=== PATIENT | female | born 1950 | race Caucasian/White ===

== ENCOUNTER 2016-11-11 12:27 | Emergency (ER) | payer MEDICARE ==
[~2016-11-11] VITALS: Ht 162.6 cm; Wt 98.0 kg
[~2016-11-11 12:27] MED LIST: ATOR40TA49 PO; CIPR500T2 PO; CYMB60CA PO; ECOT81TA2 PO; GABA100C4 PO; LISI-360 PO; METF500 PO; NIFE1TAB86 PO
[2016-11-11 12:35] VITALS: BP 168/92; PULSE 83; RESP 16; TEMP 99.4; O2SAT 98
[2016-11-11] MEDS ORDERED: ACETAMINOPHEN/HYDROcodone 325 MG/7.5 MG TAB PO ONE (13:15)
--- NOTE | 2016-11-11 13:15 | PD ---
HPI Chief Complaint: Pain: Acute or Chronic Time Seen by Provider: 13:11 Travel History International Travel<30 days: No Contact w/Intl Traveler<30days: No Traveled to known affect area: No History of Present Illness HPI Patient is a 66-year-old female presenting with right lower extremity pain and rash. She states the pain is present for 3 days. It is severe and the only characteristic is sharp. It does not radiate. It is in the thigh and knee. This morning she developed a rash in the area. She agrees that it doesn't burn. She denies any new weakness or paresthesias in the extremity but states she has some chronic right lower extremity weakness secondary to CVA. She denies fever, chills, nausea and vomiting. She states that she has not felt well since yesterday but denies any specific complaint. She denies abdominal pain, lymphadenopathy, headache, neck stiffness and ENT/URI symptoms. She denies any trauma or injury. She is on metformin for diabetes which is well controlled. Denies any immunocompromised states. PFSH Past Medical History Arthritis: Yes Asthma: No Autoimmune Disease: No Blood Disorders: No Anxiety: Yes Depression: Yes Heart Rhythm Problems: Yes Cancer: Yes (LEFT BREAST) Cardiovascular Problems: Yes High Cholesterol: Yes Chemotherapy: Yes Chest Pain: No Congestive Heart Failure: No COPD: No Cerebrovascular Accident: Yes Diabetes: Yes Diminished Hearing: No Endocrine: Yes Gastrointestinal Disorders: Yes (METFORMIN INDUCED DIARRHEA) GERD: No Glaucoma: No Genitourinary: No Headaches: Yes Hepatitis: No Hiatal Hernia: No Herniated Disk: Yes Hypertension: Yes Immune Disorder: No Kidney Stones: No Musculoskeletal: Yes (SPINAL STENOSIS) Neurologic: Yes Psychiatric: Yes Reproductive: No Respiratory: No Migraines: Yes (years ago) Myocardial Infarction: No Radiation Therapy: Yes Seizures: No Sleep Apnea: No 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) Ulcer: No PNEUMOCCOCAL Vaccine (Year): 1 Menopausal: Yes Past Surgical History Abdominal Surgery: Yes (CHOLECYSTECTOMY) Section: Yes Cholecystectomy: Yes Ear Surgery: No Eye Surgery: No Gynecologic Surgery: Yes (C SECTION) Insulin Pump: No Joint Replacement: Yes (LT KNEE 11/2004) Oral Surgery: No Pacemaker: No Thoracic Surgery: Yes (LEFT BREAST BX/LUMPECTOMY) Other Surgery: Yes (LUMBAR SPINAL FUSION BACK) Social History Alcohol Use: No Tobacco Use: No Substance Use: No Allergies-Medications (Allergen,Severity, Reaction): Coded Allergies: Allopurinol (Verified Allergy, Severe, Hives, 11/11/16) Clonidine (Verified Allergy, Severe, LETHARGY,SHAKING, 11/11/16) Fiorinal (Verified Allergy, Severe, Hallucinations, 11/11/16) Sulfa (Verified Allergy, Severe, HIVES, 11/11/16) Morphine (Verified Adverse Reaction, Severe, SHAKING, HEADACHE, 11/11/16) *MDRO Multi-Drug Resistant Organism (Verified Adverse Reaction, Unknown, ) ESBL+E.Coli (urine-06/13/16) Reported Meds & Prescriptions Reported Meds & Active Scripts Active Lortab (Hydrocodone-Acetaminophen) 7.5-325 Mg Tab 1 Tab PO Q6H PRN Valacyclovir (Valacyclovir HCl) 1 Gm Tab 1,000 Mg PO TID Reported Nifedipine ER 24 HR (Nifedipine) 60 Mg Tab 60 Mg PO DAILY Metformin (Metformin HCl) 1,000 Mg Tab 1,000 Mg PO BIDPC With meals Lisinopril 10 Mg Tab 10 Mg PO DAILY Gabapentin 100 Mg Cap 100 Mg PO TID Lipitor (Atorvastatin Calcium) 40 Mg Tab 40 Mg PO HS Aspirin 81 Mg Chew 81 Mg CHEW DAILY Review of Systems Except as stated in HPI: all other systems reviewed are Neg Physical Exam Narrative GENERAL: Well-developed and well-nourished adult female in no acute distress. SKIN: 3 areas of grouped vesicles on the anterior right lower extremity in the mid thigh, the knee and calf approximately in the L2-L3 distribution. No lesions posteriorly or on the left lower extremity. Warm and dry. Good turgor without tenting. HEAD: Normocephalic and atraumatic. EYES: PERRL bilaterally, 5mm. EOMI bilaterally. No injection or icterus present. No proptosis. Lids without edema or erythema. ENT: Buccal mucosa pink and moist. Oropharynx free of erythema, tonsillar hypertrophy, masses, swelling, asymmetry and exudates. Uvula midline and airway patent. NECK: Supple, no meningeal signs. Trachea midline, no JVD. No cervical or facial lymphadenopathy. CARDIOVASCULAR: Regular rate and rhythm without murmurs, rubs, clicks or gallops. Dorsalis pedis and posterior tibial pulses 2+ bilaterally. No pedal edema. RESPIRATORY: Clear to auscultation bilaterally with symmetrical rise and fall, no distress or use of accessory muscles. GASTROINTESTINAL: Non-tender, non-distended. Normal bowel sounds all 4 quadrants. No masses or organomegaly present. MUSCULOSKELETAL: Patient has tenderness around the vesicular lesions on the right lower extremity anteriorly without any edema, ecchymosis, crepitus or step -offs. Full range of motion of the right hip knee. Patient freely moving all four extremities spontaneously. Extremities without clubbing, cyanosis, or edema. No obvious deformities. NEUROLOGIC: CN II-XII grossly intact. Awake and alert. Motor grossly within normal limits. Normal speech. PSYCHIATRIC: Appropriate mood and affect; insight and judgment normal. Data Data Last Documented VS Vital Signs Date Time Temp Pulse Resp B/P Pulse Ox O2 Delivery O2 Flow Rate FiO2 11/11/16 12:35 99.4 83 16 168/92 98 Orders Acetamin-Hydrocod 325-7.5 Mg ([place] 7.5 (11/11/16 13:15) MDM Medical Decision Making Medical Screen Exam Complete: Yes Emergency Medical Condition: Yes Differential Diagnosis Shingles versus leg pain versus myalgia versus viral syndrome Narrative Course Patient is a 66-year-old female presenting with history and physical consistent with shingles to the right lower extremity. She is afebrile and nontoxic appearing. She reports feeling somewhat fatigued over the last day likely secondary to viral syndrome. She has well controlled diabetes and is not on any immunocompromising states. I discussed with Dr. Gan who agrees no additional workup is indicated at this time. Patient is feeling much better after Lortab given. She is given a prescription for Lortab and valacyclovir and recommend follow-up with her PCP Dr. Betts tomorrow or Friday.See discharge paperwork for further instructions. The plan was discussed with the patient who acknowledged their understanding and agreement. Reinforced the follow-up with primary care is critically important. Patient instructed on emergent conditions that should prompt return to ED. Diagnosis Primary Impression: Shingles Qualified Code: B02.9 - Herpes zoster without complication Patient Instructions: General Instructions, Shingles (ED) Additional Instructions: Take medications as prescribed Your medications may cause drowsiness. Do not take with alcohol or sedatives. Do not operate a motor vehicle or heavy machinery while on medication. Do not pick at or scratch the rash/lesions on your skin Follow-up with your PCP in one to 2 days Return to the ED for any acute worsening of symptoms Med/Other Pt SpecificInfo: Prescription(s) given Scripts Hydrocodone-Acetaminophen (Lortab)7.5-325 Mg Tab1 Tab PO Q6H PRN (PAIN) #15 TAB Ref 0 Prov:Florence Gan MD 11/11/16 Valacyclovir 1 Gm Tab1,000 Mg PO TID #21 TAB Ref 0 Prov:Florence Gan MD 11/11/16 Disposition: 01 DISCHARGE HOME Condition: Stable Boris Amanda III Nov 11, 2016 13:15
[2016-11-11] MEDS ORDERED: HYDR-3534 PO (13:17)
[2016-11-11] MEDS ORDERED: VALA1TAB PO (13:17)
[2016-11-11] MEDS ORDERED: METF1000 PO (13:30)
[2016-11-11] MEDS ORDERED: LISI10TA3 PO (13:30)
[2016-11-11] MEDS ORDERED: GABA100C4 PO (13:30)
[2016-11-11] MEDS ORDERED: ASPI81CH PO (13:30)
[2016-11-11] MEDS ORDERED: NIFE60TA58 PO (13:30)
[2016-11-11] MEDS ORDERED: LIPI40TA PO (13:30)
== END 2016-11-11 14:25 | disposition home or self-care (01) ==
LOC: PHEFT 12:27
DX: B02.9 Zoster without complications (principal); E11.9 Type 2 diabetes mellitus without complications; I10 Essential (primary) hypertension; E78.00 Pure hypercholesterolemia, unspecified; E07.9 Disorder of thyroid, unspecified; I69.351 Hemiplegia and hemiparesis following cerebral infarction affecting right dominant side; Z79.84 Long term (current) use of oral hypoglycemic drugs; Z87.39 Personal history of other diseases of the musculoskeletal system and connective tissue; Z86.59 Personal history of other mental and behavioral disorders; Z86.79 Personal history of other diseases of the circulatory system; Z85.3 Personal history of malignant neoplasm of breast; Z87.19 Personal history of other diseases of the digestive system; Z86.69 Personal history of other diseases of the nervous system and sense organs
CPT/HCPCS: 99283

== ENCOUNTER 2016-12-14 15:25 | Emergency (ER) | payer MEDICARE ==
[~2016-12-14] VITALS: Ht 162.6 cm; Wt 81.8 kg
[2016-12-14 15:25] VITALS: BP_SYST 184; BP_SYST 198; BP_DIAS 77; BP_DIAS 79; PULSE 69; PULSE 73; RESP 18; TEMP 98.2; O2SAT 95
[~2016-12-14 15:25] MED LIST changes: +ASPI81CH PO; -ATOR40TA49 PO; -CIPR500T2 PO; -CYMB60CA PO; -ECOT81TA2 PO; +HYDR-3534 PO; +LIPI40TA PO; -LISI-360 PO; +LISI10TA3 PO; +METF1000 PO; -METF500 PO; -NIFE1TAB86 PO; +NIFE60TA58 PO; +VALA1TAB PO
[2016-12-14] MEDS ORDERED: TRAZ100T4 PO (15:53)
[2016-12-14] MEDS ORDERED: GABA600T PO (15:53)
[2016-12-14] MEDS ORDERED: METF500T PO (15:53)
[2016-12-14] MEDS ORDERED: IBUP200C PO (15:53)
[2016-12-14] MEDS ORDERED: LISI-515 PO (15:53)
[2016-12-14] MEDS ORDERED: FURO40TA PO (15:53)
[2016-12-14] MEDS ORDERED: CYMB60CA PO (15:53)
--- NOTE | 2016-12-14 15:58 | PD ---
HPI Chief Complaint: Pain: Acute or Chronic Time Seen by Provider: 15:54 Travel History International Travel<30 days: No Contact w/Intl Traveler<30days: No Traveled to known affect area: No History of Present Illness HPI 66-year-old female presents to the emergency department for evaluation of right leg pain as well as abdominal pain. Patient states she was diagnosed with shingles approximately 2 weeks ago. She ran out of her pain medication, [place], 2 days ago and has had increasing pain in her right leg. Patient states the pain is around her rash. The patient also reports lower abdominal pain with dysuria and foul-smelling urine. She denies any fevers. She denies any chest pain or shortness of breath. No nausea or vomiting. Patient has a history of hypertension, hyperlipidemia, diabetes, anxiety, depression chronic pain, history of breast cancer, CVA. She lives at home with her son. PFSH Past Medical History Arthritis: Yes Asthma: No Autoimmune Disease: No Blood Disorders: No Anxiety: Yes Depression: Yes Heart Rhythm Problems: Yes Cancer: Yes (LEFT BREAST) Cardiovascular Problems: Yes High Cholesterol: Yes Chemotherapy: Yes Chest Pain: No Congestive Heart Failure: No COPD: No Cerebrovascular Accident: Yes Diabetes: Yes Patient Takes Glucophage: Yes (12/13/16) Diminished Hearing: No Endocrine: Yes Gastrointestinal Disorders: Yes (METFORMIN-INDUCED DIARRHEA) GERD: No Glaucoma: No Genitourinary: No Headaches: Yes Hepatitis: No Hiatal Hernia: No Herniated Disk: Yes Hypertension: Yes Immune Disorder: No Kidney Stones: No Medical other: Yes (ARTHRITIS- HERNIATED DISC) Musculoskeletal: Yes (SPINAL STENOSIS) Neurologic: Yes Psychiatric: Yes Reproductive: No Respiratory: No Migraines: Yes (years ago) Myocardial Infarction: No Radiation Therapy: Yes Seizures: No Sleep Apnea: No 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) Ulcer: No Tetanus Vaccination: > 5 Years Influenza Vaccination: Yes PNEUMOCCOCAL Vaccine (Year): 1 ?: Not Menopausal: Yes Past Surgical History Abdominal Surgery: Yes (CHOLECYSTECTOMY) Section: Yes Cholecystectomy: Yes Ear Surgery: No Eye Surgery: No Gynecologic Surgery: Yes (C SECTION) Insulin Pump: No Joint Replacement: Yes (LT KNEE 11/2004) Oral Surgery: No Pacemaker: No Thoracic Surgery: Yes (LEFT BREAST BX/LUMPECTOMY) Other Surgery: Yes (LUMBAR SPINAL FUSION BACK) Social History Alcohol Use: No Tobacco Use: No Substance Use: No Allergies-Medications (Allergen,Severity, Reaction): Coded Allergies: Allopurinol (Verified Allergy, Severe, Hives, 12/14/16) Clonidine (Verified Allergy, Severe, LETHARGY,SHAKING, 12/14/16) Fiorinal (Verified Allergy, Severe, Hallucinations, 12/14/16) Sulfa (Verified Allergy, Severe, HIVES, 12/14/16) Morphine (Verified Adverse Reaction, Severe, SHAKING, HEADACHE, 12/14/16) *MDRO Multi-Drug Resistant Organism (Verified Adverse Reaction, Unknown, ) ESBL+E.Coli (urine-06/13/16) Reported Meds & Prescriptions Reported Meds & Active Scripts Active Keflex (Cephalexin) 500 Mg Cap 500 Mg PO Q8H 7 Days Lortab (Hydrocodone-Acetaminophen) 7.5-325 Mg Tab 1 Tab PO Q6H PRN Reported Trazodone (Trazodone HCl) 100 Mg Tab 200 Mg PO HS PRN Ibuprofen 200 Mg Cap 200 Mg PO Q6H PRN Furosemide 40 Mg Tab 40 Mg PO DAILY Cymbalta DR (Duloxetine HCl) 60 Mg Capdr 60 Mg PO DAILY Metformin (Metformin HCl) 500 Mg Tab 500 Mg PO BID With meals Lisinopril 20 Mg Tab 20 Mg PO DAILY Gabapentin 600 Mg Tab 600 Mg PO TID Nifedipine ER 24 HR (Nifedipine) 60 Mg Tab 60 Mg PO DAILY Lipitor (Atorvastatin Calcium) 40 Mg Tab 40 Mg PO HS Aspirin 81 Mg Chew 81 Mg PO DAILY Review of Systems Except as stated in HPI: all other systems reviewed are Neg Physical Exam Narrative GENERAL: Well-developed well-nourished elderly female patient, afebrile. SKIN: Warm and dry. There are vesicles noted just above and below the knee on the right leg consistent with L3 to L4 distribution. She has tenderness to palpation around this area, but no other tenderness. No calf tenderness to palpation. HEAD: Normocephalic. Atraumatic. EYES: No scleral icterus. No injection or drainage. NECK: Supple, trachea midline. No JVD or lymphadenopathy. CARDIOVASCULAR: Regular rate and rhythm without murmurs, gallops, or rubs. RESPIRATORY: Breath sounds equal bilaterally. No accessory muscle use. Sounds are clear to auscultation. GASTROINTESTINAL: Abdomen soft and nondistended. Patient has epigastric tenderness to palpation as well as lower abdominal pain to palpation. MUSCULOSKELETAL: No cyanosis, or edema. BACK: Nontender without obvious deformity. No CVA tenderness. Data Data Last Documented VS Vital Signs Date Time Temp Pulse Resp B/P Pulse Ox O2 Delivery O2 Flow Rate FiO2 12/14/16 15:25 98.2 73 18 184/77 95 12/14/16 15:25 Room Air Orders Complete Blood Count With Diff (12/14/16 15:47) Comprehensive Metabolic Panel (12/14/16 15:47) Lipase (12/14/16 15:47) Urinalysis - C+S If Indicated (12/14/16 15:47) Ct Abd/Pel W Iv Contrast(Rout) (12/14/16 15:47) Iv Access Insert/Monitor (12/14/16 15:47) Ecg Monitoring (12/14/16 15:47) Oximetry (12/14/16 15:47) Sodium Chloride 0.9% Flush (Ns Flush) (12/14/16 16:00) Electrocardiogram (12/14/16 15:47) Cath For Specimen (12/14/16 15:52) Urine Culture (12/14/16 15:55) Iohexol 350 Inj (Omnipaque 350 Inj) (12/14/16 17:43) Lisinopril (Prinivil) (12/14/16 18:15) Ceftriaxone Inj (Rocephin Inj) (12/14/16 18:15) Acetamin-Hydrocod 325-5 Mg ([place] 5-325 (12/14/16 18:15) Labs Laboratory Tests Test 12/14/16 15:55 White Blood Count 7.2 TH/MM3 Red Blood Count 3.85 MIL/MM3 Hemoglobin 10.6 GM/DL Hematocrit 31.9 % Mean Corpuscular Volume 82.7 FL Mean Corpuscular Hemoglobin 27.5 PG Mean Corpuscular Hemoglobin 33.3 % Concent Red Cell Distribution Width 15.8 % Platelet Count 254 TH/MM3 Mean Platelet Volume 8.9 FL Neutrophils (%) (Auto) 68.5 % Lymphocytes (%) (Auto) 20.4 % Monocytes (%) (Auto) 8.4 % Eosinophils (%) (Auto) 1.7 % Basophils (%) (Auto) 1.0 % Neutrophils # (Auto) 4.9 TH/MM3 Lymphocytes # (Auto) 1.5 TH/MM3 Monocytes # (Auto) 0.6 TH/MM3 Eosinophils # (Auto) 0.1 TH/MM3 Basophils # (Auto) 0.1 TH/MM3 CBC Comment DIFF FINAL Differential Comment Urine Color YELLOW Urine Turbidity CLOUDY Urine pH 6.0 Urine Specific [place] 1.025 Urine Protein 300 mg/dL Urine Glucose (UA) TRACE mg/dL Urine Ketones TRACE mg/dL Urine Occult Blood SMALL Urine Nitrite POS Urine Bilirubin NEG Urine Urobilinogen LESS THAN 2.0 MG/DL Urine Leukocyte Esterase LARGE Urine RBC 10 /hpf Urine WBC /hpf Urine WBC Clumps FEW Urine Squamous Epithelial 2 /hpf Cells Urine Bacteria MANY /hpf Urine Mucus MANY /lpf Microscopic Urinalysis Comment CULTURE INDICATED Sodium Level 144 MEQ/L Potassium Level 3.5 MEQ/L Chloride Level 107 MEQ/L Carbon Dioxide Level 30.2 MEQ/L Anion Gap 7 MEQ/L Blood Urea Nitrogen 9 MG/DL Creatinine 0.65 MG/DL Estimat Glomerular Filtration 92 ML/MIN Rate Random Glucose 150 MG/DL Calcium Level 8.8 MG/DL Total Bilirubin 0.3 MG/DL Aspartate Amino Transf 14 U/L (AST/SGOT) Alanine Aminotransferase 11 U/L (ALT/SGPT) Alkaline Phosphatase 63 U/L Total Protein 7.0 GM/DL Albumin 2.7 GM/DL Lipase 96 U/L [facility] Medical Decision Making Medical Screen Exam Complete: Yes Emergency Medical Condition: Yes Medical Record Reviewed: Yes Interpretation(s) Last Impressions Abdomen/Pelvis CT 12/14/16 1547 Signed Impressions: Service Date/Time: Wednesday, December 14, 2016 17:21 - CONCLUSION: No acute disease. Jamari Araujo MD Differential Diagnosis Chronic pain versus herpes zoster versus UTI versus pancreatitis versus cholecystitis Narrative Course 66-year-old female presents to the emergency department complaining of right leg pain and abdominal pain. Patient has history of shingles and is on Lortab for pain. She states her primary care physician would not give her another refill. EKG, CBC, CMP, lipase, UA, CT abdomen/pelvis are ordered and pending. EKG shows sinus rhythm, heart rate 61, no acute ST changes. CBC shows hemoglobin 10.6, hematocrit 31.9 which is stable for patient. CMP shows no acute abnormality. Lipase is 96. UA shows small occult blood, positive nitrate , large leukocyte esterase, innumerable WBC and few wbc clumps. CT abdomen/ pelvis shows no acute disease shows no acute disease. Patient is hypertensive in the emergency department, she states she did not take her blood pressure medications this morning. She denies any associated complaints. Patient is given Lortab 5/325 mg the emergency department. She is given her dose of lisinopril 20 mg by mouth. She is also given Rocephin 1 g IV for UTI. Patient was discharged prescription for Keflex for UTI. She is instructed to follow-up with her primary care physician for further pain medication. She is to return for any acute worsening of symptoms. Patient verbalizes agreement and understanding. The patient was discharged in stable condition with instructions, including return instructions and follow up instructions. Diagnosis Primary Impression: UTI (lower urinary tract infection) Additional Impressions: Shingles Qualified Code: B02.9 - Herpes zoster without complication Chronic pain Qualified Code: G89.29 - Other chronic pain Referrals: Primary Care Physician call for appointment Patient Instructions: General Instructions, Shingles (ED), Urinary Tract Infection in Women (ED) Additional Instructions: Take Keflex, antibiotic, as directed until gone. Take Lortab as instructed as needed for pain. Caution this can make you drowsy. Fall precautions. Follow-up with your primary care physician for further refills of pain medication. Return to the emergency department for any acute worsening of symptoms. Med/Other Pt SpecificInfo: Prescription(s) given Scripts Hydrocodone-Acetaminophen (Lortab)5-325 Mg Tab1 Tab PO Q6H PRN (PAIN) 16 Days Ref 0 Prov:Renee Duran MD 12/14/16 Cephalexin (Keflex)500 Mg Apa435 Mg PO Q8H 7 Days Ref 0 Prov:Genna Mendes 12/14/16 Disposition: 01 DISCHARGE HOME Condition: Stable Genna Mendes Dec 14, 2016 15:58
[2016-12-14] MEDS ORDERED: SODIUM CHLORIDE 0.9% FLUSH 5 ML FLUSH IVF PRN (16:00)
--- NOTE | 2016-12-14 16:28 | PD ---
Physical Exam Date Seen by Provider: Dec 14, 2016 Narrative Patient presents stating that she has urinary tract infection and that she still has pain due to shingles. Data Data Last Documented VS Vital Signs Date Time Temp Pulse Resp B/P Pulse Ox O2 Delivery O2 Flow Rate FiO2 12/14/16 15:25 98.2 73 18 184/77 95 12/14/16 15:25 Room Air Orders Complete Blood Count With Diff (12/14/16 15:47) Comprehensive Metabolic Panel (12/14/16 15:47) Lipase (12/14/16 15:47) Urinalysis - C+S If Indicated (12/14/16 15:47) Ct Abd/Pel W Iv Contrast(Rout) (12/14/16 15:47) Iv Access Insert/Monitor (12/14/16 15:47) Ecg Monitoring (12/14/16 15:47) Oximetry (12/14/16 15:47) Sodium Chloride 0.9% Flush (Ns Flush) (12/14/16 16:00) Electrocardiogram (12/14/16 15:47) Cath For Specimen (12/14/16 15:52) MDM Supervised Visit with PRISCILLA: Yes Narrative Course I, Dr. Duran, have reviewed the advance practice practitioner's documentation and am in agreement, met with the patient face to face, made the diagnosis, and the medical decision making was done by me. *My assessment and Findings: Patient appears a little bit dramatic. She has very subtle lesions on her right leg. They appear to be mostly healed. Renee Duran MD Dec 14, 2016 16:28
[2016-12-14 16:38] LABS: AUTOMATED NEUTROPHIL # 4.9 TH/MM3 (1.8-7.7); BASOPHIL # 0.1 TH/MM3 (0-0.2); EOSINOPHIL # 0.1 TH/MM3 (0-0.4); EOSINOPHIL % 1.7 % (0.0-4.0); HEMATOCRIT 31.9 % (35.0-46.0); HEMO FLAGS DIFF FINAL; LYMPH % 20.4 % (9.0-44.0); LYMPHOCYTE # 1.5 TH/MM3 (1.0-4.8); MEAN CELL VOLUME 82.7 FL (80.0-100.0); MEAN CORPUSCULAR HEMOGLOBIN 27.5 PG (27.0-34.0); MEAN CORPUSCULAR HGB CONC 33.3 % (32.0-36.0); MONO % 8.4 % (0.0-8.0); NEUT % 68.5 % (16.0-70.0); PLATELET COUNT 254 TH/MM3 (150-450); RED BLOOD COUNT 3.85 MIL/MM3 (4.00-5.30); RED CELL DISTRIBUTION WIDTH 15.8 % (11.6-17.2); WHITE BLOOD COUNT 7.2 TH/MM3 (4.0-11.0)
[2016-12-14 16:45] LABS: BACTERIA, URINE MANY /hpf; BLOOD, URINE SMALL (NEG); COMMENT (UR) CULTURE INDICATED; CULTURE IF INDICATED CULTURE INDICATED; GLUCOSE,URINE TRACE mg/dL (NEG); KETONE, URINE TRACE mg/dL (NEG); MUCUS URINE MANY /lpf (OCC); SQUAMOUS EPITHELIAL CELL URINE 2 /hpf (0-5); URINE COLOR YELLOW (YELLW/STRAW)
[2016-12-14 16:47] LABS: NITRITE,URINE POS (NEG)
[2016-12-14 16:53] LABS: ALT (GPT) 11 U/L (10-53); ANION GAP 7 MEQ/L (5-15); BICARBONATE 30.2 MEQ/L (21.0-32.0); BLOOD UREA NITROGEN 9 MG/DL (7-18); CHLORIDE 107 MEQ/L (98-107); GLOMERULAR FILTRATION RATE 92 ML/MIN (>89); POTASSIUM 3.5 MEQ/L (3.5-5.1); SODIUM (NA) 144 MEQ/L (136-145)
[2016-12-14 16:56] LABS: ALKALINE PHOSPHATASE 63 U/L (45-117); AST (GOT) 14 U/L (15-37); TOTAL BILIRUBIN ADULT 0.3 MG/DL (0.2-1.0)
[2016-12-14] MEDS ORDERED: IOHEXOL 350 MG/ML 10 ML VIAL (for RAD DIAG) IV ONE (17:43)
--- NOTE | 2016-12-14 17:56 | RADRPT ---
EXAM DATE/TIME: 12/14/2016 17:21 [facility] COMPARISON: CT ABDOMEN & PELVIS W CONTRAST, May 24, 2013, 22:44. INDICATIONS : Lower abdominal pain. IV CONTRAST: 97 cc Omnipaque 350 (iohexol) IV ORAL CONTRAST: No oral contrast ingested. RADIATION DOSE: 12.92 CTDIvol (mGy) MEDICAL HISTORY : Carcinoma, breast. Diabetes mellitus type 2. Hypertension.Stroke. SURGICAL HISTORY : Cholecystectomy. Fusion, lumbar. ENCOUNTER: Initial ACUITY: 2 days PAIN SCALE: 5/10 LOCATION: Bilateral lower quadrant TECHNIQUE: Volumetric scanning of the abdomen and pelvis was performed. Using automated exposure control and ad justment of the mA and/or kV according to patient size, radiation dose was kept as low as reasonably achievable to obtain optimal diagnostic quality images. FINDINGS: Patient is status post cholecystectomy. No pleural pericardial effusions are seen. There is slight pr ominence of the intrahepatic biliary tree, possibly related to a reservoir effect. Liver, spleen, jain creas, adrenal glands, bilateral kidneys are unremarkable. Stomach unremarkable. There is no evidence of bowel obstruction. There is a tiny fat containing umbilical hernia. Urinary bladder is not well d istended. Uterus and adnexal regions are unremarkable. There is diverticulosis of the sigmoid colon w ithout diverticulitis. No inflammatory changes are seen within the abdomen or pelvis. No aneurysm or adenopathy. Posterior aurea and transpedicular screw fixation and intervertebral fusion is noted at L3- 4. Lung bases are clear. There is diverticulosis without diverticulitis. CONCLUSION: No acute disease. Jamari Araujo MD on December 14, 2016 at 17:52 Board Certified Radiologist. This report was verified electronically.
[2016-12-14 18:00] VITALS: BP 215/86; PULSE 60; RESP 16; O2SAT 97
[2016-12-14] MEDS ORDERED: ACETAMINOPHEN/HYDROcodone 325 MG/5 MG TAB PO ONE (18:15)
[2016-12-14] MEDS ORDERED: cefTRIAXone INJ 1,000 MG in SODIUM CHLORIDE 0.9% INJ 100 ML IV ONE (18:15)
[2016-12-14] MEDS ORDERED: LISINOPRIL 20 MG TAB PO ONE (18:15)
[2016-12-14] MEDS ORDERED: CEPH-460 PO (18:21)
[2016-12-14] MEDS ORDERED: HYDR-3533 PO (18:23)
[2016-12-14 20:08] VITALS: BP 198/89
--- NOTE | 2016-12-15 14:21 | EKG ---
Date Performed: 12/14/2016 Time Performed: 16:25:29 PTAGE: 66 years EKG: Sinus rhythm MINIMAL ST DEPRESSION BORDERLINE ECG Compared to prior tracing no significant change NO PREVIOUS TRACING DOCTOR: Bunny Szymanski Interpretating Date/Time 12/15/2016 14:20:17
== END 2016-12-14 20:09 | disposition home or self-care (01) ==
LOC: NEPA 15:25
DX: N39.0 Urinary tract infection, site not specified (principal); B96.20 Unspecified Escherichia coli [E. coli] as the cause of diseases classified elsewhere; B02.9 Zoster without complications; G89.29 Other chronic pain; R10.30 Lower abdominal pain, unspecified; E11.9 Type 2 diabetes mellitus without complications; I10 Essential (primary) hypertension; E78.00 Pure hypercholesterolemia, unspecified; Z79.84 Long term (current) use of oral hypoglycemic drugs
CPT/HCPCS: 74177; 80053; 81001; 83690; 85025; 87077; 87086; 87186; 93005; 96374; 99284; J0696; P9612; Q9967

== ENCOUNTER 2016-12-30 19:40 | Inpatient (IN) | payer MEDICARE ==
[~2016-12-30 19:40] MED LIST changes: +CEPH-460 PO; +CYMB60CA PO; +FURO40TA PO; -GABA100C4 PO; +GABA600T PO; +HYDR-3533 PO; +IBUP200C PO; +LISI-515 PO; -LISI10TA3 PO; -METF1000 PO; +METF500T PO; +TRAZ100T4 PO; -VALA1TAB PO
[2016-12-30 19:47] VITALS: BP 180/91; PULSE 85; RESP 18; TEMP 98; O2SAT 97
[2016-12-30 19:59] VITALS: PULSE 88; RESP 18; O2SAT 98
[2016-12-30] MEDS ORDERED: ONDANSETRON HCL 4 MG/2 ML VIAL IV PUSH ONE (20:00)
[2016-12-30] MEDS ORDERED: SODIUM CHLOR 0.9% 1000 ML INJ 1,000 ML IV ONE ×2 (20:00→21:15)
--- NOTE | 2016-12-30 20:01 | PD ---
HPI Chief Complaint: Fall Time Seen by Provider: 19:54 Travel History International Travel<30 days: No Contact w/Intl Traveler<30days: No Traveled to known affect area: No History of Present Illness HPI The patient is a 66 year old female who presents to the [facility] emergency department with a history of generalized weakness and reported syncope prior to arrival in her bathroom. According to ambulance services the patient was being assisted to the bathroom by her son. He was able to ease her to the ground. She has been experiencing diarrhea according to them. The patient also has had nausea and vomiting. The patient's history otherwise is limited at this time is the patient will only answer by shaking her head yes and no. The patient reports that she is not able to speak related to generalized weakness. The patient's recent history is complicated by having urinary tract infection and being on antibiotic for this. Her prior to arrival was 114. The patient's son was available at the bedside more history, otherwise patient's history is obtained by reviewing the patient's electronic medical record. [facility] Past Medical History Narrative Medical The patient's past medical history is significant for chronic pain in her arms and legs, hypertension, hyperlipidemia, prior history of ischemic stroke, diabetes mellitus, anxiety and depression, history of chronic low back pain in spite of lumbar surgery, breast cancer left breast lumpectomy followed by chemotherapy and radiation., Prior history of stroke reportedly involving the left thalamic area, left cerebellar peduncle and other prior lacunar infarcts. The patient has a history of thyroid nodule, recent history of recurrent urinary tract infections and shingles. Arthritis: Yes Asthma: No Autoimmune Disease: No Blood Disorders: No Anxiety: Yes Depression: Yes Heart Rhythm Problems: Yes Cancer: Yes (LEFT BREAST) Cardiovascular Problems: Yes High Cholesterol: Yes Chemotherapy: Yes Chest Pain: No Congestive Heart Failure: No COPD: No Cerebrovascular Accident: Yes Diabetes: Yes Diminished Hearing: No Endocrine: Yes Gastrointestinal Disorders: Yes (METFORMIN-INDUCED DIARRHEA) GERD: No Glaucoma: No Genitourinary: No Headaches: Yes Hepatitis: No Hiatal Hernia: No Herniated Disk: Yes Hypertension: Yes Immune Disorder: No Kidney Stones: No Musculoskeletal: Yes (SPINAL STENOSIS) Neurologic: Yes Psychiatric: Yes Reproductive: No Respiratory: No Migraines: Yes (years ago) Myocardial Infarction: No Radiation Therapy: Yes Seizures: No Sleep Apnea: No 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) Ulcer: No PNEUMOCCOCAL Vaccine (Year): 1 Menopausal: Yes Past Surgical History Narrative Surgical The patient's past surgical history is significant for left breast lumpectomy, lumbar microdiscectomy, laminectomy, L3-L4 fusion, left knee replacement, cholecystectomy. Abdominal Surgery: Yes (CHOLECYSTECTOMY) Section: Yes Cholecystectomy: Yes Ear Surgery: No Eye Surgery: No Gynecologic Surgery: Yes (C SECTION) Insulin Pump: No Joint Replacement: Yes (LT KNEE 11/2004) Oral Surgery: No Pacemaker: No Thoracic Surgery: Yes (LEFT BREAST BX/LUMPECTOMY) Other Surgery: Yes (LUMBAR SPINAL FUSION BACK) Social History Alcohol Use: No Tobacco Use: No Substance Use: No Allergies-Medications (Allergen,Severity, Reaction): Coded Allergies: Allopurinol (Verified Allergy, Severe, Hives, 12/30/16) Clonidine (Verified Allergy, Severe, LETHARGY,SHAKING, 12/30/16) Fiorinal (Verified Allergy, Severe, Hallucinations, 12/30/16) Sulfa (Verified Allergy, Severe, HIVES, 12/30/16) Morphine (Verified Adverse Reaction, Severe, SHAKING, HEADACHE, 12/30/16) *MDRO Multi-Drug Resistant Organism (Verified Adverse Reaction, Unknown, ) ESBL+E.Coli (urine-06/13/16 & 12/14/16) Reported Meds & Prescriptions Reported Meds & Active Scripts Active Lortab (Hydrocodone-Acetaminophen) 5-325 Mg Tab 1 Tab PO Q6H PRN 16 Days Lortab (Hydrocodone-Acetaminophen) 7.5-325 Mg Tab 1 Tab PO Q6H PRN Reported Trazodone (Trazodone HCl) 100 Mg Tab 200 Mg PO HS PRN Ibuprofen 200 Mg Cap 200 Mg PO Q6H PRN Furosemide 40 Mg Tab 40 Mg PO DAILY Cymbalta DR (Duloxetine HCl) 60 Mg Capdr 60 Mg PO DAILY Metformin (Metformin HCl) 500 Mg Tab 500 Mg PO BID With meals Lisinopril 20 Mg Tab 20 Mg PO DAILY Gabapentin 600 Mg Tab 600 Mg PO TID Nifedipine ER 24 HR (Nifedipine) 60 Mg Tab 60 Mg PO DAILY Lipitor (Atorvastatin Calcium) 40 Mg Tab 40 Mg PO HS Aspirin 81 Mg Chew 81 Mg PO DAILY Review of Systems Except as stated in HPI: all other systems reviewed are Neg General / Constitutional: No: Fever Eyes: No: Visual changes HENT: No: Headaches Cardiovascular: No: Chest Pain or Discomfort Respiratory: No: Shortness of Breath Gastrointestinal: Positive: Nausea, Vomiting, Diarrhea, Changes in Bowel Habits , Loss of Appetite, No: Abdominal Pain, Hematemesis, Hematochezia, Constipation , Indigestion Genitourinary: No: Dysuria Musculoskeletal: Positive: Arthralgias, Pain Skin: No Rash Neurologic: Positive: Weakness (generalized weakness) Psychiatric: No: Depression Endocrine: No: Polydipsia Hematologic/Lymphatic: No: Easy Bruising Physical Exam Narrative General: The patient is a well-developed well-nourished female, with generalized weakness on arrival, the patient is making eye contact and gazing around the room, moving bilateral upper extremities equally, however when the patient is asked any questions she will now be answers, however no audible words are heard. The patient is disheveled appearing. The patient arrives without any clothes. The patient is covered and dry brown stool from her legs all the way up to her neck and the side of her face. Head and Neck exam: Head is normocephalic atraumatic. Eyes: EOMI, pupils are equal round and reactive to light. Nose: Midline septum with pink mucous membranes Mouth: Dentition unremarkable. Dry mucus membranes. Posterior oropharynx is not erythematous. No tonsillar hypertrophy. Uvula midline. Airway patent. Neck: No palpable lymphadenopathy. No nuchal rigidity. No thyromegaly. Cardiovascular: Regular rate and rhythm without murmurs, gallops, or rubs. Lungs: Clear to auscultation bilaterally. No wheezes, rhonchi, or rales. Abdomen: Soft, without tenderness to palpation in all 4 quadrants of the abdomen. No guarding, rebound, or rigidity. Normal bowel sounds are audible. No tenderness on palpation over McBurney's point. Extremities: No clubbing, cyanosis, or edema. 2+ pulses in all 4 extremities. The patient on examination is noted to have no pain on internal or external rotation of her right hip, no pain of the right knee or right ankle. The patient is noted to have old scar over the left knee consistent with her left knee replacement. The patient has left knee pain on palpation with decreased range of motion specifically with flexion beyond 30. The patient has no crepitus or step-off palpated. No erythema or ecchymosis. The patient also has pain with flexion of her left hip and internal and external rotation of her left hip. No left ankle pain or crepitus. Noted other deformity is noted. No shortening or rotation. Back: No spinous process tenderness to palpation. No costovertebral angle tenderness to palpation. Neurologic Exam: The patient is uncooperative with formal neurologic testing. The patient repeatedly waves her arms about when asked to answer questions and will mouth answers without any audible voice. The patient has generalized weakness of her lower extremities, 55 strength right and left upper extremity. Intact sensation over all dermatomes. No evidence of a facial asymmetry. The patient is uncooperative with formal extraocular motion testing, however she is looking around the room and appears to have no extraocular motion deficits. Skin Exam: No rash noted. Intact skin that is warm and dry. Data Data Last Documented VS Vital Signs Date Time Temp Pulse Resp B/P Pulse Ox O2 Delivery O2 Flow Rate FiO2 12/30/16 19:59 88 18 98 12/30/16 19:47 98.0 180/[address] Brain W/O Iv Contrast(Rout) (12/30/16 19:54) Ct Cerv Spine W/O Contrast (12/30/16 19:54) Hip, Uni(Ap&Lat) W Ap Pelvis (12/30/16 19:54) Knee, Complete (4vws) (12/30/16 19:54) Electrocardiogram (12/30/16 19:54) Complete Blood Count With Diff (12/30/16 19:54) Comprehensive Metabolic Panel (12/30/16 19:54) Creatine Kinase (Cpk) (12/30/16 19:54) Ckmb (Isoenzyme) Profile (12/30/16 19:54) Troponin I (12/30/16 19:54) B-Type Natriuretic Peptide (12/30/16 19:54) Prothrombin Time / Inr (Pt) (12/30/16 19:54) Act Partial Throm Time (Ptt) (12/30/16 19:54) Blood Culture (12/30/16 19:54) Lipase (12/30/16 19:54) Urinalysis - C+S If Indicated (12/30/16 19:54) Magnesium (Mg) (12/30/16 19:54) Thyroid Stimulating Hormone (12/30/16 19:54) Enteric Path (Stool) (12/30/16 19:54) C Diff Toxin Pcr (12/30/16 19:54) Chest, Single Ap (12/30/16 19:54) Iv Access Insert/Monitor (12/30/16 19:54) Ecg Monitoring (12/30/16 19:54) Oximetry (12/30/16 19:54) Urinary Catheter Insert/Apply (12/30/16 19:54) Stool Wbc (Leukocytes) (12/30/16 19:54) Lactic Acid Sepsis Protocol (12/30/16 19:54) Sodium Chlor 0.9% 1000 Ml Inj (Ns 1000 M (12/30/16 20:00) Ondansetron Inj (Zofran Inj) (12/30/16 20:00) Urine Culture (12/30/16 20:00) Magnesium Sulfate 1 Gm Premix (Magnesium (12/30/16 21:00) CKMB (12/30/16 20:00) CKMB% (12/30/16 20:00) Nitrofurantoin Monohyd Macrocr (Macrobid (12/30/16 21:15) Sodium Chlor 0.9% 1000 Ml Inj (Ns 1000 M (12/30/16 21:15) Comprehensive Metabolic Panel (12/31/16 06:00) Magnesium (Mg) (12/31/16 06:00) Lactic Acid (12/31/16 06:00) Admit To Inpatient (12/30/16 ) Inpatient Certification (12/30/16 ) Vital Signs (Adult) JENNI.Q4H (12/30/16 21:26) Diet 1800 Ada Cons Carb (12/31/16 Breakfast) Activity Oob With Assistance (12/30/16 21:26) ^ Fall Precautions (12/30/16 21:26) Vending Machine Host/Hostess / Telemetry JENNI.Q8H (12/30/16 21:26) Echo 2d Comp W/Dopp(Routine) (12/30/16 ) Nitrofurantoin Monohyd Macrocr (Macrobid (12/31/16 09:00) Ondansetron Inj (Zofran Inj) (12/30/16 21:30) Scd&Teds Bilateral/Knee High JENNI.QSHIFT (12/30/16 21:26) Tramadol (Ultram) (12/30/16 21:30) Ns + Kcl 20 Meq Inj (Ns + Kcl 20 Meq Inj (12/30/16 21:30) Admit Order (Ed Use Only) (12/30/16 21:34) Labs Laboratory Tests Test 12/30/16 20:00 White Blood Count 9.7 TH/MM3 Red Blood Count 4.40 MIL/MM3 Hemoglobin 11.9 GM/DL Hematocrit 36.1 % Mean Corpuscular Volume 82.2 FL Mean Corpuscular Hemoglobin 27.1 PG Mean Corpuscular Hemoglobin 33.0 % Concent Red Cell Distribution Width 15.2 % Platelet Count 326 TH/MM3 Mean Platelet Volume 8.7 FL Neutrophils (%) (Auto) 71.7 % Lymphocytes (%) (Auto) 17.0 % Monocytes (%) (Auto) 8.0 % Eosinophils (%) (Auto) 2.1 % Basophils (%) (Auto) 1.2 % Neutrophils # (Auto) 6.9 TH/MM3 Lymphocytes # (Auto) 1.6 TH/MM3 Monocytes # (Auto) 0.8 TH/MM3 Eosinophils # (Auto) 0.2 TH/MM3 Basophils # (Auto) 0.1 TH/MM3 CBC Comment DIFF FINAL Differential Comment Prothrombin Time 11.5 SEC Prothromb Time International 1.0 RATIO Ratio Activated Partial 22.3 SEC Thromboplast Time Urine Color YELLOW Urine Turbidity HAZY Urine pH 6.0 Urine Specific Potter 1.013 Urine Protein 100 mg/dL Urine Glucose (UA) NEG mg/dL Urine Ketones 10 mg/dL Urine Occult Blood TRACE Urine Nitrite NEG Urine Bilirubin NEG Urine Urobilinogen LESS THAN 2.0 MG/DL Urine Leukocyte Esterase LARGE Urine RBC 6 /hpf Urine WBC 113 /hpf Urine WBC Clumps FEW Urine Squamous Epithelial 1 /hpf Cells Urine Bacteria RARE /hpf Urine Hyaline Casts 4 /lpf Urine Mucus FEW /lpf Microscopic Urinalysis Comment CULTURE INDICATED Sodium Level 138 MEQ/L Potassium Level 3.8 MEQ/L Chloride Level 98 MEQ/L Carbon Dioxide Level 28.7 MEQ/L Anion Gap 11 MEQ/L Blood Urea Nitrogen 9 MG/DL Creatinine 0.83 MG/DL Estimat Glomerular Filtration 69 ML/MIN Rate Random Glucose 127 MG/DL Lactic Acid Level 2.2 mmol/L Calcium Level 8.9 MG/DL Magnesium Level 1.3 MG/DL Total Bilirubin 0.6 MG/DL Aspartate Amino Transf 28 U/L (AST/SGOT) Alanine Aminotransferase 12 U/L (ALT/SGPT) Alkaline Phosphatase 66 U/L Total Creatine Kinase 105 U/L Creatine Kinase MB 0.8 NG/ML Troponin I LESS THAN 0.02 NG/ML B-Type Natriuretic Peptide 39 PG/ML Total Protein 7.2 GM/DL Albumin 2.9 GM/DL Lipase 73 U/L Thyroid Stimulating Hormone 0.178 uIU/ML [address] [place] [address] Medical Decision Making Medical Screen Exam Complete: Yes Emergency Medical Condition: Yes Medical Record Reviewed: Yes Interpretation(s) Last Impressions Knee X-Ray 12/30/161953 Signed Impressions: Service Date/Time: Friday, December 30, 2016 20:29 - CONCLUSION: 1. No acute fracture or joint dislocation. 2. Good alignment of the knee prosthesis. Steffen Mtz MD Head CT 12/30/161953 Signed Impressions: Service Date/Time: Friday, December 30, 2016 20:31 - CONCLUSION: 1. Stable CT scan of the brain compared to the prior study. 2. 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 Steffen Mtz MD Chest X-Ray 12/30/161953 Signed Impressions: Service Date/Time: Friday, December 30, 2016 20:28 - CONCLUSION: No acute disease. No significant change has occurred. Steffen Mtz MD Differential Diagnosis Intracranial abnormality, versus cervical spine injury, versus left hip fracture , versus dislocation, versus left knee fracture, versus dislocation, versus altered mentation from electrolyte derangements, versus sepsis, versus infectious process such as urinary tract infection, versus C. difficile colitis Narrative Course During the course of the patients emergency department visit, the patients history, examination, and differential diagnosis were reviewed with the patient. The patient had IV access obtained and blood work sent for analysis. The patient was placed on a radiation monitor with oximetry and blood pressure monitoring. An EKG was ordered. Lactic acid was sent, blood cultures 2 were ordered. An x-ray of the pelvis, chest, left hip, left knee has been ordered. A CT scan of the head and neck has been ordered. The patient's EKG shows a sinus rhythm heart rate of 86, no acute ST segment elevation is noted. T waves are inverted in V1. The patient was provided normal saline 1 L IV fluid bolus was administered, Zofran 4 mg IV times one. The patients laboratory studies were reviewed and remarkable for a urinalysis that reveals continued urinary tract infection. A review of the electronic medical record reveals she was diagnosed with UTI on December 14. The culture was positive for a resistant form of Escherichia coli. The only medication that the patient's prior arterial urinary tract infection would be sensitive to is Macrobid. The patient unfortunately was given Rocephin and Keflex. This would explain the patient's continued UTI symptoms. The patient was given Macrobid 1 by mouth times one. The patient's white count is 9.7, hemoglobin 11.9, platelets 326 with 71.7 neutrophils, CMP is remarkable for a glucose of 127, magnesium 1.3 which was supplemented with 1 g IV over one hour, CPK 105, troponin I less than 0.02, albumin 2.9, TSH is 0.178 likely related to oversupplementation with her thyroid supplement. Lactic acid is 2.2- the patient was started on a second liter of normal saline IV fluids-I suspect that the elevated lactate is related to the patient's dehydration, PT 11.5, PTT 22.3, Radiology studies were reviewed and remarkable for CT scan of the brain that showed no acute intracranial abnormality, parotic gland swelling is noted that is slightly worse compared to previously. CT scan of the C-spine shows degenerative changes, no other acute abnormality. Left knee x-ray shows a prosthetic device, no other acute abnormality. Left hip x-ray shows no acute abnormality, pelvic x-ray shows no acute abnormality. Chest x-ray is unremarkable. The patients results were discussed with the patient, including the plan of care. I explained that further testing and/ or monitoring is indicated based on the patients history, examination, and/ or laboratory findings. Therefore, I recommended admission for additional evaluation. The patient expressed understanding and was agreeable with this plan. The patient was admitted to the hospital in stable condition and sent to a bed under the care of the [facility] hospitalist. Physician Communication Physician Communication The patient's case was discussed with Dr. Caba who did agree to admit the patient for further evaluation and treatment at this time. Diagnosis Primary Impression: Syncope and collapse Additional Impressions: Urinary tract infection Qualified Code: N39.0 - Urinary tract infection without hematuria, site unspecified Diarrhea Qualified Code: R19.7 - Diarrhea, unspecified type Hypomagnesemia Low TSH level Admitting Information Admitting Physician Requests: it Lynda Swain MD Dec 30, 2016 20:01
[2016-12-30 20:31] LABS: AUTOMATED NEUTROPHIL # 6.9 TH/MM3 (1.8-7.7); BASOPHIL # 0.1 TH/MM3 (0-0.2); BASOPHIL % 1.2 % (0.0-2.0); EOSINOPHIL # 0.2 TH/MM3 (0-0.4); EOSINOPHIL % 2.1 % (0.0-4.0); HEMATOCRIT 36.1 % (35.0-46.0); HEMO FLAGS DIFF FINAL; LYMPHOCYTE # 1.6 TH/MM3 (1.0-4.8); MEAN CELL VOLUME 82.2 FL (80.0-100.0); MEAN CORPUSCULAR HEMOGLOBIN 27.1 PG (27.0-34.0); NEUT % 71.7 % (16.0-70.0); PLATELET COUNT 326 TH/MM3 (150-450); RED CELL DISTRIBUTION WIDTH 15.2 % (11.6-17.2); WHITE BLOOD COUNT 9.7 TH/MM3 (4.0-11.0)
[2016-12-30 20:32] LABS: BACTERIA, URINE RARE /hpf; BLOOD, URINE TRACE (NEG); COMMENT (UR) CULTURE INDICATED; CULTURE IF INDICATED CULTURE INDICATED; GLUCOSE,URINE NEG (NEG); HYALINE CAST, URINE 4 /lpf (RARE); KETONE, URINE 10 mg/dL (NEG); MUCUS URINE FEW /lpf (OCC); NITRITE,URINE NEG (NEG); SQUAMOUS EPITHELIAL CELL URINE 1 /hpf (0-5); URINE COLOR YELLOW (YELLW/STRAW)
[2016-12-30 20:36] LABS: APTT (PATIENT) 22.3 SEC (24.3-30.1); PROTHROMBIN TIME - PATIENT 11.5 SEC (9.8-11.6)
--- NOTE | 2016-12-30 20:47 | RADRPT ---
EXAM DATE/TIME: 12/30/2016 20:28 [facility] COMPARISON: CHEST SINGLE AP, June 13, 2016, 14:28. INDICATIONS : Cough. MEDICAL HISTORY : None. SURGICAL HISTORY : None. ENCOUNTER: Initial ACUITY: 1 day PAIN SCORE: Non-responsive. LOCATION: Bilateral chest FINDINGS: A single view of the chest demonstrates the lungs to be symmetrically aerated without evidence of mas s, infiltrate or effusion. The cardiomediastinal contours are unremarkable. Osseous structures are intact. CONCLUSION: No acute disease. No significant change has occurred. Steffen Mtz MD on December 30, 2016 at 20:45 Board Certified Radiologist. This report was verified electronically.
--- NOTE | 2016-12-30 20:51 | RADRPT ---
EXAM DATE/TIME: 12/30/2016 20:29 [facility] COMPARISON: No previous studies available for comparison. INDICATIONS : Left knee pain after trauma. MEDICAL HISTORY : None. SURGICAL HISTORY : Total knee replacement. ENCOUNTER: Initial ACUITY: 1 day PAIN SCORE: Non-responsive. LOCATION: Left knee. FINDINGS: Four view examination of the left knee demonstrates no evidence of fracture or dislocation. The knee prosthesis appears to be in good position and alignment within the bony structures. Bony mineralizat ion is normal. The suprapatellar soft tissues have a normal configuration. CONCLUSION: 1. No acute fracture or joint dislocation. 2. Good alignment of the knee prosthesis. Steffen Mtz MD on December 30, 2016 at 20:48 Board Certified Radiologist. This report was verified electronically.
[2016-12-30 20:52] LABS: ALT (GPT) 12 U/L (10-53); ANION GAP 11 MEQ/L (5-15); AST (GOT) 28 U/L (15-37); BICARBONATE 28.7 MEQ/L (21.0-32.0); BLOOD UREA NITROGEN 9 MG/DL (7-18); CHLORIDE 98 MEQ/L (98-107); GLOMERULAR FILTRATION RATE 69 ML/MIN (>89); MAGNESIUM 1.3 MG/DL (1.5-2.5); POTASSIUM 3.8 MEQ/L (3.5-5.1); SODIUM (NA) 138 MEQ/L (136-145)
--- NOTE | 2016-12-30 20:56 | RADRPT ---
EXAM DATE/TIME: 12/30/2016 20:31 [facility] COMPARISON: CT SOFT TISSUE NECK W/O CONTRAST, June 13, 2016, 17:36. CT BRAIN W/O CONTRAST, June 13 16, 14:50. INDICATIONS : Trauma; syncopal episode. RADIATION DOSE: 56.35 CTDIvol (mGy) MEDICAL HISTORY : Hypertension. Carcinoma, breast. SURGICAL HISTORY : None. ENCOUNTER: Initial ACUITY: 1 day PAIN SCALE: 3/10 LOCATION: cranial TECHNIQUE: Multiple contiguous axial images were obtained of the head. Using automated exposure control and adj ustment of the mA and/or kV according to patient size, radiation dose was kept as low as reasonably a chievable to obtain optimal diagnostic quality images. FINDINGS: CEREBRUM: The ventricles are normal for age. Stable old left thalamic infarct. Stable bilateral chronic white m atter changes. No evidence of midline shift, mass lesion, hemorrhage or acute infarction. No extra-a xial fluid collections are seen. POSTERIOR FOSSA: The cerebellum and brainstem are intact. The 4th ventricle is midline. The cerebellopontine angle i s unremarkable. EXTRACRANIAL: The visualized portion of the orbits is intact. There is a left parotid mass measuring 3.3 cm. This m ass has already been previously evaluated with a CT soft tissue neck and described on the examination of 06/13/2016. The left parotid mass does appear to be increased in size compared to the prior study. There is chronic sinus disease in the left maxillary sinus. SKULL: The calvaria is intact. No evidence of skull fracture. CONCLUSION: 1. Stable CT scan of the brain compared to the prior study. 2. 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 Steffen Mtz MD on December 30, 2016 at 20:49 Board Certified Radiologist. This report was verified electronically.
--- NOTE | 2016-12-30 20:58 | RADRPT ---
EXAM DATE/TIME: 12/30/2016 20:31 [facility] COMPARISON: CT SOFT TISSUE NECK W/O CONTRAST, June 13, 2016, 17:36. INDICATIONS : Trauma; syncopal episode. RADIATION DOSE: 35.98 CTDIvol (mGy) MEDICAL HISTORY : Carcinoma, breast. SURGICAL HISTORY : None. ENCOUNTER: Initial ACUITY: 1 day PAIN SCALE: 3/10 LOCATION: Bilateral neck TECHNIQUE: Volumetric scanning of the cervical spine was performed. Multiplanar reconstructions in the sagittal, coronal and oblique axial planes were performed. Using automated exposure control and adjustment o f the mA and/or kV according to patient size, radiation dose was kept as low as reasonably achievable to obtain optimal diagnostic quality images. FINDINGS: VERTEBRAE: Normal vertebral body height. No acute bony fracture. Mild primary degenerative changes are present. ALIGNMENT: No evidence of subluxation. C2-C3: The bony spinal canal is normal in size. No evidence of disc bulge or herniation. The neural forami na are bilaterally patent. C3-C4: The bony spinal canal is normal in size. No evidence of disc bulge or herniation. The neural forami na are bilaterally patent. C4-C5: The bony spinal canal is normal in size. No evidence of disc bulge or herniation. The neural forami na are bilaterally patent. C5-C6: The bony spinal canal is normal in size. No evidence of disc bulge or herniation. The neural forami na are bilaterally patent. C6-C7: Mild broad-based bulging. The neural foramina are patent bilaterally. C7-T1: The bony spinal canal is normal in size. No evidence of disc bulge or herniation. The neural forami na are bilaterally patent. 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 CONCLUSION: 1. No acute bony fracture. 2. Mild primary bony degenerative changes. Steffen Mtz MD on December 30, 2016 at 20:54 Board Certified Radiologist. This report was verified electronically.
[2016-12-30] MEDS ORDERED: MAGNESIUM SULFATE 1 GM PREMIX 100 ML IV ONE (21:00)
[2016-12-30 21:01] LABS: ALKALINE PHOSPHATASE 66 U/L (45-117); CREATINE KINASE 105 U/L (26-192); TOTAL BILIRUBIN ADULT 0.6 MG/DL (0.2-1.0)
--- NOTE | 2016-12-30 21:02 | RADRPT ---
EXAM DATE/TIME: 12/30/2016 20:36 [facility] COMPARISON: No previous studies available for comparison. INDICATIONS : Left hip pain after trauma. MEDICAL HISTORY : None. SURGICAL HISTORY : None. ENCOUNTER: Initial ACUITY: 1 day PAIN SCORE: Non-responsive. LOCATION: Left hip. FINDINGS: Examination of the left hip was performed with AP Pelvis. The primary and secondary trabecular patte rn of the femoral neck is intact. The hip joint is of normal width without significant sclerosis or bony hypertrophy. The acetabulum is grossly intact. CONCLUSION: No acute fracture or joint dislocation. Steffen Mtz MD on December 30, 2016 at 21:00 Board Certified Radiologist. This report was verified electronically.
[2016-12-30 21:14] LABS: CKMB 0.8 NG/ML (0.5-3.6)
[2016-12-30] MEDS ORDERED: NITROFURANTOIN MONOHYD MACROCR 100 MG CAP PO ONE (21:15)
[2016-12-30] MEDS ORDERED: NS + KCL 20 MEQ INJ 1,000 ML IV SCH (21:30)
[2016-12-30] MEDS ORDERED: ONDANSETRON HCL 4 MG/2 ML VIAL IV PUSH PRN (21:30)
--- NOTE | 2016-12-30 22:01 | HHI.HP ---
HPI Service [facility] Hospitalists Primary Care Physician Eulalio Betts, DO Admission Diagnosis Syncope, UTI, generalized weakness Chief Complaint: Passed out, leg pain, general weakness Travel History International Travel<30 Days: No Contact w/Intl Traveler <30 Da: No Traveled to Known Affected Are: No History of Present Illness The patient is a 66 year old female with reported recurrent UTIs and hypertension who presents to the [facility] emergency department with a history of generalized weakness and reported syncope prior to arrival in her bathroom. Most of the history is obtained from ER physician, medical record review and patient's son Deni who is her caregiver. According to ambulance services the patient was being assisted to the bathroom by her son. He was able to ease her to the ground. She has been experiencing nausea, vomiting and diarrhea according to her son Deni who I was able to speak with this evening by phone. The nausea vomiting has been ongoing for approximately 2 days and the diarrhea started today. The patient's recent history is complicated by having urinary tract infection and being on an antibiotic for this. According to the ER physician, the patient was unable to speak much to her due to weakness. Patient is actually more conversant now since she has had IV fluids. Her initial evaluation in the ER is notable for confusion, findings of possible UTI and hypomagnesemia. Imaging is overall unremarkable. Review of Systems ROS Limitations: Clinical Condition, Altered Mental Status Constitutional: COMPLAINS OF: Fatigue, Dizziness Cardiovascular: COMPLAINS OF: Syncope Gastrointestinal: COMPLAINS OF: Diarrhea, Nausea, Vomiting Musculoskeletal: COMPLAINS OF: Joint pain, Back pain Psychiatric: COMPLAINS OF: Anxiety, Depression Past Family Social History Past Medical History Hypertension Recurrent UTI Depression Anxiety Postherpetic neuralgia Hyperlipidemia Breast cancer Degenerative disc disease lumbar spine Past Surgical History left breast lumpectomy, lumbar microdiscectomy, laminectomy, L3-L4 fusion, left knee replacement, cholecystectomy. Reported Medications Medications below are reported however patient's son notes that he is unsure how compliant she has been with these medications. Lortab (Hydrocodone-Acetaminophen) 7.5-325 Mg Tab 1 Tab PO Q6H PRN Trazodone (Trazodone HCl) 100 Mg Tab 200 Mg PO HS PRN Ibuprofen 200 Mg Cap 200 Mg PO Q6H PRN Furosemide 40 Mg Tab 40 Mg PO DAILY Cymbalta DR (Duloxetine HCl) 60 Mg Capdr 60 Mg PO DAILY Metformin (Metformin HCl) 500 Mg Tab 500 Mg PO BID With meals Lisinopril 20 Mg Tab 20 Mg PO DAILY Gabapentin 600 Mg Tab 600 Mg PO TID Nifedipine ER 24 HR (Nifedipine) 60 Mg Tab 60 Mg PO DAILY Lipitor (Atorvastatin Calcium) 40 Mg Tab 40 Mg PO HS Aspirin 81 Mg Chew 81 Mg PO DAILY Allergies: Coded Allergies: Allopurinol (Verified Allergy, Severe, Hives, 12/30/16) Clonidine (Verified Allergy, Severe, LETHARGY,SHAKING, 12/30/16) Fiorinal (Verified Allergy, Severe, Hallucinations, 12/30/16) Sulfa (Verified Allergy, Severe, HIVES, 12/30/16) Morphine (Verified Adverse Reaction, Severe, SHAKING, HEADACHE, 12/30/16) *MDRO Multi-Drug Resistant Organism (Verified Adverse Reaction, Unknown, ) ESBL+E.Coli (urine-06/13/16 & 12/14/16) Family History Noncontributory Social History Patient lives with her son and a roommate No tobacco or alcohol use Denies illicit drug use General he is incontinent of bowel and bladder at home. Has been in penitentiary previously. Physical Exam Vital Signs Vital Signs Date Time Temp Pulse Resp B/P Pulse Ox O2 Delivery O2 Flow Rate FiO2 12/30/16 19:59 88 18 98 12/30/16 19:51 89 18 98 12/30/16 19:47 98.0 85 18 180/91 97 Physical Exam GENERAL: This is a well-nourished, well-developed patient, in mild distress complaining of leg pain bilaterally (this is chronic per her son who says patient has complaint of leg pain since shingles diagnosis 1-1/2 months ago) SKIN: Postsurgical scars left knee. Cool and dry. HEAD: Atraumatic. Normocephalic. No temporal or scalp tenderness. EYES: Pupils equal round and reactive. Extraocular motions intact. No scleral icterus. No injection or drainage. ENT: Nose without bleeding, purulent drainage or septal hematoma. Airway patent. NECK: Trachea midline. No JVD or lymphadenopathy. Supple, nontender, no meningeal signs. CARDIOVASCULAR: Regular rate and rhythm without murmurs, gallops, or rubs. RESPIRATORY: Clear to auscultation. Breath sounds equal bilaterally. No wheezes , rales, or rhonchi. GASTROINTESTINAL: Abdomen soft, non-tender, nondistended. No hepato-splenomegaly , or palpable masses. No guarding. MUSCULOSKELETAL: Extremities without clubbing, cyanosis. Trace edema bilateral feet. No joint tenderness, effusion, or edema noted. No calf tenderness. Moves all extremities. NEUROLOGICAL: Awake and more alert than initially per ER doctor. Cranial nerves II through XII intact. Five out of 5 muscle strength in all muscle groups. Laboratory Laboratory Tests Test 12/30/16 20:00 White Blood Count 9.7 Red Blood Count 4.40 Hemoglobin 11.9 Hematocrit 36.1 Mean Corpuscular Volume 82.2 Mean Corpuscular Hemoglobin 27.1 Mean Corpuscular Hemoglobin 33.0 Concent Red Cell Distribution Width 15.2 Platelet Count 326 Mean Platelet Volume 8.7 Neutrophils (%) (Auto) 71.7 Lymphocytes (%) (Auto) 17.0 Monocytes (%) (Auto) 8.0 Eosinophils (%) (Auto) 2.1 Basophils (%) (Auto) 1.2 Neutrophils # (Auto) 6.9 Lymphocytes # (Auto) 1.6 Monocytes # (Auto) 0.8 Eosinophils # (Auto) 0.2 Basophils # (Auto) 0.1 CBC Comment DIFF FINAL Differential Comment Prothrombin Time 11.5 Prothromb Time International 1.0 Ratio Activated Partial 22.3 Thromboplast Time Urine Color YELLOW Urine Turbidity HAZY Urine pH 6.0 Urine Specific Hensley 1.013 Urine Protein 100 Urine Glucose (UA) NEG Urine Ketones 10 Urine Occult Blood TRACE Urine Nitrite NEG Urine Bilirubin NEG Urine Urobilinogen LESS THAN 2.0 Urine Leukocyte Esterase LARGE Urine RBC 6 Urine WBC 113 Urine WBC Clumps FEW Urine Squamous Epithelial 1 Cells Urine Bacteria RARE Urine Hyaline Casts 4 Urine Mucus FEW Microscopic Urinalysis Comment CULTURE INDICATED Sodium Level 138 Potassium Level 3.8 Chloride Level 98 Carbon Dioxide Level 28.7 Anion Gap 11 Blood Urea Nitrogen 9 Creatinine 0.83 Estimat Glomerular Filtration 69 Rate Random Glucose 127 Lactic Acid Level 2.2 Calcium Level 8.9 Magnesium Level 1.3 Total Bilirubin 0.6 Aspartate Amino Transf 28 (AST/SGOT) Alanine Aminotransferase 12 (ALT/SGPT) Alkaline Phosphatase 66 Total Creatine Kinase 105 Creatine Kinase MB 0.8 Troponin I LESS THAN 0.02 B-Type Natriuretic Peptide 39 Total Protein 7.2 Albumin 2.9 Lipase 73 Thyroid Stimulating Hormone 0.178 3rd Gen Date/Time Procedure Status Source Growth 12/30/16 20:00 Urine Culture Received Urine Clean Catch Pending 12/30/16 19:55 Aerobic Blood Culture Received Blood Peripheral Pending 12/30/16 19:55 Anaerobic Blood Culture Received Blood Peripheral Pending Result Diagram: 12/30/16199912/30/161999 Imaging Last 72 hours Impressions Knee X-Ray 12/30/161953 Signed Impressions: Service Date/Time: Friday, December 30, 2016 20:29 - CONCLUSION: 1. No acute fracture or joint dislocation. 2. Good alignment of the knee prosthesis. Steffen Mtz MD Hip and Pelvis X-Ray 12/30/161953 Signed Impressions: Service Date/Time: Friday, December 30, 2016 20:36 - CONCLUSION: No acute fracture or joint dislocation. Steffen Mtz MD Head CT 12/30/161953 Signed Impressions: Service Date/Time: Friday, December 30, 2016 20:31 - CONCLUSION: 1. Stable CT scan of the brain compared to the prior study. 2. 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 Steffen Mtz MD Chest X-Ray 12/30/161953 Signed Impressions: Service Date/Time: Friday, December 30, 2016 20:28 - CONCLUSION: No acute disease. No significant change has occurred. Steffen Mtz MD Cervical Spine CT 12/30/161953 Signed Impressions: Service Date/Time: Friday, December 30, 2016 20:31 - CONCLUSION: 1. No acute bony fracture. 2. Mild primary bony degenerative changes. Steffen Mtz MD Assessment and Plan Problem List: (1) Syncope and collapse Status: Acute Plan: Possibly associated with dehydration due to recent nausea vomiting and diarrhea. We'll follow clinically. IV fluids have helped her mentation. (2) Urinary tract infection Status: Acute Plan: Seems to be a recurrent issue. Provide Macrobid based on previous culture and sensitivities. (3) General weakness Status: Acute Plan: Seems to be improving with IV fluid. Continue to follow. No focal neurologic deficit. (4) Change in mental status Status: Acute Plan: Likely due to the dehydration as noted above. I am unsure of her clinical baseline. IV fluid has helped with her mentation. (5) Hypertension Status: Chronic Plan: Resume home medication. Unclear how compliant she has been at home with these medications. (6) Postherpetic neuralgia Status: Acute Plan: Will resume gabapentin as apparently she has not been taking at home. I have written tramadol for pain. I'll do an awful Lortab for now given her mental status issues earlier. Discussed Condition With Patient, her son Deni, ER physician Physician Certification 2 Midnight Certification Type: Admission for Inpatient Services Order for Inpatient Services The services are ordered in accordance with Medicare regulations or non- Medicare payer requirements, as applicable. In the case of services not specified as inpatient-only, they are appropriately provided as inpatient services in accordance with the 2-midnight benchmark. Estimated LOS (days): 2 days is the estimated time the patient will need to remain in the hospital, assuming treatment plan goals are met and no additional complications. Post-Hospital Plan: Not yet determined Problem Qualifiers (1) Urinary tract infection: Qualified Code: N39.0 - Urinary tract infection without hematuria, site unspecified (2) Hypertension: Qualified Code: I10 - Essential hypertension Kodi Caba MD PhD Dec 30, 2016 22:01
[2016-12-30 22:10] VITALS: BP 198/79; PULSE 93; RESP 18; O2SAT 99
[2016-12-30 22:20] LABS: LACTIC ACID GHOST NOT REPORTABLE
[2016-12-30 23:00] VITALS: BP 188/80; PULSE 93; RESP 18; O2SAT 98
[2016-12-30] MEDS: ENALAPRILAT 1.25 MG/ML VIAL IV PUSH PRN (23:55)
[2016-12-31] VITALS (8 sets, daily range): BP systolic 162–196; BP diastolic 69–89; PULSE 90–103; RESP 17–21; TEMP 96–99.1; O2SAT 93–96
[2016-12-31] MEDS: traMADol HCL 50 MG TAB PO PRN ×3 (02:18→21:05)
[2016-12-31] MEDS: ENALAPRILAT 1.25 MG/ML VIAL IV PUSH PRN ×2 (05:39→12:17)
[2016-12-31] MEDS: INSULIN ASPART SUPPLEMENTAL SCALE SQ SCH ×4 (05:39→21:00)
[2016-12-31 05:44] LABS: ALT (GPT) 10 U/L (10-53); ANION GAP 9 MEQ/L (5-15); AST (GOT) 12 U/L (15-37); BICARBONATE 27.8 MEQ/L (21.0-32.0); BLOOD UREA NITROGEN 10 MG/DL (7-18); CHLORIDE 104 MEQ/L (98-107); GLOMERULAR FILTRATION RATE 133 ML/MIN (>89); MAGNESIUM 1.5 MG/DL (1.5-2.5); SODIUM (NA) 141 MEQ/L (136-145)
[2016-12-31 05:46] LABS: ALKALINE PHOSPHATASE 56 U/L (45-117); TOTAL BILIRUBIN ADULT 0.4 MG/DL (0.2-1.0)
[2016-12-31] MEDS ORDERED: amLODIPine BESYLATE 5 MG TAB PO ONE (07:00)
[2016-12-31] MEDS: LISINOPRIL 20 MG TAB PO SCH (07:21)
[2016-12-31] MEDS: ASPIRIN 81 MG CHEW TAB PO SCH (07:41)
[2016-12-31] MEDS: NITROFURANTOIN MONOHYD MACROCR 100 MG CAP PO SCH ×2 (07:41→16:58)
[2016-12-31] MEDS: GABAPENTIN 300 MG CAP PO SCH ×2 (07:41→20:58)
[2016-12-31] MEDS ORDERED: NIFEdipine 60 MG SUSTAINED RELEASE TAB PO SCH (09:00)
[2016-12-31] MEDS: DULoxetine HCl DR 60 MG CAP PO SCH (09:00)
--- NOTE | 2016-12-31 10:07 | EKG ---
Date Performed: 12/30/2016 Time Performed: 20:12:27 PTAGE: 66 years EKG: Sinus rhythm MODERATE ST DEPRESSION ABNORMAL ECG PREVIOUS TRACING : 12/14/2016 16.25 DOCTOR: Eddie Finch Interpretating Date/Time 12/31/2016 10:05:09
[2016-12-31] MEDS ORDERED: NS + KCL 40 MEQ INJ 1,000 ML IV SCH (12:00)
--- NOTE | 2016-12-31 12:22 | HHI.PR ---
Subjective Remarks very weak. complains of dysuria had n/v/d prior to arrival. c/o left knee pain from fall last night. Objective Vitals oriented heart systolic murmer over rusb lung cta abd s/nt/nabs ext left knee tender to palpation but no significant effusion noted no open wound or ecchymosis villalobos..dark urine Vital Signs Date Time Temp Pulse Resp B/P Pulse Ox O2 Delivery O2 Flow Rate FiO2 12/31/16 12:00 98.8 98 18 184/79 94 12/31/16 08:00 98.3 91 17 186/79 95 12/31/16 05:00 96.0 90 20 96 12/31/16 02:36 96.8 103 20 180/89 96 12/31/16 00:41 90 18 167/79 12/30/16 23:00 93 18 188/80 98 12/30/16 22:10 93 18 198/79 99 12/30/16 19:59 88 18 98 12/30/16 19:51 89 18 98 12/30/16 19:47 98.0 85 18 180/91 97 12/30/16 12/30/16 12/31/16 14:59 22:59 06:59 Intake Total 623 ml Output Total 200 ml Balance 423 ml Intake Oral 120 ml IV Total 503 ml Output Urine Total 200 ml # Bowel Movements 0 Result Diagram: 12/30/16199912/31/16 0456 Imaging Last 72 hours Impressions Knee X-Ray 12/30/161953 Signed Impressions: Service Date/Time: Friday, December 30, 2016 20:29 - CONCLUSION: 1. No acute fracture or joint dislocation. 2. Good alignment of the knee prosthesis. Steffen Mtz MD Hip and Pelvis X-Ray 12/30/161953 Signed Impressions: Service Date/Time: Friday, December 30, 2016 20:36 - CONCLUSION: No acute fracture or joint dislocation. Steffen Mtz MD Head CT 12/30/161953 Signed Impressions: Service Date/Time: Friday, December 30, 2016 20:31 - CONCLUSION: 1. Stable CT scan of the brain compared to the prior study. 2. 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 Steffen Mtz MD Chest X-Ray 12/30/161953 Signed Impressions: Service Date/Time: Friday, December 30, 2016 20:28 - CONCLUSION: No acute disease. No significant change has occurred. Stfefen Mtz MD Cervical Spine CT 12/30/161953 Signed Impressions: Service Date/Time: Friday, December 30, 2016 20:31 - CONCLUSION: 1. No acute bony fracture. 2. Mild primary bony degenerative changes. Steffen Mtz MD A/P Problem List: (1) Syncope and collapse Status: Acute Plan: Pt has had recent uti sx's. seen in ED on 12/14 and found to have esbl uti ecoli.but given keflex sx's persisted and presented with n/v/d then syncope. dehydrated and hypokalemic. consult ID to eval for esbl uti and rx cont ivf and monitor urine output PT eval. will likely need snf dvt prophylaxis f/u pending cx's. home bp meds resumed. adjust as needed. (2) Urinary tract infection Status: Acute Plan: see above (3) General weakness Status: Acute Plan: above (4) Change in mental status Status: Acute Plan: above. (5) Hypertension Status: Chronic Plan: home meds (6) Postherpetic neuralgia Status: Acute Plan: gabapentin resumed Problem Qualifiers (1) Urinary tract infection: Qualified Code: N39.0 - Urinary tract infection without hematuria, site unspecified (2) Hypertension: Qualified Code: I10 - Essential hypertension Jackson Bravo MD Dec 31, 2016 12:22
[2016-12-31] MEDS: NS + KCL 40 MEQ INJ 1,000 ML IV SCH ×2 (12:36→21:06)
[2016-12-31 16:24] LABS: HEMOGLOBIN A1a 1.2 %; HEMOGLOBIN A1b 1.7 %; HEMOGLOBIN Ao 83.9 %; HEMOGLOBIN P3 4.2 %
--- NOTE | 2016-12-31 16:39 | EC ---
Study Study Date:12/31/2016 STUDY CONCLUSIONS SUMMARY - Procedure narrative: Transthoracic echocardiography. Image quality was poor. Scanning was performed from the parasternal, apical, and subcostal acoustic windows. - Left ventricle: The cavity size was normal. Wall thickness was normal. Systolic function was vigorous. The estimated ejection fraction was in the range of 65% to 70%. Although no diagnostic regional wall motion abnormality was identified, this possibility cannot be completely excluded on the basis of this study. - Aortic valve: Poorly visualized. Difficult to exclude bicuspid valve. Transvalvular velocity was within the normal range. There was no stenosis. - Tricuspid valve: Trace regurgitation. If LV function is below 40, please consider prescribing an ACEI or ARB or document rationale for non-use. PROCEDURE DATA STUDY STATUS: Elective. Procedure: Transthoracic echocardiography. Image quality was poor. Scanning was performed from the parasternal, apical, and subcostal acoustic windows. Study completion: The patient tolerated the procedure well. Transthoracic echocardiography. M-mode, complete 2D, complete spectral Doppler, and color Doppler. Patient status: Inpatient. CARDIAC ANATOMY LEFT VENTRICLE: The cavity size was normal. Wall thickness was normal. Systolic function was vigorous. The estimated ejection fraction was in the range of 65% to 70%. Although no diagnostic regional wall motion abnormality was identified, this possibility cannot be completely excluded on the basis of this study. AORTIC VALVE: Poorly visualized. Difficult to exclude bicuspid valve. Doppler: Transvalvular velocity was within the normal range. There was no stenosis. No regurgitation. Valve area: 1.47cm^2(VTI). Valve area: 1.39cm^2 (Vmax). Mean gradient: 8mm Hg (S). Peak gradient: 15mm Hg (S). AORTA: Aortic root: The aortic root was normal in size. MITRAL VALVE: Structurally normal valve. Doppler: Transvalvular velocity was within the normal range. There was no evidence for stenosis. No regurgitation. LEFT ATRIUM: The atrium was normal in size. RIGHT VENTRICLE: The cavity size was normal. Wall thickness was normal. PULMONIC VALVE: Doppler: Transvalvular velocity was within the normal range. There was no evidence for stenosis. No regurgitation. TRICUSPID VALVE: Structurally normal valve. Doppler: Transvalvular velocity was within the normal range. Trace regurgitation. PULMONARY ARTERY: The main pulmonary artery was normal-sized. Systolic pressure was within the normal range. RIGHT ATRIUM: The atrium was normal in size. PERICARDIUM: There was no pericardial effusion. SYSTEMIC VEINS: Inferior vena cava: The vessel was normal in size. BASIC MEASUREMENTS ADULT NORMAL Left ventricle LV internal dimension, ED, chordal level, *39.1 mm 43-52 PLAX LV internal dimension, ES, chordal level, 27.4 mm 23-38 PLAX Fractional shortening, chordal level, PLAX 30 % >29 LV posterior wall thickness, ED 14.3 mm IVS/LVPW ratio, ED 1.24 <1.3 Ventricular septum Septal thickness, ED 17.7 mm Aortic valve Leaflet separation 20 mm 15-26 Right ventricle RV internal dimension, ED, PLAX 29.3 mm 19-38 BASIC MEASUREMENTS ADULT NORMAL Aortic valve Leaflet separation 20 mm 15-26 Aorta Root diameter, ED 34 mm 20-37 Left atrium Anterior-posterior dimension, ES *50 mm 19-40 LA/aortic root ratio 1.47 DOPPLER MEASUREMENTS ADULT NORMAL Main pulmonary artery Pressure, S 27 mm Hg =30 Aortic valve Peak velocity, S 194 cm/s Mean velocity, S 129 cm/s VTI, S 32.1 cm Mean gradient, S 8 mm Hg Peak gradient, S 15 mm Hg Valve area, VTI 1.47 cm^2 Valve area, Vmax 1.39 cm^2 Mitral valve Peak E-wave velocity 55.8 cm/s Peak A-wave velocity 101 cm/s Deceleration time 183 ms 150-230 Peak E/A ratio 0.6 Tricuspid valve Regurgitant peak velocity 206 cm/s Peak RV-RA gradient, S 17 mm Hg Maximal regurgitant velocity 206 cm/s Systemic veins Estimated CVP 10 mm Hg Right ventricle RV pressure, S 27 mm Hg <30 LEGEND: Mean values are shown as u=mean value. Asterisk (*) diaz values outside specified normal range. Prepared and signed by Brigido Gonzales [id number]
[2016-12-31] MEDS ORDERED: ASP: Path resistant to other antimicrobials, culture proven XX PRN (17:00)
[2016-12-31] MEDS ORDERED: MISCELLANEOUS PHARMACY INFORMATION XX PRN ×2 (17:00)
[2016-12-31] MEDS: ERTAPENEM INJ 1,000 MG in SODIUM CHLORIDE 0.9% INJ 100 ML IV SCH (17:46)
--- NOTE | 2016-12-31 19:20 | MB ---
cc: BERNARDA LUNA MD DATE OF CONSULTATION: 12/31/2016 REASON FOR CONSULTATION: ESBL E. Coli UTI. REQUESTING PHYSICIAN: Dr. Bravo. HISTORY OF PRESENT ILLNESS This is a 66-year-old white female who was brought to the emergency department after she fell at home. The patient reportedly had a syncopal episode in her bathroom prior to being admitted to the hospital. A recent history reveals that she had a urinary tract infection and was being treated with antibiotics. Culture from the urine previously on 12/14/16 had ESBL E. Coli. The patient complains of pain at the groin and burning on urination. Urinalysis was performed yesterday and showed 113 white cells, and a urine culture was obtained. She is currently on nitrofurantoin. This consultation is requested for antibiotic treatment for UTI. The patient states to me that she gets nausea and has vomiting. She also notes burning on urination and she has pain in her left leg. She states that she fell onto her left leg. She denies chills. She is afebrile. PAST MEDICAL HISTORY, PAST SURGICAL HISTORY: Hypertension, anxiety, depression, hyperlipidemia, recurrent UTI, history of breast cancer, degenerative disk disease of the lumbar spine, history of laminectomy, history of left knee replacement, history of cholecystectomy, left breast lumpectomy. ALLERGIES MORPHINE, SULFA, FIORINAL, CLONIDINE, ALLOPURINOL. MEDICATIONS: 1. Lipitor. 2. Procardia XL 3. Potassium 4. Nitrofurantoin 5. Neurontin 6. Aspirin 7. Cymbalta 8. Prinivil 9. Sliding scale insulin. 10. Ultram. SOCIAL HISTORY: No tobacco, alcohol or illicit drugs. The patient lives with her son. FAMILY HISTORY Noncontributory. REVIEW OF SYSTEMS Pertinent as mentioned above in the history of present illness. PHYSICAL EXAMINATION This is a well-developed female who is in no acute distress. She is awake and alert and oriented. VITAL SIGNS: Includes temperature of 98.3, BP 162/69, respirations 18, heart rate 98. HEENT: Head is atraumatic. Extraocular movements grossly intact, pupils reactive to light. No icterus. No conjunctival erythema. Oropharynx: no visible lesions. Mucosa is moist. No thrush. Neck: Supple without adenopathy or swelling. Lungs: Clear breath sounds bilateral. Heart: Regular S1-S2 without audible murmurs, rubs or gallops. Abdomen: Bowel sounds present, soft, obese, nontender. Rectal: Not performed. Extremities: No clubbing or cyanosis or edema. The left knee has swelling but no erythema. Neuro: Nonfocal. Skin: No rash. Psych: The patient is calm and cooperative. LABORATORY DATA WBC 9.7, platelets 326, 71% neutrophils, hemoglobin 11.9, creatinine 0.47, BUN 10, sodium 141. Chest x-ray revealed no acute cardiopulmonary disease. IMPRESSION Symptomatic urinary tract infection due to ESBL E-coli RECOMMENDATIONS 1. Begin intravenous ertapenem 2. Monitor the new urine culture. 3. Adjustment of antibiotics pending on the culture results. Thank you this consultation. The patient's progress will be monitored and further recommendations will be given upon followup. Bernarda Luna MD FD/HILARY /4:56 PM /7:01 PM MTDD
[2016-12-31] MEDS: ATORVASTATIN 40 MG TAB PO SCH (20:58)
[2016-12-31] MEDS: NIFEdipine 60 MG SUSTAINED RELEASE TAB PO SCH (20:58)
[2017-01-01] VITALS (8 sets, daily range): BP systolic 149–186; BP diastolic 66–89; PULSE 83–95; RESP 16–20; TEMP 97–98.7; O2SAT 90–95
[2017-01-01] MEDS: ENALAPRILAT 1.25 MG/ML VIAL IV PUSH PRN (00:58)
[2017-01-01 05:22] LABS: BICARBONATE 29.5 MEQ/L (21.0-32.0); POTASSIUM 3.5 MEQ/L (3.5-5.1)
[2017-01-01] MEDS: INSULIN ASPART SUPPLEMENTAL SCALE SQ SCH ×4 (05:25→20:31)
[2017-01-01] MEDS: DULoxetine HCl DR 60 MG CAP PO SCH (08:49)
[2017-01-01] MEDS: NIFEdipine 60 MG SUSTAINED RELEASE TAB PO SCH ×2 (08:50→20:26)
[2017-01-01] MEDS: LISINOPRIL 20 MG TAB PO SCH (08:51)
[2017-01-01] MEDS: ASPIRIN 81 MG CHEW TAB PO SCH (08:51)
[2017-01-01] MEDS: GABAPENTIN 300 MG CAP PO SCH ×2 (08:51→20:26)
[2017-01-01] MEDS: NS + KCL 40 MEQ INJ 1,000 ML IV SCH (08:52)
--- NOTE | 2017-01-01 09:47 | HHI.PR ---
Subjective Remarks No specific complaints today She denies any abd pain, nausea/vomiting. Pt is tolerating her diet. Urine is cloudy but yellow today Afebrile Objective Vitals Vital Signs Date Time Temp Pulse Resp B/P Pulse Ox O2 Delivery O2 Flow Rate FiO2 01/01/17 07:40 98.7 90 20 154/67 95 01/01/17 04:00 98.0 83 20 153/68 93 01/01/17 00:00 97.0 85 19 186/89 95 12/31/16 20:29 98 12/31/16 20:00 99.1 97 21 196/86 93 12/31/16 16:00 98.3 98 18 162/69 95 12/31/16 12:00 98.8 98 18 184/79 94 12/31/16 12/31/16 01/01/17 15:00 23:00 07:00 Intake Total 1152 ml 240 ml 791 ml Output Total 320 ml 250 ml 650 ml Balance 832 ml -10 ml 141 ml Intake Oral 480 ml 240 ml 120 ml IV Total 672 ml 671 ml Output Urine Total 300 ml 250 ml 650 ml Emesis 20 ml # Voids 1 # Bowel Movements 0 0 0 Result Diagram: 12/30/16199901/01/17 0420 Other Results Laboratory Tests Test 12/30/16 12/30/16 12/31/16 01/01/17 20:00 22:50 04:56 04:20 White Blood Count 9.7 TH/MM3 Red Blood Count 4.40 MIL/MM3 Hemoglobin 11.9 GM/DL Hematocrit 36.1 % Mean Corpuscular Volume 82.2 FL Mean Corpuscular Hemoglobin 27.1 PG Mean Corpuscular Hemoglobin 33.0 % Concent Red Cell Distribution Width 15.2 % Platelet Count 326 TH/MM3 Mean Platelet Volume 8.7 FL Neutrophils (%) (Auto) 71.7 % Lymphocytes (%) (Auto) 17.0 % Monocytes (%) (Auto) 8.0 % Eosinophils (%) (Auto) 2.1 % Basophils (%) (Auto) 1.2 % Neutrophils # (Auto) 6.9 TH/MM3 Lymphocytes # (Auto) 1.6 TH/MM3 Monocytes # (Auto) 0.8 TH/MM3 Eosinophils # (Auto) 0.2 TH/MM3 Basophils # (Auto) 0.1 TH/MM3 CBC Comment DIFF FINAL Differential Comment Prothrombin Time 11.5 SEC Prothromb Time International 1.0 RATIO Ratio Activated Partial 22.3 SEC Thromboplast Time Urine Color YELLOW Urine Turbidity HAZY Urine pH 6.0 Urine Specific [place] 1.013 Urine Protein 100 mg/dL Urine Glucose (UA) NEG mg/dL Urine Ketones 10 mg/dL Urine Occult Blood TRACE Urine Nitrite NEG Urine Bilirubin NEG Urine Urobilinogen LESS THAN 2.0 MG/DL Urine Leukocyte Esterase LARGE Urine RBC 6 /hpf Urine WBC 113 /hpf Urine WBC Clumps FEW Urine Squamous Epithelial 1 /hpf Cells Urine Bacteria RARE /hpf Urine Hyaline Casts 4 /lpf Urine Mucus FEW /lpf Microscopic Urinalysis Comment CULTURE INDICATED Sodium Level 138 MEQ/L 141 MEQ/L 143 MEQ/L Potassium Level 3.8 MEQ/L 3.0 MEQ/L 3.5 MEQ/L Chloride Level 98 MEQ/L 104 MEQ/L 106 MEQ/L Carbon Dioxide Level 28.7 MEQ/L 27.8 MEQ/L 29.5 MEQ/L Anion Gap 11 MEQ/L 9 MEQ/L 8 MEQ/L Blood Urea Nitrogen 9 MG/DL 10 MG/DL 8 MG/DL Creatinine 0.83 MG/DL 0.47 MG/DL 0.53 MG/DL Estimat Glomerular Filtration 69 ML/MIN 133 ML/MIN 116 ML/MIN Rate Random Glucose 127 MG/DL 111 MG/DL 136 MG/DL Lactic Acid Level 2.2 mmol/L 1.3 mmol/L 0.8 mmol/L Calcium Level 8.9 MG/DL 8.4 MG/DL 8.2 MG/DL Magnesium Level 1.3 MG/DL 1.5 MG/DL Total Bilirubin 0.6 MG/DL 0.4 MG/DL Aspartate Amino Transf 28 U/L 12 U/L (AST/SGOT) Alanine Aminotransferase 12 U/L 10 U/L (ALT/SGPT) Alkaline Phosphatase 66 U/L 56 U/L Total Creatine Kinase 105 U/L Creatine Kinase MB 0.8 NG/ML Troponin I LESS THAN 0.02 NG/ML B-Type Natriuretic Peptide 39 PG/ML Total Protein 7.2 GM/DL 6.3 GM/DL Albumin 2.9 GM/DL 2.5 GM/DL Lipase 73 U/L Thyroid Stimulating Hormone 0.178 uIU/ML 3rd Gen Hemoglobin A1c 6.1 % Imaging Last 72 hours Impressions Knee X-Ray 12/30/161953 Signed Impressions: Service Date/Time: Friday, December 30, 2016 20:29 - CONCLUSION: 1. No acute fracture or joint dislocation. 2. Good alignment of the knee prosthesis. Steffen Mtz MD Hip and Pelvis X-Ray 12/30/161953 Signed Impressions: Service Date/Time: Friday, December 30, 2016 20:36 - CONCLUSION: No acute fracture or joint dislocation. Steffen Mtz MD Head CT 12/30/161953 Signed Impressions: Service Date/Time: Friday, December 30, 2016 20:31 - CONCLUSION: 1. Stable CT scan of the brain compared to the prior study. 2. 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 Steffen Mtz MD Chest X-Ray 12/30/161953 Signed Impressions: Service Date/Time: Friday, December 30, 2016 20:28 - CONCLUSION: No acute disease. No significant change has occurred. Steffen Mtz MD Cervical Spine CT 12/30/161953 Signed Impressions: Service Date/Time: Friday, December 30, 2016 20:31 - CONCLUSION: 1. No acute bony fracture. 2. Mild primary bony degenerative changes. Steffen Mtz MD Objective Remarks General: NAD, AAOx3 Chest: CTA bilaterally Cardiac: Regular Abd: +BS, soft ND/NT : Lopez cath in place, cloudy yellow urine noted Ext: No edema A/P Problem List: (1) Syncope and collapse Status: Acute Plan: - Pt has had recent UTI sx's and was seen in ED on 12/14 and found to have ESBL E. coli UTI, but was given Keflex - Sx's persisted and presented with N/V/D and syncope. - Pt was notably dehydrated and hypokalemic at admission. - ID consulted and pt started on Ertapenem on 12/31 - Cont IVF and monitor urine output - Pt symptomatically is improving. - PT eval is pending. - Pt will likely need SNF - 2D echo (12/31) --> Poor image quality, EF 65-70%, poorlu visualized aortic valve, difficult to exclude bicuspid valve, no stenosis and trace tricuspid regurgitation. - Pt is on Procardia 60mg BID, Lisinopril 20mg daily and Vasotec PRN - DVT prophylaxis (2) Urinary tract infection Status: Acute Plan: - See above (3) General weakness Status: Acute Plan: - See above (4) Change in mental status Status: Acute Plan: - See above. (5) Hypertension Status: Chronic Plan: - See above. - Cont. current meds (6) Postherpetic neuralgia Status: Acute Plan: - Gabapentin resumed Assessment and Plan Patient examined. Assessment and plan formulated with Sarai Boss PA-C. I agree with the above. syncope and dehydration from n/v/d.improving uti sx's with recent esbl ecoli and rx with keflex ua still abnormal with uti sx's...but cx now ngtd..on carbapenem for now with ID...will decide on abx course with ID and plan for snf.....d/c ivf. Problem Qualifiers (1) Urinary tract infection: Qualified Code: N39.0 - Urinary tract infection without hematuria, site unspecified (2) Hypertension: Qualified Code: I10 - Essential hypertension Sarai Boss Jan 01, 2017 09:47 Jackson Bravo MD Jan 01, 2017 13:07
--- NOTE | 2017-01-01 13:16 | MB ---
cc: ALBER TRAORE MD DATE OF CONSULTATION: 01/01/2017 REASON FOR CONSULTATION Recurrent urinary tract infections. HISTORY OF PRESENT ILLNESS The patient is a 66-year-old female with a history of recurrent urinary tract infections, who was brought to the emergency department after she fell at home. She apparently had a syncopal episodes in her bathroom prior to being admitted to the hospital. She has been dealing with recurrent urinary tract infections for the past two months and she has had 3-4 documented UTIs in a tow-month span including most recently ESBL positive E. Coli. She usually has dysuria and altered mental status with these infections. When she presented to the ER she was found to be on Macrobid 100 mg p.o. b.i.d. She also complains of urge incontinence requiring her to wear Depends daily. She denies hematuria, frequency, flank pain, nausea, vomiting, fevers or chills. She does feel like she empties her bladder well. She denies any history of kidney stones or any significant genitourinary family history. She currently feels better with the catheter in place. She denies history of constipation, inflammatory bowel disease as well as diverticulitis. PAST MEDICAL HISTORY 1. Hypertension. 2. Hyperlipidemia. 3. Recurrent UTIs. 4. Breast cancer. 5. Degenerative disc disease. PAST SURGICAL HISTORY 1. Breast lumpectomy. 2. History of left knee replacement. 3. Cholecystectomy. 4. History of laminectomy. ALLERGIES 1. MORPHINE. 2. SULFA. 3. ALLOPURINOL. MEDICATIONS 1. Lipitor. 2. Procardia. 3. Potassium. 4. Nitrofurantoin. 5. Neurontin. 6. Aspirin. 7. Cymbalta. 8. Prinivil. 9. Insulin. 10.Ultram. SOCIAL HISTORY No smoking, alcohol, or illicit drugs. The patient lives with her son. FAMILY HISTORY Denies urolithiasis or genitourinary malignancy. REVIEW OF SYSTEMS See HPI. A 12-point review of systems was performed and otherwise negative. PHYSICAL EXAMINATION VITAL SIGNS: Temperature 97.4, pulse 93, respiratory rate 20, blood pressure 149/68, satting 94% on room air. GENERAL: She is alert and oriented x3, in no apparent distress. Appears older than her stated age. Very pleasant and cooperative. HEAD: Normocephalic, atraumatic. NECK: Supple. Trachea is midline. LUNGS: Clear to auscultation bilaterally. No wheezes, rales or rhonchi heard. CARDIOVASCULAR: Regular rate rhythm. No murmurs, gallops or rubs. ABDOMEN: Soft, nontender, nondistended. Positive bowel sounds. GENITOURINARY: No CVA tenderness bilaterally. PELVIC: Not indicated at this time. EXTREMITIES: Nontender. No clubbing, cyanosis or edema. SKIN: No ulcers or rashes. PSYCHIATRIC: Normal affect. LABORATORY DATA White count 9.7, hemoglobin 11.9, hematocrit 36.1, platelet count 326. Sodium 143, potassium 3.5, chloride 106, bicarb 29.5, creatinine 0.53, BUN 8. Urine showed large leukocyte esterase and trace blood. Urine culture is currently negative at this time. IMAGING Noncontributory. ASSESSMENT The patient is a 66-year-old out female who presents to the ER after having fallen at home with recurrent urinary tract infections. PLAN 1. Will obtain a renal ultrasound to rule out any upper tract disease 2. Follow-up on repeat urine culture, antibiotics per Infectious Disease. 3. She will need to follow-up as an outpatient for flexible cystoscopy to rule out any bladder etiology for recurrent urinary tract infections. Thank you for this consult. Alber Traore MD EMF/BT /12:33 PM /12:43 PM
[2017-01-01] MEDS ORDERED: POTASSIUM CHLORIDE 20 MEQ CONTROLLED RELEASE TAB PO ONE (14:00)
--- NOTE | 2017-01-01 15:36 | HHI.IDPN ---
Note Infectious Disease Note Patient feels okay. No vomiting today. No chills. Afebrile. Says she still has pain and burning on urination. Urine culture has no growth. PAST MEDICAL HISTORY, PAST SURGICAL HISTORY: Hypertension, anxiety, depression, hyperlipidemia, recurrent UTI, history of breast cancer, degenerative disk disease of the lumbar spine, history of laminectomy, history of left knee replacement, history of cholecystectomy, left breast lumpectomy. ALLERGIES MORPHINE, SULFA, FIORINAL, CLONIDINE, ALLOPURINOL. MEDICATIONS: Current Medications Medications (Trade) Dose Ordered Sig/Lucretia Route PRN Reason Start Time Stop Time Status Last Admin Dose Admin Ondansetron HCl (Zofran Inj) 4 mg Q6HR PRN IV PUSH N,V 12/30/16 21:30 Tramadol HCl (Ultram) 50 mg Q8H PRN PO PAIN LEVEL 3-10 12/30/16 21:30 12/31/16 21:05 Gabapentin (Neurontin) 300 mg BID PO 12/31/16 09:00 01/01/17 08:51 Aspirin (Aspirin Chew) 81 mg DAILY PO 12/31/16 09:00 01/01/17 08:51 Atorvastatin Calcium (Lipitor) 40 mg HS PO 12/31/16 21:00 12/31/16 20:58 Duloxetine HCl (Cymbalta Dr) 60 mg DAILY PO 12/31/16 09:00 01/01/17 08:49 Lisinopril (Prinivil) 20 mg DAILY PO 12/31/16 09:00 01/01/17 08:51 Enalaprilat (Vasotec Inj) 1.25 mg Q4H PRN IV PUSH sbp >160 or dbp >95 12/31/16 14:45 01/01/17 00:58 Nifedipine 60 mg 60 mg BID PO 12/31/16 21:00 01/01/17 08:50 Ertapenem/Sodium Chloride (INVanz INJ/NS Inj) 100 ml @ 200 mls/hr Q24H IV 12/31/16 18:00 12/31/16 17:46 SOCIAL HISTORY: No tobacco, alcohol or illicit drugs. The patient lives with her son. OBJECTIVE: Vital Signs Date Time Temp Pulse Resp B/P Pulse Ox O2 Delivery O2 Flow Rate FiO2 01/01/17 12:04 97.4 93 20 149/68 94 01/01/17 07:40 98.7 90 20 154/67 95 01/01/17 04:00 98.0 83 20 153/68 93 01/01/17 00:00 97.0 85 19 186/89 95 12/31/16 20:29 98 12/31/16 20:00 99.1 97 21 196/86 93 12/31/16 16:00 98.3 98 18 162/69 95 Laboratory Tests Test 12/30/16 20:00 White Blood Count 9.7 TH/MM3 Red Blood Count 4.40 MIL/MM3 Hemoglobin 11.9 GM/DL Hematocrit 36.1 % Mean Corpuscular Volume 82.2 FL Mean Corpuscular Hemoglobin 27.1 PG Mean Corpuscular Hemoglobin 33.0 % Concent Red Cell Distribution Width 15.2 % Platelet Count 326 TH/MM3 Mean Platelet Volume 8.7 FL Neutrophils (%) (Auto) 71.7 % Lymphocytes (%) (Auto) 17.0 % Monocytes (%) (Auto) 8.0 % Eosinophils (%) (Auto) 2.1 % Basophils (%) (Auto) 1.2 % Neutrophils # (Auto) 6.9 TH/MM3 Lymphocytes # (Auto) 1.6 TH/MM3 Monocytes # (Auto) 0.8 TH/MM3 Eosinophils # (Auto) 0.2 TH/MM3 Basophils # (Auto) 0.1 TH/MM3 CBC Comment DIFF FINAL Differential Comment Laboratory Tests Test 12/30/16 12/30/16 12/31/16 01/01/17 20:00 22:50 04:56 04:20 Sodium Level 138 MEQ/L 141 MEQ/L 143 MEQ/L Potassium Level 3.8 MEQ/L 3.0 MEQ/L 3.5 MEQ/L Chloride Level 98 MEQ/L 104 MEQ/L 106 MEQ/L Carbon Dioxide Level 28.7 MEQ/L 27.8 MEQ/L 29.5 MEQ/L Anion Gap 11 MEQ/L 9 MEQ/L 8 MEQ/L Blood Urea Nitrogen 9 MG/DL 10 MG/DL 8 MG/DL Creatinine 0.83 MG/DL 0.47 MG/DL 0.53 MG/DL Estimat Glomerular Filtration 69 ML/MIN 133 ML/MIN 116 ML/MIN Rate Random Glucose 127 MG/DL 111 MG/DL 136 MG/DL Lactic Acid Level 2.2 mmol/L 1.3 mmol/L 0.8 mmol/L Calcium Level 8.9 MG/DL 8.4 MG/DL 8.2 MG/DL Magnesium Level 1.3 MG/DL 1.5 MG/DL Total Bilirubin 0.6 MG/DL 0.4 MG/DL Aspartate Amino Transf 28 U/L 12 U/L (AST/SGOT) Alanine Aminotransferase 12 U/L 10 U/L (ALT/SGPT) Alkaline Phosphatase 66 U/L 56 U/L Total Creatine Kinase 105 U/L Creatine Kinase MB 0.8 NG/ML Troponin I LESS THAN 0.02 NG/ML B-Type Natriuretic Peptide 39 PG/ML Total Protein 7.2 GM/DL 6.3 GM/DL Albumin 2.9 GM/DL 2.5 GM/DL Lipase 73 U/L Thyroid Stimulating Hormone 0.178 uIU/ML 3rd Gen Hemoglobin A1c 6.1 % Microbiology Date/Time Procedure Status Source Growth 12/30/16 19:50 Aerobic Blood Culture - Preliminary Resulted Blood Peripheral Staph Sp Coagulase Negative 12/30/16 19:50 Anaerobic Blood Culture - Preliminary Resulted Blood Peripheral NO GROWTH IN 2 DAYS 12/30/16 19:55 Aerobic Blood Culture - Preliminary Resulted Blood Peripheral NO GROWTH IN 2 DAYS 12/30/16 19:55 Anaerobic Blood Culture - Preliminary Resulted Blood Peripheral NO GROWTH IN 2 DAYS 12/30/16 20:00 Urine Culture - Final Complete Urine Clean Catch NO GROWTH IN 48 HOURS. PHYSICAL EXAMINATION GENERAL: No acute distress. Awake, alert and oriented. HEENT: No icterus. No conjunctival erythema. Oropharynx: no visible lesions. Mucosa is moist. No thrush. Neck: Supple without adenopathy or swelling. Lungs: Clear breath sounds. Heart: Regular S1-S2 without audible murmurs, rubs or gallops. Abdomen: Bowel sounds present, soft, obese, nontender. Extremities: No clubbing or cyanosis or edema. The left knee has swelling. Neuro: Nonfocal. Skin: No rash. Psych: The patient is calm and cooperative. IMPRESSION Symptomatic urinary tract infection due to ESBL E-coli. Urine culture negative on repeat testing. RECOMMENDATIONS 1. Stop ertapenem after today's dose. 2. PO Nitrofurantion x 3 days starting tomorrow. Tim Cuadra MD Jan 01, 2017 15:35
[2017-01-01] MEDS: ERTAPENEM INJ 1,000 MG in SODIUM CHLORIDE 0.9% INJ 100 ML IV SCH (19:27)
--- NOTE | 2017-01-01 20:22 | RADRPT ---
EXAM DATE/TIME: 01/01/2017 19:13 [facility] COMPARISON: No previous studies available for comparison. INDICATIONS : Hematuria. MEDICAL HISTORY : Hypercholesterolemia. Hypertension. Thyroid disease. Tumor thyroid. CVA. Migraines. Arthritis. UTI. Spinal stenosis. Herniated disk. Diabetes. PTSD. Left breast cancer. ESBL. E.Coli. SURGICAL HISTORY : Cholecystectomy. section. Left breast lumpectomy. Left total knee replacement. Lumbar spin al fusion. ENCOUNTER: Initial ACUITY: 1 day PAIN SCORE: 8/10 LOCATION: Bilateral flank MEASUREMENTS: RIGHT KIDNEY: 11.7 x 5.8 x 6.2 cm LEFT KIDNEY: 11.2 x 5.9 x 7.4 cm FINDINGS: There is no hydronephrosis. No definite solid mass is identified. No definite stone is identified f or technique. The bladder is grossly intact for technique and not being completely distended during t he exam. There is a trace of fluid in the perinephric space on the right side. CONCLUSION: Unremarkable renal ultrasound except for trace of fluid in the perinephric space on t he right. Elle Rucekr MD on January 01, 2017 at 20:20 Board Certified Radiologist. This report was verified electronically.
[2017-01-01] MEDS: ATORVASTATIN 40 MG TAB PO SCH (20:26)
[2017-01-01] MEDS: traMADol HCL 50 MG TAB PO PRN (20:31)
[2017-01-02] VITALS: BP 159/79; PULSE 89; RESP 20; TEMP 99.4; O2SAT 92
[2017-01-02 04:00] VITALS: BP 160/70; PULSE 85; RESP 18; TEMP 98.2; O2SAT 93
[2017-01-02] MEDS: ENALAPRILAT 1.25 MG/ML VIAL IV PUSH PRN (05:10)
[2017-01-02] MEDS: INSULIN ASPART SUPPLEMENTAL SCALE SQ SCH ×4 (05:14→21:00)
[2017-01-02 08:00] VITALS: BP 161/67; PULSE 86; RESP 18; TEMP 97.7; O2SAT 93
[2017-01-02] MEDS ORDERED: MAGNESIUM HYDROXIDE SUSP 30 ML CUP PO PRN (09:30)
--- NOTE | 2017-01-02 09:50 | HHI.PR ---
Subjective Remarks Pt reports that she feels like she needs to have a BM but may be constipated. She has not had a BM in 5 days per the pt. She is eating well +Flatus No nausea or vomiting. Objective Vitals Vital Signs Date Time Temp Pulse Resp B/P Pulse Ox O2 Delivery O2 Flow Rate FiO2 01/02/17 04:00 98.2 85 18 160/70 93 01/02/17 00:00 99.4 89 20 159/79 92 01/01/17 20:06 95 01/01/17 20:00 98.1 92 18 160/70 90 01/01/17 16:00 98.7 94 16 152/66 93 01/01/17 12:04 97.4 93 20 149/68 94 01/01/17 01/01/17 01/02/17 15:00 23:00 07:00 Intake Total 240 ml 468 ml 120 ml Output Total 200 ml 350 ml 400 ml Balance 40 ml 118 ml -280 ml Intake Oral 240 ml 360 ml 120 ml IV Total 108 ml Output Urine Total 200 ml 350 ml 400 ml # Bowel Movements 0 0 0 Result Diagram: 12/30/16199901/01/17 0420 Other Results Laboratory Tests Test 01/01/17 04:20 Sodium Level 143 MEQ/L Potassium Level 3.5 MEQ/L Chloride Level 106 MEQ/L Carbon Dioxide Level 29.5 MEQ/L Anion Gap 8 MEQ/L Blood Urea Nitrogen 8 MG/DL Creatinine 0.53 MG/DL Estimat Glomerular Filtration 116 ML/MIN Rate Random Glucose 136 MG/DL Calcium Level 8.2 MG/DL Imaging Last Impressions Renal Ultrasound 01/01/17 0000 Signed Impressions: Service Date/Time: Sunday, January 01, 2017 19:13 - CONCLUSION: Unremarkable renal ultrasound except for trace of fluid in the perinephric space on the right. Elle Rucker MD Knee X-Ray 12/30/161953 Signed Impressions: Service Date/Time: Friday, December 30, 2016 20:29 - CONCLUSION: 1. No acute fracture or joint dislocation. 2. Good alignment of the knee prosthesis. Steffen Mtz MD Hip and Pelvis X-Ray 12/30/161953 Signed Impressions: Service Date/Time: Friday, December 30, 2016 20:36 - CONCLUSION: No acute fracture or joint dislocation. Steffen Mtz MD Head CT 12/30/161953 Signed Impressions: Service Date/Time: Friday, December 30, 2016 20:31 - CONCLUSION: 1. Stable CT scan of the brain compared to the prior study. 2. 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 Steffen Mtz MD Chest X-Ray 12/30/161953 Signed Impressions: Service Date/Time: Friday, December 30, 2016 20:28 - CONCLUSION: No acute disease. No significant change has occurred. Steffen Mtz MD Cervical Spine CT 12/30/161953 Signed Impressions: Service Date/Time: Friday, December 30, 2016 20:31 - CONCLUSION: 1. No acute bony fracture. 2. Mild primary bony degenerative changes. Steffen Mtz MD Objective Remarks General: NAD, AAOx3 Chest: CTA bilaterally Cardiac: Regular Abd: +BS, soft ND/NT : Villalobos cath in place, yellow urine noted Ext: No edema, painful left knee A/P Problem List: (1) Syncope and collapse Status: Acute Plan: - Pt has had recent UTI sx's and was seen in ED on 12/14 and found to have ESBL E. coli UTI, but was given Keflex - Sx's persisted and presented with N/V/D and syncope. - Pt was notably dehydrated and hypokalemic at admission. - ID consulted and pt started on Ertapenem on 12/31 and completed this on 01/01. - ID recommended Nitrofurantoin 100mg BID x 3 days. - Pts Blood culture, drawn on 12/30, is now growing staph sp coagulase negative on 10/16 bottles. - Will discuss this with ID - Cont IVF and monitor urine output - Pt symptomatically is improving. - PT recommending PT at rehab. - Discussed with CM arranging for SNF placement - 2D echo (12/31) --> Poor image quality, EF 65-70%, poorlu visualized aortic valve, difficult to exclude bicuspid valve, no stenosis and trace tricuspid regurgitation. - Pt is on Procardia 60mg BID, Lisinopril 20mg daily and Vasotec PRN - BP has been elevated likely secondary to pain related to her left knee. - DVT prophylaxis (2) Urinary tract infection Status: Acute Plan: - See above (3) General weakness Status: Acute Plan: - See above (4) Change in mental status Status: Acute Plan: - See above. (5) Hypertension Status: Chronic Plan: - See above. - Cont. current meds (6) Postherpetic neuralgia Status: Acute Plan: - Gabapentin resumed Assessment and Plan Patient examined. Assessment and plan formulated with Sarai Boss PA-C. I agree with the above. uti, n/v/d resolved. syncope. given ivf. abx per ID. d/c villalobos and d/c to snf in AM Problem Qualifiers (1) Urinary tract infection: Qualified Code: N39.0 - Urinary tract infection without hematuria, site unspecified (2) Hypertension: Qualified Code: I10 - Essential hypertension Sarai Boss Jan 02, 2017 09:50 Jackson Bravo MD Jan 02, 2017 19:24
[2017-01-02] MEDS: DULoxetine HCl DR 60 MG CAP PO SCH (10:00)
[2017-01-02] MEDS: GABAPENTIN 300 MG CAP PO SCH ×2 (10:00→21:02)
[2017-01-02] MEDS: LISINOPRIL 20 MG TAB PO SCH (10:00)
[2017-01-02] MEDS: NIFEdipine 60 MG SUSTAINED RELEASE TAB PO SCH ×2 (10:00→21:02)
[2017-01-02] MEDS: ASPIRIN 81 MG CHEW TAB PO SCH (10:01)
[2017-01-02] MEDS: traMADol HCL 50 MG TAB PO PRN ×2 (10:02→21:03)
[2017-01-02] MEDS: DOCUSATE SODIUM 100 MG CAP PO SCH ×2 (10:04→21:02)
[2017-01-02] MEDS: NITROFURANTOIN MONOHYD MACROCR 100 MG CAP PO SCH ×2 (11:57→18:40)
[2017-01-02 12:00] VITALS: BP 158/79; PULSE 86; RESP 18; TEMP 97.3; O2SAT 96
[2017-01-02 16:00] VITALS: BP 158/69; PULSE 88; RESP 17; TEMP 98.5; O2SAT 94
[2017-01-02 20:00] VITALS: BP 177/75; PULSE 81; PULSE 92; RESP 18; TEMP 98.9; O2SAT 92
[2017-01-02] MEDS: ATORVASTATIN 40 MG TAB PO SCH (21:03)
[2017-01-03] VITALS: BP 163/73; PULSE 87; RESP 18; TEMP 98; O2SAT 93
[2017-01-03 04:00] VITALS: BP 152/3; PULSE 86; RESP 18; TEMP 98.6; O2SAT 92
[2017-01-03] MEDS: INSULIN ASPART SUPPLEMENTAL SCALE SQ SCH ×2 (05:24→11:30)
[2017-01-03 08:00] VITALS: BP 162/72; PULSE 88; RESP 18; TEMP 95.8; O2SAT 94
[2017-01-03] MEDS: LISINOPRIL 20 MG TAB PO SCH (09:13)
[2017-01-03] MEDS: NITROFURANTOIN MONOHYD MACROCR 100 MG CAP PO SCH (09:13)
[2017-01-03] MEDS: traMADol HCL 50 MG TAB PO PRN (09:13)
[2017-01-03] MEDS: ASPIRIN 81 MG CHEW TAB PO SCH (09:13)
[2017-01-03] MEDS: NIFEdipine 60 MG SUSTAINED RELEASE TAB PO SCH (09:13)
[2017-01-03] MEDS: DULoxetine HCl DR 60 MG CAP PO SCH (09:13)
[2017-01-03] MEDS: DOCUSATE SODIUM 100 MG CAP PO SCH (09:13)
[2017-01-03] MEDS: GABAPENTIN 300 MG CAP PO SCH (09:13)
[2017-01-03] MEDS ORDERED: NIFE60TA58 PO (09:18)
[2017-01-03] MEDS ORDERED: GABA600T PO (09:18)
[2017-01-03] MEDS ORDERED: MACR100C2 PO (09:18)
[2017-01-03] MEDS ORDERED: DOCU1CAP39 PO (09:18)
--- NOTE | 2017-01-03 09:31 | HHI.DCPOC ---
Discharge Care Plan Diagnosis: (1) UTI (lower urinary tract infection) (2) Syncope and collapse (3) Hypertension (4) Diabetes (5) General weakness (6) Chronic pain Goals to Promote Your Health * To prevent worsening of your condition and complications * To maintain your health at the optimal level Directions to Meet Your Goals Take your medications as prescribed Follow your dietary instruction Follow activity as directed Keep your appointments as scheduled Take your immunizations and boosters as scheduled If your symptoms worsen call your PCP, if no PCP go to Urgent Care Center or Emergency Room Smoking is Dangerous to Your Health. Avoid second hand smoke Call the 24-hour hour crisis hotline for domestic abuse at Sarai Boss Jan 03, 2017 09:31
--- NOTE | 2017-01-03 09:47 | HHI.DS ---
Discharge Summary Admission Date Dec 30, 2016 at 21:35 Discharge Date: Jan 03, 2017 Admitting Diagnosis Syncope, UTI, generalized weakness (1) Syncope and collapse Diagnosis: Principal (2) Urinary tract infection Diagnosis: Secondary (3) General weakness Diagnosis: Secondary (4) Change in mental status Diagnosis: Secondary (5) Hypertension Diagnosis: Secondary (6) Postherpetic neuralgia Diagnosis: Secondary Consultants Dr. Tim Omalley - ID Dr. Alber Greenwood - Urology Brief History The patient is a 66 year old female with reported recurrent UTIs and hypertension who presents to the [facility] emergency department with a history of generalized weakness and reported syncope prior to arrival in her bathroom. Most of the history is obtained from ER physician, medical record review and patient's son Deni who is her caregiver. According to ambulance services the patient was being assisted to the bathroom by her son. He was able to ease her to the ground. She has been experiencing nausea, vomiting and diarrhea according to her son Deni who I was able to speak with this evening by phone. The nausea vomiting has been ongoing for approximately 2 days and the diarrhea started today. The patient's recent history is complicated by having urinary tract infection and being on an antibiotic for this. According to the ER physician, the patient was unable to speak much to her due to weakness. Patient is actually more conversant now since she has had IV fluids. Her initial evaluation in the ER is notable for confusion, findings of possible UTI and hypomagnesemia. Imaging is overall unremarkable. CBC/BMP: 12/30/16 2000 01/01/17 0420 Significant Findings Laboratory Tests Test 01/01/17 04:20 Random Glucose 136 MG/DL (74-106) Calcium Level 8.2 MG/DL (8.5-10.1) Imaging Last Impressions Renal Ultrasound 01/01/17 0000 Signed Impressions: Service Date/Time: Sunday, January 01, 2017 19:13 - CONCLUSION: Unremarkable renal ultrasound except for trace of fluid in the perinephric space on the right. Elle Rucker MD Knee X-Ray 12/30/16 1954 Signed Impressions: Service Date/Time: Friday, December 30, 2016 20:29 - CONCLUSION: 1. No acute fracture or joint dislocation. 2. Good alignment of the knee prosthesis. Steffen Mtz MD Hip and Pelvis X-Ray 12/30/161953 Signed Impressions: Service Date/Time: Friday, December 30, 2016 20:36 - CONCLUSION: No acute fracture or joint dislocation. Steffen Mtz MD Head CT 12/30/161953 Signed Impressions: Service Date/Time: Friday, December 30, 2016 20:31 - CONCLUSION: 1. Stable CT scan of the brain compared to the prior study. 2. 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 Steffen Mtz MD Chest X-Ray 12/30/161953 Signed Impressions: Service Date/Time: Friday, December 30, 2016 20:28 - CONCLUSION: No acute disease. No significant change has occurred. Steffen Mtz MD Cervical Spine CT 12/30/161953 Signed Impressions: Service Date/Time: Friday, December 30, 2016 20:31 - CONCLUSION: 1. No acute bony fracture. 2. Mild primary bony degenerative changes. Steffen Mtz MD PE at Discharge General: NAD, AAOx3 Chest: CTA bilaterally Cardiac: Regular Abd: +BS, soft ND/NT : Lopez cath in place, yellow urine noted Ext: No edema, painful left knee Hospital Course Pt has had recent UTI sx's and was seen in ED on 12/14 and found to have ESBL E. coli UTI, but was given Keflex. Sx's persisted and she presented with N/V/D and syncope on 12/30/16. Pt was notably dehydrated and hypokalemic at admission. ID consulted and pt started on Ertapenem on 12/31 and completed this on 01/01. ID recommended Nitrofurantoin 100mg BID x 3 days (to be completed on 01/04). Pts Blood culture, drawn on 12/30, grew staph sp coagulase negative on 10/16 bottles, likely contaminant. She was seen by Dr. Greenwood and recommended to followup outpt for cystoscopy. Pt has had symptomatic improvement. Her Lopez cath was removed on 01/02 and pt has urinary incontinence, which is chronic. PT recommending PT at rehab. Pt has a noted systolic murmur on exam and 2D echo (12/31) noted poor image quality, EF 65-70%, poorly visualized aortic valve, difficult to exclude bicuspid valve, no stenosis and trace tricuspid regurgitation. Pt is on Procardia 60mg BID, Lisinopril 20mg daily and Vasotec PRN. BP has been elevated likely secondary to pain related to her left knee. Pt Condition on Discharge: Stable Discharge Disposition: Discharge to SNF Discharge Instructions DIET: Follow Instructions for: Diabetic Diet Activities you can perform: Regular-No Restrictions Follow up Referrals: PCP Follow-up - [address] [facility] - 2 Weeks with Alber Greenwood MD New Medications: Docusate Sodium (Dok) 100 Mg Cap 100 MG PO BID constipation #60 CAP Nitrofurantoin Monohydrate Macrocrystals (Macrobid) 100 Mg Cap 100 MG PO BIDPC uti #3 CAP Changed Medications: Gabapentin (Gabapentin) 600 Mg Tab 300 MG PO BID neuropathy #90 Ref 0 TAB (Changed from: 600 MG; TID) Nifedipine ER 24 HR (Nifedipine ER 24 HR) 60 Mg Tab 60 MG PO BID htn #30 Ref 0 TAB (Changed from: DAILY) Continued Medications: Aspirin (Aspirin) 81 Mg Chew 81 MG PO DAILY Ref 0 TAB Atorvastatin (Lipitor) 40 Mg Tab 40 MG PO HS Cholesterol Management #[address] (Cymbalta DR) 60 Mg Capdr 60 MG PO DAILY #30 Ref 0 CAP Ibuprofen (Ibuprofen) 200 Mg Cap 200 MG PO Q6H PRN MILD PAIN Ref 0 CAP Lisinopril (Lisinopril) 20 Mg Tab 20 MG PO DAILY #30 Ref 0 TAB Metformin (Metformin) 500 Mg Tab 500 MG PO BID With meals Blood Sugar Management #60 Ref 0 TAB Trazodone (Trazodone) 100 Mg Tab 200 MG PO HS PRN SLEEP #30 Ref 0 TAB Discontinued Medications: Furosemide (Furosemide) 40 Mg Tab 40 MG PO DAILY #30 Ref 0 TAB Hydrocodone-Acetaminophen (Lortab) 7.5-325 Mg Tab 1 TAB PO Q6H PRN PAIN #15 Ref 0 TAB Hydrocodone-Acetaminophen (Lortab) 5-325 Mg Tab 1 TAB PO Q6H PRN PAIN Days 16 Ref 0 TAB Sarai Boss Jan 03, 2017 09:47 Jackson Bravo MD Jan 03, 2017 13:07
[2017-01-03] MEDS ORDERED: ULTR50TA5 PO (12:03)
[2017-01-03] MEDS ORDERED: LISI-515 PO (12:04)
== END 2017-01-03 13:54 | DRG 690 ==
LOC: NEPC 19:40 → NEDA 21:35 → N07B 12-31 01:48
PROVIDERS: ADMIT Hospitalist; ATTEND Hospitalist
DX: N39.0 Urinary tract infection, site not specified (principal); B02.29 Other postherpetic nervous system involvement; E83.42 Hypomagnesemia; I10 Essential (primary) hypertension; E11.9 Type 2 diabetes mellitus without complications; B96.20 Unspecified Escherichia coli [E. coli] as the cause of diseases classified elsewhere; Z79.84 Long term (current) use of oral hypoglycemic drugs; Z16.12 Extended spectrum beta lactamase (ESBL) resistance; E86.0 Dehydration; E87.6 Hypokalemia; R55 Syncope and collapse; R41.82 Altered mental status, unspecified; Z87.440 Personal history of urinary (tract) infections; R32 Unspecified urinary incontinence; R19.7 Diarrhea, unspecified; R11.2 Nausea with vomiting, unspecified; R53.1 Weakness; F32.9 Major depressive disorder, single episode, unspecified; F41.9 Anxiety disorder, unspecified; E78.5 Hyperlipidemia, unspecified; M51.36 Other intervertebral disc degeneration, lumbar region; Z79.82 Long term (current) use of aspirin; Z86.73 Personal history of transient ischemic attack (TIA), and cerebral infarction without residual deficits; Z96.652 Presence of left artificial knee joint; Z85.3 Personal history of malignant neoplasm of breast; Z92.21 Personal history of antineoplastic chemotherapy; Z92.3 Personal history of irradiation; M25.562 Pain in left knee; Y92.009 Unspecified place in unspecified non-institutional (private) residence as the place of occurrence of the external cause; W19.XXXA Unspecified fall, initial encounter
CPT/HCPCS: 51702; 70450; 71010; 72125; 73502; 73564; 76775; 80048; 80053; 81001; 82550; 82552; 82948; 83036; 83605; 83690; 83735; 83880; 84443; 84484; 85025; 85610; 85730; 86403; 87040; 87077; 87086; 87186; 87205; 93005; 93306; 96374; 96375; J1335; J1815; J2405; J3475; J3480; J7030

== ENCOUNTER 2017-02-20 11:39 | Inpatient (IN) | payer MEDICARE ==
[~2017-02-20] VITALS: Ht 162.6 cm; Wt 81.2 kg
[~2017-02-20 11:39] MED LIST changes: -CEPH-460 PO; +DOCU1CAP39 PO; -FURO40TA PO; -HYDR-3533 PO; -HYDR-3534 PO; +MACR100C2 PO; +ULTR50TA5 PO
[2017-02-20 11:41] VITALS: BP 110/56; PULSE 106; RESP 28; TEMP 97.4; O2SAT 95
[2017-02-20 12:17] LABS: BASOPHIL # 0.1 TH/MM3 (0-0.2); BASOPHIL % 0.9 % (0.0-2.0); EOSINOPHIL # 0.1 TH/MM3 (0-0.4); EOSINOPHIL % 0.6 % (0.0-4.0); HEMATOCRIT 33.4 % (35.0-46.0); HEMO FLAGS DIFF FINAL; LYMPH % 11.9 % (9.0-44.0); LYMPHOCYTE # 1.2 TH/MM3 (1.0-4.8); MEAN CELL VOLUME 82.4 FL (80.0-100.0); MEAN CORPUSCULAR HEMOGLOBIN 28.2 PG (27.0-34.0); MEAN CORPUSCULAR HGB CONC 34.2 % (32.0-36.0); MONO % 6.5 % (0.0-8.0); NEUT % 80.1 % (16.0-70.0); PLATELET COUNT 348 TH/MM3 (150-450); RED BLOOD COUNT 4.05 MIL/MM3 (4.00-5.30); RED CELL DISTRIBUTION WIDTH 14.4 % (11.6-17.2)
[2017-02-20 12:25] LABS: APTT (PATIENT) 24.9 SEC (24.3-30.1); PROTHROMBIN TIME - PATIENT 11.2 SEC (9.8-11.6)
[2017-02-20 12:26] LABS: BACTERIA, URINE FEW /hpf; BLOOD, URINE MOD (NEG); COMMENT (UR) CULTURE INDICATED; CULTURE IF INDICATED CULTURE INDICATED; GLUCOSE,URINE NEG (NEG); HYALINE CAST, URINE 70 /lpf (RARE); KETONE, URINE NEG (NEG); MUCUS URINE MANY /lpf (OCC); NITRITE,URINE NEG (NEG); PH, URINE 5.5 (5.0-8.5); SQUAMOUS EPITHELIAL CELL URINE 40 /hpf (0-5); URINE COLOR YELLOW (YELLW/STRAW)
[2017-02-20 12:36] LABS: ALT (GPT) 13 U/L (10-53); ANION GAP 10 MEQ/L (5-15); AST (GOT) 16 U/L (15-37); BICARBONATE 26.7 MEQ/L (21.0-32.0); BLOOD UREA NITROGEN 24 MG/DL (7-18); CHLORIDE 103 MEQ/L (98-107); GLOMERULAR FILTRATION RATE 39 ML/MIN (>89); MAGNESIUM 1.5 MG/DL (1.5-2.5); POTASSIUM 3.4 MEQ/L (3.5-5.1); SODIUM (NA) 140 MEQ/L (136-145)
--- NOTE | 2017-02-20 12:45 | PD ---
HPI Chief Complaint: General Weakness Time Seen by Provider: 12:41 Travel History International Travel<30 days: No Contact w/Intl Traveler<30days: No Traveled to known affect area: No History of Present Illness HPI 66-year-old female that presents to the ED for evaluation of weakness. Per patient she's had this for the past 2 days. Patient comes here with son who for the most part just mailed information as patient is somewhat nonverbal. Per son patient has been fine for the past couple of days until the last 2 days. Yesterday she started complaining of some weakness and she wasn't her normal. Today she's been worse having more weakness. She denies any pain of any kind. She does have a history of UTIs in the past but per son she is not sure as she complained today that she cannot PCP. She has a history of UTIs in the past with similar symptoms. 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 Patient has not fallen. Patient does states feeling weak throughout. Allergies to multiple medications. History of MRSA. Patient was seen here about a month ago for similar. PFSH Past Medical History Arthritis: Yes Asthma: No Autoimmune Disease: No Blood Disorders: No Anxiety: Yes Depression: Yes Heart Rhythm Problems: Yes Cancer: Yes (LEFT BREAST) Cardiovascular Problems: Yes High Cholesterol: Yes Chemotherapy: Yes Chest Pain: No Congestive Heart Failure: No COPD: No Cerebrovascular Accident: Yes Diabetes: Yes Diminished Hearing: No Endocrine: Yes Gastrointestinal Disorders: Yes (METFORMIN-INDUCED DIARRHEA) GERD: No Glaucoma: No Genitourinary: No Headaches: Yes Hepatitis: No Hiatal Hernia: No Herniated Disk: Yes Hypertension: Yes Immune Disorder: No Kidney Stones: No Musculoskeletal: Yes (SPINAL STENOSIS) Neurologic: Yes Psychiatric: Yes Reproductive: No Respiratory: No Migraines: Yes (years ago) Myocardial Infarction: No Radiation Therapy: Yes Seizures: No Sleep Apnea: No 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) Ulcer: No PNEUMOCCOCAL Vaccine (Year): 1 Menopausal: Yes Past Surgical History Abdominal Surgery: Yes (CHOLECYSTECTOMY) Section: Yes Cholecystectomy: Yes Ear Surgery: No Eye Surgery: No Gynecologic Surgery: Yes (C SECTION) Insulin Pump: No Joint Replacement: Yes (LT KNEE 11/2004) Oral Surgery: No Pacemaker: No Thoracic Surgery: Yes (LEFT BREAST BX/LUMPECTOMY) Other Surgery: Yes (LUMBAR SPINAL FUSION BACK) Social History Alcohol Use: No Tobacco Use: No Substance Use: No Allergies-Medications (Allergen,Severity, Reaction): Coded Allergies: Allopurinol (Verified Allergy, Severe, Hives, 12/30/16) Clonidine (Verified Allergy, Severe, LETHARGY,SHAKING, 12/30/16) Fiorinal (Verified Allergy, Severe, Hallucinations, 12/30/16) Sulfa (Verified Allergy, Severe, HIVES, 12/30/16) Morphine (Verified Adverse Reaction, Severe, SHAKING, HEADACHE, 12/30/16) *MDRO Multi-Drug Resistant Organism (Verified Adverse Reaction, Unknown, ) ESBL+E.Coli (urine-06/13/16 & 12/14/16) Reported Meds & Prescriptions Reported Meds & Active Scripts Active Ultram (Tramadol HCl) 50 Mg Tab 50 Mg PO Q8H PRN Reported Acyclovir 400 Mg Tab 400 Mg PO TID Gabapentin 300 Mg Cap 300 Mg PO BID Lisinopril 20 Mg Tab 20 Mg PO DAILY Nifedipine ER 24 HR (Nifedipine) 60 Mg Tab 60 Mg PO DAILY Trazodone (Trazodone HCl) 100 Mg Tab 200 Mg PO HS PRN Cymbalta DR (Duloxetine HCl) 60 Mg Capdr 60 Mg PO DAILY Metformin (Metformin HCl) 500 Mg Tab 500 Mg PO BID With meals Lipitor (Atorvastatin Calcium) 40 Mg Tab 40 Mg PO HS Review of Systems Except as stated in HPI: all other systems reviewed are Neg Physical Exam Narrative GENERAL: SKIN: Warm and dry. HEAD: Atraumatic. Normocephalic. EYES: Pupils equal and round 4 mm reactive to light and accommodation. No scleral icterus. No injection or drainage. ENT: No nasal bleeding or discharge. Mucous membranes pink and moist. Tongue is midline. No blood deviation. Patient does have what appears to be a mass to the left area just below the ear. Nontender about 2 cm. This is chronic. NECK: Trachea midline. No JVD. CARDIOVASCULAR: Regular rate and rhythm. No murmurs, S3, S4. RESPIRATORY: No accessory muscle use. Clear to auscultation. Breath sounds equal bilaterally. GASTROINTESTINAL: Abdomen soft, non-tender, nondistended. Hepatic and splenic margins not palpable. MUSCULOSKELETAL: Extremities without clubbing, cyanosis, or edema. No obvious deformities. Full range of motion of the upper and lower extremities bilaterally. 2+ pulses bilaterally. NEUROLOGICAL: Awake and alert. No obvious cranial nerve deficits. Motor grossly within normal limits. Five out of 5 muscle strength in the arms and legs. Normal speech. PSYCHIATRIC: Appropriate mood and affect; insight and judgment normal. Data Data Last Documented VS Vital Signs Date Time Temp Pulse Resp B/P Pulse Ox O2 Delivery O2 Flow Rate FiO2 02/20/17 13:33 84 18 130/58 97 Room Air 02/20/17 11:41 97.4 Orders Electrocardiogram (02/20/17 11:47) Complete Blood Count With Diff (02/20/17 11:47) Comprehensive Metabolic Panel (02/20/17 11:47) Ckmb (Isoenzyme) Profile (02/20/17 11:47) Troponin I (02/20/17 11:47) Prothrombin Time / Inr (Pt) (02/20/17 11:47) Act Partial Throm Time (Ptt) (02/20/17 11:47) Blood Culture (02/20/17 11:47) Lipase (02/20/17 11:47) Urinalysis - C+S If Indicated (02/20/17 11:47) Cath For Specimen (02/20/17 11:47) Magnesium (Mg) (02/20/17 11:47) Thyroid Stimulating Hormone (02/20/17 11:47) Iv Access Insert/Monitor (02/20/17 11:47) Ecg Monitoring (02/20/17 11:47) Oximetry (02/20/17 11:47) Chest, Single Ap (02/20/17 ) Lactic Acid (02/20/17 11:47) Ct Brain W/O Iv Contrast(Rout) (02/20/17 11:54) Urine Culture (02/20/17 12:00) Piperacil-Tazo 3.375 Gm Premix (Zosyn 3. (02/20/17 13:00) Labs Laboratory Tests Test 02/20/17 02/20/17 11:55 12:00 White Blood Count 10.0 TH/MM3 Red Blood Count 4.05 MIL/MM3 Hemoglobin 11.4 GM/DL Hematocrit 33.4 % Mean Corpuscular Volume 82.4 FL Mean Corpuscular Hemoglobin 28.2 PG Mean Corpuscular Hemoglobin 34.2 % Concent Red Cell Distribution Width 14.4 % Platelet Count 348 TH/MM3 Mean Platelet Volume 8.2 FL Neutrophils (%) (Auto) 80.1 % Lymphocytes (%) (Auto) 11.9 % Monocytes (%) (Auto) 6.5 % Eosinophils (%) (Auto) 0.6 % Basophils (%) (Auto) 0.9 % Neutrophils # (Auto) 8.0 TH/MM3 Lymphocytes # (Auto) 1.2 TH/MM3 Monocytes # (Auto) 0.7 TH/MM3 Eosinophils # (Auto) 0.1 TH/MM3 Basophils # (Auto) 0.1 TH/MM3 CBC Comment DIFF FINAL Differential Comment Prothrombin Time 11.2 SEC Prothromb Time International 1.0 RATIO Ratio Activated Partial 24.9 SEC Thromboplast Time Sodium Level 140 MEQ/L Potassium Level 3.4 MEQ/L Chloride Level 103 MEQ/L Carbon Dioxide Level 26.7 MEQ/L Anion Gap 10 MEQ/L Blood Urea Nitrogen 24 MG/DL Creatinine 1.37 MG/DL Estimat Glomerular Filtration 39 ML/MIN Rate Random Glucose 141 MG/DL Lactic Acid Level 2.5 mmol/L Calcium Level 9.6 MG/DL Magnesium Level 1.5 MG/DL Total Bilirubin 0.3 MG/DL Aspartate Amino Transf 16 U/L (AST/SGOT) Alanine Aminotransferase 13 U/L (ALT/SGPT) Alkaline Phosphatase 79 U/L Total Creatine Kinase 31 U/L Troponin I LESS THAN 0.02 NG/ML Total Protein 7.3 GM/DL Albumin 3.2 GM/DL Lipase 77 U/L Thyroid Stimulating Hormone 0.116 uIU/ML 3rd Gen Urine Color YELLOW Urine Turbidity CLOUDY Urine pH 5.5 Urine Specific [place] 1.024 Urine Protein 100 mg/dL Urine Glucose (UA) NEG mg/dL Urine Ketones NEG mg/dL Urine Occult Blood MOD Urine Nitrite NEG Urine Bilirubin NEGATIVE Urine Urobilinogen 2.0 MG/DL Urine Leukocyte Esterase MOD Urine RBC 15 /hpf Urine WBC 62 /hpf Urine WBC Clumps MANY Urine Squamous Epithelial 40 /hpf Cells Urine Amorphous Sediment RARE Urine Bacteria FEW /hpf Urine Hyaline Casts 70 /lpf Urine Mucus MANY /lpf Microscopic Urinalysis Comment CULTURE INDICATED MDM Medical Decision Making Medical Screen Exam Complete: Yes Emergency Medical Condition: Yes Medical Record Reviewed: Yes Interpretation(s) CBC & BMP Diagram 02/20/17 11:55 LFTs WNL UA shows UTI lactic acid elevated Last Impressions Head CT 02/20/17 1154 Signed Impressions: Service Date/Time: , February 20, 2017 12:57 - CONCLUSION: Stable evaluation without evidence of acute infarct, hemorrhage, mass or edema. Stable Left periauricular mass Markus Moreno MD Chest X-Ray 02/20/17 0000 Signed Impressions: Service Date/Time: , February 20, 2017 13:00 - CONCLUSION: 1. 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 No active disease. Chris Quintana MD Differential Diagnosis Generalized weakness versus UTI versus cystitis versus altered mental status versus syncope Narrative Course 66-year-old female that presents to the ED for evaluation of generalized weakness and changes in mental status. Patient was properly examined and was found to have signs and symptoms which appear to be consistent with possible urosepsis. Patient has a history of this in the past. I do recommend labs and imaging to make sure there is nothing else acute. Patient and family agree with this. Patient was given IV fluids. Labs and imaging show what appears to be UTI with urosepsis. Patient is symptomatic and does have a lactic acidosis. Patient does not have a leukocytosis but she does have a left shift of the neuthrophils. Case was discussed in my attending Dr Berkowitz who evaluated the patient and recommends admission for urosepsis and altered mental status. This was discussed with family and patient were in agreement with plan. Patient was started on Zosyn after my attending recommended this. [facility] was contacted and Dr Santana agrees to admit. Sepsis Criteria SIRS Criteria (2 or more): Heart rate over 90 Diagnosis Primary Impression: Urinary tract infection Qualified Code: N30.00 - Acute cystitis without hematuria Additional Impression: General weakness Admitting Information Admitting Physician Requests: Rolly Munoz February 20, 2017 12:45
[2017-02-20 12:46] LABS: ALKALINE PHOSPHATASE 79 U/L (45-117); TOTAL BILIRUBIN ADULT 0.3 MG/DL (0.2-1.0)
[2017-02-20 12:52] LABS: CREATINE KINASE 31 U/L (26-192)
[2017-02-20] MEDS ORDERED: PIPERACIL-TAZO 3.375 GM PREMIX 50 ML IV ONE (13:00)
[2017-02-20 13:09] VITALS: O2SAT 96
--- NOTE | 2017-02-20 13:21 | RADRPT ---
EXAM DATE/TIME: 02/20/2017 12:57 [facility] COMPARISON: CT BRAIN W/O CONTRAST, December 30, 2016, 20:31. INDICATIONS : Altered mental status. RADIATION DOSE: 31.34 CTDIvol (mGy) MEDICAL HISTORY : Cardiovascular disease. Cerebrovascular disease. Hypertension.Da[place] SURGICAL HISTORY : Cholecystectomy. ENCOUNTER: Initial ACUITY: 1 day PAIN SCALE: 0/10 LOCATION: cranial TECHNIQUE: Multiple contiguous axial images were obtained of the head. Using automated exposure control and adjustment of the mA and/or kV according to patient size, radiation dose was kept as low as reasonably achievable to obtain optimal diagnostic quality images. FINDINGS: CEREBRUM: Stable compared to recent exam. Small old lacunar infarcts identified in the left thala mus. There is no evidence of acute infarct or hemorrhage. There is no mass effect or edema. POSTERIOR FOSSA: The cerebellum and brainstem are intact. The 4th ventricle is midline. The cer ebellopontine angle is unremarkable. EXTRACRANIAL: The visualized portion of the orbits is intact. Left periauricular mass is again no rigoberto SKULL: The calvaria is intact. No evidence of skull fracture. CONCLUSION: Stable evaluation without evidence of acute infarct, hemorrhage, mass or edema. Stable Left periauricular mass Markus Moreno MD on February 20, 2017 at 13:15 Board Certified Radiologist. This report was verified electronically.
[2017-02-20] MEDS ORDERED: NIFE60TA58 PO (13:32)
[2017-02-20] MEDS ORDERED: GABA300C5 PO (13:32)
[2017-02-20] MEDS ORDERED: LISI-515 PO (13:32)
[2017-02-20 13:33] VITALS: BP 130/58; PULSE 84; RESP 18; O2SAT 97
--- NOTE | 2017-02-20 13:34 | RADRPT ---
EXAM DATE/TIME: 02/20/2017 13:00 [facility] COMPARISON: CHEST SINGLE AP, December 31, 2014, 14:07. INDICATIONS : Syncope MEDICAL HISTORY : None. SURGICAL HISTORY : None. ENCOUNTER: Initial ACUITY: 1 day PAIN SCORE: 0/10 LOCATION: Bilateral chest FINDINGS: A single view of the chest demonstrates the lungs to be symmetrically aerated without evidence of mas s, infiltrate or effusion. The cardiomediastinal contours are enlarged superiorly secondary to a chr onic goiter. Osseous structures are intact. CONCLUSION: 1. 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 No active disease. Chris Quintana MD on February 20, 2017 at 13:29 Board Certified Radiologist. This report was verified electronically.
[2017-02-20] MEDS ORDERED: ACYC400T PO (13:38)
[2017-02-20] MEDS ORDERED: SODIUM CHLORIDE 0.9% FLUSH 10 ML FLUSH IV FLUSH PRN (14:00)
[2017-02-20] MEDS ORDERED: MAGNESIUM HYDROXIDE SUSP 30 ML CUP PO PRN (14:00)
[2017-02-20] MEDS ORDERED: ACETAMINOPHEN 325 MG TAB PO PRN (14:00)
[2017-02-20] MEDS ORDERED: TEMAZEPAM 15 MG CAP PO PRN (14:00)
[2017-02-20] MEDS ORDERED: NALOXONE HCL 0.4 MG/ML AMP IV PRN (14:00)
--- NOTE | 2017-02-20 14:33 | HHI.HP ---
HPI Service [facility] Hospitalists Primary Care Physician Eulalio Betts, DO Admission Diagnosis UTI, altered mental status Chief Complaint: Weakness, UTI Travel History International Travel<30 Days: No Contact w/Intl Traveler <30 Da: No Traveled to Known Affected Are: No History of Present Illness Ms. Wilson is a 66 y/o female with reported recurrent UTIs (most recently ESBL E. coli UTI), hypertension, diabetes mellitus, and hx of breast cancer who presents to the [facility] ED on 02/20/17 with reported generalized weakness and AMS. Most of the history is obtained from ED PA-C and the medical record review as family was unavailable to speak with. Per the ED records the pt's son reported that she has had increased weakness and AMS for the past 2 days. Today she's been worse having more weakness. She denies any pain of any kind. She does have a history of UTIs and was admitted in 12/2016 with similar symptoms and was found to have an ESBL E. coli UTI and was treated with Ertapenem and Nitrofurantoin per ID recommendations. Her labs at admission indicate an INOCENCIO with Cr 1.37, lactic acid elevated at 2.5 and UA is abnormal. Urine culture is pending. Pt was given Zosyn in the ED. Review of Systems ROS Limitations: Altered Mental Status, Poor Historian Other Generalized weakness Past Family Social History Past Medical History Hypertension Recurrent UTI Depression Anxiety Postherpetic neuralgia Hyperlipidemia Breast cancer Degenerative disc disease lumbar spine 2D echo (12/31/16) - Poor image quality - EF 65-70% - Poorly visualized aortic valve - Difficult to exclude bicuspid valve, no stenosis - Trace tricuspid regurgitation. Past Surgical History Left breast lumpectomy Lumbar microdiscectomy Laminectomy L3-L4 fusion Left knee replacement Cholecystectomy Reported Medications -Gabapentin 300 Mg PO BID -Lisinopril 20 Mg PO DAILY -Trazodone 200 Mg PO HS PRN -Cymbalta DR 60 Mg PO DAILY -Metformin 500 Mg PO BID -Lipitor 40 Mg PO HS --Nifedipine ER 24 60 Mg PO BID ?Ultram (Tramadol HCl) 50 Mg Tab 50 Mg PO Q8H PRN ?Acyclovir 400 Mg Tab 400 Mg PO TID Allergies: Coded Allergies: Allopurinol (Verified Allergy, Severe, Hives, 12/30/16) Clonidine (Verified Allergy, Severe, LETHARGY,SHAKING, 12/30/16) Fiorinal (Verified Allergy, Severe, Hallucinations, 12/30/16) Sulfa (Verified Allergy, Severe, HIVES, 12/30/16) Morphine (Verified Adverse Reaction, Severe, SHAKING, HEADACHE, 12/30/16) *MDRO Multi-Drug Resistant Organism (Verified Adverse Reaction, Unknown, ) ESBL+E.Coli (urine-06/13/16 & 12/14/16) Family History Noncontributory Social History Patient lives with her son and a roommate No tobacco or alcohol use Denies illicit drug use General she is incontinent of bowel and bladder at home. Has been in halfway previously. Physical Exam Vital Signs Vital Signs Date Time Temp Pulse Resp B/P Pulse Ox O2 Delivery O2 Flow Rate FiO2 02/20/17 13:33 84 18 130/58 97 Room Air 02/20/17 13:09 96 Room Air 02/20/17 11:41 97.4 106 28 110/56 95 Room Air Physical Exam GENERAL: This is a well-nourished, well-developed patient, in no apparent distress. HEENT: Atraumatic. Normocephalic. No temporal or scalp tenderness. No scleral icterus. Airway patent. NECK: Trachea midline, supple, nontender. CARDIO: Regular. RESP: CTA bilaterally. No wheezes, rales, or rhonchi. ABD: +BS, soft, non-tender, nondistended. EXT: Extremities without clubbing, cyanosis, or edema. NEURO: Awake. Pt won't speak or follow commands but will nod head yes or no to questioning. Laboratory Laboratory Tests Test 02/20/17 02/20/17 11:55 12:00 White Blood Count 10.0 Red Blood Count 4.05 Hemoglobin 11.4 Hematocrit 33.4 Mean Corpuscular Volume 82.4 Mean Corpuscular Hemoglobin 28.2 Mean Corpuscular Hemoglobin 34.2 Concent Red Cell Distribution Width 14.4 Platelet Count 348 Mean Platelet Volume 8.2 Neutrophils (%) (Auto) 80.1 Lymphocytes (%) (Auto) 11.9 Monocytes (%) (Auto) 6.5 Eosinophils (%) (Auto) 0.6 Basophils (%) (Auto) 0.9 Neutrophils # (Auto) 8.0 Lymphocytes # (Auto) 1.2 Monocytes # (Auto) 0.7 Eosinophils # (Auto) 0.1 Basophils # (Auto) 0.1 CBC Comment DIFF FINAL Differential Comment Prothrombin Time 11.2 Prothromb Time International 1.0 Ratio Activated Partial 24.9 Thromboplast Time Sodium Level 140 Potassium Level 3.4 Chloride Level 103 Carbon Dioxide Level 26.7 Anion Gap 10 Blood Urea Nitrogen 24 Creatinine 1.37 Estimat Glomerular Filtration 39 Rate Random Glucose 141 Lactic Acid Level 2.5 Calcium Level 9.6 Magnesium Level 1.5 Total Bilirubin 0.3 Aspartate Amino Transf 16 (AST/SGOT) Alanine Aminotransferase 13 (ALT/SGPT) Alkaline Phosphatase 79 Total Creatine Kinase 31 Troponin I LESS THAN 0.02 Total Protein 7.3 Albumin 3.2 Lipase 77 Thyroid Stimulating Hormone 0.116 3rd Gen Urine Color YELLOW Urine Turbidity CLOUDY Urine pH 5.5 Urine Specific [place] 1.024 Urine Protein 100 Urine Glucose (UA) NEG Urine Ketones NEG Urine Occult Blood MOD Urine Nitrite NEG Urine Bilirubin NEGATIVE Urine Urobilinogen 2.0 Urine Leukocyte Esterase MOD Urine RBC 15 Urine WBC 62 Urine WBC Clumps MANY Urine Squamous Epithelial 40 Cells Urine Amorphous Sediment RARE Urine Bacteria FEW Urine Hyaline Casts 70 Urine Mucus MANY Microscopic Urinalysis Comment CULTURE INDICATED Date/Time Procedure Status Source Growth 02/20/17 12:00 Urine Culture Received Urine Random Urine Pending 02/20/17 11:55 Aerobic Blood Culture Received Blood Peripheral Pending 02/20/17 11:55 Anaerobic Blood Culture Received Blood Peripheral Pending Result Diagram: 02/20/17 1155 02/20/17 1155 Imaging Last Impressions Head CT 02/20/17 1154 Signed Impressions: Service Date/Time: February 12:57 - CONCLUSION: Stable evaluation without evidence of acute infarct, hemorrhage, mass or edema. Stable Left periauricular mass Markus Moreno MD Chest X-Ray 02/20/17 0000 Signed Impressions: Service Date/Time: February 13:00 - CONCLUSION: 1. 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 No active disease. Chris Quintana MD Septic Shock Reassessment Heart: Regular rate and rhythm Lungs: Clear Skin: Warm Assessment and Plan Problem List: (1) General weakness Status: Acute Plan: - Pt admitted with 2 days of worsening weakness and AMS. - Pt unable to provide much history, she does not her head yes or no and denies any pain of any kind. - She does have a history of UTIs and was admitted in 12/2016 with similar symptoms and was found to have an ESBL E. coli UTI and was treated with Ertapenem and Nitrofurantoin per ID recommendations. - Her labs at admission indicate an INOCENCIO with Cr 1.37, lactic acid elevated at 2.5 and UA is abnormal. - Urine culture is pending. - Blood cultures drawn in ED - Pt was given Zosyn in the ED. This will be continued - IVF - Monitor labs and clinical status - Await Urine culture - Consider ID consultation - Supportive care - DVT prophylaxis (2) Change in mental status Status: Acute Plan: - See above. (3) Urinary tract infection Status: Acute Plan: - See above. (4) INOCENCIO (acute kidney injury) Status: Acute Plan: - See above. Assessment and Plan Patient examined. Assessment and plan formulated with Sarai Boss PA-C. I agree with the above. Problem Qualifiers (1) Urinary tract infection: Qualified Code: N30.00 - Acute cystitis without hematuria Sarai Boss February 20, 2017 14:32 Christopher Quevedo DO February 22, 2017 09:32
--- NOTE | 2017-02-20 15:02 | PD ---
Physical Exam Narrative GENERAL: Well-nourished, well-developed patient. SKIN: Warm and dry. HEAD: Normocephalic EYES: No injection or drainage. ENT: No nasal drainage noted. NECK: Supple, trachea midline. CARDIOVASCULAR: Regular rate and rhythm RESPIRATORY: no increased effort. No accessory muscle use. NEUROLOGICAL: Awake. Moves extremities Data Data Last Documented VS Vital Signs Date Time Temp Pulse Resp B/P Pulse Ox O2 Delivery O2 Flow Rate FiO2 02/20/17 13:33 84 18 130/58 97 Room Air 02/20/17 11:41 97.4 Orders Electrocardiogram (02/20/17 11:47) Complete Blood Count With Diff (02/20/17 11:47) Comprehensive Metabolic Panel (02/20/17 11:47) Ckmb (Isoenzyme) Profile (02/20/17 11:47) Troponin I (02/20/17 11:47) Prothrombin Time / Inr (Pt) (02/20/17 11:47) Act Partial Throm Time (Ptt) (02/20/17 11:47) Blood Culture (02/20/17 11:47) Lipase (02/20/17 11:47) Urinalysis - C+S If Indicated (02/20/17 11:47) Cath For Specimen (02/20/17 11:47) Magnesium (Mg) (02/20/17 11:47) Thyroid Stimulating Hormone (02/20/17 11:47) Iv Access Insert/Monitor (02/20/17 11:47) Ecg Monitoring (02/20/17 11:47) Oximetry (02/20/17 11:47) Chest, Single Ap (02/20/17 ) Lactic Acid (02/20/17 11:47) Ct Brain W/O Iv Contrast(Rout) (02/20/17 11:54) Urine Culture (02/20/17 12:00) Piperacil-Tazo 3.375 Gm Premix (Zosyn 3. (02/20/17 13:00) Admit Order (Ed Use Only) (02/20/17 13:59) Labs Laboratory Tests Test 02/20/17 02/20/17 11:55 12:00 White Blood Count 10.0 TH/MM3 Red Blood Count 4.05 MIL/MM3 Hemoglobin 11.4 GM/DL Hematocrit 33.4 % Mean Corpuscular Volume 82.4 FL Mean Corpuscular Hemoglobin 28.2 PG Mean Corpuscular Hemoglobin 34.2 % Concent Red Cell Distribution Width 14.4 % Platelet Count 348 TH/MM3 Mean Platelet Volume 8.2 FL Neutrophils (%) (Auto) 80.1 % Lymphocytes (%) (Auto) 11.9 % Monocytes (%) (Auto) 6.5 % Eosinophils (%) (Auto) 0.6 % Basophils (%) (Auto) 0.9 % Neutrophils # (Auto) 8.0 TH/MM3 Lymphocytes # (Auto) 1.2 TH/MM3 Monocytes # (Auto) 0.7 TH/MM3 Eosinophils # (Auto) 0.1 TH/MM3 Basophils # (Auto) 0.1 TH/MM3 CBC Comment DIFF FINAL Differential Comment Prothrombin Time 11.2 SEC Prothromb Time International 1.0 RATIO Ratio Activated Partial 24.9 SEC Thromboplast Time Sodium Level 140 MEQ/L Potassium Level 3.4 MEQ/L Chloride Level 103 MEQ/L Carbon Dioxide Level 26.7 MEQ/L Anion Gap 10 MEQ/L Blood Urea Nitrogen 24 MG/DL Creatinine 1.37 MG/DL Estimat Glomerular Filtration 39 ML/MIN Rate Random Glucose 141 MG/DL Lactic Acid Level 2.5 mmol/L Calcium Level 9.6 MG/DL Magnesium Level 1.5 MG/DL Total Bilirubin 0.3 MG/DL Aspartate Amino Transf 16 U/L (AST/SGOT) Alanine Aminotransferase 13 U/L (ALT/SGPT) Alkaline Phosphatase 79 U/L Total Creatine Kinase 31 U/L Troponin I LESS THAN 0.02 NG/ML Total Protein 7.3 GM/DL Albumin 3.2 GM/DL Lipase 77 U/L Thyroid Stimulating Hormone 0.116 uIU/ML 3rd Gen Urine Color YELLOW Urine Turbidity CLOUDY Urine pH 5.5 Urine Specific [place] 1.024 Urine Protein 100 mg/dL Urine Glucose (UA) NEG mg/dL Urine Ketones NEG mg/dL Urine Occult Blood MOD Urine Nitrite NEG Urine Bilirubin NEGATIVE Urine Urobilinogen 2.0 MG/DL Urine Leukocyte Esterase MOD Urine RBC 15 /hpf Urine WBC 62 /hpf Urine WBC Clumps MANY Urine Squamous Epithelial 40 /hpf Cells Urine Amorphous Sediment RARE Urine Bacteria FEW /hpf Urine Hyaline Casts 70 /lpf Urine Mucus MANY /lpf Microscopic Urinalysis Comment CULTURE INDICATED MDM Supervised Visit with PRISCILLA: Yes Interpretation(s) CBC & BMP Diagram 02/20/17 11:55 Last [address] 02/20/17 1154 Signed Impressions: Service Date/Time: February 12:57 - CONCLUSION: Stable evaluation without evidence of acute infarct, hemorrhage, mass or edema. Stable Left periauricular mass Markus Moreno MD Chest X-Ray 02/20/17 0000 Signed Impressions: Service Date/Time: February 13:00 - CONCLUSION: 1. 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 No active disease. Chris Quintana MD ua with uti Narrative Course I, Dr. resendiz, have reviewed the advance practice practitioner's documentation and am in agreement, met with the patient face to face, made the diagnosis, and the medical decision making was done by me. *My assessment and Findings: 66-year-old female who presents with weakness. Workup reveals UTI with elevated lactate and signs of severe sepsis. She has no signs of persistent hypotension. She was given IV fluids and Zosyn. She'll be admitted to the hospital for further care. Sepsis Criteria SIRS Criteria (2 or more): Heart rate over 90, RR > 20 or PaCO2 < 32 Sepsis Criteria (SIRS+source): Infect source susp/known Severe Sepsis (+one): Lactate >2 Criteria Outcome: Meets severe sepsis criteria Diagnosis Primary Impression: Sepsis Qualified Code: A41.9 - Sepsis, due to unspecified organism Additional Impression: UTI (lower urinary tract infection) Kylee Resendiz MD February 20, 2017 15:02
--- NOTE | 2017-02-20 15:15 | EKG ---
Date Performed: 02/20/2017 Time Performed: 13:35:26 PTAGE: 66 years EKG: Sinus rhythm NONSPECIFIC T-WAVE ABNORMALITY BORDERLINE ECG NO SIGNIFICANT CHANGE FROM PRIOR ELECTROCARDIOGRAM. PREVIOUS TRACING : 12/30/2016 20.12 DOCTOR: Jake Talavera Interpretating Date/Time 02/20/2017 15:14:20
[2017-02-20] MEDS: 1/2 NS + KCL 20 MEQ INJ 1,000 ML IV SCH ×3 (15:19→23:25)
[2017-02-20 15:21] VITALS: BP 119/58; PULSE 78; RESP 18; O2SAT 98
[2017-02-20 16:26] VITALS: BP 136/61; PULSE 83; RESP 16; TEMP 97.8; O2SAT 95
[2017-02-20 19:51] VITALS: BP 132/56; PULSE 83; RESP 20; TEMP 98; O2SAT 96
[2017-02-20] MEDS: SODIUM CHLORIDE 0.9% FLUSH 10 ML FLUSH IV FLUSH SCH (20:18)
[2017-02-20] MEDS: PIPERACIL-TAZO 3.375 GM PREMIX 50 ML IV SCH (20:18)
[2017-02-20] MEDS: GABAPENTIN 300 MG CAP PO SCH (20:19)
[2017-02-20] MEDS: ATORVASTATIN 40 MG TAB PO SCH (20:19)
[2017-02-20] MEDS: metFORMIN HCL 500 MG TAB PO SCH (20:19)
[2017-02-20] MEDS: traZODone HCL 100 MG TAB PO PRN (20:35)
[2017-02-20 23:30] LABS: C. DIFF EPI 027 PRESUMPTIVE NEGATIVE (NEGATIVE); C. DIFF TOXIN PCR NEGATIVE (NEGATIVE)
[2017-02-21] VITALS (8 sets, daily range): BP systolic 124–157; BP diastolic 62–78; PULSE 71–82; RESP 16–19; TEMP 96.9–98.7; O2SAT 94–97
[2017-02-21] MEDS: PIPERACIL-TAZO 3.375 GM PREMIX 50 ML IV SCH ×4 (02:24→20:53)
[2017-02-21 07:28] LABS: AUTOMATED NEUTROPHIL # 5.2 TH/MM3 (1.8-7.7); BASOPHIL # 0.1 TH/MM3 (0-0.2); BASOPHIL % 1.2 % (0.0-2.0); EOSINOPHIL # 0.3 TH/MM3 (0-0.4); EOSINOPHIL % 3.4 % (0.0-4.0); HEMO FLAGS DIFF FINAL; LYMPHOCYTE # 1.6 TH/MM3 (1.0-4.8); MEAN CELL VOLUME 82.6 FL (80.0-100.0); MEAN CORPUSCULAR HEMOGLOBIN 27.6 PG (27.0-34.0); MEAN CORPUSCULAR HGB CONC 33.4 % (32.0-36.0); MONO % 8.3 % (0.0-8.0); NEUT % 66.1 % (16.0-70.0); PLATELET COUNT 290 TH/MM3 (150-450); RED BLOOD COUNT 3.39 MIL/MM3 (4.00-5.30); RED CELL DISTRIBUTION WIDTH 14.3 % (11.6-17.2); WHITE BLOOD COUNT 7.8 TH/MM3 (4.0-11.0)
[2017-02-21 07:59] LABS: BICARBONATE 26.6 MEQ/L (21.0-32.0); MAGNESIUM 1.4 MG/DL (1.5-2.5); POTASSIUM 3.4 MEQ/L (3.5-5.1)
[2017-02-21] MEDS: SODIUM CHLORIDE 0.9% FLUSH 10 ML FLUSH IV FLUSH SCH ×2 (08:49→20:54)
[2017-02-21] MEDS: GABAPENTIN 300 MG CAP PO SCH ×2 (08:49→20:52)
[2017-02-21] MEDS: LISINOPRIL 20 MG TAB PO SCH (08:49)
[2017-02-21] MEDS: DULoxetine HCl DR 60 MG CAP PO SCH (08:50)
[2017-02-21] MEDS: metFORMIN HCL 500 MG TAB PO SCH ×2 (08:50→20:51)
[2017-02-21] MEDS: NIFEdipine 60 MG SUSTAINED RELEASE TAB PO SCH (08:50)
[2017-02-21] MEDS ORDERED: PNEUMOCOCCAL POLYVALENT INJ 25 MCG/0.5 ML SYR IM ONE (10:00)
--- NOTE | 2017-02-21 10:25 | HHI.PR ---
Subjective Remarks Pt more awake and is AAOx3 today and conversive She states that she has been having diarrhea for several days to where she can' t control it She does have issues with stool incontinence but this is reportedly much worse and having copious amounts of stool output. Pt had reported three BMs overnight and two so far this morning. No reported abdominal pain No melena or BRBPR Objective Vitals Vital Signs Date Time Temp Pulse Resp B/P Pulse Ox O2 Delivery O2 Flow Rate FiO2 02/21/17 08:38 97.9 75 18 157/67 97 02/21/17 08:00 78 02/21/17 04:07 98.4 77 16 124/68 94 02/21/17 03:49 71 02/21/17 00:27 98.7 77 16 131/78 95 02/20/17 19:51 98.0 83 20 132/56 96 02/20/17 16:26 97.8 83 16 136/61 95 02/20/17 15:21 78 18 119/58 98 Room Air 02/20/17 13:33 84 18 130/58 97 Room Air 02/20/17 13:09 96 Room Air 02/20/17 11:41 97.4 106 28 110/56 95 Room Air 02/20/17 02/20/17 02/21/17 15:00 23:00 07:00 Output Total 200 ml Balance -200 ml Output Urine Total 200 ml # Voids 2 Result Diagram: 02/21/17 0602/21/17604 Other Results Laboratory Tests Test 02/20/17 02/20/17 02/20/17 02/21/17 11:55 12:00 20:00 06:05 White Blood Count 10.0 TH/MM3 7.8 TH/MM3 Red Blood Count 4.05 MIL/MM3 3.39 MIL/MM3 Hemoglobin 11.4 GM/DL 9.4 GM/DL Hematocrit 33.4 % 28.0 % Mean Corpuscular Volume 82.4 FL 82.6 FL Mean Corpuscular Hemoglobin 28.2 PG 27.6 PG Mean Corpuscular Hemoglobin 34.2 % 33.4 % Concent Red Cell Distribution Width 14.4 % 14.3 % Platelet Count 348 TH/MM3 290 TH/MM3 Mean Platelet Volume 8.2 FL 8.5 FL Neutrophils (%) (Auto) 80.1 % 66.1 % Lymphocytes (%) (Auto) 11.9 % 21.0 % Monocytes (%) (Auto) 6.5 % 8.3 % Eosinophils (%) (Auto) 0.6 % 3.4 % Basophils (%) (Auto) 0.9 % 1.2 % Neutrophils # (Auto) 8.0 TH/MM3 5.2 TH/MM3 Lymphocytes # (Auto) 1.2 TH/MM3 1.6 TH/MM3 Monocytes # (Auto) 0.7 TH/MM3 0.6 TH/MM3 Eosinophils # (Auto) 0.1 TH/MM3 0.3 TH/MM3 Basophils # (Auto) 0.1 TH/MM3 0.1 TH/MM3 CBC Comment DIFF FINAL DIFF FINAL Differential Comment Prothrombin Time 11.2 SEC Prothromb Time International 1.0 RATIO Ratio Activated Partial 24.9 SEC Thromboplast Time Sodium Level 140 MEQ/L 142 MEQ/L Potassium Level 3.4 MEQ/L 3.4 MEQ/L Chloride Level 103 MEQ/L 106 MEQ/L Carbon Dioxide Level 26.7 MEQ/L 26.6 MEQ/L Anion Gap 10 MEQ/L 9 MEQ/L Blood Urea Nitrogen 24 MG/DL 24 MG/DL Creatinine 1.37 MG/DL 1.12 MG/DL Estimat Glomerular Filtration 39 ML/MIN 49 ML/MIN Rate Random Glucose 141 MG/DL 87 MG/DL Lactic Acid Level 2.5 mmol/L Calcium Level 9.6 MG/DL 8.4 MG/DL Magnesium Level 1.5 MG/DL 1.4 MG/DL Total Bilirubin 0.3 MG/DL Aspartate Amino Transf 16 U/L (AST/SGOT) Alanine Aminotransferase 13 U/L (ALT/SGPT) Alkaline Phosphatase 79 U/L Total Creatine Kinase 31 U/L Troponin I LESS THAN 0.02 NG/ML Total Protein 7.3 GM/DL Albumin 3.2 GM/DL Lipase 77 U/L Thyroid Stimulating Hormone 0.116 uIU/ML 3rd Gen Urine Color YELLOW Urine Turbidity CLOUDY Urine pH 5.5 Urine Specific [place] 1.024 Urine Protein 100 mg/dL Urine Glucose (UA) NEG mg/dL Urine Ketones NEG mg/dL Urine Occult Blood MOD Urine Nitrite NEG Urine Bilirubin NEGATIVE Urine Urobilinogen 2.0 MG/DL Urine Leukocyte Esterase MOD Urine RBC 15 /hpf Urine WBC 62 /hpf Urine WBC Clumps MANY Urine Squamous Epithelial 40 /hpf Cells Urine Amorphous Sediment RARE Urine Bacteria FEW /hpf Urine Hyaline Casts 70 /lpf Urine Mucus MANY /lpf Microscopic Urinalysis Comment CULTURE INDICATED Stool C. difficile Toxin (PCR) NEGATIVE Stl C. difficile Toxin PRESUMPTIVE Epiderm 027 NEGATIVE Imaging Last Impressions Head CT 02/20/17 1154 Signed Impressions: Service Date/Time: , February 20, 2017 12:57 - CONCLUSION: Stable evaluation without evidence of acute infarct, hemorrhage, mass or edema. Stable Left periauricular mass Markus Moreno MD Chest X-Ray 02/20/17 0000 Signed Impressions: Service Date/Time: , February 20, 2017 13:00 - CONCLUSION: 1. 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 No active disease. Chris Quintana MD Objective Remarks General: NAD, AAOx3 Chest: CTA Cardiac: Regular Abd: +BS, soft ND/NT Ext: NO edema A/P Problem List: (1) General weakness Status: Acute Plan: - Pt admitted with 2 days of worsening weakness and AMS. - She does have a history of UTIs and was admitted in 12/2016 with similar symptoms and was found to have an ESBL E. coli UTI and was treated with Ertapenem and Nitrofurantoin per ID recommendations. - Her labs at admission indicate an INOCENCIO with Cr 1.37, lactic acid elevated at 2.5 and UA is abnormal. - Urine culture is pending. - Blood cultures are pending. - Pt is on Zosyn - IVF - Repeat labs today with improved Cr of 1.12 - Pt today reports that she has had several days of copious diarrhea prior to admission. She does typically have stool and urine incontinence but this is much worse than normal. - Stool was negative for C. diff. Remaining stool studies are pending. - Pt denies any new medications - CT abd/pelvis - Consult GI - Replace electrolytes - Await Urine culture and stool studies. - Wound care consult for pressure ulcers on her coccyx and buttock - Supportive care - DVT prophylaxis (2) Change in mental status Status: Acute Plan: - See above. (3) Urinary tract infection Status: Acute Plan: - See above. (4) INOCENCIO (acute kidney injury) Status: Acute Plan: - See above. Assessment and Plan Patient examined. Assessment and plan formulated with Sarai Boss PA-C. I agree with the above. Problem Qualifiers (1) Urinary tract infection: Qualified Code: N30.00 - Acute cystitis without hematuria Sarai Boss February 21, 2017 10:25 Christopher Quevedo DO February 22, 2017 09:32
[2017-02-21] MEDS: MAGNESIUM SULFATE 1 GM PREMIX 100 ML IV SCH ×2 (11:05→12:00)
[2017-02-21] MEDS: 1/2 NS + KCL 20 MEQ INJ 1,000 ML IV SCH ×2 (11:05→15:37)
[2017-02-21] MEDS: metroNIDAZOLE 500 MG TAB PO SCH ×2 (12:30→18:08)
[2017-02-21] MEDS: POTASSIUM CHLORIDE 10 MEQ CONTROLLED RELEASE TAB PO SCH ×2 (12:30→15:36)
[2017-02-21] MEDS ORDERED: DIATRIZOATE MEGLUM/DIATRIZOATE SOD 9 ML CUP PO ONE (12:45)
--- NOTE | 2017-02-21 14:10 | PD.CONS ---
HPI History of Present Illness This is a 66 year old [lady] who came to the ER yesterday after she collapsed, she said her legs wouldn't work. She was found to have a UTI. She has been having diarrhea for the last week, 3 x day. The stool is sometimes water and sometimes soft. She is also having new onset fecal incontinence. She says she had some nauseas and vomited yesterday once and once the day before. no abdominal pain. No sick contacts. No recent travel or diet change or medication change. No nausea or vomiting currently. She feels like she has a fever. No blood in vomit or stool. she had colonoscopy 5 years ago and it was normal, had it done [place]. never had EGD. No GERD. (Carolina Dave) PFSH Past Medical History recurrent UTI hx br cancer left knee replacement CVA Past Surgical History lumpectomy (Carolina Dave) Coded Allergies: Allopurinol (Verified Allergy, Severe, Hives, 12/30/16) Clonidine (Verified Allergy, Severe, LETHARGY,SHAKING, 12/30/16) Fiorinal (Verified Allergy, Severe, Hallucinations, 12/30/16) Sulfa (Verified Allergy, Severe, HIVES, 12/30/16) Morphine (Verified Adverse Reaction, Severe, SHAKING, HEADACHE, 12/30/16) *MDRO Multi-Drug Resistant Organism (Verified Adverse Reaction, Unknown, ) ESBL+E.Coli (urine-06/13/16 & 12/14/16) Medications Current Medications Medications (Trade) Dose Ordered Sig/Lucretia Route PRN Reason Start Time Stop Time Status Last Admin Dose Admin Sodium Chloride (NS Flush) 2 ml UNSCH PRN IV FLUSH FLUSH AFTER USING IV ACCESS 02/20/17 14:00 Sodium Chloride (NS Flush) 2 ml BID IV FLUSH 02/20/17 21:00 Acetaminophen (Tylenol) 650 mg Q4H PRN PO TEMP > 100.4 02/20/17 14:00 Magnesium Hydroxide (Milk Of Magnesia Liq) 30 ml Q12H PRN PO CONSTIPATION 02/20/17 14:00 Temazepam (Restoril) 15 mg HS PRN PO INSOMNIA 02/20/17 14:00 Naloxone HCl 0.4 mg 0.4 mg UNSCH PRN IV SEE LABEL COMMENTS 02/20/17 14:00 Potassium Chloride/Sodium Chloride 1,000 ml @ 125 mls/hr Q8H IV 02/20/17 14:15 02/21/17 11:05 Piperacillin Sod/ Tazobactam Sod (Zosyn 3.375 Gm Premix) 50 ml @ 100 mls/hr Q6H IV 02/20/17 20:00 02/21/17 08:49 Atorvastatin Calcium (Lipitor) 40 mg HS PO 02/20/17 21:00 02/20/17 20:19 Duloxetine HCl (Cymbalta Dr) 60 mg DAILY PO 02/21/17 09:00 02/21/17 08:50 Gabapentin (Neurontin) 300 mg BID PO 02/20/17 21:00 02/21/17 08:49 Lisinopril (Prinivil) 20 mg DAILY PO 02/21/17 09:00 02/21/17 08:49 Metformin HCl (Glucophage) 500 mg BID PO 02/20/17 21:00 02/21/17 08:50 Nifedipine (Procardia Xl) 60 mg DAILY PO 02/21/17 09:00 02/21/17 08:50 Trazodone HCl (Desyrel) 200 mg HS PRN PO SLEEP 02/20/17 14:15 02/20/17 20:35 Potassium Chloride (KCl) 20 meq Q4HR PO 02/21/17 12:00 02/21/17 16:01 02/21/17 12:30 Metronidazole (Flagyl) 500 mg Q6HR PO 02/21/17 12:00 02/21/17 12:30 Family History unk Social History No ETOH no tobacco no illicit drugs (Carolina DaveP) Review of Systems Constitutional: COMPLAINS OF: Fatigue Eyes: DENIES: Blurred vision Ears, nose, mouth, throat: DENIES: Hearing loss Respiratory: DENIES: Cough Cardiovascular: DENIES: Chest pain Gastrointestinal: COMPLAINS OF: Diarrhea, DENIES: Abdominal pain, Black stools , Bloody stools, Constipation, Nausea, Vomiting, Difficulty Swallowing, Hematemesis Genitourinary: DENIES: Hematuria Musculoskeletal: DENIES: Muscle aches Integumentary: DENIES: Jaundice Hematologic/lymphatic: DENIES: Bruising Neurologic: COMPLAINS OF: Abnormal gait (leg weakness) Psychiatric: COMPLAINS OF: Confusion (Carolina Dave) GI Exam Vitals I&O Vital Signs Date Time Temp Pulse Resp B/P Pulse Ox O2 Delivery O2 Flow Rate FiO2 02/21/17 11:43 97.0 82 18 142/63 96 02/21/17 08:38 97.9 75 18 157/67 97 02/21/17 08:00 78 02/21/17 04:07 98.4 77 16 124/68 94 02/21/17 03:49 71 02/21/17 00:27 98.7 77 16 131/78 95 02/20/17 19:51 98.0 83 20 132/56 96 02/20/17 16:26 97.8 83 16 136/61 95 02/20/17 15:21 78 18 119/58 98 Room Air I/O 02/20/17 02/20/17 02/20/17 02/21/17 02/21/17 02/21/17 06:59 14:59 22:59 06:59 14:59 22:59 Output Total 200 ml Balance -200 ml Output Urine Total 200 ml # Voids 2 # Bowel Movements 2 Imaging Last Impressions Head CT 02/20/17 1154 Signed Impressions: Service Date/Time: February 12:57 - CONCLUSION: Stable evaluation without evidence of acute infarct, hemorrhage, mass or edema. Stable Left periauricular mass Markus Moreno MD Chest X-Ray 02/20/17 0000 Signed Impressions: Service Date/Time: February 13:00 - CONCLUSION: 1. 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 No active disease. Chris Quintana MD Laboratory Test 02/20/17 02/21/17 02/21/17 20:00 06:05 12:49 Stool C. difficile Toxin (PCR) NEGATIVE Stl C. difficile Toxin PRESUMPTIVE Epiderm 027 NEGATIVE White Blood Count 7.8 TH/MM3 Red Blood Count 3.39 MIL/MM3 Hemoglobin 9.4 GM/DL Hematocrit 28.0 % Mean Corpuscular Volume 82.6 FL Mean Corpuscular Hemoglobin 27.6 PG Mean Corpuscular Hemoglobin 33.4 % Concent Red Cell Distribution Width 14.3 % Platelet Count 290 TH/MM3 Mean Platelet Volume 8.5 FL Neutrophils (%) (Auto) 66.1 % Lymphocytes (%) (Auto) 21.0 % Monocytes (%) (Auto) 8.3 % Eosinophils (%) (Auto) 3.4 % Basophils (%) (Auto) 1.2 % Neutrophils # (Auto) 5.2 TH/MM3 Lymphocytes # (Auto) 1.6 TH/MM3 Monocytes # (Auto) 0.6 TH/MM3 Eosinophils # (Auto) 0.3 TH/MM3 Basophils # (Auto) 0.1 TH/MM3 CBC Comment DIFF FINAL Differential Comment Sodium Level 142 MEQ/L Potassium Level 3.4 MEQ/L Chloride Level 106 MEQ/L Carbon Dioxide Level 26.6 MEQ/L Anion Gap 9 MEQ/L Blood Urea Nitrogen 24 MG/DL Creatinine 1.12 MG/DL Estimat Glomerular Filtration 49 ML/MIN Rate Random Glucose 87 MG/DL Calcium Level 8.4 MG/DL Magnesium Level 1.4 MG/DL Lactic Acid Level 2.7 mmol/L Date/Time Procedure Status Source Growth 02/20/17 20:00 Cyclospora Exam Resulted Stool Stool Pending 02/20/17 20:00 Cryptosporidium Exam Resulted Stool Stool Pending 02/20/17 20:00 Stool Pus (MOHAMUD) - Final Resulted Stool Stool NO WBC'S SEEN 02/20/17 20:00 Giardia Antigen (MOHAMUD) Resulted Stool Stool Pending 02/20/17 20:00 Stool Occult Blood (MOHAMUD) - Final Resulted Stool Stool HEMOCCULT NEGATIVE 02/20/17 20:00 - Final Complete Stool Stool NO ENTERIC PATHOGENS DETECTED BY PCR... 02/20/17 12:00 Urine Culture - Preliminary Resulted Urine Random Urine Group D Enterococcus 02/20/17 11:55 Aerobic Blood Culture - Preliminary Resulted Blood Peripheral NO GROWTH IN 1 DAY 02/20/17 11:55 Anaerobic Blood Culture - Preliminary Resulted Blood Peripheral NO GROWTH IN 1 DAY Physical Examination HEENT: EOMI; normocephalic; atraumatic; no jaundice. CHEST: Chest is clear to auscultation and percussion. CARDIAC: Regular rate and rhythm with no murmur gallop or rubs. ABDOMEN: Soft, nondistended, nontender; no hepatosplenomegaly; bowel sounds are present in all four quadrants. EXTREMITIES: No clubbing, cyanosis, or edema. SKIN: Normal; no rash; no jaundice. STRAP STITCHER: Lethargic but oriented times three. (Carolina Dave) Assessment and Plan Plan ASSESSMENT - diarrhea, n/v -. n/v seems to have improved. Pt with onset diarrhea and fecal incontinence 1 week ago. No blood. Getting flagyl, CT and stool cx pending. neg for c diff will do colonoscopy friday. PLAN - colonoscopy friday - obtain consents - clears friday - npo after midnight fri - continue flagyl - await CT abd - await rest of stool studies - further recommendations based on results above This pt seen by myself and Dr Das and this note was written on her behalf ( Carolina Dave) Physician Comments seen, examined agree with above (Rowan Das MD) Carolina Dave February 21, 2017 14:10 Rowan Das MD February 21, 2017 17:16
[2017-02-21] MEDS ORDERED: MAGNESIUM SULFATE 1 GM PREMIX 100 ML IV SCH (15:45)
[2017-02-21] MEDS ORDERED: IOHEXOL 350 MG/ML 10 ML VIAL (for RAD DIAG) IV ONE (18:36)
--- NOTE | 2017-02-21 19:00 | RADRPT ---
EXAM DATE/TIME: 02/21/2017 18:32 [facility] COMPARISON: CT ABDOMEN & PELVIS W CONTRAST, December 14, 2016, 17:21. INDICATIONS : Abdomen pain with diarrhea. IV CONTRAST: 80 cc Omnipaque 350 (iohexol) IV ORAL CONTRAST: Prescribed oral contrast ingested. RADIATION DOSE: 10.03 CTDIvol (mGy) MEDICAL HISTORY : Cardiovascular disease. Hypertension. Carcinoma, breast. SURGICAL HISTORY : Cholecystectomy. section. ENCOUNTER: Initial ACUITY: 3 days PAIN SCALE: 6/10 LOCATION: Bilateral abdomen TECHNIQUE: Volumetric scanning of the abdomen and pelvis was performed. Using automated exposure control and ad justment of the mA and/or kV according to patient size, radiation dose was kept as low as reasonably achievable to obtain optimal diagnostic quality images. FINDINGS: LOWER LUNGS: The visualized lower lungs are clear. LIVER: Pneumobilia is present, likely related to previous sphincterotomy. Correlation recommended. The gallb ladder is surgically absent. There is no evidence of biliary ductal dilatation or liver mass. SPLEEN: Normal size without lesion. PANCREAS: Within normal limits. KIDNEYS: Normal in size and shape. There is no mass, stone or hydronephrosis. ADRENAL GLANDS: Within normal limits. VASCULAR: There is no aortic aneurysm. BOWEL/MESENTERY: The stomach, small bowel, and colon demonstrate no acute abnormality. There is no free intraperitone al air or fluid. ABDOMINAL WALL: Tiny fat containing umbilical hernia which is unchanged. RETROPERITONEUM: There is no lymphadenopathy. BLADDER: Small volume of nondependent air likely related to recent instrumentation. REPRODUCTIVE: Within normal limits. INGUINAL: There is no lymphadenopathy or hernia. MUSCULOSKELETAL: Previous lumbar hardware fusion. Prominent degenerative changes in the spine. CONCLUSION: Pneumobilia and air in the urinary bladder. No definite acute CT findings Boris Munoz MD on February 21, 2017 at 18:54 Board Certified Radiologist. This report was verified electronically.
[2017-02-21] MEDS: ATORVASTATIN 40 MG TAB PO SCH (20:52)
[2017-02-21] MEDS: traZODone HCL 100 MG TAB PO PRN (20:53)
[2017-02-22] VITALS (7 sets, daily range): BP systolic 141–194; BP diastolic 64–78; PULSE 68–87; RESP 16–21; TEMP 97–98.4; O2SAT 94–98
[2017-02-22] MEDS: metroNIDAZOLE 500 MG TAB PO SCH ×4 (00:50→18:00)
[2017-02-22] MEDS: 1/2 NS + KCL 20 MEQ INJ 1,000 ML IV SCH ×3 (00:51→12:59)
[2017-02-22] MEDS: PIPERACIL-TAZO 3.375 GM PREMIX 50 ML IV SCH ×2 (03:45→09:49)
[2017-02-22 09:20] LABS: AUTOMATED NEUTROPHIL # 5.9 TH/MM3 (1.8-7.7); BASOPHIL # 0.1 TH/MM3 (0-0.2); BASOPHIL % 1.1 % (0.0-2.0); EOSINOPHIL # 0.3 TH/MM3 (0-0.4); EOSINOPHIL % 3.7 % (0.0-4.0); HEMATOCRIT 29.2 % (35.0-46.0); HEMO FLAGS DIFF FINAL; LYMPH % 17.4 % (9.0-44.0); LYMPHOCYTE # 1.5 TH/MM3 (1.0-4.8); MEAN CELL VOLUME 82.7 FL (80.0-100.0); MEAN CORPUSCULAR HEMOGLOBIN 27.3 PG (27.0-34.0); MONO % 8.2 % (0.0-8.0); NEUT % 69.6 % (16.0-70.0); PLATELET COUNT 279 TH/MM3 (150-450); RED BLOOD COUNT 3.53 MIL/MM3 (4.00-5.30); RED CELL DISTRIBUTION WIDTH 14.4 % (11.6-17.2); WHITE BLOOD COUNT 8.5 TH/MM3 (4.0-11.0)
[2017-02-22] MEDS: SODIUM CHLORIDE 0.9% FLUSH 10 ML FLUSH IV FLUSH SCH ×2 (09:59→21:00)
[2017-02-22] MEDS: DULoxetine HCl DR 60 MG CAP PO SCH (10:00)
[2017-02-22] MEDS: NIFEdipine 60 MG SUSTAINED RELEASE TAB PO SCH (10:00)
[2017-02-22] MEDS: metFORMIN HCL 500 MG TAB PO SCH ×2 (10:00→21:07)
[2017-02-22] MEDS: GABAPENTIN 300 MG CAP PO SCH ×2 (10:00→21:07)
[2017-02-22 10:01] LABS: BICARBONATE 26.5 MEQ/L (21.0-32.0); MAGNESIUM 1.7 MG/DL (1.5-2.5); POTASSIUM 4.3 MEQ/L (3.5-5.1)
[2017-02-22] MEDS: LISINOPRIL 20 MG TAB PO SCH (10:01)
[2017-02-22] MEDS: traMADol HCL 50 MG TAB PO PRN (14:12)
--- NOTE | 2017-02-22 15:58 | HHI.PR ---
Subjective Remarks Pt c/o continued frequent diarrhea. Objective Vitals Vital Signs Date Time Temp Pulse Resp B/P Pulse Ox O2 Delivery O2 Flow Rate FiO2 02/22/17 15:12 16 02/22/17 14:05 98.4 78 21 141/78 98 02/22/17 08:33 97.9 68 16 180/75 94 02/22/17 04:00 97.0 77 19 147/64 97 02/22/17 02:47 73 02/21/17 20:10 96.9 82 18 145/62 95 02/21/17 16:20 97.4 82 19 148/67 94 02/21/17 02/21/17 02/22/17 15:00 23:00 07:00 Intake Total 1726 ml Balance 1726 ml Intake Oral 1426 ml IV Total 300 ml # Voids 6 # Bowel Movements 2 7 Result Diagram: 02/22/17 0833 02/22/17 0833 Imaging Last Impressions Abdomen/Pelvis CT 02/21/17 0000 Signed Impressions: Service Date/Time: Tuesday, February 21, 2017 18:32 - CONCLUSION: Pneumobilia and air in the urinary bladder. No definite acute CT findings Boris Munoz MD Head CT 02/20/17 1154 Signed Impressions: Service Date/Time: February 12:57 - CONCLUSION: Stable evaluation without evidence of acute infarct, hemorrhage, mass or edema. Stable Left periauricular mass Markus Moreno MD Chest X-Ray 02/20/17 0000 Signed Impressions: Service Date/Time: February 13:00 - CONCLUSION: 1. 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 No active disease. Chris Quintana MD Objective Remarks General: NAD, AAOx3 Chest: CTA Cardiac: Regular Abd: +BS, soft ND/NT Ext: NO edema A/P Problem List: (1) General weakness Status: Acute Plan: - Pt admitted with 2 days of worsening weakness and AMS. - She does have a history of UTIs and was admitted in 12/2016 with similar symptoms and was found to have an ESBL E. coli UTI and was treated with Ertapenem and Nitrofurantoin per ID recommendations. - Her labs at admission indicate an INOCENCIO with Cr 1.37, lactic acid elevated at 2.5 and UA is abnormal. - Urine culture --> enterococcus faecalis - received zosyn x 2d - no fever, no leukocytosis, no c/o dysuria. Will NOT further treat at this time. Observe - Blood cultures --> NO growth at 2 days - IVF - Repeat labs today with improved Cr of 1.12, 0.82 (02/22/17) - Pt today reports that she has had several days of copious diarrhea prior to admission. She does typically have stool and urine incontinence but this is much worse than normal. - Stool was negative for C. diff. Remaining stool studies are pending. - Pt denies any new medications - CT abd/pelvis --> NO acute findings - appreciate input from GI - pt to have colonoscopy Friday, 02/23 - stool studies --> negative to date - DVT prophylaxis (2) Change in mental status Status: Acute Plan: - improved (3) Urinary tract infection Status: Acute Plan: - See above. (4) INOCENCIO (acute kidney injury) Status: Resolved Plan: - See above. (5) Wound of left side of back Status: Acute Plan: - appreciate input from Wound Care - wounds - left lower back, unstageable, will apply Santyl daily - left buttock deep tissue wound, leave open to air Problem Qualifiers (1) Urinary tract infection: Qualified Code: N30.00 - Acute cystitis without hematuria Christopher Quevedo DO February 22, 2017 15:58
[2017-02-22] MEDS: ATORVASTATIN 40 MG TAB PO SCH (21:07)
[2017-02-22] MEDS: traZODone HCL 100 MG TAB PO PRN (21:14)
[2017-02-23] VITALS (7 sets, daily range): BP systolic 134–170; BP diastolic 63–79; PULSE 76–94; RESP 16–18; TEMP 97.5–97.9; O2SAT 95–98
[2017-02-23] MEDS: metroNIDAZOLE 500 MG TAB PO SCH ×4 (02:15→17:37)
[2017-02-23] MEDS: NIFEdipine 60 MG SUSTAINED RELEASE TAB PO SCH (09:21)
[2017-02-23] MEDS: metFORMIN HCL 500 MG TAB PO SCH ×2 (09:22→21:38)
[2017-02-23] MEDS: SODIUM CHLORIDE 0.9% FLUSH 10 ML FLUSH IV FLUSH SCH ×2 (09:22→21:00)
[2017-02-23] MEDS: LISINOPRIL 20 MG TAB PO SCH (09:22)
[2017-02-23] MEDS: COLLAGENASE OINT 30 GM TUBE TOPICAL SCH (09:22)
[2017-02-23] MEDS: GABAPENTIN 300 MG CAP PO SCH ×2 (09:22→21:39)
[2017-02-23] MEDS: DULoxetine HCl DR 60 MG CAP PO SCH (09:22)
[2017-02-23] MEDS: traMADol HCL 50 MG TAB PO PRN ×2 (09:26→22:01)
--- NOTE | 2017-02-23 11:17 | HHI.GIFU ---
Subjective Remarks Resting in bed. No apparent distress. Continues to have diarrhea, has had 3 loose stool so far today. Continues to have nausea (Cha Mosquera) Objective Vitals I&O Vital Signs Date Time Temp Pulse Resp B/P Pulse Ox O2 Delivery O2 Flow Rate FiO2 02/23/17 09:32 97.5 86 18 157/72 97 02/23/17 04:00 97.9 76 16 134/63 96 02/23/17 00:00 97.9 82 18 169/79 97 02/22/17 20:00 81 02/22/17 20:00 98.1 82 18 163/71 95 02/22/17 18:02 87 16 167/72 02/22/17 16:34 98.4 81 18 194/74 95 02/22/17 15:12 16 02/22/17 14:05 98.4 78 21 141/78 98 I/O 02/22/17 02/22/17 02/22/17 02/23/17 02/23/17 02/23/17 07:00 15:00 23:00 07:00 15:00 23:00 Intake Total 180 ml 180 ml Output Total 3 ml Balance 180 ml 177 ml Intake Oral 180 ml 180 ml Output Urine Total 3 ml # Voids 1 # Bowel Movements 1 2 Laboratory Date/Time Procedure Status Source Growth 02/20/17 20:00 Cyclospora Exam - Final Resulted Stool Stool NO CYCLOSPORA SEEN 02/20/17 20:00 Cryptosporidium Exam Resulted Stool Stool Pending 02/20/17 20:00 Stool Pus (MOHAMUD) - Final Resulted Stool Stool NO WBC'S SEEN 02/20/17 20:00 Giardia Antigen (MOHAMUD) Resulted Stool Stool Pending 02/20/17 20:00 Stool Occult Blood (MOHAMUD) - Final Resulted Stool Stool HEMOCCULT NEGATIVE 02/20/17 20:00 - Final Complete Stool Stool NO ENTERIC PATHOGENS DETECTED BY PCR... 02/20/17 12:00 Urine Culture - Final Complete Urine Random Urine Enterococcus Faecalis 02/20/17 11:55 Aerobic Blood Culture - Preliminary Resulted Blood Peripheral NO GROWTH IN 3 DAYS 02/20/17 11:55 Anaerobic Blood Culture - Preliminary Resulted Blood Peripheral NO GROWTH IN 3 DAYS Imaging Last Impressions Abdomen/Pelvis CT 02/21/17 0000 Signed Impressions: Service Date/Time: Tuesday, February 21, 2017 18:32 - CONCLUSION: Pneumobilia and air in the urinary bladder. No definite acute CT findings Boris Munoz MD Head CT 02/20/17 1154 Signed Impressions: Service Date/Time: February 12:57 - CONCLUSION: Stable evaluation without evidence of acute infarct, hemorrhage, mass or edema. Stable Left periauricular mass Markus Moreno MD Chest X-Ray 02/20/17 0000 Signed Impressions: Service Date/Time: February 13:00 - CONCLUSION: 1. 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 No active disease. Chris Quintana MD Physical Exam HEENT: PERRLA; normocephalic; atraumatic; no jaundice. NECK: Neck is supple, no JVD, no lymphadenopathy. CHEST: CTA CARDIAC: RRR ABDOMEN: Soft, nondistended, nontender; no hepatosplenomegaly; bowel sounds x 4 quadrants EXTREMITIES: No clubbing, cyanosis, or edema. SKIN: Normal; no rash; no jaundice. 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 Continues to have diarrhea, multiple loose stools per day. No blood noted in stool. Abdomen/Pelvis CT --Pneumobilia and air in the urinary bladder. No definite acute CT findings. On Flagyl. C diff negative. Hemoccult negative. Cyclospora negative. Stool WBC negative. No enteric pathogens detected in stool. Cryptosporidium and Giardia pending. PLAN - Colonoscopy Friday - Clear liquids today - NPO after MN tonight - Continue Flagyl - Cryptosporidium and Giardia pending - Further recommendations to followe based on the results above Patient seen and examined by myself and Dr Das and this note is written on her behalf (Cha Mosquera) Physician Comments seen, examined agree with above we will do egd too, as she is having nausea (Rowan Das MD) Cha Mosquera February 23, 2017 11:17 Rowan Das MD February 23, 2017 16:37
--- NOTE | 2017-02-23 14:14 | HHI.PR ---
Subjective Remarks Case d/w pt and pt's nurse. Pt remains incontinent of both urine and stool. But, no diarrhea - only loose stool. Pt lives at home with her son. Pt reports that normally she is up to a chair at home. Pt feels too weak to sit up in a chair today. Objective Vitals Vital Signs Date Time Temp Pulse Resp B/P Pulse Ox O2 Delivery O2 Flow Rate FiO2 02/23/17 10:30 18 02/23/17 09:32 97.5 86 18 157/72 97 02/23/17 04:00 97.9 76 16 134/63 96 02/23/17 00:00 97.9 82 18 169/79 97 02/22/17 20:00 81 02/22/17 20:00 98.1 82 18 163/71 95 02/22/17 18:02 87 16 167/72 02/22/17 16:34 98.4 81 18 194/74 95 02/22/17 02/22/17 02/23/17 15:00 23:00 07:00 Intake Total 180 ml 180 ml Output Total 3 ml Balance 180 ml 177 ml Intake Oral 180 ml 180 ml Output Urine Total 3 ml # Voids 1 # Bowel Movements 1 2 Result Diagram: 02/22/17 0833 02/22/17 0833 Imaging Last Impressions Abdomen/Pelvis CT 02/21/17 0000 Signed Impressions: Service Date/Time: Tuesday, February 21, 2017 18:32 - CONCLUSION: Pneumobilia and air in the urinary bladder. No definite acute CT findings Boris Munoz MD Head CT 02/20/17 1154 Signed Impressions: Service Date/Time: February 12:57 - CONCLUSION: Stable evaluation without evidence of acute infarct, hemorrhage, mass or edema. Stable Left periauricular mass Markus Moreno MD Chest X-Ray 02/20/17 0000 Signed Impressions: Service Date/Time: February 13:00 - CONCLUSION: 1. 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 No active disease. Chris Quintana MD Objective Remarks General: NAD, AAOx3 Chest: CTA Cardiac: Regular Abd: +BS, soft ND/NT Ext: NO edema A/P Problem List: (1) General weakness Status: Acute Plan: - Pt admitted with 2 days of worsening weakness and AMS. - She does have a history of UTIs and was admitted in 12/2016 with similar symptoms and was found to have an ESBL E. coli UTI and was treated with Ertapenem and Nitrofurantoin per ID recommendations. - Her labs at admission indicate an INOCENCIO with Cr 1.37, lactic acid elevated at 2.5 and UA is abnormal. - Urine culture --> enterococcus faecalis - received zosyn x 2d - no fever, no leukocytosis, no c/o dysuria. Will NOT further treat at this time. Observe - Blood cultures --> NO growth at 2 days - IVF - Repeat labs today with improved Cr of 1.12, 0.82 (02/22/17) - Pt today reports that she has had several days of copious diarrhea prior to admission. She does typically have stool and urine incontinence but this is much worse than normal. - Stool was negative for C. diff. Remaining stool studies are pending. - Pt denies any new medications - CT abd/pelvis --> NO acute findings - appreciate input from GI - pt to have colonoscopy Friday, 02/23 - stool studies --> negative to date - DVT prophylaxis 02/23/17 - Pt interviewed and examined - No new findings - Colonoscopy 02/24 - generalized weakness - consider d/c to SNF (2) Change in mental status Status: Acute Plan: - improved (3) Urinary tract infection Status: Acute Plan: - See above. (4) INOCENCIO (acute kidney injury) Status: Resolved Plan: - See above. (5) Wound of left side of back Status: Acute Plan: - appreciate input from Wound Care - wounds - left lower back, unstageable, will apply Santyl daily - left buttock deep tissue wound, leave open to air Problem Qualifiers (1) Urinary tract infection: Qualified Code: N30.00 - Acute cystitis without hematuria Christopher Quevedo DO February 23, 2017 14:14
[2017-02-23] MEDS ORDERED: PEG (High)/E-LYTE SOLN 4000 ML BTL PO ONE (16:00)
[2017-02-23] MEDS: ATORVASTATIN 40 MG TAB PO SCH (21:38)
[2017-02-23] MEDS: traZODone HCL 100 MG TAB PO PRN (22:01)
[2017-02-24] VITALS (7 sets, daily range): BP systolic 153–170; BP diastolic 68–76; PULSE 80–89; RESP 16–20; TEMP 97.8–98.5; O2SAT 94–95
[2017-02-24] MEDS: metroNIDAZOLE 500 MG TAB PO SCH ×5 (01:16→23:31)
[2017-02-24 07:09] LABS: AUTOMATED NEUTROPHIL # 4.5 TH/MM3 (1.8-7.7); BASOPHIL # 0.1 TH/MM3 (0-0.2); BASOPHIL % 1.3 % (0.0-2.0); EOSINOPHIL # 0.3 TH/MM3 (0-0.4); EOSINOPHIL % 3.6 % (0.0-4.0); HEMATOCRIT 30.2 % (35.0-46.0); HEMO FLAGS DIFF FINAL; LYMPHOCYTE # 1.8 TH/MM3 (1.0-4.8); MEAN CELL VOLUME 82.9 FL (80.0-100.0); MEAN CORPUSCULAR HEMOGLOBIN 26.6 PG (27.0-34.0); MONO % 9.1 % (0.0-8.0); PLATELET COUNT 279 TH/MM3 (150-450); RED BLOOD COUNT 3.65 MIL/MM3 (4.00-5.30); RED CELL DISTRIBUTION WIDTH 13.9 % (11.6-17.2); WHITE BLOOD COUNT 7.4 TH/MM3 (4.0-11.0)
[2017-02-24 07:26] LABS: MAGNESIUM 1.4 MG/DL (1.5-2.5); POTASSIUM 3.9 MEQ/L (3.5-5.1)
[2017-02-24] MEDS: NIFEdipine 60 MG SUSTAINED RELEASE TAB PO SCH (08:40)
[2017-02-24] MEDS: DULoxetine HCl DR 60 MG CAP PO SCH (08:41)
[2017-02-24] MEDS: LISINOPRIL 20 MG TAB PO SCH (08:41)
[2017-02-24] MEDS: GABAPENTIN 300 MG CAP PO SCH ×2 (08:41→21:05)
[2017-02-24] MEDS: SODIUM CHLORIDE 0.9% FLUSH 10 ML FLUSH IV FLUSH SCH ×2 (08:42→21:06)
[2017-02-24] MEDS: COLLAGENASE OINT 30 GM TUBE TOPICAL SCH (08:42)
[2017-02-24] MEDS ORDERED: PROPOFOL 200 MG/20 ML AMP IV ONE (11:43)
--- NOTE | 2017-02-24 11:52 | HHI.GIFU ---
Subjective Remarks feels good, no new complains, tolerated prep, can not assess diarrhea since she got colonoscopy prep Objective Vitals I&O Vital Signs Date Time Temp Pulse Resp B/P Pulse Ox O2 Delivery O2 Flow Rate FiO2 02/24/17 08:00 98.5 87 20 170/72 95 02/24/17 05:13 86 02/24/17 04:00 98.5 81 18 156/76 95 02/24/17 00:00 97.8 85 18 153/70 95 02/23/17 20:00 97.8 94 18 163/76 95 02/23/17 18:42 79 02/23/17 16:00 97.8 76 18 170/72 98 02/23/17 12:00 97.7 78 18 160/75 96 I/O 02/23/17 02/23/17 02/23/17 02/24/17 02/24/17 02/24/17 07:00 15:00 23:00 07:00 15:00 23:00 Intake Total 180 ml 800 ml 0 ml Output Total 3 ml Balance 177 ml 800 ml 0 ml Intake Oral 180 ml 800 ml IV Total 0 ml Output Urine Total 3 ml # Voids 2 # Bowel Movements 2 2 Laboratory Laboratory Tests Test 02/24/17 05:19 White Blood Count 7.4 Red Blood Count 3.65 Hemoglobin 9.7 Hematocrit 30.2 Mean Corpuscular Volume 82.9 Mean Corpuscular Hemoglobin 26.6 Mean Corpuscular Hemoglobin 32.0 Concent Red Cell Distribution Width 13.9 Platelet Count 279 Mean Platelet Volume 8.1 Neutrophils (%) (Auto) 61.0 Lymphocytes (%) (Auto) 25.0 Monocytes (%) (Auto) 9.1 Eosinophils (%) (Auto) 3.6 Basophils (%) (Auto) 1.3 Neutrophils # (Auto) 4.5 Lymphocytes # (Auto) 1.8 Monocytes # (Auto) 0.7 Eosinophils # (Auto) 0.3 Basophils # (Auto) 0.1 CBC Comment DIFF FINAL Differential Comment Sodium Level 143 Potassium Level 3.9 Chloride Level 107 Carbon Dioxide Level 28.0 Anion Gap 8 Blood Urea Nitrogen 8 Creatinine 0.54 Estimat Glomerular Filtration 114 Rate Random Glucose 100 Calcium Level 8.9 Magnesium Level 1.4 Date/Time Procedure Status Source Growth 02/20/17 20:00 Cyclospora Exam - Final Resulted Stool Stool NO CYCLOSPORA SEEN 02/20/17 20:00 Cryptosporidium Exam Resulted Stool Stool Pending 02/20/17 20:00 Stool Pus (MOHAMUD) - Final Resulted Stool Stool NO WBC'S SEEN 02/20/17 20:00 Giardia Antigen (MOHAMUD) Resulted Stool Stool Pending 02/20/17 20:00 Stool Occult Blood (MOHAMUD) - Final Resulted Stool Stool HEMOCCULT NEGATIVE 02/20/17 20:00 - Final Complete Stool Stool NO ENTERIC PATHOGENS DETECTED BY PCR... 02/20/17 12:00 Urine Culture - Final Complete Urine Random Urine Enterococcus Faecalis 02/20/17 11:55 Aerobic Blood Culture - Preliminary Resulted Blood Peripheral NO GROWTH IN 4 DAYS 02/20/17 11:55 Anaerobic Blood Culture - Preliminary Resulted Blood Peripheral NO GROWTH IN 4 DAYS Physical Exam HEENT: PERRLA; normocephalic; atraumatic; no jaundice. NECK: Neck is supple, no JVD, no lymphadenopathy. CHEST: CTA CARDIAC: RRR ABDOMEN: Soft, nondistended, nontender; no hepatosplenomegaly; bowel sounds x 4 quadrants EXTREMITIES: No clubbing, cyanosis, or edema. SKIN: Normal; no rash; no jaundice. 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 Continues to have diarrhea, multiple loose stools per day. No blood noted in stool. Abdomen/Pelvis CT --Pneumobilia and air in the urinary bladder. No definite acute CT findings. On Flagyl. C diff negative. Hemoccult negative. Cyclospora negative. Stool WBC negative. No enteric pathogens detected in stool. Cryptosporidium and Giardia pending. 02-25-17 doing ok, no sign of GI bleed, EGD showed minimal gastritis Bx from antrum, colonoscopy was normal Bx was done for diarrhea in the ascending and sigmoid colon PLAN - diet as tolerated - Continue Flagyl - Cryptosporidium and Giardia pending - Further recommendations to followe based on the results above - FU Bx Js Velasquez MD February 24, 2017 11:52
--- NOTE | 2017-02-24 11:59 | GIPROC ---
[facility] [address] [facility]. [facility] [place], [address] EGD PROCEDURE REPORT EXAM DATE: 02/24/2017 PATIENT NAME: Inga Wilson MR #: [id number] BIRTHDATE: 1950 ATTENDING: Js Velasquez MD ORDER #: [id number] VISUAL ARTS TEACHER: Jayesh Bess and Desiree Herman STATUS: inpatient INDICATIONS: The patient is a 66 yr old female here for an EGD due to anemia and vomiting PROCEDURE PERFORMED: EGD w/ biopsy MEDICATIONS: None and Per Anesthesia. TOPICAL ANESTHETIC: none CONSENT: The patient understands the risks and benefits of the procedure and understands that these risks include, but are not limited to: sedation, allergic reaction, infection, perforation and/or bleeding. Alternative means of evaluation and treatment include, among others: physical exam, x-rays, and/or surgical intervention. The patient elects to proceed with this endoscopic procedure. medical equipment was checked for proper function. Hand hygiene and appropriate measures for infection prevention was taken. After the risks, benefits and alternatives of the procedure were thoroughly explained, Informed consent was verified, confirmed and timeout was successfully executed by the treatment team. The patient was anesthetized with topical anesthesia and the EC-3490Li (Pedi C) endoscope was introduced through the mouth and advanced to the second portion of the duodenum. Retroflexed views revealed no abnormalities The gastroscope was then slowly withdrawn and removed. Minimal irritation of the stomach possible gastritis. The endoscopy was otherwise normal. ADVERSE EVENTS: There were no complications. IMPRESSIONS: 1. Minimal irritation of the stomach possible gastritis 2. Normal endoscopy otherwise 3. Retroflexed views revealed no abnormalities RECOMMENDATIONS: 1. Await biopsy results. Biopsy results will not be ready for 7-10 days. If you don't hear from us in two weeks, call our office for biopsy results. 2. Anti-reflux regimen 3. Avoid NSAIDS PATIENT CONDITION: stable DISPOSITION: Inpatient REPEAT EXAM: Return as needed for EGD Js Velasquez MD eSigned: Js Velasquez MD 02/24/2017 11:58 AM cc: PATIENT NAME: Inga Wilson MR#: [id number]
--- NOTE | 2017-02-24 12:03 | GIPROC ---
[facility] [address] [facility]. [facility], [address] COLONOSCOPY PROCEDURE REPORT EXAM DATE: 02/24/2017 PATIENT NAME: Inga Wilson MR #: [id number] BIRTHDATE: 1950 ENDOSCOPIST: Js Velasquez MD ORDER #: [id number] FOREST FIREFIGHTER: Jayesh Bess and Desiree Herman STATUS: inpatient INDICATIONS: The patient is a 66 yr old female here for a colonoscopy due to anemia, non-specific and chronic diarrhea PROCEDURE PERFORMED: Colonoscopy with biopsy MEDICATIONS: None and Per Anesthesia. PREP QUALITY: fair ESTIMATED BLOOD LOSS: None CONSENT: The patient understands the risks and benefits of the procedure and understands that these risks include, but are not limited to: sedation, allergic reaction, infection, perforation and/or bleeding. Alternative means of evaluation and treatment include, among others: physical exam, x-rays, and/or surgical intervention. The patient elects to proceed with this endoscopic procedure. medical equipment was checked for proper function. Hand hygiene and appropriate measures for infection prevention was taken. After the risks, benefits and alternatives of the procedure were thoroughly explained, Informed consent was verified, confirmed and timeout was successfully executed by the treatment team. A digital exam was performed and revealed no abnormalities of the rectum The Pentax EC-3490Li endoscope was introduced through the anus and advanced to the cecum, which was identified by both the appendix and ileocecal valve. The instrument was then slowly withdrawn as the colon was fully examined. COLON FINDINGS: Moderate diverticulosis was noted throughout the entire examined colon. Normal exam, random Bx from ascending colon and sigmoid. Retroflexed views revealed no abnormalities The scope was then completely withdrawn from the patient and the procedure terminated. ADVERSE EVENTS: There were no complications. IMPRESSIONS: 1. Moderate diverticulosis was noted throughout the entire examined colon 2. Normal exam, random Bx from ascending colon and sigmoid 3. Retroflexed views revealed no abnormalities 4. Was performed 5. Revealed no abnormalities of the rectum RECOMMENDATIONS: 1. Await biopsy results. Biopsy results will not be ready for 7-10 days. If you don't hear from us in two weeks, call our office for results. 2. Yearly hemoccult 3. High fiber diet RECALL: Colonoscopy Js Velasquez MD eSigned: Js Velasquez MD 02/24/2017 12:02 PM cc:
[2017-02-24] MEDS: metFORMIN HCL 500 MG TAB PO SCH ×2 (12:30→21:05)
--- NOTE | 2017-02-24 14:44 | EKG ---
Date Performed: 02/23/2017 Time Performed: 17:45:14 PTAGE: 66 years EKG: Sinus rhythm . Poor R wave progression - probable normal variant Anterior T wave changes are nonspecific Low QRS v oltages in precordial leads Compared to prior tracing no significant change Borderline ECG PREVIOUS TRACING : 02/20/2017 13.35 DOCTOR: Kin Herbert Interpretating Date/Time 02/24/2017 14:40:43
--- NOTE | 2017-02-24 19:32 | HHI.PR ---
Subjective Remarks says n/v/d better son present. asking to get the u/s guided bx of left ear/neck Objective Vitals heart reg lung cta abd s/nt ext no edema heent. mass left face/neck near the left ear Vital Signs Date Time Temp Pulse Resp B/P Pulse Ox O2 Delivery O2 Flow Rate FiO2 02/24/17 16:00 98.4 85 16 153/68 94 02/24/17 11:59 93 18 149/72 99 02/24/17 11:52 105 18 130/75 97 02/24/17 11:46 98.4 97 18 142/78 93 02/24/17 08:05 80 02/24/17 08:00 98.5 87 20 170/72 95 02/24/17 05:13 86 02/24/17 04:00 98.5 81 18 156/76 95 02/24/17 00:00 97.8 85 18 153/70 95 02/23/17 20:00 97.8 94 18 163/76 95 02/23/17 02/23/17 02/24/17 15:00 23:00 07:00 Intake Total 800 ml 0 ml Balance 800 ml 0 ml Intake Oral 800 ml IV Total 0 ml # Voids 2 # Bowel Movements 2 Result Diagram: 02/24/17 0519 02/24/17 0519 Imaging Last Impressions Abdomen/Pelvis CT 02/21/17 0000 Signed Impressions: Service Date/Time: Tuesday, February 21, 2017 18:32 - CONCLUSION: Pneumobilia and air in the urinary bladder. No definite acute CT findings Borsi Munoz MD Head CT 02/20/17 1154 Signed Impressions: Service Date/Time: February 12:57 - CONCLUSION: Stable evaluation without evidence of acute infarct, hemorrhage, mass or edema. Stable Left periauricular mass Markus Moreno MD Chest X-Ray 02/20/17 0000 Signed Impressions: Service Date/Time: February 13:00 - CONCLUSION: 1. 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 No active disease. Chris Quintana MD A/P Problem List: (1) General weakness Status: Acute Plan: - Pt admitted with 2 days of worsening weakness and AMS. - She does have a history of UTIs and was admitted in 12/2016 with similar symptoms and was found to have an ESBL E. coli UTI and was treated with Ertapenem and Nitrofurantoin per ID recommendations. - Her labs at admission indicate an INOCENCIO with Cr 1.37, lactic acid elevated at 2.5 and UA is abnormal. - Urine culture --> enterococcus faecalis - received zosyn x 2d - no fever, no leukocytosis, no c/o dysuria. - Blood cultures --> NO growth at 2 days - Pt today reports that she has had several days of copious diarrhea prior to admission. She does typically have stool and urine incontinence but this is much worse than normal. - Stool was negative for C. diff. Remaining stool studies negative - Pt denies any new medications - CT abd/pelvis --> NO acute findings - egd/colon 02/24. diverticulosis and mild gastritis - advance diet pt has left face mass and seen by ent dr Zapata per pt/son. They were trying to get bx of the mass and apparently ent sent orders over to u/s...will call u/s in AM to coordinate son asking about possible MS given pt sister had it. will need snf. (2) Change in mental status Status: Acute Plan: - improved (3) Urinary tract infection Status: Acute Plan: - See above. (4) INOCENCIO (acute kidney injury) Status: Resolved Plan: - See above. (5) Wound of left side of back Status: Acute Plan: - appreciate input from Wound Care - wounds - left lower back, unstageable, will apply Santyl daily - left buttock deep tissue wound, leave open to air Problem Qualifiers (1) Urinary tract infection: Qualified Code: N30.00 - Acute cystitis without hematuria Jackson Bravo MD February 24, 2017 19:31
[2017-02-24] MEDS: ATORVASTATIN 40 MG TAB PO SCH (21:06)
[2017-02-24] MEDS: MAGNESIUM SULFATE 1 GM PREMIX 100 ML IV SCH ×2 (21:06→21:15)
[2017-02-24] MEDS: traMADol HCL 50 MG TAB PO PRN (21:06)
[2017-02-24] MEDS: traZODone HCL 100 MG TAB PO PRN (21:49)
[2017-02-25] VITALS (12 sets, daily range): BP systolic 14–168; BP diastolic 66–77; PULSE 72–88; RESP 16–18; TEMP 97–98; O2SAT 94–98
[2017-02-25] MEDS: metroNIDAZOLE 500 MG TAB PO SCH ×3 (05:36→18:14)
[2017-02-25] MEDS: DULoxetine HCl DR 60 MG CAP PO SCH (10:25)
[2017-02-25] MEDS: NIFEdipine 60 MG SUSTAINED RELEASE TAB PO SCH (10:25)
[2017-02-25] MEDS: SODIUM CHLORIDE 0.9% FLUSH 10 ML FLUSH IV FLUSH SCH ×2 (10:25→21:27)
[2017-02-25] MEDS: LISINOPRIL 20 MG TAB PO SCH (10:25)
[2017-02-25] MEDS: GABAPENTIN 300 MG CAP PO SCH ×2 (10:25→21:27)
[2017-02-25] MEDS: metFORMIN HCL 500 MG TAB PO SCH ×2 (10:26→21:27)
[2017-02-25] MEDS: COLLAGENASE OINT 30 GM TUBE TOPICAL SCH (10:26)
[2017-02-25] MEDS: traMADol HCL 50 MG TAB PO PRN (10:30)
--- NOTE | 2017-02-25 11:38 | HHI.PR ---
Subjective Remarks pt family is convinced she has MS pt says gloria food. no n/v/d now. ambulated to door with PT assist Objective Vitals on edge bed heart reg lung cta abd s/nt ext no edema heent . large periauricular mass left. Vital Signs Date Time Temp Pulse Resp B/P Pulse Ox O2 Delivery O2 Flow Rate FiO2 02/25/17 04:33 85 02/25/17 04:00 97.5 72 18 140/67 97 02/25/17 00:00 98.0 77 16 159/75 95 02/24/17 22:17 18 02/24/17 20:00 98.4 89 16 156/74 95 02/24/17 16:00 98.4 85 16 153/68 94 02/24/17 11:59 93 18 149/72 99 02/24/17 11:52 105 18 130/75 97 02/24/17 11:46 98.4 97 18 142/78 93 02/24/17 02/24/17 02/25/17 15:00 23:00 07:00 Intake Total 200 ml 240 ml 120 ml Balance 200 ml 240 ml 120 ml Intake Oral 240 ml 120 ml IV Total 200 ml # Voids 4 2 # Bowel Movements 0 0 Result Diagram: 02/24/17 0519 02/24/17 0519 Imaging Last Impressions Abdomen/Pelvis CT 02/21/17 0000 Signed Impressions: Service Date/Time: Tuesday, February 21, 2017 18:32 - CONCLUSION: Pneumobilia and air in the urinary bladder. No definite acute CT findings Boris Munoz MD Head CT 02/20/17 1154 Signed Impressions: Service Date/Time: February 12:57 - CONCLUSION: Stable evaluation without evidence of acute infarct, hemorrhage, mass or edema. Stable Left periauricular mass Markus Moreno MD Chest X-Ray 02/20/17 0000 Signed Impressions: Service Date/Time: February 13:00 - CONCLUSION: 1. 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 No active disease. Chris Quintana MD A/P Problem List: (1) General weakness Status: Acute Plan: - Pt admitted with 2 days of worsening weakness and AMS. - She does have a history of UTIs and was admitted in 12/2016 with similar symptoms and was found to have an ESBL E. coli UTI and was treated with Ertapenem and Nitrofurantoin per ID recommendations. - Her labs at admission indicate an INOCENCIO with Cr 1.37, lactic acid elevated at 2.5 and UA is abnormal. - Urine culture --> enterococcus faecalis - received zosyn x 2d - no fever, no leukocytosis, no c/o dysuria. - Blood cultures --> NO growth at 2 days - Pt today reports that she has had several days of copious diarrhea prior to admission. She does typically have stool and urine incontinence but this is much worse than normal. - Stool was negative for C. diff. Remaining stool studies negative - Pt denies any new medications - CT abd/pelvis --> NO acute findings - egd/colon 02/24. diverticulosis and mild gastritis - Pt has large left periauricular mass and seen by ENT prior to admit who wants bx as it appears malignant - Family now concerned about 'MS' cont diet bx left periauricular mass today and can f/u ENT for result cont PT plan for snf tomorrow. (2) Change in mental status Status: Acute Plan: - improved (3) Urinary tract infection Status: Acute Plan: - See above. (4) INOCENCIO (acute kidney injury) Status: Resolved Plan: - See above. (5) Wound of left side of back Status: Acute Plan: - appreciate input from Wound Care - wounds - left lower back, unstageable, will apply Santyl daily - left buttock deep tissue wound, leave open to air Problem Qualifiers (1) Urinary tract infection: Qualified Code: N30.00 - Acute cystitis without hematuria Jackson Bravo MD February 25, 2017 11:38
[2017-02-25] MEDS ORDERED: LIDOCAINE HCL 1% PF 30 ML VIAL ONE (13:47)
[2017-02-25] MEDS ORDERED: GADODIAMIDE PF 287 MG/ML 5 ML VIAL (for RAD MRI) IV ONE (14:39)
--- NOTE | 2017-02-25 15:25 | RADRPT ---
EXAM DATE/TIME: 02/25/2017 09:53 [facility] COMPARISON: No previous studies available for comparison. INDICATIONS : Left periauricular neck mass. MEDICAL HISTORY : Hypercholesterolemia. Hypertension. Thyroid disease. CVA. Left breast cancer. Left neck cancer. Spin al stensosis. Arthritis. Herniated disk. Diabetes. MDRO. SURGICAL HISTORY : Cholecystectomy section. Left breast BX. Left breast lumpectomy. Left total knee replacemen t. ENCOUNTER: Initial ACUITY: 4 - 6 months PAIN SCORE: 0/10 LOCATION: Left ORGAN: Left subauricular mass. SPECIMENS: Three core specimen(s) submitted for pathologic evaluation. DEVICE: 16 gauge needle Post procedure scanning reveals no hematoma or other complication. The possibility does exist that the tissue obtained will be non-diagnostic. If the sample is non-colby gnostic a repeat biopsy or surgical biopsy may need to be performed. TECHNIQUE: 1. Ultrasound guidance for needle biopsy. 2. Needle biopsy. The risks, benefits, and alternatives to ultrasound guided needle biopsy were explained to the patien t in detail including the risk of bleeding and infection. Written and verbal informed consent was ob tained. With the patient on the ultrasound table, images were obtained. Overlying skin was prepped and drape d in the usual sterile fashion and Lidocaine was utilized as a local anesthetic. A needle was advanced into the identified target and the number of specimens as above obtained and starks bmitted for pathologic evaluation. The patient tolerated the procedure well and left the ultrasound suite in stable condition. CONCLUSION: Uncomplicated ultrasound guided needle biopsy. Chivo Jaime MD on February 25, 2017 at 15:22 Board Certified Radiologist. This report was verified electronically.
--- NOTE | 2017-02-25 15:31 | RADRPT ---
EXAM DATE/TIME: 02/25/2017 13:54 [facility] COMPARISON: No previous studies available for comparison. INDICATIONS : Altered mental status. Hx of breast ca. CONTRAST: 15 cc Omniscan (gadodiamide) IV MEDICAL HISTORY : Carcinoma, breast. Hypertension. Diabetes mellitus type 2. SURGICAL HISTORY : Fusion, lumbar. Cholecystectomy. ENCOUNTER: Initial ACUITY: 2 day PAIN SCORE: 0/10 LOCATION: head TECHNIQUE: Multiplanar, multisequence MRI of the brain was performed both prior to and following the administrat ion of paramagnetic contrast. FINDINGS: MRI of the brain is performed in sagittal, axial and coronal planes. The craniocervical junction and midline structures are unremarkable. Diffusion weighted images demonstrate no abnormality. There is n o evidence of acute cortical infarction, acute hemorrhage, mass effect or midline shift is seen. Ther e is periventricular hyperintensity on the T2 weighted images consistent with small vessel vascular d isease significantly more than expected in a patient of this age. Following the administration of con trast no abnormal enhancement is identified. Posterior fossa structures are unremarkable with the ex ception of chronic ischemic changes within the brainstem. There is benign-appearing mucosal disease i n the left maxillary sinus. CONCLUSION: 1. No evidence of acute intracranial pathology. Chronic ischemic changes as above. No evidence of me tastatic disease. Vadim Santos MD on February 25, 2017 at 15:26 Board Certified Radiologist. This report was verified electronically.
--- NOTE | 2017-02-25 16:30 | HHI.GIFU ---
Subjective Remarks Resting in bed. No n/v. No abdominal pain. Objective Vitals I&O Vital Signs Date Time Temp Pulse Resp B/P Pulse Ox O2 Delivery O2 Flow Rate FiO2 02/25/17 13:15 79 16 168/76 98 02/25/17 13:00 82 16 166/77 98 02/25/17 12:45 97.8 82 16 165/75 98 02/25/17 12:00 97.7 80 18 167/77 96 02/25/17 11:59 97.0 88 16 14/66 95 02/25/17 08:00 97.9 75 16 165/77 94 02/25/17 04:33 85 02/25/17 04:00 97.5 72 18 140/67 97 02/25/17 00:00 98.0 77 16 159/75 95 02/24/17 22:17 18 02/24/17 20:00 98.4 89 16 156/74 95 I/O 02/24/17 02/24/17 02/24/17 02/25/17 02/25/17 02/25/17 07:00 15:00 23:00 07:00 15:00 23:00 Intake Total 200 ml 240 ml 120 ml Balance 200 ml 240 ml 120 ml Intake Oral 240 ml 120 ml IV Total 200 ml # Voids 4 2 # Bowel Movements 0 0 Laboratory Date/Time Procedure Status Source Growth 02/20/17 20:00 Cyclospora Exam - Final Complete Stool Stool NO CYCLOSPORA SEEN 02/20/17 20:00 Cryptosporidium Exam - Final Complete Stool Stool NEGATIVE - NO CRYPTOSPORIDIUM ANTIGEN... 02/20/17 20:00 Stool Pus ([facility]UD) - Final Complete Stool Stool NO WBC'S SEEN 02/20/17 20:00 Giardia Antigen ([facility]UD) - Final Complete Stool Stool NEGATIVE - NO GIARDIA ANTIGEN DETECTE... 02/20/17 20:00 Stool Occult Blood ([facility]HAMUD) - Final Complete Stool Stool HEMOCCULT NEGATIVE 02/20/17 20:00 - Final Complete Stool Stool NO ENTERIC PATHOGENS DETECTED BY PCR... Imaging Last Impressions Salivary Gland Biopsy Ultrasound 02/25/17 0000 Signed Impressions: Service Date/Time: Saturday, February 25, 2017 09:53 - CONCLUSION: Uncomplicated ultrasound guided needle biopsy. Chivo Jaime MD Brain MRI 02/25/17 0000 Signed Impressions: Service Date/Time: Saturday, February 25, 2017 13:54 - CONCLUSION: 1. No evidence of acute intracranial pathology. Chronic ischemic changes as above. No evidence of metastatic disease. Vadim Santos MD Abdomen/Pelvis CT 02/21/17 0000 Signed Impressions: Service Date/Time: Tuesday, February 21, 2017 18:32 - CONCLUSION: Pneumobilia and air in the urinary bladder. No definite acute CT findings Boris Munoz MD Head CT 02/20/17 1154 Signed Impressions: Service Date/Time: February 12:57 - CONCLUSION: Stable evaluation without evidence of acute infarct, hemorrhage, mass or edema. Stable Left periauricular mass Markus Moerno MD Chest X-Ray 02/20/17 0000 Signed Impressions: Service Date/Time: February 13:00 - CONCLUSION: 1. 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 No active disease. Chris Quintana MD Physical Exam HEENT: Normocephalic; atraumatic CHEST: CTA CARDIAC: RRR ABDOMEN: Soft, nondistended, nontender; no hepatosplenomegaly; bowel sounds x 4 quadrants EXTREMITIES: No clubbing, cyanosis, or edema. SKIN: Normal; no rash; no jaundice. 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 Abdomen/Pelvis CT 02/21/17-- Pneumobilia and air in the urinary bladder. No definite acute CT findings. On Flagyl. C diff negative. Hemoccult negative. Cyclospora negative. Stool WBC negative. No enteric pathogens detected in stool. Cryptosporidium negative and Giardia negative. EGD/Colonoscopy (02/25/17)--- > 1. Minimal irritation of the stomach possible gastritis 2. Normal endoscopy otherwise 3. Retroflexed views revealed no abnormalities 1. Moderate diverticulosis was noted throughout the entire examined colon 2. Normal exam, random Bx from ascending colon and sigmoid 3. Retroflexed views revealed no abnormalities 4. Was performed 5. Revealed no abnormalities of the rectum. Pathology pending. No n/v today. No diarrhea. PLAN - AARON - Await biopsy - Add lactinex - Monitor labs - Monitor stool output - Pt seen and examined by Dr. Molina and myself and this note is written on his behalf Vesna Chavez February 25, 2017 16:29
[2017-02-25] MEDS: ATORVASTATIN 40 MG TAB PO SCH (21:27)
[2017-02-25] MEDS: LACTOBACILLUS ACIDOPHILUS TAB PO SCH (21:27)
[2017-02-25] MEDS: traZODone HCL 100 MG TAB PO PRN (21:30)
[2017-02-26] VITALS: BP 132/63; PULSE 68; RESP 18; TEMP 98; O2SAT 97
[2017-02-26 04:24] VITALS: BP 122/58; PULSE 66; RESP 18; TEMP 97.6; O2SAT 98
[2017-02-26] MEDS: metroNIDAZOLE 500 MG TAB PO SCH ×3 (07:29→13:16)
[2017-02-26 08:00] VITALS: BP 157/69; PULSE 74; PULSE 82; RESP 16; TEMP 98.1; O2SAT 95
[2017-02-26] MEDS: SODIUM CHLORIDE 0.9% FLUSH 10 ML FLUSH IV FLUSH SCH (09:00)
[2017-02-26] MEDS: metFORMIN HCL 500 MG TAB PO SCH (09:54)
[2017-02-26] MEDS: GABAPENTIN 300 MG CAP PO SCH (09:54)
[2017-02-26] MEDS: LACTOBACILLUS ACIDOPHILUS TAB PO SCH (09:54)
[2017-02-26] MEDS: NIFEdipine 60 MG SUSTAINED RELEASE TAB PO SCH (09:55)
[2017-02-26] MEDS: DULoxetine HCl DR 60 MG CAP PO SCH (09:56)
[2017-02-26] MEDS: LISINOPRIL 20 MG TAB PO SCH (09:56)
[2017-02-26] MEDS: COLLAGENASE OINT 30 GM TUBE TOPICAL SCH (09:57)
--- NOTE | 2017-02-26 10:30 | HHI.PR ---
Subjective Remarks doing ok. tolerating diet ambulated to door with PT yesterday. Objective Vitals left parotid mass heart reg lung cta abd s/nt ext no edema Vital Signs Date Time Temp Pulse Resp B/P Pulse Ox O2 Delivery O2 Flow Rate FiO2 02/26/17 04:24 97.6 66 18 122/58 98 02/26/17 00:00 98.0 68 18 132/63 97 02/25/17 21:39 Room Air 02/25/17 20:25 97.6 78 18 159/72 95 02/25/17 20:21 79 02/25/17 16:00 98.0 78 18 164/70 95 02/25/17 13:15 79 16 168/76 98 02/25/17 13:00 82 16 166/77 98 02/25/17 12:45 97.8 82 16 165/75 98 02/25/17 12:00 97.7 80 18 167/77 96 02/25/17 11:59 97.0 88 16 14/66 95 02/25/17 02/25/17 02/26/17 15:00 23:00 07:00 Intake Total 480 ml 550 ml 360 ml Balance 480 ml 550 ml 360 ml Intake Oral 480 ml 550 ml 360 ml # Voids 2 2 3 # Bowel Movements 0 0 0 Result Diagram: 02/24/17 0519 02/24/17 0519 Imaging Last Impressions Abdomen/Pelvis CT 02/21/17 0000 Signed Impressions: Service Date/Time: Tuesday, February 21, 2017 18:32 - CONCLUSION: Pneumobilia and air in the urinary bladder. No definite acute CT findings Boris Munoz MD Head CT 02/20/17 1154 Signed Impressions: Service Date/Time: February 12:57 - CONCLUSION: Stable evaluation without evidence of acute infarct, hemorrhage, mass or edema. Stable Left periauricular mass Markus Moreno MD Chest X-Ray 02/20/17 0000 Signed Impressions: Service Date/Time: February 13:00 - CONCLUSION: 1. 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 No active disease. Chris Quintana MD A/P Problem List: (1) General weakness Status: Acute Plan: - Pt admitted with 2 days of worsening weakness and AMS. - She does have a history of UTIs and was admitted in 12/2016 with similar symptoms and was found to have an ESBL E. coli UTI and was treated with Ertapenem and Nitrofurantoin per ID recommendations. - Her labs at admission indicate an INOCENCIO with Cr 1.37, lactic acid elevated at 2.5 and UA is abnormal. - Urine culture --> enterococcus faecalis - received zosyn x 2d - no fever, no leukocytosis, no c/o dysuria. - Blood cultures --> NO growth at 2 days - Pt today reports that she has had several days of copious diarrhea prior to admission. She does typically have stool and urine incontinence but this is much worse than normal. - Stool was negative for C. diff. Remaining stool studies negative - Pt denies any new medications - CT abd/pelvis --> NO acute findings - egd/colon 02/24. 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 no ms lesion on mri brain f/u ent for bx result f/u gi d/c to snf for PT (2) Change in mental status Status: Acute Plan: - improved (3) Urinary tract infection Status: Acute Plan: - See above. (4) INOCENCIO (acute kidney injury) Status: Resolved Plan: - See above. (5) Wound of left side of back Status: Acute Plan: - appreciate input from Wound Care - wounds - left lower back, unstageable, will apply Santyl daily - left buttock deep tissue wound, leave open to air Problem Qualifiers (1) Urinary tract infection: Qualified Code: N30.00 - Acute cystitis without hematuria Jackson Bravo MD February 26, 2017 10:29
[2017-02-26] MEDS ORDERED: LACT PO (10:33)
[2017-02-26] MEDS ORDERED: ULTR50TA5 PO (10:33)
[2017-02-26] MEDS ORDERED: COLL30T TOPICAL (10:33)
--- NOTE | 2017-02-26 10:34 | HHI.DCPOC ---
Discharge Care Plan Diagnosis: (1) Diarrhea (2) General weakness (3) INOCENCIO (acute kidney injury) (4) Wound of left side of back (5) Parotid mass (6) Hypertension (7) Diabetes Goals to Promote Your Health * To prevent worsening of your condition and complications * To maintain your health at the optimal level Directions to Meet Your Goals Take your medications as prescribed Follow your dietary instruction Follow activity as directed Keep your appointments as scheduled Take your immunizations and boosters as scheduled If your symptoms worsen call your PCP, if no PCP go to Urgent Care Center or Emergency Room Smoking is Dangerous to Your Health. Avoid second hand smoke Call the 24-hour hour crisis hotline for domestic abuse at Jackson Bravo MD February 26, 2017 10:34
[2017-02-26 12:00] VITALS: BP 164/74; PULSE 87; RESP 16; TEMP 97.4; O2SAT 96
--- NOTE | 2017-03-05 10:39 | PQ ---
Physician Query Response Document PATIENT: BAM PARKS : 1950 ADMIT DATE: 02/20/2017 2:01 PM DISCH DATE: 02/26/2017 4:25 PM RESPONDING PROVIDER #: Eschwart QUERY TEXT: Sepsis Query Based on your medical judgement, can you further clarify the folowiin. Sepsis (SIRS due to an infection) 2. Sepsis with Organ Dysfunction 3. A localized Infection only 4. Another condition - please specify 5. Unable to determine - please explain. Depending on your selection above, please indicate one of the below if applicable: - Sepsis was present on Admission - Sepsis developed after admission The patient's Clinical Indicators include: HR 106 RR 28 LACTIC ACID 2.5 AND 2.7 increased weakness and AMS for the past 2 days INOCENCIO (acute kidney injury) UTI Query created by: Nusrat Burns on 02/24/2017 9:40 AM RESPONSE TEXT: I have reviewed the chart and the pt's pertinent admission. I do NOT feel that pt's presentation woul d support my diagnosing her with sepsis. Electronically signed by: Christopher Quevedo DO 03/05/2017 10:34 AM
--- NOTE | 2017-03-14 15:47 | HHI.DS ---
Discharge Summary Admission Date February 20, 2017 at 14:01 Discharge Date: February 26, 2017 Admitting Diagnosis UTI, altered mental status (1) General weakness Diagnosis: Principal (2) Change in mental status Diagnosis: Principal (3) Urinary tract infection Diagnosis: Principal (4) INOCENCIO (acute kidney injury) (5) Wound of left side of back Brief History Ms. Wilson is a 66 y/o female with reported recurrent UTIs (most recently ESBL E. coli UTI), hypertension, diabetes mellitus, and hx of breast cancer who presents to the [facility] ED on 02/20/17 with reported generalized weakness and AMS. Most of the history is obtained from ED PA-C and the medical record review as family was unavailable to speak with. Per the ED records the pt's son reported that she has had increased weakness and AMS for the past 2 days. Today she's been worse having more weakness. She denies any pain of any kind. She does have a history of UTIs and was admitted in 12/2016 with similar symptoms and was found to have an ESBL E. coli UTI and was treated with Ertapenem and Nitrofurantoin per ID recommendations. Her labs at admission indicate an INOCENCIO with Cr 1.37, lactic acid elevated at 2.5 and UA is abnormal. Urine culture is pending. Pt was given Zosyn in the ED. Hospital Course - Pt admitted with 2 days of worsening weakness and AMS. - She does have a history of UTIs and was admitted in 12/2016 with similar symptoms and was found to have an ESBL E. coli UTI and was treated with Ertapenem and Nitrofurantoin per ID recommendations. - Her labs at admission indicate an INOCENCIO with Cr 1.37, lactic acid elevated at 2.5 and UA is abnormal. - Urine culture --> enterococcus faecalis - received zosyn x 2d - no fever, no leukocytosis, no c/o dysuria. - Blood cultures --> NO growth at 2 days - Pt today reports that she has had several days of copious diarrhea prior to admission. She does typically have stool and urine incontinence but this is much worse than normal. - Stool was negative for C. diff. Remaining stool studies negative - Pt denies any new medications - CT abd/pelvis --> NO acute findings - egd/colon 02/24. 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 no ms lesion on mri brain -f/u ent for bx result -f/u gi -d/c to snf for PT Pt Condition on Discharge: Stable Discharge Disposition: Discharge to SNF Discharge Instructions DIET: Follow Instructions for: Diabetic Diet Activities you can perform: Regular-No Restrictions Follow up Referrals: Ear Nose Throat - [address] Zapata [facility] - 2 Weeks with Js Velasquez MD PCP Follow-up - [address] Mayers New Medications: Collagenase (Santyl) 250 Unit/Gm Oin 1 APPLIC TOPICAL DAILY left lower back daily wound Days 14 TUBE Continued Medications: Atorvastatin (Lipitor) 40 Mg Tab 40 MG PO HS Cholesterol Management #[address] Ref [address] (Cymbalta DR) 60 Mg Capdr 60 MG PO DAILY #30 Ref 0 CAP Gabapentin (Gabapentin) 300 Mg Cap 300 MG PO BID #60 Ref 0 CAP Metformin (Metformin) 500 Mg Tab 500 MG PO BID With meals Blood Sugar Management #60 Ref 0 TAB Nifedipine ER 24 HR (Nifedipine ER 24 HR) 60 Mg Tab 60 MG PO DAILY #30 Ref 0 TAB Trazodone (Trazodone) 100 Mg Tab 200 MG PO HS PRN SLEEP #30 Ref 0 TAB Discontinued Medications: Acyclovir (Acyclovir) 400 Mg Tab 400 MG PO TID SHINGLES Ref 0 TAB Jackson Bravo MD Mar 14, 2017 15:47
== END 2017-02-26 16:25 | DRG 683 ==
LOC: NEPE 11:39 → NEDA 14:01 → OBSVTOIN 14:01 → NEPFCDU 16:03 → N04B 02-22 18:41
PROVIDERS: ADMIT Hospitalist; ATTEND Hospitalist
PROC: 0DB68ZX Excision of Stomach, Via Natural or Artificial Opening Endoscopic, Diagnostic (ICD-10-PCS; 2017-02-24)
PROC: 0DBK8ZX Excision of Ascending Colon, Via Natural or Artificial Opening Endoscopic, Diagnostic (ICD-10-PCS; principal; 2017-02-24 11:15)
PROC: 0DBN8ZX Excision of Sigmoid Colon, Via Natural or Artificial Opening Endoscopic, Diagnostic (ICD-10-PCS; 2017-02-24 11:15)
PROC: 0CBJ3ZX Excision of Minor Salivary Gland, Percutaneous Approach, Diagnostic (ICD-10-PCS; 2017-02-25)
DX: N17.9 Acute kidney failure, unspecified (principal); N30.00 Acute cystitis without hematuria; L89.159 Pressure ulcer of sacral region, unspecified stage; E87.2 Acidosis; L89.309 Pressure ulcer of unspecified buttock, unspecified stage; B02.29 Other postherpetic nervous system involvement; I10 Essential (primary) hypertension; R22.1 Localized swelling, mass and lump, neck; F32.9 Major depressive disorder, single episode, unspecified; D49.89 Neoplasm of unspecified behavior of other specified sites; Z85.118 Personal history of other malignant neoplasm of bronchus and lung; Z86.73 Personal history of transient ischemic attack (TIA), and cerebral infarction without residual deficits; Z87.440 Personal history of urinary (tract) infections; Z86.14 Personal history of Methicillin resistant Staphylococcus aureus infection; M19.90 Unspecified osteoarthritis, unspecified site; F41.9 Anxiety disorder, unspecified; E78.00 Pure hypercholesterolemia, unspecified; E11.9 Type 2 diabetes mellitus without complications; Z96.652 Presence of left artificial knee joint; Z88.5 Allergy status to narcotic agent; Z88.2 Allergy status to sulfonamides; Z88.8 Allergy status to other drugs, medicaments and biological substances; E78.5 Hyperlipidemia, unspecified; Z85.3 Personal history of malignant neoplasm of breast; M51.36 Other intervertebral disc degeneration, lumbar region; R32 Unspecified urinary incontinence; R15.9 Full incontinence of feces; K57.90 Diverticulosis of intestine, part unspecified, without perforation or abscess without bleeding; K29.70 Gastritis, unspecified, without bleeding; Z23 Encounter for immunization
CPT/HCPCS: 20206; 70450; 70553; 71010; 74177; 76937; 76942; 80048; 80053; 81001; 82272; 82550; 82948; 83605; 83690; 83735; 84443; 84484; 85025; 85610; 85730; 87040; 87077; 87086; 87186; 87205; 87207; 87328; 87329; 87493; 87506; 88305; 88312; 88341; 88342; 90732; 93005; 96374; A9579; G8987-GP; G8988-GP; J2543; J3475; P9612; Q9963; Q9967

== ENCOUNTER 2017-03-03 16:54 | Inpatient (IN) | payer MEDICARE ==
[~2017-03-03] VITALS: Ht 162.6 cm; Wt 91.5 kg
[~2017-03-03 16:54] MED LIST changes: -ASPI81CH PO; +COLL30T TOPICAL; -DOCU1CAP39 PO; +GABA300C5 PO; -GABA600T PO; -IBUP200C PO; +LACT PO; +LACTATED RINGER'S 1000 ML INJ 1,000 ML IV ONE; -MACR100C2 PO; +ONDANSETRON HCL 4 MG/2 ML VIAL IV PUSH ONE; +PROPOFOL 200 MG/20 ML AMP IV ONE; +SODIUM CHLORID 0.9% 500 ML INJ 500 ML IV ONE; +SUGAMMADEX SODIUM 200 MG/2 ML VIAL IV PUSH ONE
[2017-03-03 17:02] VITALS: BP 180/84; PULSE 99; RESP 18; TEMP 97.9; O2SAT 98
[2017-03-03] MEDS ORDERED: SODIUM CHLOR 0.9% 1000 ML INJ 1,000 ML IV ONE ×2 (17:06)
[2017-03-03] MEDS ORDERED: SODIUM CHLOR 0.9% 1000 ML INJ 400 ML IV ONE (17:06)
[2017-03-03] MEDS ORDERED: SODIUM CHLORIDE 0.9% FLUSH 10 ML FLUSH IV FLUSH PRN ×2 (17:15→19:45)
[2017-03-03] MEDS ORDERED: MIDAZOLAM HCL 2 MG/2 ML VIAL IV PUSH ONE (17:15)
[2017-03-03] MEDS ORDERED: ONDANSETRON HCL 4 MG/2 ML VIAL IVP ONE (17:15)
--- NOTE | 2017-03-03 17:18 | PD ---
HPI Chief Complaint: GI Complaint Time Seen by Provider: 17:15 Travel History International Travel<30 days: No Contact w/Intl Traveler<30days: No Traveled to known affect area: No History of Present Illness HPI 66-year-old female presents to the emergency department sent from [facility] by med 1 for evaluation of small bowel obstruction. The patient reports abdominal pain and vomiting that started last night. Patient states she's had continuous vomiting. She denies any diarrhea. She states her vomiting is brown in color. Patient had a KUB done today which showed a small bowel obstruction. She denies any fevers. No chest pain or shortness of breath. She states she has a knot in her stomach which is painful. She reports a history of cholecystectomy, but no other abdominal surgeries. Patient has a past medical history of recurrent UTIs (most recently ESBL E. coli UTI), hypertension, diabetes mellitus, and hx of breast cancer. PFSH Past Medical History Arthritis: Yes Asthma: No Autoimmune Disease: No Blood Disorders: No Anxiety: Yes Depression: Yes Heart Rhythm Problems: No Cancer: Yes (LEFT BREAST and left neck) Cardiovascular Problems: Yes High Cholesterol: Yes Chemotherapy: Yes Chest Pain: No Congestive Heart Failure: No COPD: No Cerebrovascular Accident: Yes (right side 2013) Diabetes: Yes Patient Takes Glucophage: Yes Diminished Hearing: No Endocrine: Yes GERD: No Glaucoma: No Genitourinary: Yes (FREQUENT UTI's) Headaches: Yes Hepatitis: No Hiatal Hernia: No Herniated Disk: Yes Hypertension: Yes Immune Disorder: No Kidney Stones: No Medical other: Yes (ARTHRITIS- HERNIATED DISC) Musculoskeletal: Yes (SPINAL STENOSIS) Neurologic: Yes Psychiatric: No Reproductive: No Respiratory: No Migraines: Yes (years ago) Myocardial Infarction: No Radiation Therapy: Yes Renal Failure: No Seizures: No Sleep Apnea: No Thyroid Disease: Yes Ulcer: No Tetanus Vaccination: > 5 Years Influenza Vaccination: Yes PNEUMOCCOCAL Vaccine (Year): 1 Menopausal: Yes Past Surgical History Abdominal Surgery: Yes (CHOLECYSTECTOMY) Arteriovenous Shunt: No Section: Yes Cholecystectomy: Yes Ear Surgery: No Eye Surgery: No Gynecologic Surgery: Yes (C SECTION) Insulin Pump: No Joint Replacement: Yes (LT KNEE 11/2004) Oral Surgery: No Pacemaker: No Thoracic Surgery: Yes (LEFT BREAST BX/LUMPECTOMY) Other Surgery: Yes (LEFT KNEE REPLACEMENT, CHOLECYSTECTOMY, LUMPECTOMY) Social History Alcohol Use: No Tobacco Use: No Substance Use: No Allergies-Medications (Allergen,Severity, Reaction): Coded Allergies: Allopurinol (Verified Allergy, Severe, Hives, 03/03/17) Clonidine (Verified Allergy, Severe, LETHARGY,SHAKING, 03/03/17) Fiorinal (Verified Allergy, Severe, Hallucinations, 03/03/17) Sulfa (Verified Allergy, Severe, HIVES, 03/03/17) Morphine (Verified Adverse Reaction, Severe, SHAKING, HEADACHE, 03/03/17) *MDRO Multi-Drug Resistant Organism (Verified Adverse Reaction, Unknown, ) ESBL+E.Coli (urine-06/13/16 & 12/14/16) Reported Meds & Prescriptions Reported Meds & Active Scripts Active Santyl (Collagenase) 250 Unit/Gm Oin 1 Applic TOPICAL DAILY 14 Days left lower back daily Acidophilus/l-Sporogenes (Lactobacillus Acidophilus) 1 Tab Tab 1 Tab PO Q12HR 30 Days Ultram (Tramadol HCl) 50 Mg Tab 50 Mg PO Q8H PRN Reported Gabapentin 300 Mg Cap 300 Mg PO BID Lisinopril 20 Mg Tab 20 Mg PO DAILY Nifedipine ER 24 HR (Nifedipine) 60 Mg Tab 60 Mg PO DAILY Trazodone (Trazodone HCl) 100 Mg Tab 200 Mg PO HS PRN Cymbalta DR (Duloxetine HCl) 60 Mg Capdr 60 Mg PO DAILY Metformin (Metformin HCl) 500 Mg Tab 500 Mg PO BID With meals Lipitor (Atorvastatin Calcium) 40 Mg Tab 40 Mg PO HS Review of Systems Except as stated in HPI: all other systems reviewed are Neg Physical Exam Narrative GENERAL: Well-nourished, well-developed female patient ambulatory. Afebrile., SKIN: Focused skin assessment warm/dry. HEAD: Normocephalic. Atraumatic. EYES: No scleral icterus. No injection or drainage. NECK: Supple, trachea midline. No JVD or lymphadenopathy. CARDIOVASCULAR: Regular rate and rhythm without murmurs, gallops, or rubs. RESPIRATORY: Breath sounds equal bilaterally. No accessory muscle use. Lungs sounds are clear to auscultation. GASTROINTESTINAL: Abdomen soft and nondistended. Patient has hernia just above the umbilicus that is hard and tender to palpation. MUSCULOSKELETAL: No cyanosis, or edema. BACK: Nontender without obvious deformity. No CVA tenderness. Data Data Last Documented VS Vital Signs Date Time Temp Pulse Resp B/P Pulse Ox O2 Delivery O2 Flow Rate FiO2 03/03/17 17:02 97.9 99 18 180/84 98 Orders Midazolam Inj (Versed Inj) (03/03/17 17:15) Complete Blood Count With Diff (03/03/17 17:06) Comprehensive Metabolic Panel (03/03/17 17:06) Lipase (03/03/17 17:06) Prothrombin Time / Inr (Pt) (03/03/17 17:06) Act Partial Throm Time (Ptt) (03/03/17 17:06) Urinalysis - C+S If Indicated (03/03/17 17:06) Iv Access Insert/Monitor (03/03/17 17:06) Ecg Monitoring (03/03/17 17:06) Oximetry (03/03/17 17:06) Ondansetron Inj (Zofran Inj) (03/03/17 17:15) Sodium Chloride 0.9% Flush (Ns Flush) (03/03/17 17:15) Blood Culture (03/03/17 17:06) Lactic Acid Sepsis Protocol (03/03/17 17:06) Sodium Chlor 0.9% 1000 Ml Inj (Ns 1000 M (03/03/17 17:06) Sodium Chlor 0.9% 1000 Ml Inj (Ns 1000 M (03/03/17 17:06) Sodium Chlor 0.9% 1000 Ml Inj (Ns 1000 M (03/03/17 17:06) Vancomycin Inj (Vancomycin Inj) (03/03/17 17:30) Piperacil-Tazo 4.5 Gm Premix (Zosyn 4.5 (03/03/17 17:30) Vascular Access Team Consult/P PRN (03/03/17 17:26) Place Ng Tube To Low Intermit (03/03/17 17:48) Insert Ng Tube (03/03/17 17:48) Consult General Surgery (03/03/17 ) Chest, Single Ap (03/03/17 ) Electrocardiogram (03/03/17 ) (Hub Use Only)Inp Phy Cons/Ref (03/03/17 ) Labs Laboratory Tests Test 03/03/17 03/03/17 17:20 17:25 White Blood Count 11.0 TH/MM3 Red Blood Count 4.47 MIL/MM3 Hemoglobin 12.1 GM/DL Hematocrit 37.4 % Mean Corpuscular Volume 83.8 FL Mean Corpuscular Hemoglobin 27.1 PG Mean Corpuscular Hemoglobin 32.3 % Concent Red Cell Distribution Width 14.9 % Platelet Count 358 TH/MM3 Mean Platelet Volume 8.5 FL Neutrophils (%) (Auto) 72.3 % Lymphocytes (%) (Auto) 17.0 % Monocytes (%) (Auto) 7.7 % Eosinophils (%) (Auto) 2.1 % Basophils (%) (Auto) 0.9 % Neutrophils # (Auto) 8.0 TH/MM3 Lymphocytes # (Auto) 1.9 TH/MM3 Monocytes # (Auto) 0.8 TH/MM3 Eosinophils # (Auto) 0.2 TH/MM3 Basophils # (Auto) 0.1 TH/MM3 CBC Comment DIFF FINAL Differential Comment Prothrombin Time 10.2 SEC Prothromb Time International 0.9 RATIO Ratio Activated Partial 21.2 SEC Thromboplast Time Sodium Level 140 MEQ/L Potassium Level 4.5 MEQ/L Chloride Level 102 MEQ/L Carbon Dioxide Level 28.3 MEQ/L Anion Gap 10 MEQ/L Blood Urea Nitrogen 18 MG/DL Creatinine 0.81 MG/DL Estimat Glomerular Filtration 71 ML/MIN Rate Random Glucose 119 MG/DL Calcium Level 9.7 MG/DL Total Bilirubin 0.4 MG/DL Aspartate Amino Transf 20 U/L (AST/SGOT) Alanine Aminotransferase 15 U/L (ALT/SGPT) Alkaline Phosphatase 70 U/L Total Protein 7.4 GM/DL Albumin 2.9 GM/DL Lipase 207 U/L Lactic Acid Level 0.9 mmol/L [facility] Medical Decision Making Medical Screen Exam Complete: Yes Emergency Medical Condition: Yes Medical Record Reviewed: Yes Differential Diagnosis Incarcerated hernia versus small bowel obstruction versus sepsis Narrative Course 66-year-old female presents to the emergency department sent from [facility] for small bowel resection. On exam, she has hernia that is tender and hard to palpation. My attending physician, Dr. Chiu, examined patient with me and states this is a incarcerated hernia. She would like sepsis protocol started. CBC, CMP, lipase, PTT, PTT/INR, UA, blood cultures 2, lactic acid are ordered and pending. Patient is given normal saline 30 mL/kg IV. Patient will be started on vancomycin and Zosyn. Patient will be given Versed 2 mg IV to have hernia reduced. My attending physician, Dr. Chiu, attempted to reduce the hernia after Versed, but hernia was unable to be reduced. I contacted the general surgeon loss control technician, Dr. Fernandez, who will evaluate the patient. He would like the patient to be admitted to medicine and him consulted. NG tube is placed. CBC shows no acute abnormality. CMP shows no acute abnormality. Lipase is 207. Lactic acid is 0.9. Coags show no acute abnormality. EKG and chest x- ray are ordered and pending. EKG shows sinus rhythm, heart rate 90, no acute ST changes. Dr. Fernandez examined patient in the emergency department and will take her to the OR. [facility] is paged for admission. Dr. Brown accepted admission. Diagnosis Primary Impression: Incarcerated hernia Additional Impression: Small bowel obstruction Admitting Information Admitting Physician Requests: Admit Genna Mendes March 03, 2017 17:18
[2017-03-03] MEDS ORDERED: VANCOMYCIN INJ 1,000 MG in SODIUM CHLOR 0.9% 250 ML INJ 250 ML IV ONE (17:30)
[2017-03-03] MEDS ORDERED: PIPERACIL-TAZO 4.5 GM PREMIX 100 ML IV ONE (17:30)
[2017-03-03 17:52] LABS: BASOPHIL # 0.1 TH/MM3 (0-0.2); BASOPHIL % 0.9 % (0.0-2.0); EOSINOPHIL # 0.2 TH/MM3 (0-0.4); EOSINOPHIL % 2.1 % (0.0-4.0); HEMATOCRIT 37.4 % (35.0-46.0); HEMO FLAGS DIFF FINAL; LYMPHOCYTE # 1.9 TH/MM3 (1.0-4.8); MEAN CELL VOLUME 83.8 FL (80.0-100.0); MEAN CORPUSCULAR HEMOGLOBIN 27.1 PG (27.0-34.0); MEAN CORPUSCULAR HGB CONC 32.3 % (32.0-36.0); MONO % 7.7 % (0.0-8.0); NEUT % 72.3 % (16.0-70.0); PLATELET COUNT 358 TH/MM3 (150-450); RED BLOOD COUNT 4.47 MIL/MM3 (4.00-5.30); RED CELL DISTRIBUTION WIDTH 14.9 % (11.6-17.2)
--- NOTE | 2017-03-03 17:54 | PD ---
Physical Exam Date Seen by Provider: March 03, 2017 Time Seen by Provider: 17:50 Narrative 66-year-old female came to the emergency room with history of intractable vomiting since last night. This morning she noticed a painful knot above her umbilicus. Currently she says her vomitus is dark brown in color. She appears to be in distress. She was sent by med [facility] the [facility]. Patient is seen by the nurse practitioner and I'm supervising her. I examined the patient and she appeared to be dehydrated. She had a 3 x 3 cm tender ventral hernia. Patient is getting blood test and fluid resuscitation. She will be covered with antibiotic. I tried to reduce the hernia under sedation but was unsuccessful. The nurse practitioner is speaking with the surgeon at this point. Patient is also getting a nasogastric tube in. Patient has been made aware of all these things. The nurse was unable to put a peripheral line. I have inserted an EJ line. Please refer to my procedure note. Data Data Last Documented VS Vital Signs Date Time Temp Pulse Resp B/P Pulse Ox O2 Delivery O2 Flow Rate FiO2 03/03/17 18:30 94 16 208/90 97 Nasal Cannula 2 03/03/17 17:02 97.9 Orders Midazolam Inj (Versed Inj) (03/03/17 17:15) Complete Blood Count With Diff (03/03/17 17:06) Comprehensive Metabolic Panel (03/03/17 17:06) Lipase (03/03/17 17:06) Prothrombin Time / Inr (Pt) (03/03/17 17:06) Act Partial Throm Time (Ptt) (03/03/17 17:06) Urinalysis - C+S If Indicated (03/03/17 17:06) Iv Access Insert/Monitor (03/03/17 17:06) Ecg Monitoring (03/03/17 17:06) Oximetry (03/03/17 17:06) Ondansetron Inj (Zofran Inj) (03/03/17 17:15) Sodium Chloride 0.9% Flush (Ns Flush) (03/03/17 17:15) Blood Culture (03/03/17 17:06) Lactic Acid Sepsis Protocol (03/03/17 17:06) Sodium Chlor 0.9% 1000 Ml Inj (Ns 1000 M (03/03/17 17:06) Sodium Chlor 0.9% 1000 Ml Inj (Ns 1000 M (03/03/17 17:06) Sodium Chlor 0.9% 1000 Ml Inj (Ns 1000 M (03/03/17 17:06) Vancomycin Inj (Vancomycin Inj) (03/03/17 17:30) Piperacil-Tazo 4.5 Gm Premix (Zosyn 4.5 (03/03/17 17:30) Vascular Access Team Consult/P PRN (03/03/17 17:26) Place Ng Tube To Low Intermit (03/03/17 17:48) Insert Ng Tube (03/03/17 17:48) Consult General Surgery (03/03/17 ) Chest, Single Ap (03/03/17 ) Electrocardiogram (03/03/17 ) (Hub Use Only)Inp Phy Cons/Ref (03/03/17 ) Admit Order (Ed Use Only) (03/03/17 18:39) Labs Laboratory Tests Test 03/03/17 03/03/17 17:20 17:25 White Blood Count 11.0 TH/MM3 Red Blood Count 4.47 MIL/MM3 Hemoglobin 12.1 GM/DL Hematocrit 37.4 % Mean Corpuscular Volume 83.8 FL Mean Corpuscular Hemoglobin 27.1 PG Mean Corpuscular Hemoglobin 32.3 % Concent Red Cell Distribution Width 14.9 % Platelet Count 358 TH/MM3 Mean Platelet Volume 8.5 FL Neutrophils (%) (Auto) 72.3 % Lymphocytes (%) (Auto) 17.0 % Monocytes (%) (Auto) 7.7 % Eosinophils (%) (Auto) 2.1 % Basophils (%) (Auto) 0.9 % Neutrophils # (Auto) 8.0 TH/MM3 Lymphocytes # (Auto) 1.9 TH/MM3 Monocytes # (Auto) 0.8 TH/MM3 Eosinophils # (Auto) 0.2 TH/MM3 Basophils # (Auto) 0.1 TH/MM3 CBC Comment DIFF FINAL Differential Comment Prothrombin Time 10.2 SEC Prothromb Time International 0.9 RATIO Ratio Activated Partial 21.2 SEC Thromboplast Time Sodium Level 140 MEQ/L Potassium Level 4.5 MEQ/L Chloride Level 102 MEQ/L Carbon Dioxide Level 28.3 MEQ/L Anion Gap 10 MEQ/L Blood Urea Nitrogen 18 MG/DL Creatinine 0.81 MG/DL Estimat Glomerular Filtration 71 ML/MIN Rate Random Glucose 119 MG/DL Calcium Level 9.7 MG/DL Total Bilirubin 0.4 MG/DL Aspartate Amino Transf 20 U/L (AST/SGOT) Alanine Aminotransferase 15 U/L (ALT/SGPT) Alkaline Phosphatase 70 U/L Total Protein 7.4 GM/DL Albumin 2.9 GM/DL Lipase 207 U/L Lactic Acid Level 0.9 mmol/L MDM Supervised Visit with PRISCILLA: Yes Critical Care Narrative Aggregate critical care time was 30 minutes. Time to perform other separately billable procedures was not included in the critical care time. My time did not include minutes spent treating any other patients simultaneously or on activities that did not directly contribute to the patient's treatment. The services I provided to this patient were to treat and/or prevent clinically significant deterioration that could result in: Incarcerated hernia, fluid resuscitation, small bowel obstruction I provided critical care services requiring my management, as noted below: Chart data review, documentation time, medication orders and management, vital sign assessments/reviewing monitor data, ordering and reviewing lab tests, ordering and interpreting/reviewing x-rays and diagnostic studies, care of the patient and discussion of the patient with the admitting physicians. Procedures Procedure Narrative EJ line: Patient was laid supine and the bed tilted a Trendelenburg position. The left EJ site was prepped with ChlorPrep times one. Patient was asked to do a Valsalva maneuver to fill the vein out and make a prominent. A 20-gauge and angiocatheter was inserted. Patient tolerated the procedure well. Karen Chiu MD March 03, 2017 17:54
[2017-03-03 18:03] LABS: APTT (PATIENT) 21.2 SEC (24.3-30.1); INTERNATIONAL NORMALIZED RATIO 0.9 RATIO; PROTHROMBIN TIME - PATIENT 10.2 SEC (9.8-11.6)
[2017-03-03 18:18] LABS: ALKALINE PHOSPHATASE 70 U/L (45-117); ALT (GPT) 15 U/L (10-53); ANION GAP 10 MEQ/L (5-15); AST (GOT) 20 U/L (15-37); BICARBONATE 28.3 MEQ/L (21.0-32.0); BLOOD UREA NITROGEN 18 MG/DL (7-18); CHLORIDE 102 MEQ/L (98-107); GLOMERULAR FILTRATION RATE 71 ML/MIN (>89); SODIUM (NA) 140 MEQ/L (136-145); TOTAL BILIRUBIN ADULT 0.4 MG/DL (0.2-1.0)
[2017-03-03 18:19] LABS: POTASSIUM 4.5 MEQ/L (3.5-5.1)
[2017-03-03 18:30] VITALS: BP 208/90; PULSE 94; RESP 16; O2SAT 97
[2017-03-03] MEDS ORDERED: hydrALAZINE HCL 20 MG/ML VIAL IV PUSH ONE (19:00)
--- NOTE | 2017-03-03 19:25 | RADRPT ---
EXAM DATE/TIME: 03/03/2017 18:10 [facility] COMPARISON: CHEST SINGLE AP, February 20, 2017, 13:00. INDICATIONS : Pre op for abdominal surgery and ng tube as well. MEDICAL HISTORY : Diabetes mellitus type II. Hypertension Carcinoma, breast. SURGICAL HISTORY : Fusion, lumbar. Cholecystectomy. ENCOUNTER: Initial ACUITY: 1 day PAIN SCORE: 9/10 LOCATION: Bilateral abdomen FINDINGS: A single view of the chest demonstrates the lungs to be symmetrically aerated without evidence of mas s, infiltrate or effusion. Nasogastric tube is seen entering stomach. The cardiomediastinal contours are unremarkable. Osseous structures are intact. CONCLUSION: 1. Nasogastric tube enters stomach. Minimal basilar atelectasis. Chris Quintana MD on March 03, 2017 at 19:22 Board Certified Radiologist. This report was verified electronically.
[2017-03-03 19:30] VITALS: BP 182/77; PULSE 90; RESP 16; O2SAT 97
--- NOTE | 2017-03-03 19:41 | HHI.HP ---
HPI Service [facility] Hospitalists Primary Care Physician Eulalio Betts, DO Admission Diagnosis SBO, incarcerated hernia Chief Complaint: 1 day abdominal pain with nausea and vomit Travel History International Travel<30 Days: No Contact w/Intl Traveler <30 Da: No Traveled to Known Affected Are: No History of Present Illness 66-year-old female presents to the emergency department sent from [facility] by med 1 for evaluation of abdominal pain with nausea and vomit . The patient reports abdominal pain and vomiting that started last night. Patient states she 's had continuous vomiting. She denies any diarrhea. She states her vomiting is brown in color. Patient had a KUB done today which showed a small bowel obstruction. She denies any fevers. No chest pain or shortness of breath. She states she has a knot in her stomach which is painful. She reports a history of cholecystectomy, but no other abdominal surgeries. Patient has a past medical history of recurrent UTIs (most recently ESBL E. coli UTI), hypertension, diabetes mellitus, and hx of breast cancer. Patient has palpable hernia which was unable to be reduced and will require surgery. Review of Systems Gastrointestinal: COMPLAINS OF: Abdominal pain, Nausea, Vomiting Past Family Social History Past Medical History djd spinal stenosis,left breast cancer,parotid tumor,hyperlipidemia,cva,dm, recurrent uti Past Surgical History gallbladder,left breast lumpectomy left knee Reported Medications [id number] bid,,nifedipine 60,[id number],cymbalta 60,metformin 500 bid,[id number] Allergies: Coded Allergies: Allopurinol (Verified Allergy, Severe, Hives, 03/03/17) Clonidine (Verified Allergy, Severe, LETHARGY,SHAKING, 03/03/17) Fiorinal (Verified Allergy, Severe, Hallucinations, 03/03/17) Sulfa (Verified Allergy, Severe, HIVES, 03/03/17) Morphine (Verified Adverse Reaction, Severe, SHAKING, HEADACHE, 03/03/17) *MDRO Multi-Drug Resistant Organism (Verified Adverse Reaction, Unknown, ) ESBL+E.Coli (urine-06/13/16 & 12/14/16) Social History NS,ND Physical Exam Vital Signs Vital Signs Date Time Temp Pulse Resp B/P Pulse Ox O2 Delivery O2 Flow Rate FiO2 03/03/17 17:02 97.9 99 18 180/84 98 Physical Exam GENERAL: This is a well-nourished, well-developed patient, in no apparent distress. SKIN: No rashes, ecchymoses or lesions. Cool and dry. HEAD: Atraumatic. Normocephalic. No temporal or scalp tenderness. EYES: Pupils equal round and reactive. Extraocular motions intact. No scleral icterus. No injection or drainage. ENT: Nose without bleeding, purulent drainage or septal hematoma. Throat without erythema, tonsillar hypertrophy or exudate. Uvula midline. Airway patent. NECK: Trachea midline. No JVD or lymphadenopathy. Supple, nontender, no meningeal signs. CARDIOVASCULAR: Regular rate and rhythm without murmurs, gallops, or rubs. RESPIRATORY: Clear to auscultation. Breath sounds equal bilaterally. No wheezes , rales, or rhonchi. GASTROINTESTINAL: Abdomen soft, -tender, nondistended. No hepato-splenomegaly, Patient has hernia just above the umbilicus that is hard and tender to palpation. MUSCULOSKELETAL: Extremities without clubbing, cyanosis, or edema. No joint tenderness, effusion, or edema noted. No calf tenderness. Negative Homans sign bilaterally. NEUROLOGICAL: Awake and alert. Cranial nerves II through XII intact. Motor and sensory grossly within normal limits. Five out of 5 muscle strength in all muscle groups. Normal speech. Laboratory Laboratory Tests Test 03/03/17 03/03/17 17:20 17:25 White Blood Count 11.0 Red Blood Count 4.47 Hemoglobin 12.1 Hematocrit 37.4 Mean Corpuscular Volume 83.8 Mean Corpuscular Hemoglobin 27.1 Mean Corpuscular Hemoglobin 32.3 Concent Red Cell Distribution Width 14.9 Platelet Count 358 Mean Platelet Volume 8.5 Neutrophils (%) (Auto) 72.3 Lymphocytes (%) (Auto) 17.0 Monocytes (%) (Auto) 7.7 Eosinophils (%) (Auto) 2.1 Basophils (%) (Auto) 0.9 Neutrophils # (Auto) 8.0 Lymphocytes # (Auto) 1.9 Monocytes # (Auto) 0.8 Eosinophils # (Auto) 0.2 Basophils # (Auto) 0.1 CBC Comment DIFF FINAL Differential Comment Prothrombin Time 10.2 Prothromb Time International 0.9 Ratio Activated Partial 21.2 Thromboplast Time Sodium Level 140 Potassium Level 4.5 Chloride Level 102 Carbon Dioxide Level 28.3 Anion Gap 10 Blood Urea Nitrogen 18 Creatinine 0.81 Estimat Glomerular Filtration 71 Rate Random Glucose 119 Calcium Level 9.7 Total Bilirubin 0.4 Aspartate Amino Transf 20 (AST/SGOT) Alanine Aminotransferase 15 (ALT/SGPT) Alkaline Phosphatase 70 Total Protein 7.4 Albumin 2.9 Lipase 207 Lactic Acid Level 0.9 Date/Time Procedure Status Source Growth 03/03/17 17:25 Aerobic Blood Culture Received Blood Peripheral Pending 03/03/17 17:25 Anaerobic Blood Culture Received Blood Peripheral Pending Result Diagram: 03/03/17 1720 03/03/17 1720 Course in er will get villalobos pain meds iv fluids start antibiotics vancomycin and zoysn Assessment and Plan Problem List: (1) Small bowel obstruction Status: Acute Plan: plan as per surgery continue antibiotics has NG tube IV fluid pain med (2) Incarcerated hernia Status: Acute Plan: plan as per general surgery (3) Hypertension Status: Chronic Plan: vasotec iv (4) Diabetes Status: Chronic Plan: as patient going to surgery use sliding scale Assessment and Plan further plan as case develops Code Status full Discussed Condition With patient Physician Certification 2 Midnight Certification Type: Admission for Inpatient Services Order for Inpatient Services The services are ordered in accordance with Medicare regulations or non- Medicare payer requirements, as applicable. In the case of services not specified as inpatient-only, they are appropriately provided as inpatient services in accordance with the 2-midnight benchmark. Estimated LOS (days): 3 3 days is the estimated time the patient will need to remain in the hospital, assuming treatment plan goals are met and no additional complications. Post-Hospital Plan: [facility] Torito Marc MD March 03, 2017 19:41
[2017-03-03] MEDS ORDERED: ONDANSETRON HCL 4 MG/2 ML VIAL IVP PRN (19:45)
[2017-03-03] MEDS ORDERED: Vancomycin Consult Pharmacy 1 EA OTHER SCH (19:45)
[2017-03-03] MEDS ORDERED: NALOXONE HCL 0.4 MG/ML AMP IV PRN (19:45)
--- NOTE | 2017-03-03 19:50 | PD.CONS ---
HPI Service General surgery Consult Requested By Dr. Chiu Reason for Consult Incarcerated umbilical hernia Primary Care Physician Eulalio Betts DO History of Present Illness The patient is a 66-year-old female who presents with abdominal pain and vomiting since last night. She has been at [facility] for about a week for rehabilitation secondary to lower extremity weakness. She is unable to tell me what is the cause of the weakness. Past surgical history includes colonoscopic cholecystectomy. She appears ill. She had a KUB performed earlier today showing small bowel obstruction. She was evaluated in the emergency department and noted to have an incarcerated umbilical hernia. Significant attempts were made to reduce the hernia including administration of Versed. However the hernia was not reducible. I have been called for evaluation and possible surgical management. Review of Systems Constitutional: DENIES: Fever, Chills Eyes: DENIES: Eye inflammation, Eye pain Respiratory: DENIES: Cough Cardiovascular: DENIES: Chest pain, Palpitations Gastrointestinal: COMPLAINS OF: Abdominal pain, Vomiting Integumentary: DENIES: Pruritus, Rash Neurologic: COMPLAINS OF: Localized weakness, Poor Balance Past Family Social History Past Medical History Breast cancer Spinal stenosis Frequent urinary tract infections Hypertension Diabetes mellitus Past Surgical History Lumbar surgery Left breast lumpectomy Laparoscopic cholecystectomy Left total knee Reported Medications Reported Meds & Active Scripts Active Santyl (Collagenase) 250 Unit/Gm Oin 1 Applic TOPICAL DAILY 14 Days left lower back daily Acidophilus/l-Sporogenes (Lactobacillus Acidophilus) 1 Tab Tab 1 Tab PO Q12HR 30 Days Ultram (Tramadol HCl) 50 Mg Tab 50 Mg PO Q8H PRN Reported Gabapentin 300 Mg Cap 300 Mg PO BID Lisinopril 20 Mg Tab 20 Mg PO DAILY Nifedipine ER 24 HR (Nifedipine) 60 Mg Tab 60 Mg PO DAILY Trazodone (Trazodone HCl) 100 Mg Tab 200 Mg PO HS PRN Cymbalta DR (Duloxetine HCl) 60 Mg Capdr 60 Mg PO DAILY Metformin (Metformin HCl) 500 Mg Tab 500 Mg PO BID With meals Lipitor (Atorvastatin Calcium) 40 Mg Tab 40 Mg PO HS Allergies: Coded Allergies: Allopurinol (Verified Allergy, Severe, Hives, 03/03/17) Clonidine (Verified Allergy, Severe, LETHARGY,SHAKING, 03/03/17) Fiorinal (Verified Allergy, Severe, Hallucinations, 03/03/17) Sulfa (Verified Allergy, Severe, HIVES, 03/03/17) Morphine (Verified Adverse Reaction, Severe, SHAKING, HEADACHE, 03/03/17) *MDRO Multi-Drug Resistant Organism (Verified Adverse Reaction, Unknown, ) ESBL+E.Coli (urine-06/13/16 & 12/14/16) Active Ordered Medications Current Medications Medications (Trade) Dose Ordered Sig/Lucretia Route Start Time Stop Time Status Last Admin (NS Flush) 2 ml UNSCH PRN IV FLUSH 03/03/17 17:15 (Cymbalta Dr) 60 mg DAILY PO 03/04/17 09:00 (Neurontin) 300 mg BID PO 03/03/17 21:00 (Lactinex) 1 tab Q12HR PO 03/03/17 21:00 (Procardia Xl) 60 mg DAILY PO 03/04/17 09:00 (Desyrel) 200 mg HS PRN PO 03/03/17 19:30 (Santyl Oint) 1 applic DAILY TOPICAL 03/04/17 09:00 Family History Noncontributory Social History No tobacco or a alcohol use Physical Exam Vital Signs Vital Signs Date Time Temp Pulse Resp B/P Pulse Ox O2 Delivery O2 Flow Rate FiO2 03/03/17 17:02 97.9 99 18 180/84 98 Physical Exam GENERAL: Obese. Appears ill, tired HEAD: Normocephalic. Atraumatic. EYES: Pupils equal round and reactive to light bilaterally. No scleral icterus. CHEST: Lungs clear to auscultation bilaterally with no wheezing or rhonchi. No respiratory distress. CARDIOVASCULAR: Regular rate and rhythm. ABDOMEN: Obese. Palpable hard bulge just above the umbilicus which is not reducible. No skin changes no erythema. Mild epigastric tenderness to palpation. EXTREMITIES: No cyanosis or edema. SKIN: Warm, dry, nonjaundiced. Laboratory Laboratory Tests Test 03/03/17 03/03/17 17:20 17:25 White Blood Count 11.0 Red Blood Count 4.47 Hemoglobin 12.1 Hematocrit 37.4 Mean Corpuscular Volume 83.8 Mean Corpuscular Hemoglobin 27.1 Mean Corpuscular Hemoglobin 32.3 Concent Red Cell Distribution Width 14.9 Platelet Count 358 Mean Platelet Volume 8.5 Neutrophils (%) (Auto) 72.3 Lymphocytes (%) (Auto) 17.0 Monocytes (%) (Auto) 7.7 Eosinophils (%) (Auto) 2.1 Basophils (%) (Auto) 0.9 Neutrophils # (Auto) 8.0 Lymphocytes # (Auto) 1.9 Monocytes # (Auto) 0.8 Eosinophils # (Auto) 0.2 Basophils # (Auto) 0.1 CBC Comment DIFF FINAL Differential Comment Prothrombin Time 10.2 Prothromb Time International 0.9 Ratio Activated Partial 21.2 Thromboplast Time Sodium Level 140 Potassium Level 4.5 Chloride Level 102 Carbon Dioxide Level 28.3 Anion Gap 10 Blood Urea Nitrogen 18 Creatinine 0.81 Estimat Glomerular Filtration 71 Rate Random Glucose 119 Calcium Level 9.7 Total Bilirubin 0.4 Aspartate Amino Transf 20 (AST/SGOT) Alanine Aminotransferase 15 (ALT/SGPT) Alkaline Phosphatase 70 Total Protein 7.4 Albumin 2.9 Lipase 207 Lactic Acid Level 0.9 Date/Time Procedure Status Source Growth 03/03/17 17:25 Aerobic Blood Culture Received Blood Peripheral Pending 03/03/17 17:25 Anaerobic Blood Culture Received Blood Peripheral Pending Result Diagram: 03/03/17 1720 03/03/17 1720 Assessment and Plan Assessment and Plan 66-year-old female with incarcerated umbilical hernia. Her labs appeared okay but she does appear quite ill. It sounds as if it been incarcerated for about 24 hours and I recommend to proceed to the operating room for repair. She may also require bowel resection. I discussed the surgery in detail with her and she desires to proceed. Jim,Efrain HARRIS March 03, 2017 19:49
[2017-03-03 19:55] VITALS: BP 175/63; PULSE 90; RESP 16; O2SAT 97
[2017-03-03] MEDS ORDERED: LIDOCAINE HCL 1% 50 ML VIAL ONE (20:18)
[2017-03-03] MEDS ORDERED: PHARMACY ORDERED LAB ONE (21:00)
[2017-03-03 21:12] LABS: BACTERIA, URINE RARE /hpf; BLOOD, URINE NEG (NEG); COMMENT (UR) CULT NOT INDICATED; CULTURE IF INDICATED CULT NOT INDICATED; GLUCOSE,URINE NEG (NEG); HYALINE CAST, URINE 5 /lpf (RARE); KETONE, URINE 10 mg/dL (NEG); MUCUS URINE FEW /lpf (OCC); NITRITE,URINE NEG (NEG); PH, URINE 5.5 (5.0-8.5); SQUAMOUS EPITHELIAL CELL URINE 4 /hpf (0-5); URINE COLOR YELLOW (YELLW/STRAW)
[2017-03-03] MEDS ORDERED: BUPIVACAINE/EPINEPHRINE 0.25% PF 30 ML VIAL ONE (21:34)
--- NOTE | 2017-03-03 22:43 | PD.OP ---
cc: Efrain Fernandez MD Operative Report Date of Surgery: March 03, 2017 Preoperative Diagnosis: (1) Incarcerated hernia (2) Small bowel obstruction Postoperative Diagnosis: (1) Incarcerated hernia (2) Small bowel obstruction Procedure: Exploratory laparotomy Reduction and repair of incarcerated ventral hernia Anesthesia: BABATUNDEA Surgeon: Efrain Fernandez [employer] Concierge(s): Cleo deluna CFA Operation and Findings: EBL: 30 cc Operative findings: Patient had an incarcerated knuckle of small bowel which appeared viable. Procedure in detail: The patient was taken to the operating room and placed in supine position. Gen. endotracheal anesthesia was induced. Central and arterial lines were placed by anesthesia. There was a firm bulge in the left and superior of the umbilicus. A small midline laparotomy over the affected area was created. Electrocautery carried out through subcutaneous tissues. Careful dissection around the bulge using hemostats and cautery. Hernia sac was encountered and opened and the bowel spontaneously reduced. The fascia was opened superiorly and inferiorly. The small bowel was brought up through the fascia and evaluated. There was obvious area on either side which had been compressed from incarceration. However, the small bowel appeared viable with no evidence at all of necrosis or gangrene. Therefore allowed to reenter the abdomen. A few omental adhesions to the anterior abdominal wall were taken down electrocautery. At this point, I closed the fascia using simple interrupted 0 Ethibond sutures. There was no tension. A running 3-0 Vicryl suture was placed in Darron's fascia. Skin was closed with interrupted wide skin stapler. Sterile dressing was applied. The patient was in fairly serious condition and was taken to the PACU. Efrain Fernandez MD March 03, 2017 22:43
[2017-03-03] MEDS ORDERED: LABETALOL HCL 100 MG/20 ML VIAL ONE (22:54)
[2017-03-03] MEDS: LACTATED RINGER'S 1000 ML INJ 1,000 ML IV SCH (23:00)
[2017-03-03] MEDS ORDERED: fentaNYL CITRATE 250 MCG/5 ML AMP ONE (23:05)
--- NOTE | 2017-03-03 23:16 | RADRPT ---
EXAM DATE/TIME: 03/03/2017 22:50 [place] COMPARISON: CHEST SINGLE AP, March 03, 2017, 18:10. INDICATIONS : Central line placement. MEDICAL HISTORY : Diabetes mellitus type II. Hypertension Carcinoma, breast. SURGICAL HISTORY : Fusion, lumbar. Cholecystectomy. ENCOUNTER: Subsequent ACUITY: 1 day PAIN SCORE: Non-responsive. LOCATION: Bilateral chest FINDINGS: Right IJ line is present with tip overlapping the expected region of the SVC. NG tube is present with tip in the stomach. No definite pneumothorax is seen for technique. Bilateral perihilar atelectasis and/or infiltrate is seen extending to the left lung base. CONCLUSION: Bilateral infiltrates and no pneumothorax. Elle Rucker MD on March 03, 2017 at 23:13 Board Certified Radiologist. This report was verified electronically.
[2017-03-03] MEDS: KETOROLAC TROMETHAMINE 30 MG/ML (IVP) VIAL IV PUSH SCH (23:30)
[2017-03-04] VITALS (15 sets, daily range): BP systolic 120–188; BP diastolic 47–66; PULSE 68–87; RESP 10–21; TEMP 97.7–98.6; O2SAT 94–99
[2017-03-04] MEDS: PIPERACIL-TAZO 3.375 GM PREMIX 50 ML IV SCH ×4 (00:49→17:42)
[2017-03-04] MEDS ORDERED: LACTATED RINGER'S 1000 ML INJ 1,000 ML IV ONE ×2 (01:30→04:59)
[2017-03-04 03:39] LABS: AUTOMATED NEUTROPHIL # 13.1 TH/MM3 (1.8-7.7); BASOPHIL % 0.2 % (0.0-2.0); EOSINOPHIL % 0.1 % (0.0-4.0); HEMATOCRIT 29.7 % (35.0-46.0); HEMO FLAGS DIFF FINAL; LYMPH % 4.4 % (9.0-44.0); LYMPHOCYTE # 0.6 TH/MM3 (1.0-4.8); MEAN CELL VOLUME 83.3 FL (80.0-100.0); MEAN CORPUSCULAR HEMOGLOBIN 26.9 PG (27.0-34.0); MEAN CORPUSCULAR HGB CONC 32.3 % (32.0-36.0); MONO % 5.4 % (0.0-8.0); NEUT % 89.9 % (16.0-70.0); PLATELET COUNT 302 TH/MM3 (150-450); RED BLOOD COUNT 3.56 MIL/MM3 (4.00-5.30); RED CELL DISTRIBUTION WIDTH 14.9 % (11.6-17.2); WHITE BLOOD COUNT 14.5 TH/MM3 (4.0-11.0)
[2017-03-04 03:47] LABS: ALKALINE PHOSPHATASE 54 U/L (45-117); ALT (GPT) 12 U/L (10-53); ANION GAP 7 MEQ/L (5-15); AST (GOT) 14 U/L (15-37); BICARBONATE 27.7 MEQ/L (21.0-32.0); BLOOD UREA NITROGEN 19 MG/DL (7-18); CHLORIDE 107 MEQ/L (98-107); GLOMERULAR FILTRATION RATE 82 ML/MIN (>89); SODIUM (NA) 142 MEQ/L (136-145); TOTAL BILIRUBIN ADULT 0.2 MG/DL (0.2-1.0)
[2017-03-04] MEDS: KETOROLAC TROMETHAMINE 30 MG/ML (IVP) VIAL IV PUSH SCH ×3 (05:31→17:42)
[2017-03-04] MEDS: LACTATED RINGER'S 1000 ML INJ 1,000 ML IV SCH ×3 (06:52→20:57)
[2017-03-04] MEDS ORDERED: SODIUM CHLOR 0.9% 1000 ML INJ 1,000 ML IV ONE ×2 (07:45)
[2017-03-04] MEDS: NIFEdipine 60 MG SUSTAINED RELEASE TAB PO SCH ×2 (08:38→14:25)
[2017-03-04] MEDS: DULoxetine HCl DR 60 MG CAP PO SCH (08:38)
[2017-03-04] MEDS: COLLAGENASE OINT 30 GM TUBE TOPICAL SCH (08:45)
[2017-03-04] MEDS ORDERED: VANCOMYCIN INJ 1,250 MG in SODIUM CHLOR 0.9% 250 ML INJ 250 ML IV SCH (10:00)
[2017-03-04 12:49] LABS: AUTOMATED NEUTROPHIL # 11.2 TH/MM3 (1.8-7.7); BASOPHIL % 0.2 % (0.0-2.0); EOSINOPHIL # 0.1 TH/MM3 (0-0.4); EOSINOPHIL % 0.6 % (0.0-4.0); HEMATOCRIT 27.2 % (35.0-46.0); HEMO FLAGS DIFF FINAL; LYMPHOCYTE # 1.2 TH/MM3 (1.0-4.8); MEAN CELL VOLUME 83.3 FL (80.0-100.0); MEAN CORPUSCULAR HEMOGLOBIN 27.4 PG (27.0-34.0); MEAN CORPUSCULAR HGB CONC 32.8 % (32.0-36.0); MONO % 8.9 % (0.0-8.0); NEUT % 81.3 % (16.0-70.0); PLATELET COUNT 307 TH/MM3 (150-450); RED BLOOD COUNT 3.26 MIL/MM3 (4.00-5.30); RED CELL DISTRIBUTION WIDTH 15.4 % (11.6-17.2); WHITE BLOOD COUNT 13.8 TH/MM3 (4.0-11.0)
[2017-03-04 13:11] LABS: BICARBONATE 26.8 MEQ/L (21.0-32.0); POTASSIUM 3.9 MEQ/L (3.5-5.1)
--- NOTE | 2017-03-04 14:14 | HHI.PR ---
Subjective Subjective Notes She is comfortable in bed and has no complaints. Denies flatus. UOP has been marginal but is about 30cc/h now. Objective Vitals/I&O Vital Signs Date Time Temp Pulse Resp B/P Pulse Ox O2 Delivery O2 Flow Rate FiO2 03/04/17 10:00 68 03/04/17 08:19 99 Nasal Cannula 3.00 03/04/17 08:00 97.9 11 135/64 160/64 03/04/17 07:00 32 Labs Laboratory Tests Test 03/03/17 03/03/17 03/03/17 03/04/17 17:20 17:25 20:10 00:12 White Blood Count 11.0 Red Blood Count 4.47 Hemoglobin 12.1 Hematocrit 37.4 Mean Corpuscular Volume 83.8 Mean Corpuscular Hemoglobin 27.1 Mean Corpuscular Hemoglobin 32.3 Concent Red Cell Distribution Width 14.9 Platelet Count 358 Mean Platelet Volume 8.5 Neutrophils (%) (Auto) 72.3 Lymphocytes (%) (Auto) 17.0 Monocytes (%) (Auto) 7.7 Eosinophils (%) (Auto) 2.1 Basophils (%) (Auto) 0.9 Neutrophils # (Auto) 8.0 Lymphocytes # (Auto) 1.9 Monocytes # (Auto) 0.8 Eosinophils # (Auto) 0.2 Basophils # (Auto) 0.1 CBC Comment DIFF FINAL Differential Comment Prothrombin Time 10.2 Prothromb Time International 0.9 Ratio Activated Partial 21.2 Thromboplast Time Sodium Level 140 Potassium Level 4.5 Chloride Level 102 Carbon Dioxide Level 28.3 Anion Gap 10 Blood Urea Nitrogen 18 Creatinine 0.81 Estimat Glomerular Filtration 71 Rate Random Glucose 119 Calcium Level 9.7 Total Bilirubin 0.4 Aspartate Amino Transf 20 (AST/SGOT) Alanine Aminotransferase 15 (ALT/SGPT) Alkaline Phosphatase 70 Total Protein 7.4 Albumin 2.9 Lipase 207 Lactic Acid Level 0.9 Urine Color YELLOW Urine Turbidity HAZY Urine pH 5.5 Urine Specific [place] 1.029 Urine Protein 100 Urine Glucose (UA) NEG Urine Ketones 10 Urine Occult Blood NEG Urine Nitrite NEG Urine Bilirubin NEG Urine Urobilinogen LESS THAN 2.0 Urine Leukocyte Esterase NEG Urine RBC 4 Urine WBC 7 Urine Squamous Epithelial 4 Cells Urine Bacteria RARE Urine Hyaline Casts 5 Urine Mucus FEW Microscopic Urinalysis Comment CULT NOT INDICATED Nasal Screen MRSA (PCR) MRSA DETECTED Test 03/04/17 03/04/17 03:15 12:25 White Blood Count 14.5 13.8 Red Blood Count 3.56 3.26 Hemoglobin 9.6 8.9 Hematocrit 29.7 27.2 Mean Corpuscular Volume 83.3 83.3 Mean Corpuscular Hemoglobin 26.9 27.4 Mean Corpuscular Hemoglobin 32.3 32.8 Concent Red Cell Distribution Width 14.9 15.4 Platelet Count 302 307 Mean Platelet Volume 8.6 8.1 Neutrophils (%) (Auto) 89.9 81.3 Lymphocytes (%) (Auto) 4.4 9.0 Monocytes (%) (Auto) 5.4 8.9 Eosinophils (%) (Auto) 0.1 0.6 Basophils (%) (Auto) 0.2 0.2 Neutrophils # (Auto) 13.1 11.2 Lymphocytes # (Auto) 0.6 1.2 Monocytes # (Auto) 0.8 1.2 Eosinophils # (Auto) 0.0 0.1 Basophils # (Auto) 0.0 0.0 CBC Comment DIFF FINAL DIFF FINAL Differential Comment Sodium Level 142 145 Potassium Level 4.0 3.9 Chloride Level 107 109 Carbon Dioxide Level 27.7 26.8 Anion Gap 7 9 Blood Urea Nitrogen 19 17 Creatinine 0.72 0.66 Estimat Glomerular Filtration 82 90 Rate Random Glucose 172 123 Calcium Level 8.4 8.1 Total Bilirubin 0.2 Aspartate Amino Transf 14 (AST/SGOT) Alanine Aminotransferase 12 (ALT/SGPT) Alkaline Phosphatase 54 Total Protein 5.7 Albumin 2.3 Date/Time Procedure Status Source Growth 03/03/17 17:25 Aerobic Blood Culture - Preliminary Resulted Blood Peripheral NO GROWTH IN 1 DAY 03/03/17 17:25 Anaerobic Blood Culture - Preliminary Resulted Blood Peripheral NO GROWTH IN 1 DAY Narrative Exam NAD, awake and alert, but tired RRR Lungs: clear anteriorly, nonlabored, on NC O2 Abd: soft, mild post op ttp, bandage and binder in place, ng dark green output 500cc overnight Lopez with yellow urine A/P Assessment and Plan 66 yo F POD 1 s/p ex lap reduction of incarcerated ventral hernia. UOP remains marginal. Continue to monitor. Cont NG to suction. Labs in am. DVT proph: SCDs. I'm gonna hold off on anticoagulation as her hgb has decreased , although that is likely dilutional. Jim,Efrain HARRIS March 04, 2017 14:13
[2017-03-04] MEDS: HYDROmorphone HCL PF 1 MG/ML VIAL IV PRN ×2 (14:25→20:58)
--- NOTE | 2017-03-04 15:17 | EKG ---
Date Performed: 03/03/2017 Time Performed: 18:24:57 PTAGE: 66 years EKG: Sinus rhythm POSSIBLE LEFT ATRIAL ENLARGEMENT BORDERLINE ECG Compared to prior tracing no significant change PREVIOUS TRACING : 02/23/2017 17.45 DOCTOR: Kimi Morales Interpretating Date/Time 03/04/2017 15:16:05
--- NOTE | 2017-03-04 17:33 | HHI.PR ---
Subjective Remarks No flatus. Objective Vitals Vital Signs Date Time Temp Pulse Resp B/P Pulse Ox O2 Delivery O2 Flow Rate FiO2 03/04/17 14:00 80 03/04/17 12:00 98.5 78 21 99 188/66 03/04/17 12:00 78 03/04/17 10:00 68 03/04/17 08:19 99 Nasal Cannula 3.00 03/04/17 08:00 72 03/04/17 08:00 97.9 72 11 135/64 99 160/64 03/04/17 07:00 99 Nasal Cannula 3.00 32 03/04/17 06:00 69 149/61 169/53 03/04/17 06:00 69 03/04/17 04:00 78 03/04/17 04:00 97.7 78 10 120/55 97 130/58 03/04/17 02:00 78 03/04/17 01:08 98 Nasal Cannula 3.00 03/04/17 00:00 76 03/04/17 00:00 97.7 76 19 139/64 96 158/58 03/04/17 00:00 96 Nasal Cannula 3.00 03/03/17 23:15 98.0 77 15 190/66 100 Nasal Cannula 3 03/03/17 23:00 76 16 167/71 100 Nasal Cannula 3 03/03/17 22:51 98.7 78 17 194/68 100 Nasal Cannula 3 03/03/17 19:55 90 16 175/63 97 Nasal Cannula 2 03/03/17 19:30 90 16 182/77 97 Nasal Cannula 2 03/03/17 18:30 94 16 208/90 97 Nasal Cannula 2 03/03/17 03/03/17 03/04/17 15:00 23:00 07:00 Intake Total 1800 ml 3016 ml Output Total 550 ml 428 ml Balance 1250 ml 2588 ml IV Total 3016 ml Other 1800 ml Output Urine Total 228 ml Gastric Drainage Total 300 ml 200 ml Estimated Blood Loss 50 ml Other 200 ml Result Diagram: 03/04/17 1225 03/04/17 1225 Imaging Last Impressions Chest X-Ray 03/03/17 0000 Signed Impressions: Service Date/Time: Friday, March 03, 2017 22:50 - CONCLUSION: Bilateral infiltrates and no pneumothorax. KYris Rucker MD A/P Problem List: (1) Small bowel obstruction Status: Acute Plan: - POD #1 - laparoscopic reduction of incarcerated ventral hernia - NPO - prn dilaudid - continue IVF d/t decreased UOP - supportive care (2) Incarcerated hernia Status: Acute Plan: - see above (3) Anemia Status: Acute Plan: - possibly dilutional - repeat CBC in AM (4) Hypertension Status: Chronic Plan: - procardia XL vasotec iv (5) Diabetes Status: Chronic Plan: - SSI (6) Wound of left side of back Status: Acute Plan: - Santyl Problem Qualifiers (1) Anemia: Qualified Code: D64.9 - Anemia, unspecified type (2) Hypertension: Qualified Code: I10 - Essential hypertension (3) Diabetes: Qualified Code: E11.8 - Type 2 diabetes mellitus with complication, without long-term current use of insulin (4) Wound of left side of back: Qualified Code: S21.202D - Wound of left side of back, subsequent encounter Christopher Quevedo DO March 04, 2017 17:33
[2017-03-04] MEDS: SODIUM CHLORIDE 0.9% FLUSH 10 ML FLUSH IV FLUSH SCH ×2 (20:57→22:26)
[2017-03-04] MEDS: LACTOBACILLUS ACIDOPHILUS TAB PO SCH ×2 (20:57→22:25)
[2017-03-04] MEDS: GABAPENTIN 300 MG CAP PO SCH ×2 (20:57→22:25)
[2017-03-04] MEDS: traZODone HCL 100 MG TAB PO PRN (20:58)
[2017-03-04] MEDS: VANCOMYCIN INJ 1,500 MG in SODIUM CHLORID 0.9% 500 ML INJ 500 ML IV SCH (20:58)
[2017-03-04] MEDS: INSULIN ASPART SUPPLEMENTAL SCALE SQ SCH (21:00)
[2017-03-05] VITALS (12 sets, daily range): BP systolic 124–185; BP diastolic 44–81; PULSE 58–92; RESP 10–23; TEMP 97.7–98.5; O2SAT 92–95
[2017-03-05] MEDS: PIPERACIL-TAZO 3.375 GM PREMIX 50 ML IV SCH ×5 (01:10→23:54)
[2017-03-05] MEDS: KETOROLAC TROMETHAMINE 30 MG/ML (IVP) VIAL IV PUSH SCH ×4 (01:10→18:33)
[2017-03-05] MEDS: LACTATED RINGER'S 1000 ML INJ 1,000 ML IV SCH ×3 (03:17→16:26)
[2017-03-05 03:39] LABS: AUTOMATED NEUTROPHIL # 5.7 TH/MM3 (1.8-7.7); BASOPHIL # 0.1 TH/MM3 (0-0.2); BASOPHIL % 0.7 % (0.0-2.0); EOSINOPHIL # 0.5 TH/MM3 (0-0.4); HEMATOCRIT 23.7 % (35.0-46.0); HEMO FLAGS DIFF FINAL; LYMPH % 16.5 % (9.0-44.0); LYMPHOCYTE # 1.4 TH/MM3 (1.0-4.8); MEAN CELL VOLUME 83.4 FL (80.0-100.0); MEAN CORPUSCULAR HEMOGLOBIN 28.2 PG (27.0-34.0); MEAN CORPUSCULAR HGB CONC 33.9 % (32.0-36.0); MONO % 9.7 % (0.0-8.0); NEUT % 67.1 % (16.0-70.0); PLATELET COUNT 241 TH/MM3 (150-450); RED BLOOD COUNT 2.84 MIL/MM3 (4.00-5.30); WHITE BLOOD COUNT 8.4 TH/MM3 (4.0-11.0)
[2017-03-05 04:10] LABS: BICARBONATE 29.1 MEQ/L (21.0-32.0); POTASSIUM 3.6 MEQ/L (3.5-5.1)
[2017-03-05] MEDS: ENALAPRILAT 1.25 MG/ML VIAL IV PRN ×4 (05:27→21:57)
[2017-03-05] MEDS: INSULIN ASPART SUPPLEMENTAL SCALE SQ SCH ×4 (06:47→20:37)
[2017-03-05] MEDS: NIFEdipine 60 MG SUSTAINED RELEASE TAB PO SCH (07:37)
[2017-03-05] MEDS: VANCOMYCIN INJ 1,500 MG in SODIUM CHLORID 0.9% 500 ML INJ 500 ML IV SCH ×2 (09:19→20:37)
[2017-03-05] MEDS: LACTOBACILLUS ACIDOPHILUS TAB PO SCH ×2 (09:19→20:30)
[2017-03-05] MEDS: DULoxetine HCl DR 60 MG CAP PO SCH (09:19)
[2017-03-05] MEDS: COLLAGENASE OINT 30 GM TUBE TOPICAL SCH (09:19)
[2017-03-05] MEDS: SODIUM CHLORIDE 0.9% FLUSH 10 ML FLUSH IV FLUSH SCH ×2 (09:20→20:31)
[2017-03-05] MEDS: GABAPENTIN 300 MG CAP PO SCH ×2 (09:20→20:30)
[2017-03-05] MEDS: HYDROmorphone HCL PF 1 MG/ML VIAL IV PRN ×2 (10:15→20:37)
--- NOTE | 2017-03-05 15:19 | HHI.PR ---
Subjective Subjective Notes Denies flatus. She is stable. Pain is controlled. Up in chair right now. Objective Vitals/I&O Vital Signs Date Time Temp Pulse Resp B/P Pulse Ox O2 Delivery O2 Flow Rate FiO2 03/05/17 12:00 88 03/05/17 12:00 98.0 15 159/70 92 03/05/17 07:57 3.00 03/05/17 07:00 Room Air 03/04/17 07:00 32 Labs Laboratory Tests Test 03/05/17 03:28 White Blood Count 8.4 Red Blood Count 2.84 Hemoglobin 8.0 Hematocrit 23.7 Mean Corpuscular Volume 83.4 Mean Corpuscular Hemoglobin 28.2 Mean Corpuscular Hemoglobin 33.9 Concent Red Cell Distribution Width 15.0 Platelet Count 241 Mean Platelet Volume 7.7 Neutrophils (%) (Auto) 67.1 Lymphocytes (%) (Auto) 16.5 Monocytes (%) (Auto) 9.7 Eosinophils (%) (Auto) 6.0 Basophils (%) (Auto) 0.7 Neutrophils # (Auto) 5.7 Lymphocytes # (Auto) 1.4 Monocytes # (Auto) 0.8 Eosinophils # (Auto) 0.5 Basophils # (Auto) 0.1 CBC Comment DIFF FINAL Differential Comment Sodium Level 145 Potassium Level 3.6 Chloride Level 109 Carbon Dioxide Level 29.1 Anion Gap 7 Blood Urea Nitrogen 13 Creatinine 0.54 Estimat Glomerular Filtration 114 Rate Random Glucose 94 Calcium Level 8.0 Date/Time Procedure Status Source Growth 03/03/17 17:25 Aerobic Blood Culture - Preliminary Resulted Blood Peripheral NO GROWTH IN 2 DAYS 03/03/17 17:25 Anaerobic Blood Culture - Preliminary Resulted Blood Peripheral NO GROWTH IN 2 DAYS Narrative Exam NAD, awake and alert, but tired RRR Lungs: clear anteriorly, nonlabored, on NC O2 Abd: soft, mild post op ttp, bandage and binder in place, ng dark green output 350cc this am A/P Assessment and Plan 66 yo F POD 2 s/p ex lap reduction of incarcerated ventral hernia. Cont NG to suction. Reglan. Labs in am. DVT proph: SCDs. Ok for transfer to floor. JimEfrain montgomery MD March 05, 2017 15:19
--- NOTE | 2017-03-05 15:32 | HHI.PR ---
Subjective Remarks pain is controlled. No flatus. Objective Vitals Vital Signs Date Time Temp Pulse Resp B/P Pulse Ox O2 Delivery O2 Flow Rate FiO2 03/05/17 12:00 88 03/05/17 12:00 98.0 90 15 159/70 92 03/05/17 10:45 16 03/05/17 10:00 92 03/05/17 08:00 97.9 90 15 124/59 92 138/44 03/05/17 08:00 90 03/05/17 07:57 93 3.00 03/05/17 07:00 92 Room Air 03/05/17 06:00 59 03/05/17 06:00 59 172/71 03/05/17 04:00 97.7 58 10 152/50 95 03/05/17 04:00 58 03/05/17 02:00 68 03/05/17 00:00 98.4 72 10 130/46 95 03/05/17 00:00 72 03/04/17 22:00 80 03/04/17 21:10 95 Nasal Cannula 3.00 03/04/17 20:00 98.5 78 17 178/54 94 178/54 03/04/17 20:00 78 03/04/17 19:00 Room Air 03/04/17 18:00 80 03/04/17 18:00 80 164/50 03/04/17 16:00 87 03/04/17 16:00 98.6 87 10 127/47 99 03/04/17 03/04/17 03/05/17 15:00 23:00 07:00 Intake Total 3280 ml 1746 ml 1131 ml Output Total 186 ml 1295 ml 275 ml Balance 3094 ml 451 ml 856 ml IV Total 3280 ml 1746 ml 1131 ml Output Urine Total 186 ml 645 ml 125 ml Gastric Drainage Total 650 ml 150 ml # Bowel Movements 0 0 Result Diagram: 03/05/17 0328 03/05/17 0328 Imaging Last Impressions Chest X-Ray 03/03/17 0000 Signed Impressions: Service Date/Time: Friday, March 03, 2017 22:50 - CONCLUSION: Bilateral infiltrates and no pneumothorax. Elle Rucker MD Objective Remarks GENERAL: This is a well-nourished, well-developed patient, in no apparent distress. CARDIOVASCULAR: Regular rate and rhythm without murmurs, gallops, or rubs. RESPIRATORY: Clear to auscultation. Breath sounds equal bilaterally. No wheezes , rales, or rhonchi. GASTROINTESTINAL: soft, no g/r/r, no bowel sounds MUSCULOSKELETAL: Extremities without clubbing, cyanosis, or edema. NEURO: Alert & Oriented x4 to person, place, time, situation. Moves all ext x4 A/P Problem List: (1) Small bowel obstruction Status: Acute Plan: - POD #2 - laparoscopic reduction of incarcerated ventral hernia - NPO - prn dilaudid - continue IVF - reglan started 03/05/17 - vancomycin/zosyn, consider stopping abx 03/06 - supportive care (2) Incarcerated hernia Status: Acute Plan: - see above (3) Anemia Status: Acute Plan: - possibly dilutional - repeat CBC in AM (4) Hypertension Status: Chronic Plan: - procardia XL vasotec iv (5) Diabetes Status: Chronic Plan: - SSI (6) Wound of left side of back Status: Acute Plan: - Santyl Problem Qualifiers (1) Anemia: Qualified Code: D64.9 - Anemia, unspecified type (2) Hypertension: Qualified Code: I10 - Essential hypertension (3) Diabetes: Qualified Code: E11.8 - Type 2 diabetes mellitus with complication, without long-term current use of insulin (4) Wound of left side of back: Qualified Code: S21.202D - Wound of left side of back, subsequent encounter Christopher Quevedo DO March 05, 2017 15:32
[2017-03-05] MEDS: METOCLOPRAMIDE HCL 10 MG/2 ML VIAL IV PUSH SCH ×2 (16:24→20:30)
[2017-03-05] MEDS: traZODone HCL 100 MG TAB PO PRN (20:31)
[2017-03-06] VITALS (7 sets, daily range): BP systolic 140–195; BP diastolic 62–81; PULSE 65–104; RESP 10–17; TEMP 97.6–99.4; O2SAT 93–99
[2017-03-06] MEDS: ENALAPRILAT 1.25 MG/ML VIAL IV PRN (02:41)
[2017-03-06] MEDS: HYDROmorphone HCL PF 1 MG/ML VIAL IV PRN ×3 (03:11→22:19)
[2017-03-06] MEDS: METOCLOPRAMIDE HCL 10 MG/2 ML VIAL IV PUSH SCH ×3 (04:59→22:17)
[2017-03-06] MEDS: PIPERACIL-TAZO 3.375 GM PREMIX 50 ML IV SCH ×2 (04:59→11:26)
[2017-03-06] MEDS: LACTATED RINGER'S 1000 ML INJ 1,000 ML IV SCH (05:00)
[2017-03-06 05:20] LABS: AUTOMATED NEUTROPHIL # 5.9 TH/MM3 (1.8-7.7); BASOPHIL # 0.1 TH/MM3 (0-0.2); BASOPHIL % 1.2 % (0.0-2.0); EOSINOPHIL # 0.8 TH/MM3 (0-0.4); EOSINOPHIL % 8.8 % (0.0-4.0); HEMATOCRIT 26.5 % (35.0-46.0); HEMO FLAGS DIFF FINAL; LYMPH % 14.3 % (9.0-44.0); LYMPHOCYTE # 1.3 TH/MM3 (1.0-4.8); MEAN CELL VOLUME 83.2 FL (80.0-100.0); MEAN CORPUSCULAR HEMOGLOBIN 27.4 PG (27.0-34.0); MEAN CORPUSCULAR HGB CONC 32.9 % (32.0-36.0); MONO % 8.9 % (0.0-8.0); NEUT % 66.8 % (16.0-70.0); PLATELET COUNT 282 TH/MM3 (150-450); RED BLOOD COUNT 3.19 MIL/MM3 (4.00-5.30); WHITE BLOOD COUNT 8.8 TH/MM3 (4.0-11.0)
[2017-03-06 05:36] LABS: BICARBONATE 32.8 MEQ/L (21.0-32.0); POTASSIUM 3.3 MEQ/L (3.5-5.1)
[2017-03-06] MEDS: INSULIN ASPART SUPPLEMENTAL SCALE SQ SCH ×4 (06:32→21:00)
[2017-03-06] MEDS: LACTOBACILLUS ACIDOPHILUS TAB PO SCH ×2 (08:17→22:16)
[2017-03-06] MEDS: COLLAGENASE OINT 30 GM TUBE TOPICAL SCH (08:17)
[2017-03-06] MEDS: DULoxetine HCl DR 60 MG CAP PO SCH (08:17)
[2017-03-06] MEDS: GABAPENTIN 300 MG CAP PO SCH ×2 (08:17→22:17)
[2017-03-06] MEDS: NIFEdipine 60 MG SUSTAINED RELEASE TAB PO SCH (08:17)
[2017-03-06] MEDS: SODIUM CHLORIDE 0.9% FLUSH 10 ML FLUSH IV FLUSH SCH ×2 (08:17→22:16)
[2017-03-06] MEDS ORDERED: PHARMACY ORDERED LAB ONE (08:45)
[2017-03-06] MEDS ORDERED: POTASSIUM CHLORIDE 25 MEQ EFFERVESCENT TAB NG ONE (11:00)
[2017-03-06] MEDS ORDERED: hydrALAZINE HCL 20 MG/ML VIAL IV PUSH PRN (11:00)
--- NOTE | 2017-03-06 11:52 | HHI.PR ---
Subjective Subjective Notes NG output decreased. Had a lot of UOP. Pain pretty well controlled. She feels hungry. + flatus. Objective Vitals/I&O Vital Signs Date Time Temp Pulse Resp B/P Pulse Ox O2 Delivery O2 Flow Rate FiO2 03/06/17 08:38 93 21 03/06/17 08:00 97.6 65 10 195/81 03/06/17 07:00 Room Air 03/05/17 07:57 3.00 Labs Laboratory Tests Test 03/06/17 03/06/17 05:00 08:45 White Blood Count 8.8 Red Blood Count 3.19 Hemoglobin 8.7 Hematocrit 26.5 Mean Corpuscular Volume 83.2 Mean Corpuscular Hemoglobin 27.4 Mean Corpuscular Hemoglobin 32.9 Concent Red Cell Distribution Width 15.0 Platelet Count 282 Mean Platelet Volume 7.9 Neutrophils (%) (Auto) 66.8 Lymphocytes (%) (Auto) 14.3 Monocytes (%) (Auto) 8.9 Eosinophils (%) (Auto) 8.8 Basophils (%) (Auto) 1.2 Neutrophils # (Auto) 5.9 Lymphocytes # (Auto) 1.3 Monocytes # (Auto) 0.8 Eosinophils # (Auto) 0.8 Basophils # (Auto) 0.1 CBC Comment DIFF FINAL Differential Comment Sodium Level 143 Potassium Level 3.3 Chloride Level 104 Carbon Dioxide Level 32.8 Anion Gap 6 Blood Urea Nitrogen 5 Creatinine 0.38 Estimat Glomerular Filtration 170 Rate Random Glucose 93 Calcium Level 8.2 Vancomycin Level Trough 24.7 Date/Time Procedure Status Source Growth 03/03/17 17:25 Aerobic Blood Culture - Preliminary Resulted Blood Peripheral NO GROWTH IN 3 DAYS 03/03/17 17:25 Anaerobic Blood Culture - Preliminary Resulted Blood Peripheral NO GROWTH IN 3 DAYS Narrative Exam NAD, awake and alert RRR Abd: soft, mild post op ttp, inc c/d/i, ng dark green output 50cc this am A/P Assessment and Plan 66 yo F POD 4 s/p ex lap reduction of incarcerated ventral hernia. D/c NGT. Clears. Start PO pain meds. D/c antibiotics. Replace K+. DVT proph: SCDs. Lovenox. JimEfrain MD March 06, 2017 11:52
[2017-03-06] MEDS ORDERED: ACETAMINOPHEN/HYDROcodone 325 MG/5 MG TAB PO PRN (12:00)
[2017-03-06] MEDS ORDERED: POTASSIUM CHLOR 40 MEQ PREMIX 100 ML IV ONE (12:00)
[2017-03-06] MEDS: ENOXAPARIN SODIUM 40 MG/0.4 ML SYRINGE SQ SCH (13:01)
[2017-03-06] MEDS ORDERED: VANCOMYCIN INJ 1,500 MG in SODIUM CHLORID 0.9% 500 ML INJ 500 ML IV SCH (15:00)
--- NOTE | 2017-03-06 16:03 | HHI.PR ---
Subjective Remarks + Flatus tolerating clear liquid diet. NO n/v Objective Vitals Vital Signs Date Time Temp Pulse Resp B/P Pulse Ox O2 Delivery O2 Flow Rate FiO2 03/06/17 14:00 97 03/06/17 12:00 104 03/06/17 12:00 97.8 104 11 140/64 99 03/06/17 08:38 93 21 03/06/17 08:00 97.6 65 10 195/81 95 03/06/17 07:00 Room Air 03/06/17 04:00 97.8 68 14 178/77 93 03/06/17 03:53 18 03/06/17 00:00 98.1 73 14 158/72 94 03/05/17 20:00 Room Air 03/05/17 20:00 98.5 89 22 185/81 94 Arterial Line 03/05/17 18:00 85 03/05/17 03/05/17 03/06/17 15:00 23:00 07:00 Intake Total 1154 ml 1325 ml Output Total 2900 ml 3000 ml Balance -1746 ml -1675 ml Intake Oral 50 ml IV Total 1104 ml 1325 ml Output Urine Total 2800 ml 2800 ml Gastric Drainage Total 100 ml 200 ml # Bowel Movements 0 0 Result Diagram: 03/06/17 0500 03/06/17 0500 Imaging Last Impressions Chest X-Ray 03/03/17 0000 Signed Impressions: Service Date/Time: Friday, March 03, 2017 22:50 - CONCLUSION: Bilateral infiltrates and no pneumothorax. Elle Rucker MD Objective Remarks GENERAL: This is a well-nourished, well-developed patient, in no apparent distress. CARDIOVASCULAR: Regular rate and rhythm without murmurs, gallops, or rubs. RESPIRATORY: Clear to auscultation. Breath sounds equal bilaterally. No wheezes , rales, or rhonchi. GASTROINTESTINAL: soft, no g/r/r, positive bowel sounds x4 MUSCULOSKELETAL: Extremities without clubbing, cyanosis, or edema. NEURO: Alert & Oriented x4 to person, place, time, situation. Moves all ext x4 A/P Problem List: (1) Small bowel obstruction Status: Acute Plan: - POD #3 - laparoscopic reduction of incarcerated ventral hernia - diet advanced to clears, pt tolerating - prn dilaudid - reglan started 03/05/17 - vancomycin/zosyn, stopped 03/06 - supportive care (2) Incarcerated hernia Status: Acute Plan: - see above (3) Anemia Status: Acute Plan: - possibly dilutional - repeat CBC in AM (4) Hypertension Status: Chronic Plan: - procardia XL vasotec iv (5) Diabetes Status: Chronic Plan: - SSI (6) Wound of left side of back Status: Acute Plan: - Santyl Problem Qualifiers (1) Anemia: Qualified Code: D64.9 - Anemia, unspecified type (2) Hypertension: Qualified Code: I10 - Essential hypertension (3) Diabetes: Qualified Code: E11.8 - Type 2 diabetes mellitus with complication, without long-term current use of insulin (4) Wound of left side of back: Qualified Code: S21.202D - Wound of left side of back, subsequent encounter Christopher Quevedo DO March 06, 2017 16:03
[2017-03-06] MEDS: ACETAMINOPHEN/HYDROcodone 325 MG/5 MG TAB PO PRN (16:53)
[2017-03-06] MEDS: traZODone HCL 100 MG TAB PO PRN (22:17)
[2017-03-07] VITALS (8 sets, daily range): BP systolic 123–190; BP diastolic 60–83; PULSE 80–113; RESP 12–21; TEMP 96.6–99.2; O2SAT 93–96
[2017-03-07] MEDS: METOCLOPRAMIDE HCL 10 MG/2 ML VIAL IV PUSH SCH (05:29)
[2017-03-07] MEDS: INSULIN ASPART SUPPLEMENTAL SCALE SQ SCH ×4 (05:36→21:00)
[2017-03-07 07:11] LABS: POTASSIUM 3.2 MEQ/L (3.5-5.1)
[2017-03-07] MEDS: DULoxetine HCl DR 60 MG CAP PO SCH (08:20)
[2017-03-07] MEDS: COLLAGENASE OINT 30 GM TUBE TOPICAL SCH (08:20)
[2017-03-07] MEDS: NIFEdipine 60 MG SUSTAINED RELEASE TAB PO SCH (08:20)
[2017-03-07] MEDS: LACTOBACILLUS ACIDOPHILUS TAB PO SCH ×2 (08:20→21:52)
[2017-03-07] MEDS: SODIUM CHLORIDE 0.9% FLUSH 10 ML FLUSH IV FLUSH SCH ×2 (08:20→21:52)
[2017-03-07] MEDS: GABAPENTIN 300 MG CAP PO SCH ×2 (08:20→21:52)
[2017-03-07] MEDS ORDERED: POTASSIUM CHLOR 40 MEQ PREMIX 100 ML IV SCH (11:30)
--- NOTE | 2017-03-07 11:47 | HHI.PR ---
Subjective Subjective Notes She has been sleeping all morning but she does arouse. No complaints. Tolerating liquids and no nausea. Had bm yesterday. Objective Vitals/I&O Vital Signs Date Time Temp Pulse Resp B/P Pulse Ox O2 Delivery O2 Flow Rate FiO2 03/07/17 08:00 99.2 80 12 178/65 93 03/07/17 02:14 Room Air 03/06/17 20:20 21 03/05/17 07:57 3.00 Labs Laboratory Tests Test 03/07/17 05:42 Sodium Level 144 Potassium Level 3.2 Chloride Level 104 Carbon Dioxide Level 32.0 Anion Gap 8 Blood Urea Nitrogen 6 Creatinine 0.52 Estimat Glomerular Filtration 119 Rate Random Glucose 83 Calcium Level 8.2 Date/Time Procedure Status Source Growth 03/03/17 17:25 Aerobic Blood Culture - Preliminary Resulted Blood Peripheral NO GROWTH IN 4 DAYS 03/03/17 17:25 Anaerobic Blood Culture - Preliminary Resulted Blood Peripheral NO GROWTH IN 4 DAYS Narrative Exam NAD, awake and alert RRR Abd: soft, mild post op ttp, inc small amt drainage. A/P Assessment and Plan 66 yo F POD 4 s/p ex lap reduction of incarcerated ventral hernia. Reg diet PO pain meds. Replace K+. DVT proph: SCDs. Lovenox. Jim,Efrain HARRIS March 07, 2017 11:47
[2017-03-07] MEDS: POTASSIUM CHLOR 40 MEQ PREMIX 100 ML IV SCH ×2 (13:17→16:00)
--- NOTE | 2017-03-07 13:33 | HHI.PR ---
Subjective Remarks Pt has been very sleepy today. She is tolerating the liquid diet and is being advanced to regular diet today Pt had a BM yesterday. Objective Vitals Vital Signs Date Time Temp Pulse Resp B/P Pulse Ox O2 Delivery O2 Flow Rate FiO2 03/07/17 08:00 99.2 80 12 178/65 93 03/07/17 04:00 98.2 81 17 139/65 95 03/07/17 02:14 Room Air 03/07/17 00:00 98.7 82 17 126/60 96 03/06/17 20:20 21 03/06/17 20:00 99.4 95 17 140/62 95 03/06/17 14:00 97 03/06/17 03/06/17 03/07/17 15:00 23:00 07:00 Intake Total 1622 ml 240 ml 240 ml Output Total 1800 ml 400 ml 200 ml Balance -178 ml -160 ml 40 ml Intake Oral 480 ml 240 ml 240 ml IV Total 1022 ml Tube Irrigant 120 ml Output Urine Total 1750 ml 400 ml 200 ml Gastric Drainage Total 50 ml # Bowel Movements 1 Result Diagram: 03/06/17 0500 03/07/17 0542 Other Results Laboratory Tests Test 03/06/17 03/06/17 03/07/17 05:00 08:45 05:42 White Blood Count 8.8 TH/MM3 Red Blood Count 3.19 MIL/MM3 Hemoglobin 8.7 GM/DL Hematocrit 26.5 % Mean Corpuscular Volume 83.2 FL Mean Corpuscular Hemoglobin 27.4 PG Mean Corpuscular Hemoglobin 32.9 % Concent Red Cell Distribution Width 15.0 % Platelet Count 282 TH/MM3 Mean Platelet Volume 7.9 FL Neutrophils (%) (Auto) 66.8 % Lymphocytes (%) (Auto) 14.3 % Monocytes (%) (Auto) 8.9 % Eosinophils (%) (Auto) 8.8 % Basophils (%) (Auto) 1.2 % Neutrophils # (Auto) 5.9 TH/MM3 Lymphocytes # (Auto) 1.3 TH/MM3 Monocytes # (Auto) 0.8 TH/MM3 Eosinophils # (Auto) 0.8 TH/MM3 Basophils # (Auto) 0.1 TH/MM3 CBC Comment DIFF FINAL Differential Comment Sodium Level 143 MEQ/L 144 MEQ/L Potassium Level 3.3 MEQ/L 3.2 MEQ/L Chloride Level 104 MEQ/L 104 MEQ/L Carbon Dioxide Level 32.8 MEQ/L 32.0 MEQ/L Anion Gap 6 MEQ/L 8 MEQ/L Blood Urea Nitrogen 5 MG/DL 6 MG/DL Creatinine 0.38 MG/DL 0.52 MG/DL Estimat Glomerular Filtration 170 ML/MIN 119 ML/MIN Rate Random Glucose 93 MG/DL 83 MG/DL Calcium Level 8.2 MG/DL 8.2 MG/DL Vancomycin Level Trough 24.7 MCG/ML Imaging Last Impressions Chest X-Ray 03/03/17 0000 Signed Impressions: Service Date/Time: Friday, March 03, 2017 22:50 - CONCLUSION: Bilateral infiltrates and no pneumothorax. Elle Rucker MD Objective Remarks General: NAD, AAOx3 Chest: CTA Cardiac: Regular Abd: +BS, soft, mild diffuse tenderness, no guarding or rebound. Incision is c/d /i Ext: No edema A/P Problem List: (1) Small bowel obstruction Status: Acute Plan: - Pt was sent over from [facility] for evaluation of abdominal pain with associated nausea/vomiting. - Patient had a KUB at the rehab which showed a small bowel obstruction. - Pt was found to have an incarcerated umbilical hernia which was unable to be reduced. - Pt underwent laparoscopic reduction of incarcerated ventral hernia on 03/03/[address] Fernandez. - Pt has been doing well post-operatively. - NGT removed on 03/06. - Pt tolerating liquid diet and plans for diet advancement today to regular consistency diet per Gen Surg. - Pt is moving her bowel, on 03/06 - Dilaudid PRN - Reglan started 03/05/17 - Vancomycin/Zosyn, stopped 03/06 - supportive care - Anticipate discharge in 1-2 days back to SNF. (2) Incarcerated hernia Status: Acute Plan: - see above (3) Anemia Status: Acute Plan: - possibly dilutional - repeat CBC in AM (4) Hypertension Status: Chronic Plan: - procardia XL vasotec iv (5) Diabetes Status: Chronic Plan: - SSI (6) Wound of left side of back Status: Acute Plan: - Santyl Assessment and Plan Patient examined. Assessment and plan formulated with Sarai Boss PA-C. I agree with the above. Problem Qualifiers (1) Anemia: Qualified Code: D64.9 - Anemia, unspecified type (2) Hypertension: Qualified Code: I10 - Essential hypertension (3) Diabetes: Qualified Code: E11.8 - Type 2 diabetes mellitus with complication, without long-term current use of insulin (4) Wound of left side of back: Qualified Code: S21.202D - Wound of left side of back, subsequent encounter Sarai Boss March 07, 2017 13:33 Christopher Quevedo DO March 08, 2017 11:21
[2017-03-07] MEDS: ENOXAPARIN SODIUM 40 MG/0.4 ML SYRINGE SQ SCH (15:26)
[2017-03-07] MEDS: ACETAMINOPHEN/HYDROcodone 325 MG/5 MG TAB PO PRN (21:52)
[2017-03-07] MEDS: traZODone HCL 100 MG TAB PO PRN (21:55)
[2017-03-08] VITALS: BP 138/64; PULSE 81; RESP 17; TEMP 97.2; O2SAT 95
[2017-03-08 04:35] LABS: AUTOMATED NEUTROPHIL # 3.8 TH/MM3 (1.8-7.7); BASOPHIL # 0.1 TH/MM3 (0-0.2); BASOPHIL % 1.4 % (0.0-2.0); EOSINOPHIL # 0.8 TH/MM3 (0-0.4); EOSINOPHIL % 11.2 % (0.0-4.0); HEMATOCRIT 26.1 % (35.0-46.0); HEMO FLAGS DIFF FINAL; LYMPH % 25.3 % (9.0-44.0); LYMPHOCYTE # 1.8 TH/MM3 (1.0-4.8); MEAN CELL VOLUME 83.5 FL (80.0-100.0); MEAN CORPUSCULAR HEMOGLOBIN 27.4 PG (27.0-34.0); MEAN CORPUSCULAR HGB CONC 32.9 % (32.0-36.0); MONO % 10.6 % (0.0-8.0); NEUT % 51.5 % (16.0-70.0); PLATELET COUNT 298 TH/MM3 (150-450); RED BLOOD COUNT 3.13 MIL/MM3 (4.00-5.30); WHITE BLOOD COUNT 7.3 TH/MM3 (4.0-11.0)
[2017-03-08 05:04] LABS: BICARBONATE 32.7 MEQ/L (21.0-32.0); POTASSIUM 3.9 MEQ/L (3.5-5.1)
[2017-03-08] MEDS: INSULIN ASPART SUPPLEMENTAL SCALE SQ SCH ×3 (05:33→16:00)
[2017-03-08 08:00] VITALS: BP 164/83; PULSE 96; RESP 21; TEMP 97.9; O2SAT 94
[2017-03-08] MEDS: SODIUM CHLORIDE 0.9% FLUSH 10 ML FLUSH IV FLUSH SCH (08:31)
[2017-03-08] MEDS: GABAPENTIN 300 MG CAP PO SCH (08:31)
[2017-03-08] MEDS: DULoxetine HCl DR 60 MG CAP PO SCH (08:31)
[2017-03-08] MEDS: LACTOBACILLUS ACIDOPHILUS TAB PO SCH (08:31)
[2017-03-08] MEDS: NIFEdipine 60 MG SUSTAINED RELEASE TAB PO SCH (08:31)
[2017-03-08] MEDS: COLLAGENASE OINT 30 GM TUBE TOPICAL SCH (09:00)
[2017-03-08] MEDS: ENOXAPARIN SODIUM 40 MG/0.4 ML SYRINGE SQ SCH (11:12)
[2017-03-08 12:00] VITALS: BP 142/65; PULSE 88; RESP 21; TEMP 99.5; O2SAT 95
[2017-03-08] MEDS ORDERED: LISI-515 PO (14:31)
[2017-03-08] MEDS ORDERED: HYDR-3516 PO (14:31)
--- NOTE | 2017-03-08 14:42 | HHI.DCPOC ---
Discharge Care Plan Diagnosis: (1) Small bowel obstruction (2) Wound of left side of back (3) Hypertension (4) Diabetes (5) Incarcerated hernia (6) Anemia (7) General weakness Goals to Promote Your Health * To prevent worsening of your condition and complications * To maintain your health at the optimal level Directions to Meet Your Goals Take your medications as prescribed Follow your dietary instruction Follow activity as directed Keep your appointments as scheduled Take your immunizations and boosters as scheduled If your symptoms worsen call your PCP, if no PCP go to Urgent Care Center or Emergency Room Smoking is Dangerous to Your Health. Avoid second hand smoke Call the 24-hour hour crisis hotline for domestic abuse at Christopher Quevedo DO March 08, 2017 14:42
--- NOTE | 2017-03-08 14:47 | HHI.DS ---
Discharge Summary Admission Date March 03, 2017 at 18:40 Discharge Date: March 08, 2017 Admitting Diagnosis SBO, incarcerated hernia (1) Small bowel obstruction Diagnosis: Principal (2) Incarcerated hernia Diagnosis: Principal (3) Anemia Diagnosis: Secondary (4) Hypertension Diagnosis: Secondary (5) Diabetes Diagnosis: Secondary (6) Wound of left side of back Diagnosis: Secondary Consultants Dr. Efrain Fernandez, General Surgery Brief History 66-year-old female presents to the emergency department sent from [facility] for evaluation of abdominal pain with nausea and vomit . The patient reports abdominal pain and vomiting that started last night. Patient states she 's had continuous vomiting. She denies any diarrhea. She states her vomiting is brown in color. Patient had a KUB done today which showed a small bowel obstruction. She denies any fevers. No chest pain or shortness of breath. She states she has a knot in her stomach which is painful. She reports a history of cholecystectomy, but no other abdominal surgeries. Patient has a past medical history of recurrent UTIs (most recently ESBL E. coli UTI), hypertension, diabetes mellitus, and hx of breast cancer. Patient has palpable hernia which was unable to be reduced and will require surgery. CBC/BMP: 03/08/17 0425 03/08/17 0425 Significant Findings Laboratory Tests Test 03/06/17 03/06/17 03/07/17 03/08/17 05:00 08:45 05:42 04:25 Red Blood Count 3.19 MIL/MM3 3.13 MIL/MM3 (4.00-5.30) (4.00-5.30) Hemoglobin 8.7 GM/DL 8.6 GM/DL (11.6-15.3) (11.6-15.3) Hematocrit 26.5 % 26.1 % (35.0-46.0) (35.0-46.0) Monocytes (%) (Auto) 8.9 % (0.0-8.0) 10.6 % (0.0-8.0) Eosinophils (%) (Auto) 8.8 % (0.0-4.0) 11.2 % (0.0-4.0) Eosinophils # (Auto) 0.8 TH/MM3 0.8 TH/MM3 (0-0.4) (0-0.4) Potassium Level 3.3 MEQ/L 3.2 MEQ/L (3.5-5.1) (3.5-5.1) Carbon Dioxide Level 32.8 MEQ/L 32.7 MEQ/L (21.0-32.0) (21.0-32.0) Blood Urea Nitrogen 5 MG/DL (7-18) 6 MG/DL (7-18) Creatinine 0.38 MG/DL (0.50-1.00) Calcium Level 8.2 MG/DL 8.2 MG/DL 8.3 MG/DL (8.5-10.1) (8.5-10.1) (8.5-10.1) Vancomycin Level Trough 24.7 MCG/ML (5.0-10.0) Sodium Level 146 MEQ/L (136-145) Chloride Level 108 MEQ/L (98-107) Random Glucose 107 MG/DL (74-106) Imaging Last Impressions Chest X-Ray 03/03/17 0000 Signed Impressions: Service Date/Time: Friday, March 03, 2017 22:50 - CONCLUSION: Bilateral infiltrates and no pneumothorax. Elle Rucker MD PE at Discharge General: NAD, AAOx3 Chest: CTA Cardiac: Regular Abd: +BS, soft, mild diffuse tenderness, no guarding or rebound. Incision is c/d /i Ext: No edema Hospital Course (1) Small bowel obstruction Status: Acute Plan: - Pt was sent over from [facility] for evaluation of abdominal pain with associated nausea/vomiting. - Patient had a KUB at the rehab which showed a small bowel obstruction. - Pt was found to have an incarcerated umbilical hernia which was unable to be reduced. - Pt underwent laparoscopic reduction of incarcerated ventral hernia on 03/03/[address] Fernandez. - Pt did well post-operatively. - NGT removed on 03/06. - Pt tolerating PO diet - Pt is moving her bowel, on 03/06 - Reglan started 03/05/17 - Vancomycin/Zosyn, stopped 03/06 - norco prn - Case d/w Dr. Fernandez (03/07/17). - discharge back to [facility] (2) Incarcerated hernia Status: Acute Plan: - see above (3) Anemia Status: Acute Plan: - stable (4) Hypertension Status: Chronic Plan: - procardia XL vasotec iv (5) Diabetes Status: Chronic Plan: - SSI (6) Wound of left side of back Status: Acute Plan: - Santyl Pt Condition on Discharge: Stable Discharge Disposition: Discharge to SNF Discharge Instructions DIET: Follow Instructions for: Heart Healthy Diet, Diabetic Diet Activities you can perform: Weight Bearing as Juan F Follow up Referrals: PCP Follow-up - [address] Eulalio Betts f/u with PCP, Dr. Eulalio Betts one week after discharge from SNF Surgical - 1 Week with Efrain Fernandez MD New Medications: Hydrocodone-Acetaminophen (Hydrocodone-Acetaminophen) 5-325 mg Tab 1 TAB PO Q4H PRN pain #60 Ref 0 TAB Changed Medications: Lisinopril (Lisinopril) 20 Mg Tab 20 MG PO DAILY hold for SBP below 120 #30 Ref 0 TAB (Medication details modified ) Continued Medications: Atorvastatin (Lipitor) 40 Mg Tab 40 MG PO HS Cholesterol Management #30 Ref 0 TAB Collagenase (Santyl) 250 Unit/Gm Oin 1 APPLIC TOPICAL DAILY left lower back daily wound Days [address] (Cymbalta DR) 60 Mg Capdr 60 MG PO DAILY #30 Ref 0 CAP Gabapentin (Gabapentin) 300 Mg Cap 300 MG PO BID #60 Ref 0 CAP Metformin (Metformin) 500 Mg Tab 500 MG PO BID With meals Blood Sugar Management #60 Ref 0 TAB Nifedipine ER 24 HR (Nifedipine ER 24 HR) 60 Mg Tab 60 MG PO DAILY #30 Ref 0 TAB Trazodone (Trazodone) 100 Mg Tab 200 MG PO HS PRN SLEEP #30 Ref 0 TAB Discontinued Medications: Lactobacillus Acidophilus (Acidophilus/l-Sporogenes) 1 Tab Tab 1 TAB PO Q12HR bowel health Days 30 TAB Tramadol (Ultram) 50 Mg Tab 50 MG PO Q8H PRN PAIN LEVEL 3-10 #30 TAB Christopher Quevedo DO March 08, 2017 14:47
[2017-03-08 16:00] VITALS: BP 151/72; PULSE 88; RESP 22; TEMP 96.5; O2SAT 95
[2017-03-08] MEDS: ACETAMINOPHEN/HYDROcodone 325 MG/5 MG TAB PO PRN (16:39)
[2017-03-08] MEDS ORDERED: PHARMACY ORDERED LAB ONE (20:45)
== END 2017-03-08 17:48 | DRG 355 ==
LOC: NEPC 16:54 → NEDA 18:40 → NEDH 18:40 → UNDOADMIN 18:40 → N03A 23:53 → N07B 03-06 15:40
PROVIDERS: ADMIT Hospitalist; ATTEND Hospitalist
PROC: 0WQF0ZZ Repair Abdominal Wall, Open Approach (ICD-10-PCS; principal; 2017-03-03 20:42)
DX: K42.0 Umbilical hernia with obstruction, without gangrene (principal); I10 Essential (primary) hypertension; E11.9 Type 2 diabetes mellitus without complications; F32.9 Major depressive disorder, single episode, unspecified; D64.9 Anemia, unspecified; F41.9 Anxiety disorder, unspecified; E86.0 Dehydration; Z79.84 Long term (current) use of oral hypoglycemic drugs
CPT/HCPCS: 71010; 80048; 80053; 80202; 81001; 82948; 83605; 83690; 85025; 85610; 85730; 87040; 87641; 93005; 94150; 96374; 96375; J0360; J1170; J1650; J1815; J1885; J2250; J2405; J2543; J2765; J3010; J3370; J3480; J7030; J7040; J7050; J7120

== ENCOUNTER 2017-06-10 13:08 | Inpatient (IN) | payer MEDICARE ==
[~2017-06-10] VITALS: Ht 162.6 cm; Wt 78.2 kg
[~2017-06-10 13:08] MED LIST changes: +HYDR-3516 PO; -LACT PO; -LACTATED RINGER'S 1000 ML INJ 1,000 ML IV ONE; -ONDANSETRON HCL 4 MG/2 ML VIAL IV PUSH ONE; -PROPOFOL 200 MG/20 ML AMP IV ONE; -SODIUM CHLORID 0.9% 500 ML INJ 500 ML IV ONE; -SUGAMMADEX SODIUM 200 MG/2 ML VIAL IV PUSH ONE; -ULTR50TA5 PO
[2017-06-10 13:21] VITALS: BP 145/61; PULSE 101; RESP 23; O2SAT 96
[2017-06-10 13:38] VITALS: O2SAT 96
--- NOTE | 2017-06-10 13:39 | PD ---
HPI Chief Complaint: General Weakness Time Seen by Provider: 13:20 Travel History International Travel<30 days: No Contact w/Intl Traveler<30days: No Traveled to known affect area: No History of Present Illness HPI 66-year-old female complains generalized malaise and weakness. Patient states that she was seen by personal physician a week ago and was diagnosed with UTI. Patient was given prescription for amoxicillin. Patient states that she has been taking amoxicillin as directed. Patient states that she has increasing generalized malaise and weakness today. Patient status post neck surgery for neck mass with resulting in weakness of the lower extremity that she became wheelchair dependent. Patient states that normally she can walk and get out of the wheelchair however not today. Patient denies any headache. Patient denies any visual change. Patient denies any chest pain or shortness of breath. Patient denies abdominal pain. Patient denies any back pain. Patient denies any fever chills. PFSH Past Medical History Arthritis: Yes Asthma: No Autoimmune Disease: No Blood Disorders: No Anxiety: Yes Depression: Yes Heart Rhythm Problems: No Cancer: Yes (LEFT BREAST and left neck) Cardiovascular Problems: Yes High Cholesterol: Yes Chemotherapy: Yes (2008) Chest Pain: No Congestive Heart Failure: No COPD: No Cerebrovascular Accident: Yes (2014) Diabetes: Yes Diminished Hearing: No Endocrine: Yes GERD: No Glaucoma: No Genitourinary: Yes (FREQUENT UTI's) Headaches: Yes Hepatitis: No Hiatal Hernia: No Herniated Disk: Yes Hypertension: Yes Immune Disorder: No Kidney Stones: No Musculoskeletal: Yes (SPINAL STENOSIS) Neurologic: Yes Psychiatric: No Reproductive: No Respiratory: No Migraines: Yes (years ago) Myocardial Infarction: No Radiation Therapy: Yes Renal Failure: No Seizures: No Sleep Apnea: No Thyroid Disease: Yes Ulcer: No PNEUMOCCOCAL Vaccine (Year): 1 Menopausal: Yes Past Surgical History Abdominal Surgery: Yes (CHOLECYSTECTOMY) Arteriovenous Shunt: No Section: Yes Cholecystectomy: Yes Ear Surgery: No Eye Surgery: No Gynecologic Surgery: Yes (C SECTION) Insulin Pump: No Joint Replacement: Yes (LT KNEE 11/2004) Oral Surgery: No Pacemaker: No Thoracic Surgery: Yes (LEFT BREAST BX/LUMPECTOMY) Other Surgery: Yes (LEFT KNEE REPLACEMENT, CHOLECYSTECTOMY, LUMPECTOMY) Social History Alcohol Use: No Tobacco Use: No Substance Use: No Allergies-Medications (Allergen,Severity, Reaction): Coded Allergies: Sulfa (Sulfonamide Antibiotics) (Unverified Allergy, Severe, HIVES, ) allopurinol (Unverified Allergy, Severe, Hives, 06/10/17) aspirin (Unverified Allergy, Severe, Hallucinations, 06/10/17) butalbital (Unverified Allergy, Severe, Hallucinations, 06/10/17) caffeine (Unverified Allergy, Severe, Hallucinations, 06/10/17) clonidine (Unverified Allergy, Severe, LETHARGY,SHAKING, 06/10/17) morphine (Unverified Adverse Reaction, Severe, SHAKING, HEADACHE, 06/10/17) *MDRO Multi-Drug Resistant Organism (Verified Adverse Reaction, Unknown, ) ESBL+E.Coli (urine-06/13/16, 12/14/16, 03/23/17) MRSA PCR screen POSITIVE-03/04/17 Reported Meds & Prescriptions Reported Meds & Active Scripts Active Hydrocodone-Acetaminophen 5-325 mg Tab 1 Tab PO Q4H PRN Lisinopril 20 Mg Tab 20 Mg PO DAILY hold for SBP below 120 Reported Trazodone (Trazodone HCl) 100 Mg Tablet 100 Mg PO HS PRN Gabapentin 600 Mg Tab 600 Mg PO TID Nifedipine ER 24 HR (Nifedipine) 60 Mg Tab 60 Mg PO DAILY Cymbalta DR (Duloxetine HCl) 60 Mg Capdr 60 Mg PO DAILY Metformin (Metformin HCl) 500 Mg Tab 500 Mg PO BID With meals Lipitor (Atorvastatin Calcium) 40 Mg Tab 40 Mg PO HS Review of Systems General / Constitutional: No: Fever Eyes: No: Visual changes HENT: No: Headaches Cardiovascular: No: Chest Pain or Discomfort Respiratory: No: Shortness of Breath Gastrointestinal: No: Abdominal Pain Genitourinary: No: Dysuria Musculoskeletal: No: Pain Skin: No Rash Neurologic: No: Weakness Psychiatric: No: Depression Endocrine: No: Polydipsia Hematologic/Lymphatic: No: Easy Bruising Physical Exam Narrative GENERAL: Well-nourished, well-developed patient. SKIN: Focused skin assessment warm/dry. HEAD: Normocephalic. EYES: No scleral icterus. No injection or drainage. NECK: Supple, trachea midline. No JVD or lymphadenopathy. CARDIOVASCULAR: Regular rate and rhythm without murmurs, gallops, or rubs. RESPIRATORY: Breath sounds equal bilaterally. No accessory muscle use. GASTROINTESTINAL: Abdomen soft, non-tender, nondistended. MUSCULOSKELETAL: No cyanosis, or edema. BACK: Nontender without obvious deformity. No CVA tenderness. Neurologic exam: Patient's awake and alert oriented 3. Patient has weakness of the lower extremity. Data Data Last Documented VS Vital Signs Date Time Temp Pulse Resp B/P (MAP) Pulse Ox O2 Delivery O2 Flow Rate FiO2 06/10/17 18:16 97.5 81 14 181/80 (113) 96 Room Air Orders Orders Electrocardiogram (06/10/17 13:27) Complete Blood Count With Diff (06/10/17 13:27) Comprehensive Metabolic Panel (06/10/17 13:27) Creatine Kinase (Cpk) (06/10/17 13:27) Troponin I (06/10/17 13:27) B-Type Natriuretic Peptide (06/10/17 13:27) Prothrombin Time / Inr (Pt) (06/10/17 13:27) Act Partial Throm Time (Ptt) (06/10/17 13:27) Blood Culture (06/10/17 13:27) Urinalysis - C+S If Indicated (06/10/17 13:27) Thyroid Stimulating Hormone (06/10/17 13:27) Chest, Single Ap (06/10/17 13:27) Iv Access Insert/Monitor (06/10/17 13:27) Ecg Monitoring (06/10/17 13:27) Oximetry (06/10/17 13:27) Lactic Acid (06/10/17 13:27) Sodium Chlor 0.9% 1000 Ml Inj (Ns 1000 M (06/10/17 13:30) Vascular Access Team Consult/P PRN (06/10/17 14:26) Vascular Poc Ultrasound (06/10/17 ) Vancomycin Inj (Vancomycin Inj) (06/10/17 16:30) Piperacil-Tazo 3.375 Gm Premix (Zosyn 3. (06/10/17 16:30) Urine Culture (06/10/17 14:15) Lactic Acid (06/10/17 18:55) Labs Laboratory Tests Test 06/10/17 13:40 06/10/17 14:15 06/10/17 17:40 White Blood Count 13.6 TH/MM3 Red Blood Count 3.60 MIL/MM3 Hemoglobin 10.2 GM/DL Hematocrit 31.7 % Mean Corpuscular Volume 88.1 FL Mean Corpuscular Hemoglobin 28.4 PG Mean Corpuscular Hemoglobin Concent 32.2 % Red Cell Distribution Width 16.1 % Platelet Count 247 TH/MM3 Mean Platelet Volume 9.7 FL Neutrophils (%) (Auto) 84.8 % Lymphocytes (%) (Auto) 8.3 % Monocytes (%) (Auto) 5.1 % Eosinophils (%) (Auto) 0.9 % Basophils (%) (Auto) 0.9 % Neutrophils # (Auto) 11.6 TH/MM3 Lymphocytes # (Auto) 1.1 TH/MM3 Monocytes # (Auto) 0.7 TH/MM3 Eosinophils # (Auto) 0.1 TH/MM3 Basophils # (Auto) 0.1 TH/MM3 CBC Comment DIFF FINAL Differential Comment Blood Urea Nitrogen 14 MG/DL Creatinine 0.79 MG/DL Random Glucose 114 MG/DL Total Protein 6.5 GM/DL Albumin 2.7 GM/DL Calcium Level 8.7 MG/DL Alkaline Phosphatase 72 U/L Aspartate Amino Transf (AST/SGOT) 18 U/L Alanine Aminotransferase (ALT/SGPT) 15 U/L Total Bilirubin 0.3 MG/DL Sodium Level 142 MEQ/L Potassium Level 3.7 MEQ/L Chloride Level 108 MEQ/L Carbon Dioxide Level 25.8 MEQ/L Anion Gap 8 MEQ/L Estimat Glomerular Filtration Rate 73 ML/MIN Lactic Acid Level 2.7 mmol/L Total Creatine Kinase 45 U/L Troponin I LESS THAN 0.02 NG/ML B-Type Natriuretic Peptide 25 PG/ML Thyroid Stimulating Hormone 3rd Gen 0.237 uIU/ML Urine Color YELLOW Urine Turbidity CLOUDY Urine pH 5.5 Urine Specific [place] 1.022 Urine Protein 100 mg/dL Urine Glucose (UA) NEG mg/dL Urine Ketones NEG mg/dL Urine Occult Blood SMALL Urine Nitrite NEG Urine Bilirubin NEG Urine Urobilinogen LESS THAN 2.0 MG/DL Urine Leukocyte Esterase LARGE Urine RBC 25 /hpf Urine WBC /hpf Urine Squamous Epithelial Cells 3 /hpf Urine Renal Epithelial Cells <1 /hpf Urine Bacteria FEW /hpf Urine Hyaline Casts 3 /lpf Urine Yeast (Budding) MANY Microscopic Urinalysis Comment CULTURE INDICATED MDM Medical Decision Making Medical Screen Exam Complete: Yes Emergency Medical Condition: Yes Interpretation(s) Last Impressions Chest X-Ray 06/10/17 1327 Signed Impressions: Service Date/Time: Saturday, June 10, 2017 14:19 - CONCLUSION: No acute disease. Cuco Palma Jr., MD 1619 p.m. Lactic acid 2.7. Chest x-ray shows no acute cardiopulmonary disease. 19 12 PM. CBC WBC 13.6. Hemoglobin 10.2 hematocrit 31.7. [address] acid 2.7. Cardiac enzymes are normal. TSH 0.237. BNP 25. UA positive WBC and bacteria. Differential Diagnosis Differential diagnosis including UTI, sepsis, electrolyte abnormality, dehydration, DE, TIA, CVA. Narrative Course 66-year-old female increasing weakness and lower extremity. History of UTI. Normal saline solution 1 25 cc an hour. Zosyn 3.375 g IV given. Vancomycin 1 g IV given. Diagnosis Primary Impression: Sepsis Qualified Codes: A41.9 - Sepsis, unspecified organism Additional Impression: UTI (lower urinary tract infection) Admitting Information Admitting Physician Requests: Admit Sonido Phillips MD Jun 10, 2017 13:39
[2017-06-10 13:41] VITALS: TEMP 98
--- NOTE | 2017-06-10 14:46 | RADRPT ---
EXAM DATE/TIME: 06/10/2017 14:19 [facility] COMPARISON: CHEST SINGLE AP, March 03, 2017, 22:50. INDICATIONS : Shortness of breath, weakness. MEDICAL HISTORY : Carcinoma, breast. Hypertension. Diabetes mellitus type 2. SURGICAL HISTORY : Cholecystectomy. Lumbar fusion. ENCOUNTER: Initial ACUITY: 1 day PAIN SCORE: 0/10 LOCATION: Bilateral chest FINDINGS: A single view of the chest demonstrates the lungs to be symmetrically aerated without evidence of mas s, infiltrate or effusion. The cardiomediastinal contours are unremarkable. Osseous structures are intact. CONCLUSION: No acute disease. Cuco Palma Jr., MD on June 10, 2017 at 14:44 Board Certified Radiologist. This report was verified electronically.
[2017-06-10] MEDS: SODIUM CHLOR 0.9% 1000 ML INJ 1,000 ML IV SCH ×2 (14:49→20:05)
[2017-06-10] MEDS ORDERED: VANCOMYCIN INJ 1,000 MG in SODIUM CHLOR 0.9% 250 ML INJ 250 ML IV ONE (16:30)
[2017-06-10] MEDS ORDERED: PIPERACIL-TAZO 3.375 GM PREMIX 50 ML IV ONE (16:30)
[2017-06-10] MEDS ORDERED: GABA600T PO (16:43)
[2017-06-10] MEDS ORDERED: TRAZ100T6 PO (16:43)
[2017-06-10 16:58] LABS: BACTERIA, URINE FEW /hpf; BLOOD, URINE SMALL (NEG); COMMENT (UR) CULTURE INDICATED; CULTURE IF INDICATED CULTURE INDICATED; GLUCOSE,URINE NEG (NEG); HYALINE CAST, URINE 3 /lpf (RARE); KETONE, URINE NEG (NEG); NITRITE,URINE NEG (NEG); PH, URINE 5.5 (5.0-8.5); RENAL EPITHELIAL CELLS <1 /hpf; SQUAMOUS EPITHELIAL CELL URINE 3 /hpf (0-5); URINE COLOR YELLOW (YELLW/STRAW)
[2017-06-10 17:02] LABS: AUTOMATED NEUTROPHIL # 11.6 TH/MM3 (1.8-7.7); BASOPHIL # 0.1 TH/MM3 (0-0.2); BASOPHIL % 0.9 % (0.0-2.0); EOSINOPHIL # 0.1 TH/MM3 (0-0.4); EOSINOPHIL % 0.9 % (0.0-4.0); HEMATOCRIT 31.7 % (35.0-46.0); HEMO FLAGS DIFF FINAL; LYMPH % 8.3 % (9.0-44.0); LYMPHOCYTE # 1.1 TH/MM3 (1.0-4.8); MEAN CELL VOLUME 88.1 FL (80.0-100.0); MEAN CORPUSCULAR HEMOGLOBIN 28.4 PG (27.0-34.0); MEAN CORPUSCULAR HGB CONC 32.2 % (32.0-36.0); MONO % 5.1 % (0.0-8.0); NEUT % 84.8 % (16.0-70.0); PLATELET COUNT 247 TH/MM3 (150-450); RED CELL DISTRIBUTION WIDTH 16.1 % (11.6-17.2); WHITE BLOOD COUNT 13.6 TH/MM3 (4.0-11.0)
[2017-06-10 17:15] LABS: ALT (GPT) 15 U/L (10-53); ANION GAP 8 MEQ/L (5-15); AST (GOT) 18 U/L (15-37); BICARBONATE 25.8 MEQ/L (21.0-32.0); BLOOD UREA NITROGEN 14 MG/DL (7-18); CHLORIDE 108 MEQ/L (98-107); GLOMERULAR FILTRATION RATE 73 ML/MIN (>89); POTASSIUM 3.7 MEQ/L (3.5-5.1); SODIUM (NA) 142 MEQ/L (136-145)
[2017-06-10 17:34] LABS: ALKALINE PHOSPHATASE 72 U/L (45-117); TOTAL BILIRUBIN ADULT 0.3 MG/DL (0.2-1.0)
[2017-06-10 17:36] LABS: CREATINE KINASE 45 U/L (26-192)
[2017-06-10 18:16] VITALS: BP 181/80; PULSE 81; RESP 14; TEMP 97.5; O2SAT 96
[2017-06-10 19:23] LABS: APTT (PATIENT) 25.4 SEC (24.3-30.1); PROTHROMBIN TIME - PATIENT 11.2 SEC (9.8-11.6)
[2017-06-10 19:24] VITALS: BP 169/70; PULSE 79; RESP 18; O2SAT 94
--- NOTE | 2017-06-10 20:27 | HHI.HP ---
HPI Service [facility] Hospitalists Primary Care Physician Eulalio Betts, DO Admission Diagnosis sepsis. UTI. Chief Complaint: weakness, diarrhea, UTI treated as outpt Travel History International Travel<30 Days: No Contact w/Intl Traveler <30 Da: No Traveled to Known Affected Are: No History of Present Illness 66-year-old female complains generalized malaise and weakness. Patient states that she was seen by personal physician a week ago and was diagnosed with UTI. Patient was given prescription for amoxicillin. Patient states that she has been taking amoxicillin as directed today was her last day of medication. Patient states that she has increasing generalized malaise and weakness today. Patient status post neck surgery for parotid mass with resulting in weakness of the lower extremity that she became wheelchair dependent. Patient states that normally she can walk with a walker and get out of the wheelchair however not today due to increased weakness. Patient denies any headache. Patient denies any visual change. Patient denies any chest pain or shortness of breath. Patient denies abdominal pain. Patient denies any back pain. Patient denies any fever, but has had chills. He has also had diarrhea for the last 3 days and has a history of C. difficile colitis. Review of Systems Constitutional: COMPLAINS OF: Chills, Dizziness Eyes: DENIES: Blurred vision, Diplopia, Eye inflammation, Eye pain, Vision loss , Photosensitivity, Double Vision Ears, nose, mouth, throat: DENIES: Tinnitus, Hearing loss, Vertigo, Nasal discharge, Oral lesions, Throat pain, Hoarseness, Ear Pain, Running Nose, Epistaxis, Sinus Pain, Toothache, Odynophagia Respiratory: DENIES: Apneas, Cough, Snoring, Wheezing, Hemoptysis, Sputum production, Shortness of breath Cardiovascular: DENIES: Chest pain, Palpitations, Syncope, Dyspnea on Exertion , PND, Lower Extremity Edema, Orthopnea, Claudication Gastrointestinal: COMPLAINS OF: Diarrhea, DENIES: Abdominal pain, Black stools , Bloody stools, BRB per rectum, Constipation, GERD, Nausea, Reflux, Vomiting, Difficulty Swallowing, Anorexia, See HPI Musculoskeletal: COMPLAINS OF: Joint pain Immunologic/allergic: DENIES: Eczema, Urticaria Neurologic: COMPLAINS OF: Abnormal gait, Poor Balance, DENIES: Headache, Localized weakness, Paresthesias, Seizures, Speech Problems, Tremor Psychiatric: COMPLAINS OF: Anxiety Past Family Social History Past Medical History Hypertension Recurrent UTI with history of urosepsis Depression Anxiety Postherpetic neuralgia Hyperlipidemia Breast cancer Degenerative disc disease lumbar spine 2D echo (12/31/16) - Poor image quality - EF 65-70% - Poorly visualized aortic valve - Difficult to exclude bicuspid valve, no stenosis - Trace tricuspid regurgitation. 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 Past Surgical History Left breast lumpectomy Lumbar microdiscectomy Laminectomy L3-L4 fusion Left knee replacement Cholecystectomy Exploratory laparotomy with repair of ventral hernia in February 2017 Left parotid tumor excision at [facility] March 2017 Reported Medications -Gabapentin 300 Mg PO TID -Lisinopril 20 Mg PO DAILY -Trazodone 200 Mg PO HS PRN -Cymbalta DR 60 Mg PO DAILY -Metformin 500 Mg PO BID -Lipitor 40 Mg PO HS --Nifedipine ER 24 60 Mg PO BID Tramadol 50 mg 3 times a day when necessary pain Aspirin 81 mg daily Amoxicillin 500 mg 3 times a day for the last 7 days Allergies: Coded Allergies: Sulfa (Sulfonamide Antibiotics) (Unverified Allergy, Severe, HIVES, ) allopurinol (Unverified Allergy, Severe, Hives, 06/10/17) aspirin (Unverified Allergy, Severe, Hallucinations, 06/10/17) butalbital (Unverified Allergy, Severe, Hallucinations, 06/10/17) caffeine (Unverified Allergy, Severe, Hallucinations, 06/10/17) clonidine (Unverified Allergy, Severe, LETHARGY,SHAKING, 06/10/17) morphine (Unverified Adverse Reaction, Severe, SHAKING, HEADACHE, 06/10/17) *MDRO Multi-Drug Resistant Organism (Verified Adverse Reaction, Unknown, ) ESBL+E.Coli (urine-06/13/16, 12/14/16, 03/23/17) MRSA PCR screen POSITIVE-03/04/17 Family History nc Social History Patient is retired and lives with her adult son No tobacco or alcohol use. 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 Originally from [place], she moved here approximately 30 years ago Patient has been using a wheelchair of late at home but typically can get around with a walker however she has been to weak up late Physical Exam Vital Signs Vital Signs Date Time Temp Pulse Resp B/P (MAP) Pulse Ox O2 Delivery O2 Flow Rate FiO2 06/10/17 19:25 Room Air 06/10/17 19:24 79 18 169/70 (103) 94 Room Air 06/10/17 18:16 97.5 81 14 181/80 (113) 96 Room Air 06/10/17 13:41 98.0 06/10/17 13:38 96 Room Air 06/10/17 13:21 101 23 145/61 (89) 96 Physical Exam GENERAL: This is a well-nourished, well-developed patient, in no apparent distress. Alert and oriented. SKIN: Left neck with postsurgical scarring, periumbilical area with postsurgical scarring, somewhat xerotic HEAD: Atraumatic. Normocephalic. No temporal or scalp tenderness. EYES: Pupils equal round and reactive. Extraocular motions intact. No scleral icterus. No injection or drainage. ENT: Nose without bleeding, purulent drainage or septal hematoma. Airway patent. NECK: Trachea midline. No JVD or lymphadenopathy. Supple, nontender, no meningeal signs. CARDIOVASCULAR: Regular rate and rhythm without murmurs, gallops, or rubs. RESPIRATORY: Clear to auscultation. Breath sounds equal bilaterally. No wheezes , rales, or rhonchi. GASTROINTESTINAL: Abdomen soft, non-tender, nondistended. Bowel sounds slightly hyperactive. No hepato-splenomegaly, or palpable masses. No guarding. MUSCULOSKELETAL: Extremities without clubbing, cyanosis. Trace edema about the ankles. No calf tenderness. Moves all extremities to command but has some overall global weakness particularly in the lower extremities. NEUROLOGICAL: Awake and alert. Cranial nerves II through XII intact. Motor and sensory grossly within normal limits. Lower extremity weakness with 4.5 out of 5 in lower extremity muscle groups. Normal speech. Laboratory Laboratory Tests Test 06/10/17 13:40 06/10/17 14:15 06/10/17 17:40 06/10/17 19:03 White Blood Count 13.6 Red Blood Count 3.60 Hemoglobin 10.2 Hematocrit 31.7 Mean Corpuscular Volume 88.1 Mean Corpuscular Hemoglobin 28.4 Mean Corpuscular Hemoglobin Concent 32.2 Red Cell Distribution Width 16.1 Platelet Count 247 Mean Platelet Volume 9.7 Neutrophils (%) (Auto) 84.8 Lymphocytes (%) (Auto) 8.3 Monocytes (%) (Auto) 5.1 Eosinophils (%) (Auto) 0.9 Basophils (%) (Auto) 0.9 Neutrophils # (Auto) 11.6 Lymphocytes # (Auto) 1.1 Monocytes # (Auto) 0.7 Eosinophils # (Auto) 0.1 Basophils # (Auto) 0.1 CBC Comment DIFF FINAL Differential Comment Blood Urea Nitrogen 14 Creatinine 0.79 Random Glucose 114 Total Protein 6.5 Albumin 2.7 Calcium Level 8.7 Alkaline Phosphatase 72 Aspartate Amino Transf (AST/SGOT) 18 Alanine Aminotransferase (ALT/SGPT) 15 Total Bilirubin 0.3 Sodium Level 142 Potassium Level 3.7 Chloride Level 108 Carbon Dioxide Level 25.8 Anion Gap 8 Estimat Glomerular Filtration Rate 73 Lactic Acid Level 2.7 1.2 Total Creatine Kinase 45 Troponin I LESS THAN 0.02 B-Type Natriuretic Peptide 25 Thyroid Stimulating Hormone 3rd Gen 0.237 Urine Color YELLOW Urine Turbidity CLOUDY Urine pH 5.5 Urine Specific [place] 1.022 Urine Protein 100 Urine Glucose (UA) NEG Urine Ketones NEG Urine Occult Blood SMALL Urine Nitrite NEG Urine Bilirubin NEG Urine Urobilinogen LESS THAN 2.0 Urine Leukocyte Esterase LARGE Urine RBC 25 Urine WBC Urine Squamous Epithelial Cells 3 Urine Renal Epithelial Cells <1 Urine Bacteria FEW Urine Hyaline Casts 3 Urine Yeast (Budding) MANY Microscopic Urinalysis Comment CULTURE INDICATED Prothrombin Time 11.2 Prothromb Time International Ratio 1.0 Activated Partial Thromboplast Time 25.4 Date/Time Source Procedure Growth Status 06/10/17 14:30 Blood Peripheral Aerobic Blood Culture Pending Received 06/10/17 14:30 Blood Peripheral Anaerobic Blood Culture Pending Received 06/10/17 14:15 Urine Clean Catch Urine Culture Pending Received Result Diagram: 06/10/17 1340 06/10/17 1340 Imaging Last 72 hours Impressions Chest X-Ray 06/10/17 1327 Signed Impressions: Service Date/Time: Saturday, June 10, 2017 14:19 - CONCLUSION: No acute disease. Cuco Palma Jr., MD Septic Shock Reassessment Heart: Regular rate and rhythm Lungs: Clear Skin: Warm Peripheral Pulses: Weak Right Dorsalis Pedis Weak Left Dorsalis Pedis Caprini VTE Risk Assessment Caprini VTE Risk Assessment: Mod/High Risk (score >= 2) Caprini Risk Assessment Model Point Value = 1 Point Value = 2 Point Value = 3 Point Value = 5 Age 41-60 Minor surgery BMI > 25 kg/m2 Swollen legs Varicose veins or History of unexplained or recurrent spontaneous Oral contraceptives or hormone replacement Sepsis (< 1 month) Serious lung disease, including pneumonia (< 1 month) Abnormal pulmonary function Acute myocardial infarction Congestive heart failure (< 1 month) History of inflammatory bowel disease Medical patient at bed rest Age 61-74 Arthroscopic surgery Major open surgery (> 45 min) Laparoscopic surgery (> 45 min) Malignancy Confined to bed (> 72 hours) Immobilizing plaster cast Central venous access Age >= 75 History of VTE Family history of VTE Factor V Leiden Prothrombin [id number] Lupus anticoagulant Anticardiolipin antibodies Elevated serum homocysteine Heparin-induced thrombocytopenia Other congenital or acquired thrombophilia Stroke (< 1 month) Elective arthroplasty Hip, pelvis, or leg fracture Acute spinal cord injury (< 1 month) Prophylaxis Regimen Total Risk Factor Score Risk Level Prophylaxis Regimen 0-1 Low Early ambulation 2 Moderate Order ONE of the following: *Sequential Compression Device (SCD) *Heparin 5000 units SQ BID 3-4 Higher Order ONE of the following medications: *Heparin 5000 units SQ TID *Enoxaparin/Lovenox 40 mg SQ daily (WT < 150 kg, CrCl > 30 mL/min) *Enoxaparin/Lovenox 30 mg SQ daily (WT < 150 kg, CrCl > 10-29 mL/min) *Enoxaparin/Lovenox 30 mg SQ BID (WT < 150 kg, CrCl > 30 mL/min) AND/OR *Sequential Compression Device (SCD) 5 or more Highest Order ONE of the following medications: *Heparin 5000 units SQ TID (Preferred with Epidurals) *Enoxaparin/Lovenox 40 mg SQ daily (WT < 150 kg, CrCl > 30 mL/min) *Enoxaparin/Lovenox 30 mg SQ daily (WT < 150 kg, CrCl > 10-29 mL/min) *Enoxaparin/Lovenox 30 mg SQ BID (WT < 150 kg, CrCl > 30 mL/min) AND *Sequential Compression Device (SCD) Assessment and Plan Problem List: (1) Sepsis ICD Codes: A41.9 - Sepsis, unspecified organism Status: Acute Plan: Continue IV fluids and IV antibiotics. Likely source is urinary infection however she may have underlying C. difficile colitis given her history and recent antibiotic exposure. (2) UTI (lower urinary tract infection) ICD Codes: N39.0 - Lower urinary tract infectious disease Status: Acute Plan: As noted above. Seems to be a recurring issue. May need urologic evaluation. (3) Diarrhea ICD Codes: R19.7 - Diarrhea, unspecified Status: Acute Plan: Questionable etiology. She does have slightly elevated white count and history of C. difficile colitis with recent antibiotic exposure. We'll add Flagyl at this point. (4) Hypertension ICD Codes: I10 - Hypertension Status: Chronic Plan: Continue medications. (5) Diabetes ICD Codes: E11.9 - Diabetes mellitus Status: Chronic Plan: Hold metformin due to diarrhea illness. Sliding scale insulin. (6) General weakness ICD Codes: R53.1 - Weakness Status: Acute Plan: Likely associated with current infection and recent comorbid illness. Provide IV fluids and have physical therapy see the patient. May need rehabilitation short-term after discharge. Code Status full Discussed Condition With Patient, her son and ER provider. Physician Certification 2 Midnight Certification Type: Admission for Inpatient Services Order for Inpatient Services The services are ordered in accordance with Medicare regulations or non- Medicare payer requirements, as applicable. In the case of services not specified as inpatient-only, they are appropriately provided as inpatient services in accordance with the 2-midnight benchmark. Estimated LOS (days): 3 days is the estimated time the patient will need to remain in the hospital, assuming treatment plan goals are met and no additional complications. Post-Hospital Plan: Not yet determined Problem Qualifiers (1) Sepsis: Qualified Codes: A41.9 - Sepsis, unspecified organism (2) Hypertension: Qualified Codes: I10 - Essential (primary) hypertension (3) Diabetes: Kodi Caba MD PhD Jun 10, 2017 20:27
[2017-06-10] MEDS ORDERED: ENALAPRILAT 1.25 MG/ML VIAL IV PUSH PRN (20:45)
[2017-06-10] MEDS: INSULIN ASPART SUPPLEMENTAL SCALE SQ SCH (21:00)
[2017-06-10] MEDS: ATORVASTATIN 40 MG TAB PO SCH (21:44)
[2017-06-10] MEDS: cefTRIAXone INJ 1,000 MG in SODIUM CHLORIDE 0.9% INJ 100 ML IV SCH (21:44)
[2017-06-10] MEDS: NS + KCL 20 MEQ INJ 1,000 ML IV SCH (21:44)
[2017-06-10] MEDS: metroNIDAZOLE 500 MG TAB PO SCH (21:44)
[2017-06-10] MEDS: traZODone HCL 100 MG TAB PO SCH (21:51)
[2017-06-10] MEDS: traMADol HCL 50 MG TAB PO PRN (23:15)
[2017-06-11] VITALS: BP 158/70; PULSE 80; RESP 18; TEMP 96; O2SAT 98
[2017-06-11 00:33] LABS: C. DIFF EPI 027 PRESUMPTIVE NEGATIVE (NEGATIVE)
[2017-06-11 04:00] VITALS: BP 145/69; PULSE 76; RESP 16; TEMP 96.7; O2SAT 100
[2017-06-11] MEDS: metroNIDAZOLE 500 MG TAB PO SCH ×3 (06:05→21:41)
[2017-06-11] MEDS: INSULIN ASPART SUPPLEMENTAL SCALE SQ SCH ×4 (06:06→21:00)
[2017-06-11 08:00] VITALS: BP 154/68; PULSE 84; RESP 16; TEMP 98.8; O2SAT 97
--- NOTE | 2017-06-11 09:27 | HHI.PR ---
Subjective Remarks Pt reports that overall she is still feeling generally weak Afebrile overnight Pt eating well Objective Vitals Vital Signs Date Time Temp Pulse Resp B/P (MAP) Pulse Ox O2 Delivery O2 Flow Rate FiO2 06/11/17 04:00 96.7 76 16 145/69 (94) 100 06/11/17 00:00 96.0 80 18 158/70 (99) 98 06/10/17 19:25 Room Air 06/10/17 19:24 79 18 169/70 (103) 94 Room Air 06/10/17 18:16 97.5 81 14 181/80 (113) 96 Room Air 06/10/17 13:41 98.0 06/10/17 13:38 96 Room Air 06/10/17 13:21 101 23 145/61 (89) 96 Result Diagram: 06/10/17 1340 06/10/17 1340 Other Results Laboratory Tests Test 06/10/17 13:40 06/10/17 14:15 06/10/17 17:40 06/10/17 19:03 White Blood Count 13.6 TH/MM3 Red Blood Count 3.60 MIL/MM3 Hemoglobin 10.2 GM/DL Hematocrit 31.7 % Mean Corpuscular Volume 88.1 FL Mean Corpuscular Hemoglobin 28.4 PG Mean Corpuscular Hemoglobin Concent 32.2 % Red Cell Distribution Width 16.1 % Platelet Count 247 TH/MM3 Mean Platelet Volume 9.7 FL Neutrophils (%) (Auto) 84.8 % Lymphocytes (%) (Auto) 8.3 % Monocytes (%) (Auto) 5.1 % Eosinophils (%) (Auto) 0.9 % Basophils (%) (Auto) 0.9 % Neutrophils # (Auto) 11.6 TH/MM3 Lymphocytes # (Auto) 1.1 TH/MM3 Monocytes # (Auto) 0.7 TH/MM3 Eosinophils # (Auto) 0.1 TH/MM3 Basophils # (Auto) 0.1 TH/MM3 CBC Comment DIFF FINAL Differential Comment Blood Urea Nitrogen 14 MG/DL Creatinine 0.79 MG/DL Random Glucose 114 MG/DL Total Protein 6.5 GM/DL Albumin 2.7 GM/DL Calcium Level 8.7 MG/DL Alkaline Phosphatase 72 U/L Aspartate Amino Transf (AST/SGOT) 18 U/L Alanine Aminotransferase (ALT/SGPT) 15 U/L Total Bilirubin 0.3 MG/DL Sodium Level 142 MEQ/L Potassium Level 3.7 MEQ/L Chloride Level 108 MEQ/L Carbon Dioxide Level 25.8 MEQ/L Anion Gap 8 MEQ/L Estimat Glomerular Filtration Rate 73 ML/MIN Lactic Acid Level 2.7 mmol/L 1.2 mmol/L Total Creatine Kinase 45 U/L Troponin I LESS THAN 0.02 NG/ML B-Type Natriuretic Peptide 25 PG/ML Free Thyroxine 1.25 NG/DL Thyroid Stimulating Hormone 3rd Gen 0.237 uIU/ML Urine Color YELLOW Urine Turbidity CLOUDY Urine pH 5.5 Urine Specific [place] 1.022 Urine Protein 100 mg/dL Urine Glucose (UA) NEG mg/dL Urine Ketones NEG mg/dL Urine Occult Blood SMALL Urine Nitrite NEG Urine Bilirubin NEG Urine Urobilinogen LESS THAN 2.0 MG/DL Urine Leukocyte Esterase LARGE Urine RBC 25 /hpf Urine WBC /hpf Urine Squamous Epithelial Cells 3 /hpf Urine Renal Epithelial Cells <1 /hpf Urine Bacteria FEW /hpf Urine Hyaline Casts 3 /lpf Urine Yeast (Budding) MANY Microscopic Urinalysis Comment CULTURE INDICATED Prothrombin Time 11.2 SEC Prothromb Time International Ratio 1.0 RATIO Activated Partial Thromboplast Time 25.4 SEC Test 06/10/17 22:50 Stool C. difficile Toxin (PCR) POSITIVE Stl C. difficile Toxin Epiderm 027 PRESUMPTIVE NEGATIVE Imaging Last 72 hours Impressions Chest X-Ray 06/10/17 1327 Signed Impressions: Service Date/Time: Saturday, June 10, 2017 14:19 - CONCLUSION: No acute disease. Cuco Palma Jr., MD Objective Remarks General: NAD, AAOx3 Chest: CTA bilaterally Cardiac: Regular Abd: +BS, soft ND/NT Ext: No edema A/P Problem List: (1) Sepsis ICD Codes: A41.9 - Sepsis, unspecified organism Status: Acute Plan: - Pt is a 66 y/o with HTN, recurrent UTI with urosepsis, and hx of C. diff. - She presented to [facility] [place] on 06/10 with generalized malaise and weakness. - She had been seen by her PCP a week ago and was diagnosed with UTI. She was given prescription for amoxicillin which she completed yesterday. - Labs at admission revealed a continued UTI and urine culture is pending. - Pt had also reported diarrhea x 3 days prior to admission. Stool studies were +C. diff. - Pt is on IVF and IV antibiotics with Ceftriaxone and PO Flagyl. - Blood cultures are pending - Urine culture is pending - Repeat labs for today are pending. - PT evaluation - Supportive care - DVT prophylaxis with SCDs (2) UTI (lower urinary tract infection) ICD Codes: N39.0 - Lower urinary tract infectious disease Status: Acute Plan: - As noted above. - Seems to be a recurring issue. May need urologic evaluation. (3) C. difficile colitis ICD Codes: A04.7 - Enterocolitis due to Clostridium difficile Status: Acute Plan: - See above. - Pt is on PO Flagyl - Monitor stool output (4) General weakness ICD Codes: R53.1 - Weakness Status: Acute Plan: - See above. - Likely associated with current infection and recent comorbid illness. - Provide IV fluids and have physical therapy see the patient. - May need rehabilitation short-term after discharge. (5) Hypertension ICD Codes: I10 - Hypertension Status: Chronic Plan: - Home meds continue - Monitor (6) Diabetes ICD Codes: E11.9 - Diabetes mellitus Status: Chronic Plan: - Hold metformin due to diarrhea illness. - Sliding scale insulin. Assessment and Plan Patient examined. Assessment and plan formulated with Sarai Boss PA-C. I agree with the above. - continue rocephin for UTI, h/o complicated UTI - continue PO flagyl for C.Dif - CBC & BMP in AM Problem Qualifiers (1) Sepsis: Qualified Codes: A41.9 - Sepsis, unspecified organism (2) Hypertension: Qualified Codes: I10 - Essential (primary) hypertension (3) Diabetes: Sarai oBss Jun 11, 2017 09:26 Christopher Quevedo DO Jun 11, 2017 23:58
[2017-06-11] MEDS: DULoxetine HCl DR 60 MG CAP PO SCH (09:52)
[2017-06-11] MEDS: GABAPENTIN 300 MG CAP PO SCH ×3 (09:52→16:34)
[2017-06-11] MEDS: NIFEdipine 60 MG SUSTAINED RELEASE TAB PO SCH (09:52)
[2017-06-11] MEDS: LISINOPRIL 20 MG TAB PO SCH (09:52)
[2017-06-11] MEDS: NS + KCL 20 MEQ INJ 1,000 ML IV SCH (09:53)
[2017-06-11] MEDS: traMADol HCL 50 MG TAB PO PRN ×3 (09:56→21:41)
[2017-06-11 10:44] LABS: AUTOMATED NEUTROPHIL # 7.2 TH/MM3 (1.8-7.7); BASOPHIL # 0.1 TH/MM3 (0-0.2); EOSINOPHIL # 0.3 TH/MM3 (0-0.4); EOSINOPHIL % 3.5 % (0.0-4.0); HEMATOCRIT 26.2 % (35.0-46.0); HEMO FLAGS DIFF FINAL; LYMPH % 11.4 % (9.0-44.0); LYMPHOCYTE # 1.1 TH/MM3 (1.0-4.8); MEAN CELL VOLUME 88.3 FL (80.0-100.0); MEAN CORPUSCULAR HEMOGLOBIN 28.6 PG (27.0-34.0); MEAN CORPUSCULAR HGB CONC 32.4 % (32.0-36.0); MONO % 8.7 % (0.0-8.0); NEUT % 75.4 % (16.0-70.0); PLATELET COUNT 233 TH/MM3 (150-450); RED BLOOD COUNT 2.96 MIL/MM3 (4.00-5.30); RED CELL DISTRIBUTION WIDTH 16.6 % (11.6-17.2); WHITE BLOOD COUNT 9.6 TH/MM3 (4.0-11.0)
[2017-06-11 11:01] LABS: BICARBONATE 26.5 MEQ/L (21.0-32.0); POTASSIUM 3.5 MEQ/L (3.5-5.1)
[2017-06-11 12:00] VITALS: BP 137/61; PULSE 86; RESP 16; TEMP 98.7; O2SAT 96
[2017-06-11 16:00] VITALS: BP 131/60; PULSE 83; RESP 16; TEMP 96.7; O2SAT 95
--- NOTE | 2017-06-11 17:01 | EKG ---
Date Performed: 06/10/2017 Time Performed: 13:45:19 PTAGE: 66 years EKG: Sinus rhythm NONSPECIFIC T-WAVE ABNORMALITY Since previous tracing, no significant change noted BORDERLINE ECG PREVIOUS TRACING : 03/03/2017 18.24 DOCTOR: Leonila Balbuena Interpretating Date/Time 06/11/2017 16:59:57
[2017-06-11 20:00] VITALS: BP 125/58; PULSE 80; RESP 18; TEMP 96.9; O2SAT 93
[2017-06-11] MEDS: ATORVASTATIN 40 MG TAB PO SCH (21:41)
[2017-06-11] MEDS: traZODone HCL 100 MG TAB PO SCH (21:42)
[2017-06-11] MEDS: cefTRIAXone INJ 1,000 MG in SODIUM CHLORIDE 0.9% INJ 100 ML IV SCH (21:46)
[2017-06-12] VITALS (7 sets, daily range): BP systolic 116–137; BP diastolic 55–62; PULSE 66–87; RESP 16–21; TEMP 96–96.9; O2SAT 94–97
[2017-06-12] MEDS: metroNIDAZOLE 500 MG TAB PO SCH ×3 (06:32→20:39)
[2017-06-12] MEDS: INSULIN ASPART SUPPLEMENTAL SCALE SQ SCH ×4 (06:33→20:39)
[2017-06-12 07:43] LABS: AUTOMATED NEUTROPHIL # 3.3 TH/MM3 (1.8-7.7); BASOPHIL # 0.1 TH/MM3 (0-0.2); BASOPHIL % 1.1 % (0.0-2.0); EOSINOPHIL # 0.4 TH/MM3 (0-0.4); HEMATOCRIT 26.7 % (35.0-46.0); HEMO FLAGS DIFF FINAL; LYMPHOCYTE # 1.7 TH/MM3 (1.0-4.8); MEAN CELL VOLUME 88.4 FL (80.0-100.0); MEAN CORPUSCULAR HEMOGLOBIN 28.7 PG (27.0-34.0); MEAN CORPUSCULAR HGB CONC 32.5 % (32.0-36.0); MONO % 10.8 % (0.0-8.0); NEUT % 54.1 % (16.0-70.0); PLATELET COUNT 218 TH/MM3 (150-450); RED BLOOD COUNT 3.02 MIL/MM3 (4.00-5.30); RED CELL DISTRIBUTION WIDTH 16.5 % (11.6-17.2); WHITE BLOOD COUNT 6.1 TH/MM3 (4.0-11.0)
[2017-06-12 08:04] LABS: BICARBONATE 26.9 MEQ/L (21.0-32.0); MAGNESIUM 1.6 MG/DL (1.5-2.5); POTASSIUM 3.5 MEQ/L (3.5-5.1)
--- NOTE | 2017-06-12 09:04 | HHI.PR ---
Subjective Remarks Pt complains of bilateral knee pain. She states that she did fall at home onto her knees prior to this admission. Pt slept well last night Pt has not had a BM since yesterday Tolerating oral intake. Objective Vitals Vital Signs Date Time Temp Pulse Resp B/P (MAP) Pulse Ox O2 Delivery O2 Flow Rate FiO2 06/12/17 04:00 96.7 76 16 116/60 (78) 94 06/12/17 00:00 96.5 78 18 120/55 (76) 94 06/11/17 22:41 16 06/11/17 20:00 96.9 80 18 125/58 (80) 93 06/11/17 16:00 96.7 83 16 131/60 (83) 95 06/11/17 12:00 98.7 86 16 137/61 (86) 96 Result Diagram: 06/12/17 0645 06/12/17 0645 Other Results Laboratory Tests Test 06/10/17 13:40 06/10/17 14:15 06/10/17 17:40 06/10/17 19:03 White Blood Count 13.6 TH/MM3 Red Blood Count 3.60 MIL/MM3 Hemoglobin 10.2 GM/DL Hematocrit 31.7 % Mean Corpuscular Volume 88.1 FL Mean Corpuscular Hemoglobin 28.4 PG Mean Corpuscular Hemoglobin Concent 32.2 % Red Cell Distribution Width 16.1 % Platelet Count 247 TH/MM3 Mean Platelet Volume 9.7 FL Neutrophils (%) (Auto) 84.8 % Lymphocytes (%) (Auto) 8.3 % Monocytes (%) (Auto) 5.1 % Eosinophils (%) (Auto) 0.9 % Basophils (%) (Auto) 0.9 % Neutrophils # (Auto) 11.6 TH/MM3 Lymphocytes # (Auto) 1.1 TH/MM3 Monocytes # (Auto) 0.7 TH/MM3 Eosinophils # (Auto) 0.1 TH/MM3 Basophils # (Auto) 0.1 TH/MM3 CBC Comment DIFF FINAL Differential Comment Blood Urea Nitrogen 14 MG/DL Creatinine 0.79 MG/DL Random Glucose 114 MG/DL Total Protein 6.5 GM/DL Albumin 2.7 GM/DL Calcium Level 8.7 MG/DL Alkaline Phosphatase 72 U/L Aspartate Amino Transf (AST/SGOT) 18 U/L Alanine Aminotransferase (ALT/SGPT) 15 U/L Total Bilirubin 0.3 MG/DL Sodium Level 142 MEQ/L Potassium Level 3.7 MEQ/L Chloride Level 108 MEQ/L Carbon Dioxide Level 25.8 MEQ/L Anion Gap 8 MEQ/L Estimat Glomerular Filtration Rate 73 ML/MIN Lactic Acid Level 2.7 mmol/L 1.2 mmol/L Total Creatine Kinase 45 U/L Troponin I LESS THAN 0.02 NG/ML B-Type Natriuretic Peptide 25 PG/ML Free Thyroxine 1.25 NG/DL Thyroid Stimulating Hormone 3rd Gen 0.237 uIU/ML Urine Color YELLOW Urine Turbidity CLOUDY Urine pH 5.5 Urine Specific [place] 1.022 Urine Protein 100 mg/dL Urine Glucose (UA) NEG mg/dL Urine Ketones NEG mg/dL Urine Occult Blood SMALL Urine Nitrite NEG Urine Bilirubin NEG Urine Urobilinogen LESS THAN 2.0 MG/DL Urine Leukocyte Esterase LARGE Urine RBC 25 /hpf Urine WBC /hpf Urine Squamous Epithelial Cells 3 /hpf Urine Renal Epithelial Cells <1 /hpf Urine Bacteria FEW /hpf Urine Hyaline Casts 3 /lpf Urine Yeast (Budding) MANY Microscopic Urinalysis Comment CULTURE INDICATED Prothrombin Time 11.2 SEC Prothromb Time International Ratio 1.0 RATIO Activated Partial Thromboplast Time 25.4 SEC Test 06/10/17 22:50 06/11/17 09:25 06/12/17 06:45 Stool C. difficile Toxin (PCR) POSITIVE Stl C. difficile Toxin Epiderm 027 PRESUMPTIVE NEGATIVE White Blood Count 9.6 TH/MM3 6.1 TH/MM3 Red Blood Count 2.96 MIL/MM3 3.02 MIL/MM3 Hemoglobin 8.5 GM/DL 8.7 GM/DL Hematocrit 26.2 % 26.7 % Mean Corpuscular Volume 88.3 FL 88.4 FL Mean Corpuscular Hemoglobin 28.6 PG 28.7 PG Mean Corpuscular Hemoglobin Concent 32.4 % 32.5 % Red Cell Distribution Width 16.6 % 16.5 % Platelet Count 233 TH/MM3 218 TH/MM3 Mean Platelet Volume 8.9 FL 8.6 FL Neutrophils (%) (Auto) 75.4 % 54.1 % Lymphocytes (%) (Auto) 11.4 % 27.0 % Monocytes (%) (Auto) 8.7 % 10.8 % Eosinophils (%) (Auto) 3.5 % 7.0 % Basophils (%) (Auto) 1.0 % 1.1 % Neutrophils # (Auto) 7.2 TH/MM3 3.3 TH/MM3 Lymphocytes # (Auto) 1.1 TH/MM3 1.7 TH/MM3 Monocytes # (Auto) 0.8 TH/MM3 0.7 TH/MM3 Eosinophils # (Auto) 0.3 TH/MM3 0.4 TH/MM3 Basophils # (Auto) 0.1 TH/MM3 0.1 TH/MM3 CBC Comment DIFF FINAL DIFF FINAL Differential Comment Blood Urea Nitrogen 12 MG/DL 12 MG/DL Creatinine 0.76 MG/DL 0.78 MG/DL Random Glucose 110 MG/DL 105 MG/DL Calcium Level 8.3 MG/DL 8.4 MG/DL Sodium Level 143 MEQ/L 143 MEQ/L Potassium Level 3.5 MEQ/L 3.5 MEQ/L Chloride Level 108 MEQ/L 109 MEQ/L Carbon Dioxide Level 26.5 MEQ/L 26.9 MEQ/L Anion Gap 9 MEQ/L 7 MEQ/L Estimat Glomerular Filtration Rate 77 ML/MIN 74 ML/MIN Magnesium Level 1.6 MG/DL Imaging Last 72 hours Impressions Chest X-Ray 06/10/17 1327 Signed Impressions: Service Date/Time: Saturday, June 10, 2017 14:19 - CONCLUSION: No acute disease. Cuco Palma Jr., MD Objective Remarks General: NAD, AAOx3 Chest: CTA bilaterally Cardiac: Regular Abd: +BS, soft ND/NT Ext: Bruising on bilateral knees A/P Problem List: (1) Sepsis ICD Codes: A41.9 - Sepsis, unspecified organism Status: Acute Plan: - Pt is a 66 y/o with HTN, recurrent UTI with urosepsis, and hx of C. diff. - She presented to [facility] [place] on 06/10 with generalized malaise and weakness. - She had been seen by her PCP a week ago and was diagnosed with UTI. She was given prescription for amoxicillin which she completed yesterday. - Labs at admission revealed a continued UTI and urine culture is pending. - Pt had also reported diarrhea x 3 days prior to admission. Stool studies were +C. diff. - Pt is on IVF and IV antibiotics with Ceftriaxone and PO Flagyl. - Blood cultures with NGTD - Urine culture with no growth in 24 hours - Consult ID - PT evaluation - Supportive care - DVT prophylaxis with SCDs (2) UTI (lower urinary tract infection) ICD Codes: N39.0 - Lower urinary tract infectious disease Status: Acute Plan: - As noted above. - Seems to be a recurring issue. May need urologic evaluation. (3) C. difficile colitis ICD Codes: A04.7 - Enterocolitis due to Clostridium difficile Status: Acute Plan: - See above. - Pt is on PO Flagyl - Monitor stool output (4) General weakness ICD Codes: R53.1 - Weakness Status: Acute Plan: - See above. - Likely associated with current infection and recent comorbid illness. - Cont. PT daily - May need rehabilitation short-term after discharge. Pt does not want to go to SNF. (5) Hypertension ICD Codes: I10 - Hypertension Status: Chronic Plan: - Home meds continue - Monitor (6) Diabetes ICD Codes: E11.9 - Diabetes mellitus Status: Chronic Plan: - Hold metformin due to diarrhea illness. - Sliding scale insulin. Assessment and Plan Patient examined. Assessment and plan formulated with Sarai Boss PA-C. I agree with the above. Pt doing well. NO diarrhea today. Pt denies fever, chills or cough. Pt diagnosed with E. Coli ESBL 12/2016 and treated with Ertopenem. Pt again tested positive for E. Coli ESBL 03/2017 unclear if pt received treatment at that time. Pt previously diagnosed and treated for C.Dif (per pt) while at [facility] this summer. currently (+) C.Dif PCR on PO flagyl Urine Cx (06/10/17) --> NO growth x 24 hrs UA (06/10/17) --> pyuria Blood Cx (06/10/17) --> No growth to date - Pt received Vancomycin/Zosyn in the ER - Pt started on IV Rocephin & PO flagyl - stop rocephin - Given recent complicated history, will request input from Infectious Disease Problem Qualifiers (1) Sepsis: Qualified Codes: A41.9 - Sepsis, unspecified organism (2) Hypertension: Qualified Codes: I10 - Essential (primary) hypertension (3) Diabetes: Sarai Boss Jun 12, 2017 09:04 Christopher Quevedo DO Jun 12, 2017 09:49
[2017-06-12] MEDS: GABAPENTIN 300 MG CAP PO SCH ×3 (09:50→16:52)
[2017-06-12] MEDS: DULoxetine HCl DR 60 MG CAP PO SCH (09:50)
[2017-06-12] MEDS: traMADol HCL 50 MG TAB PO PRN ×2 (09:50→16:52)
[2017-06-12] MEDS: LISINOPRIL 20 MG TAB PO SCH (09:50)
[2017-06-12] MEDS: NIFEdipine 60 MG SUSTAINED RELEASE TAB PO SCH (09:50)
--- NOTE | 2017-06-12 18:16 | PD.ID.CON ---
History of Present Illness Service ID Consult Requested By Dr Quevedo Reason for Consult recurrent UTIs and reciuurent C.diff Primary Care Physician Eulalio Betts, DO Diagnoses: History of Present Illness 66 yo female with multiple med problems including DM, urinary incontince and recurrent UTIS resents with 5 days of non bloody diarrhea. Pt had C.diff in April which was sucessfully treated. She apparently received abx recently for her recurrent UTI - per pt reported admission medx included: Amoxicillin 500 mg 3 times a day for the last 7 days SHe has abnormal UA, cw UTI but only growing cndida so far DIarrhea improved, she only had 2 BMs today She presented with leukocytosis, that improved and she is afebrile Her C.diff test was positive Pt is a poor historian due to obvious recollection problems Review of Systems ROS Limitations: Poor Historian Except as stated in HPI: all other systems reviewed are Neg Past Family Social History Allergies: Coded Allergies: Sulfa (Sulfonamide Antibiotics) (Unverified Allergy, Severe, HIVES, ) allopurinol (Unverified Allergy, Severe, Hives, 06/10/17) aspirin (Unverified Allergy, Severe, Hallucinations, 06/10/17) butalbital (Unverified Allergy, Severe, Hallucinations, 06/10/17) caffeine (Unverified Allergy, Severe, Hallucinations, 06/10/17) clonidine (Unverified Allergy, Severe, LETHARGY,SHAKING, 06/10/17) morphine (Unverified Adverse Reaction, Severe, SHAKING, HEADACHE, 06/10/17) Past Medical History Hypertension Recurrent UTI with history of urosepsis Depression Anxiety Postherpetic neuralgia Hyperlipidemia Breast cancer Degenerative disc disease lumbar spine 2D echo (12/31/16) - Poor image quality - EF 65-70% - Poorly visualized aortic valve - Difficult to exclude bicuspid valve, no stenosis - Trace tricuspid regurgitation. 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 No illicit drugs Physical Exam Vital Signs Vital Signs Date Time Temp Pulse Resp B/P (MAP) Pulse Ox O2 Delivery O2 Flow Rate FiO2 06/12/17 16:54 96.9 78 21 137/62 (87) 94 06/12/17 12:55 96.4 78 20 135/61 (85) 97 06/12/17 09:45 87 16 126/60 (82) 06/12/17 08:00 96.7 66 21 116/58 (77) 96 06/12/17 04:00 96.7 76 16 116/60 (78) 94 06/12/17 00:00 96.5 78 18 120/55 (76) 94 06/11/17 22:41 16 06/11/17 20:00 96.9 80 18 125/58 (80) 93 Physical Exam CONSTITUTIONAL/GENERAL: This is an obese elderly patient, in no apparent distress. TUBES/LINES/DRAINS: SKIN: No jaundice, rashes, or lesions. Ecchymoses on upper extremities. No wounds seen anteriorly. Skin temperature appropriate. Not diaphoretic. HEAD: Atraumatic. Normocephalic. EYES: Pupils equal and round and reactive. Extraocular motions intact. No scleral icterus. No injection or drainage. Fundi not examined. ENT: Hearing grossly normal. Nose without bleeding or purulent drainage. Oral mucosae moist without visible erythema, exudates, masses, or lesions. Edentlous NECK: Trachea midline. Supple, nontender. No palpable thyroid enlargement or nodularity. CARDIOVASCULAR: Regular rate and rhythm without murmurs, gallops, or rubs. No JVD. Peripheral pulses symmetric. RESPIRATORY/CHEST: Symmetric, unlabored respirations. Clear to auscultation. Breath sounds equal bilaterally. No wheezes, rales, or rhonchi. GASTROINTESTINAL: Abdomen soft, non-tender, nondistended. No hepato-splenomegaly , or palpable masses. No guarding. Bowel sounds present. GENITOURINARY: Without palpable bladder distension. No suprapubic tenderness MUSCULOSKELETAL: Extremities without clubbing, cyanosis, or edema. No joint tenderness or effusion noted. No calf tenderness. No mottling or clubbing. LYMPHATICS: No palpable cervical or supraclavicular adenopathy. NEUROLOGICAL: Awake and alert. Motor and sensory grossly within normal limits. Follows commands. Clear speech,. Forgetful. Moves all extremities. PSYCHIATRIC: No obvious anxiety/depression. no apparent hallucinations or other psychotic thought process. Laboratory Laboratory Tests Test 06/12/17 06:45 White Blood Count 6.1 Red Blood Count 3.02 Hemoglobin 8.7 Hematocrit 26.7 Mean Corpuscular Volume 88.4 Mean Corpuscular Hemoglobin 28.7 Mean Corpuscular Hemoglobin Concent 32.5 Red Cell Distribution Width 16.5 Platelet Count 218 Mean Platelet Volume 8.6 Neutrophils (%) (Auto) 54.1 Lymphocytes (%) (Auto) 27.0 Monocytes (%) (Auto) 10.8 Eosinophils (%) (Auto) 7.0 Basophils (%) (Auto) 1.1 Neutrophils # (Auto) 3.3 Lymphocytes # (Auto) 1.7 Monocytes # (Auto) 0.7 Eosinophils # (Auto) 0.4 Basophils # (Auto) 0.1 CBC Comment DIFF FINAL Differential Comment Blood Urea Nitrogen 12 Creatinine 0.78 Random Glucose 105 Calcium Level 8.4 Magnesium Level 1.6 Sodium Level 143 Potassium Level 3.5 Chloride Level 109 Carbon Dioxide Level 26.9 Anion Gap 7 Estimat Glomerular Filtration Rate 74 Date/Time Source Procedure Growth Status 06/10/17 14:30 Blood Peripheral Aerobic Blood Culture - Preliminary NO GROWTH IN 2 DAYS Resulted 06/10/17 14:30 Blood Peripheral Anaerobic Blood Culture - Preliminary NO GROWTH IN 2 DAYS Resulted 06/10/17 14:15 Urine Clean Catch Urine Culture - Preliminary Yeast Species Resulted Result Diagram: 06/12/17 0645 06/12/17 0645 Imaging Last Impressions Chest X-Ray 06/10/17 1327 Signed Impressions: Service Date/Time: Saturday, June 10, 2017 14:19 - CONCLUSION: No acute disease. Cuco Palma Jr., MD Assessment and Plan Assessment and Plan Recurrent UTIs FUnguria C.diff, 2nd episode cont flagyl x 14 days If no further improvement will switch to po vancomycin repeat UA, C+S Elizabet Szymanski MD Jun 12, 2017 18:16
[2017-06-12] MEDS: traZODone HCL 100 MG TAB PO SCH (20:38)
[2017-06-12] MEDS: ATORVASTATIN 40 MG TAB PO SCH (20:39)
[2017-06-13] VITALS (7 sets, daily range): BP systolic 121–151; BP diastolic 61–69; PULSE 70–79; RESP 17–18; TEMP 96.5–98.2; O2SAT 95–100
[2017-06-13] MEDS: traMADol HCL 50 MG TAB PO PRN ×3 (04:55→18:30)
[2017-06-13] MEDS: metroNIDAZOLE 500 MG TAB PO SCH ×3 (04:55→22:37)
[2017-06-13] MEDS: INSULIN ASPART SUPPLEMENTAL SCALE SQ SCH ×3 (04:59→21:00)
[2017-06-13 07:43] LABS: BASOPHIL # 0.1 TH/MM3 (0-0.2); BASOPHIL % 1.2 % (0.0-2.0); EOSINOPHIL # 0.5 TH/MM3 (0-0.4); EOSINOPHIL % 7.6 % (0.0-4.0); HEMATOCRIT 27.4 % (35.0-46.0); HEMO FLAGS DIFF FINAL; LYMPH % 22.4 % (9.0-44.0); LYMPHOCYTE # 1.5 TH/MM3 (1.0-4.8); MEAN CELL VOLUME 87.6 FL (80.0-100.0); MEAN CORPUSCULAR HEMOGLOBIN 28.3 PG (27.0-34.0); MEAN CORPUSCULAR HGB CONC 32.3 % (32.0-36.0); MONO % 9.2 % (0.0-8.0); NEUT % 59.6 % (16.0-70.0); PLATELET COUNT 234 TH/MM3 (150-450); RED BLOOD COUNT 3.12 MIL/MM3 (4.00-5.30); RED CELL DISTRIBUTION WIDTH 16.2 % (11.6-17.2); WHITE BLOOD COUNT 6.7 TH/MM3 (4.0-11.0)
[2017-06-13 08:05] LABS: BICARBONATE 26.5 MEQ/L (21.0-32.0); MAGNESIUM 1.8 MG/DL (1.5-2.5); POTASSIUM 3.7 MEQ/L (3.5-5.1)
[2017-06-13] MEDS: DULoxetine HCl DR 60 MG CAP PO SCH (10:09)
[2017-06-13] MEDS: GABAPENTIN 300 MG CAP PO SCH ×2 (10:09→18:31)
[2017-06-13] MEDS: NIFEdipine 60 MG SUSTAINED RELEASE TAB PO SCH (10:09)
[2017-06-13] MEDS: LISINOPRIL 20 MG TAB PO SCH (10:09)
--- NOTE | 2017-06-13 10:32 | HHI.PR ---
Subjective Remarks Nursing reports 2-3 watery stools yesterday. Pt has had NO stools yet today. Pt denies abdominal pain, no n/v Pt denies fever or chills. Objective Vitals Vital Signs Date Time Temp Pulse Resp B/P (MAP) Pulse Ox O2 Delivery O2 Flow Rate FiO2 06/13/17 09:00 97.8 77 18 122/67 (85) 100 06/13/17 05:52 16 06/13/17 04:00 96.5 70 18 139/63 (88) 99 06/13/17 00:00 96.7 71 18 151/69 (96) 99 06/12/17 20:00 96.0 81 18 137/61 (86) 97 06/12/17 16:54 96.9 78 21 137/62 (87) 94 06/12/17 12:55 96.4 78 20 135/61 (85) 97 Result Diagram: 06/13/17 0647 06/13/17 0647 Imaging Last Impressions Chest X-Ray 06/10/17 1327 Signed Impressions: Service Date/Time: Saturday, June 10, 2017 14:19 - CONCLUSION: No acute disease. Cuco Palma Jr., MD Objective Remarks General: NAD, AAOx3 Chest: CTA bilaterally Cardiac: Regular Abd: +BS, soft ND/NT Ext: Bruising on bilateral knees A/P Problem List: (1) Sepsis ICD Codes: A41.9 - Sepsis, unspecified organism Status: Acute Plan: - comgmt with ID - Pt is a 66 y/o with HTN, recurrent UTI with urosepsis, and hx of C. diff. - She presented to [facility] [place] on 06/10 with generalized malaise and weakness. - She had been seen by her PCP a week ago and was diagnosed with UTI. She was given prescription for amoxicillin which she completed yesterday. - urine cx (06/11/17) --> yeast - Pt had also reported diarrhea x 3 days prior to admission. Stool studies were +C. diff. - Ceftriaxone (06/11 - 06/12) - Urine Cx --> yeast > 100K CFU - start diflucan x 3d - continue PO flayl for C.Dif - Blood cultures with NGTD - PT evaluation - Supportive care - anticipate d/c in 1-2 days, home with HHC/PT vs SNF - DVT prophylaxis with SCDs (2) UTI (lower urinary tract infection) ICD Codes: N39.0 - Lower urinary tract infectious disease Status: Acute Plan: - As noted above. - Seems to be a recurring issue. - funguria on this admission - diflucan - see above (3) C. difficile colitis ICD Codes: A04.7 - Enterocolitis due to Clostridium difficile Status: Acute Plan: - See above. - Pt is on PO Flagyl - Monitor stool output (4) General weakness ICD Codes: R53.1 - Weakness Status: Acute Plan: - See above. - Likely associated with current infection and recent comorbid illness. - Cont. PT daily - May need rehabilitation short-term after discharge. Pt does not want to go to SNF. - pt c/o b/l knee pain worse since fall at home - left knee with effusion - b/l knee x-rays show No acute findings - pt evaluated by Orthopedics. No arthrocentesis d/t previous TKA. conservative mgmt (5) Hypertension ICD Codes: I10 - Hypertension Status: Chronic Plan: - Home meds continue - Monitor (6) Diabetes ICD Codes: E11.9 - Diabetes mellitus Status: Chronic Plan: - stable - Hold metformin due to diarrhea illness. - Sliding scale insulin. Problem Qualifiers (1) Sepsis: Qualified Codes: A41.9 - Sepsis, unspecified organism (2) Hypertension: Qualified Codes: I10 - Essential (primary) hypertension (3) Diabetes: Christopher Quevedo DO Jun 13, 2017 10:32
--- NOTE | 2017-06-13 13:54 | PD.ORT.PN ---
Subjective Subjective Remarks Consult dictated. Patient is admitted due to UTI. Prior to admission she lost her balance and fell on both her knees. She has worsening pain in her left knee. She has a previous total knee arthroplasty performed by Dr. Sumner in 2004. She has no other orthopedic complaints Objective Vitals Vital Signs Date Time Temp Pulse Resp B/P (MAP) Pulse Ox O2 Delivery O2 Flow Rate FiO2 06/13/17 12:00 97.9 79 18 121/61 (81) 95 06/13/17 10:00 78 137/65 (89) 06/13/17 09:00 97.8 77 18 122/67 (85) 100 06/13/17 05:52 16 06/13/17 04:00 96.5 70 18 139/63 (88) 99 06/13/17 00:00 96.7 71 18 151/69 (96) 99 06/12/17 20:00 96.0 81 18 137/61 (86) 97 06/12/17 16:54 96.9 78 21 137/62 (87) 94 I/O 06/12/17 06/12/17 06/12/17 06/13/17 06/13/17 06/13/17 07:00 15:00 23:00 07:00 15:00 23:00 Intake Total 960 ml 120 ml Balance 960 ml 120 ml Intake Oral 960 ml 120 ml # Voids 2 2 1 3 # Bowel Movements 1 2 Result Diagram: 06/13/17 0647 06/13/17 0647 Objective Remarks Bilateral upper extremities: Full range of motion neurovascularly intact Right lower extremity: No pain with hip or ankle range of motion. She has 2 small abrasions over her anterior knee. There is no erythema or drainage. She has tenderness to palpation over these abrasions. There is minimal swelling. She has minimal tenderness with passive range of motion of the knee. Distally she has intact sensation with good capillary refills. She has strong dorsiflexion plantar flexion of foot. Left lower extremity: She has no pain with range of motion of the hip. Examination the knee shows a well-healed surgical incision from a left total knee arthroplasty. She has 2 small abrasions on over the anterior portion of the knee. She has tenderness over the inferior pole of the patella and over the tibial plateau. I'm able to passively move the knee from 0-80 without any significant discomfort. She has no tenderness over the medial or lateral collateral ligaments. Distally she has intact sensation good capillary refills. She has strong dorsiflexion plantar flexion foot. Assessment & Plan Assessment and Plan Contusions bilateral knees from fall X-ray orders are in progress for bilateral knees. These will evaluate for any possible fractures from the fall. She has minimal joint effusion. Joint aspiration is not recommended. Once x-rays are completed, weightbearing status will be confirmed Medical will continue to manage for urinary tract infection and gait instability. Alton Abbott Jr. Jun 13, 2017 13:54
--- NOTE | 2017-06-13 16:22 | RADRPT ---
EXAM DATE/TIME: 06/13/2017 14:46 [facility] COMPARISON: No previous studies available for comparison. INDICATIONS : Right knee pain post fall three days ago MEDICAL HISTORY : None. SURGICAL HISTORY : None. ENCOUNTER: Initial ACUITY: 3 days PAIN SCORE: 5/10 LOCATION: Right anterior knee FINDINGS: Moderate degenerative changes are present. Osteophytes are projected and patellofemoral compartment. Small joint effusion is evident. No fracture CONCLUSION: Degenerative changes without fracture. Herminio Silveira MD FACR on June 13, 2017 at 16:19 Board Certified Radiologist. This report was verified electronically.
--- NOTE | 2017-06-13 16:23 | RADRPT ---
EXAM DATE/TIME: 06/13/2017 14:49 [facility] COMPARISON: KNEE LEFT COMPLETE (4VWS), December 30, 2016, 20:29. INDICATIONS : Left knee pain post fall three days ago MEDICAL HISTORY : None. SURGICAL HISTORY : Total knee replacement, left. ENCOUNTER: Initial ACUITY: 3 days PAIN SCORE: 5/10 LOCATION: Left anterior knee FINDINGS: AP and lateral views of the knee following arthroplasty reveals a prosthesis in anatomic alignment. F racture is not appreciated. Soft tissue swelling is evident. CONCLUSION: Status post fall without fracture. Herminio Silveira MD FACR on June 13, 2017 at 16:21 Board Certified Radiologist. This report was verified electronically.
[2017-06-13] MEDS: FLUCONAZOLE 100 MG TAB PO SCH (18:34)
--- NOTE | 2017-06-13 19:06 | MB ---
cc: JERED COTTER DATE OF ADMISSION 06/10/17 DATE OF CONSULTATION 06/13/17 REASON FOR CONSULTATION Bilateral knee pain subsequent to fall with left knee effusion. CONSULTING PHYSICIAN Dr. Christopher Quevedo HISTORY OF PRESENT ILLNESS Inga is a 66-year-old female who complains of weakness and has been diagnosed with a UTI. She states that she has been weak and she previously had a fall prior to admission and landed on both her knees. She has abrasions of both her knees and has tenderness to palpation. She has a history of a left total knee arthroplasty by Dr. Sumner in 2004. She is continuing to be treated for her urinary tract infection. The patient is a poor historian. She denies any headaches, visual changes, chest pain, shortness of breath, abdominal pain, back pain or any fevers. She also has had a history of C. Diff. REVIEW OF SYSTEMS Denies blurred vision, diplopia, vision loss, photosensitivity, double vision, hearing loss, throat pain, hoarseness, cough, shortness of breath, chest pain, palpitations, syncope, abdominal pain, difficulty swallowing, unusual bruising or rashes, numbness or tingling, seizures, but does complain that there of abnormal gait with gait instability, anxiety and previous falls. PAST MEDICAL HISTORY 1. Hypertension, 2. Recurrent UTI 3. Depression, anxiety, 4. Post-traumatic neuralgia 5. Hyperlipidemia, 6. Breast cancer 7. Degenerative disk disease 8. Incarcerated ventral hernia 9. Left parotid tumor. PAST SURGICAL HISTORY 1. Left breast lumpectomy 2. Lumbar microdiskectomy, laminectomy, L3-L4 fusion 3. Left knee [place] in [address] Sumner 4. Cholecystectomy, 5. Exploratory laparotomy with repair of ventral hernia 6. Left parotid tumor excision MEDICATIONS 1. Gabapentin 2. Lisinopril, 3. Trazodone 4. Cymbalta 5. Metformin, 6. Lipitor 7. Nifedipine 8. Tramadol 9. Aspirin 10. Amoxicillin. ALLERGIES SULFA ALLOPURINOL ASPIRIN B12 CAFFEINE CLONIDINE MORPHINE FAMILY HISTORY Unobtainable. SOCIAL HISTORY She is retired and lives with her adult son. Denies any tobacco or alcohol use. Stays around the home the majority of the time due to gait instability and using a wheelchair. PHYSICAL EXAMINATION VITAL SIGNS: 97.9, pulse of 79, respiratory rate of 18, blood pressure is 121/61 with a pulse oximetry 95% room air. GENERAL: This is a 66-year-old female who is examined in bed well-nourished, well-developed in no apparent distress. She does appear to be relatively alert and oriented to time and place. SKIN: Post surgical scarring over left neck from previous surgery, periumbilical post surgical scars. HEENT: Head is atraumatic, normocephalic. No abrasions. Eyes - Pupils equal and reactive to light and accommodation. Extraocular movements are intact. ENT - Nose without bleeding or purulent drainage. NECK: Trachea is midline with no lymphadenopathy. CARDIOVASCULAR: Regular rate and rhythm with no murmurs, gallops or rubs. RESPIRATORY: Breathing sounds equally with no wheezing or accessory muscle use. GASTROINTESTINAL: Abdomen soft, distended, nontender. MUSCULOSKELETAL: Examination of bilateral upper extremities revealed no pain with range of motion of the shoulder, elbow or wrist. She has intact sensation over the radial, ulnar and median nerve distributions with good capillary refills. 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 Examination of the right lower extremity reveals no pain with hip range of motion. Examination of the knee shows two abrasions over the anterior portion of the knee. She does have some tenderness directly at the point of abrasions. Range of motion of the knee is from zero to 90 degrees. She is stable to varus and valgus stresses and has only minimal tenderness with range of motion of the knee. Distally she has intact sensation with good capillary refill, strong dorsiflexion and plantar flexion of the foot. Examination of the left lower extremity reveals no pain with hip range of motion. Examination of the knee reveals a well-healed surgical incision from a total knee arthroplasty. There are two abrasions at the inferior incision line. There was no erythema or drainage. She has minimal swelling of the knee with minimal effusion, passively I can work on range of motion of the knee from zero to eight degrees without any significant discomfort. She does have tenderness over the inferior pole of the patella and over her tibial plateau which correlate with abrasions. Distally she has intact sensation with good capillary refill with strong dorsiflexion and plantar flexion of the foot. LABORATORY FINDINGS White blood cell count of 6.7 with a hemoglobin of 8.8, hematocrit is 27.4. Coags with an INR of 1.0. Urine did show positive urinary tract infection from 06/10/2017. IMAGING STUDIES There is no imaging process as of yet for bilateral knees. ASSESSMENT Contusion of bilateral knees from fall. X-rays are ordered today but have not been performed at this point. These will evaluate for any possible fractures of her patella. DIAGNOSIS 1. Contusion bilateral knees, x-rays to be ordered to rule out any fractures. 2. Urinary tract infection 3. Gait instability. PLAN At this point, x-rays were ordered to be performed for bilateral knees. We will continue to ice and elevate knees at this time. If x-rays are negative, we will continue to work with physical therapy to help with gait stability and strengthening. The patient was also examined by Dr. Cotter and we will continue to follow x-rays. If x-rays are negative, conservative measures with physical therapy will continue to be performed to help with gait stability to avoid any future falls or injuries. Thank you for the consultation. Alton Abbott PA-C Dictating for Dr. Dalila Garcia/ /1:56 PM /6:38 PM I also saw and examined this patient. History, past medical history, social history, review of systems, physical exam, radiographs, assessment, and plan were also reviewed. Plan on nonoperative treatment. A mid-level provider in my office (nurse practitioner or physician assistant boiler operator) may see this patient on follow-up visits and continue to implement the objectives of this plan including : Starting or adjusting medications, injections, cast application, orthotics, brace application, physical therapy, radiological studies (including x-ray, MRI , CT, ultrasound, bone scan), vascular studies, neurologic studies, specialist consultation, and proceeding with surgical management, as appropriate. CHRISTIANO
[2017-06-13] MEDS: traZODone HCL 100 MG TAB PO SCH (22:37)
[2017-06-13] MEDS: ATORVASTATIN 40 MG TAB PO SCH (22:37)
[2017-06-14] VITALS: BP 119/58; PULSE 72; RESP 18; TEMP 96.9; O2SAT 95
[2017-06-14 04:00] VITALS: BP 134/63; PULSE 69; RESP 17; TEMP 97; O2SAT 98
[2017-06-14] MEDS: metroNIDAZOLE 500 MG TAB PO SCH ×3 (05:36→21:50)
[2017-06-14] MEDS: INSULIN ASPART SUPPLEMENTAL SCALE SQ SCH ×4 (05:37→21:59)
[2017-06-14] MEDS: DULoxetine HCl DR 60 MG CAP PO SCH (08:32)
[2017-06-14] MEDS: GABAPENTIN 300 MG CAP PO SCH ×3 (08:32→18:18)
[2017-06-14] MEDS: FLUCONAZOLE 100 MG TAB PO SCH (08:32)
[2017-06-14] MEDS: LISINOPRIL 20 MG TAB PO SCH (08:32)
[2017-06-14] MEDS: NIFEdipine 60 MG SUSTAINED RELEASE TAB PO SCH (08:32)
[2017-06-14] MEDS: traMADol HCL 50 MG TAB PO PRN ×3 (08:32→21:51)
[2017-06-14 08:43] VITALS: BP 147/67; PULSE 72; RESP 20; TEMP 96.8; O2SAT 99
--- NOTE | 2017-06-14 11:01 | PD.ORT.PN ---
Subjective Subjective Remarks Stable with no changes. Objective Vitals Vital Signs Date Time Temp Pulse Resp B/P (MAP) Pulse Ox O2 Delivery O2 Flow Rate FiO2 06/14/17 08:43 96.8 72 20 147/67 (93) 99 06/14/17 04:00 97.0 69 17 134/63 (86) 98 06/14/17 00:00 96.9 72 18 119/58 (78) 95 06/13/17 20:00 98.2 77 17 137/62 (87) 96 06/13/17 16:00 97.4 75 18 125/68 (87) 100 06/13/17 12:00 97.9 79 18 121/61 (81) 95 I/O 06/13/17 06/13/17 06/13/17 06/14/17 06/14/17 06/14/17 07:00 15:00 23:00 07:00 15:00 23:00 Intake Total 120 ml 960 ml Balance 120 ml 960 ml Intake Oral 120 ml 960 ml # Voids 3 5 2 # Bowel Movements 2 2 1 Result Diagram: 06/13/17 0647 06/13/17 0647 Imaging Last 72 hours Impressions Knee X-Ray 06/13/17 0000 Signed Impressions: Service Date/Time: Tuesday, June 13, 2017 14:46 - CONCLUSION: Degenerative changes without fracture. Herminio Silveira MD FACR Knee X-Ray 06/13/17 0000 Signed Impressions: Service Date/Time: Tuesday, June 13, 2017 14:49 - CONCLUSION: Status post fall without fracture. Herminio Silveira MD FACR Objective Remarks Bilateral upper extremities: Full range of motion neurovascularly intact Right lower extremity: No pain with hip or ankle range of motion. She has 2 small abrasions over her anterior knee. There is no erythema or drainage. She has tenderness to palpation over these abrasions. There is minimal swelling. She has minimal tenderness with passive range of motion of the knee. Distally she has intact sensation with good capillary refills. She has strong dorsiflexion plantar flexion of foot. Left lower extremity: She has no pain with range of motion of the hip. Examination the knee shows a well-healed surgical incision from a left total knee arthroplasty. She has 2 small abrasions on over the anterior portion of the knee. She has tenderness over the inferior pole of the patella and over the tibial plateau. I'm able to passively move the knee from 0-80 without any significant discomfort. She has no tenderness over the medial or lateral collateral ligaments. Distally she has intact sensation good capillary refills. She has strong dorsiflexion plantar flexion foot. Assessment & Plan Assessment and Plan Contusions bilateral knees from fall Xray confirms no acute fractures bilateral knees PT WBAT B LE with gait training and strengthening No further follow up needed for knees Any further pain to left knee will be seen by Dr Sumner in outpatient setting Alton Abbott Jr. Jun 14, 2017 11:01
[2017-06-14 12:13] VITALS: BP 137/57; PULSE 81; RESP 21; TEMP 97.5; O2SAT 97
[2017-06-14 16:23] VITALS: BP 134/58; PULSE 79; RESP 20; TEMP 97.2; O2SAT 98
--- NOTE | 2017-06-14 17:46 | HHI.PR ---
Subjective Remarks Pt denies any diarrhea today. Objective Vitals Vital Signs Date Time Temp Pulse Resp B/P (MAP) Pulse Ox O2 Delivery O2 Flow Rate FiO2 06/14/17 16:23 97.2 79 20 134/58 (83) 98 06/14/17 12:13 97.5 81 21 137/57 (83) 97 06/14/17 08:43 96.8 72 20 147/67 (93) 99 06/14/17 04:00 97.0 69 17 134/63 (86) 98 06/14/17 00:00 96.9 72 18 119/58 (78) 95 06/13/17 20:00 98.2 77 17 137/62 (87) 96 06/14/17 06/14/17 06/15/17 14:59 22:59 06:59 Intake Total 595 ml Balance 595 ml Intake Oral 595 ml # Voids 4 # Bowel Movements 2 Result Diagram: 06/13/17 0647 06/13/17 0647 Imaging Last Impressions Knee X-Ray 06/13/17 0000 Signed Impressions: Service Date/Time: Tuesday, June 13, 2017 14:46 - CONCLUSION: Degenerative changes without fracture. Herminio Silveira MD FACR Chest X-Ray 06/10/17 1327 Signed Impressions: Service Date/Time: Saturday, June 10, 2017 14:19 - CONCLUSION: No acute disease. Cuco Palma Jr., MD Last Impressions Chest X-Ray 06/10/177 Signed Impressions: Service Date/Time: Saturday, June 10, 2017 14:19 - CONCLUSION: No acute disease. Cuco Palma Jr., MD Objective Remarks General: NAD, AAOx3 Chest: CTA bilaterally Cardiac: Regular Abd: +BS, soft ND/NT Ext: Bruising on bilateral knees A/P Problem List: (1) Sepsis ICD Codes: A41.9 - Sepsis, unspecified organism Status: Acute Plan: - comgmt with ID - Pt is a 66 y/o with HTN, recurrent UTI with urosepsis, and hx of C. diff. - She presented to [facility] on 06/10 with generalized malaise and weakness. - She had been seen by her PCP a week ago and was diagnosed with UTI. She was given prescription for amoxicillin which she completed yesterday. - urine cx (06/11/17) --> yeast - Pt had also reported diarrhea x 3 days prior to admission. Stool studies were +C. diff. - Ceftriaxone (06/11 - 06/12) - Urine Cx --> yeast > 100K CFU - diflucan x 3d - continue PO flayl for C.Dif - Blood cultures with NGTD - PT evaluation - Supportive care - anticipate d/c 06/15 - Pt is only able to ambulate short distance - Pt should go to SNF to increase strength and gait training - Pt adamantly refuses SNF. I disagree with this decision, but will arrange C and home PT - Pt is at high risk for falling and readmission. - DVT prophylaxis with SCDs (2) UTI (lower urinary tract infection) ICD Codes: N39.0 - Lower urinary tract infectious disease Status: Acute Plan: - As noted above. - Seems to be a recurring issue. - funguria on this admission - diflucan - see above (3) C. difficile colitis ICD Codes: A04.7 - Enterocolitis due to Clostridium difficile Status: Acute Plan: - See above. - Pt is on PO Flagyl - Monitor stool output (4) General weakness ICD Codes: R53.1 - Weakness Status: Acute Plan: - See above. - Likely associated with current infection and recent comorbid illness. - Cont. PT daily - May need rehabilitation short-term after discharge. Pt does not want to go to SNF. - pt c/o b/l knee pain worse since fall at home - left knee with effusion - b/l knee x-rays show No acute findings - pt evaluated by Orthopedics. No arthrocentesis d/t previous TKA. conservative mgmt (5) Hypertension ICD Codes: I10 - Hypertension Status: Chronic Plan: - Home meds continue - Monitor (6) Diabetes ICD Codes: E11.9 - Diabetes mellitus Status: Chronic Plan: - stable - Hold metformin due to diarrhea illness. - Sliding scale insulin. Problem Qualifiers (1) Sepsis: Qualified Codes: A41.9 - Sepsis, unspecified organism (2) Hypertension: Qualified Codes: I10 - Essential (primary) hypertension (3) Diabetes: Christopher Quevedo DO Jun 14, 2017 17:46
--- NOTE | 2017-06-14 17:47 | HHI.FF ---
Face to Face Verification Diagnosis: (1) Contusion of right knee, initial encounter (2) Contusion of left knee, initial encounter (3) C. difficile colitis (4) General weakness (5) Diarrhea (6) Sepsis Physical Therapy Order: Evaluate and Treat, Improve ambulation, Strength and gait training Home Health Nursing Order: Medical education Signs/symptoms of disease process Medication education-adverse effect Nursing assessment with vital signs I have seen patient Inga Wilson on 06/14/17. My clinical findings support the need for the requested home health care services because: Ltd mobility - disease progression Deconditioned w/ increased weakness Med compliance is questionable Limited ability to care for self Need for psychosocial assistance High risk of falls I certify that my clinical findings support that this patient is homebound because: Impaired cognitive ability/safety Unsteady gait/balance Unsafe to leave home unassisted Need for psychosocial assistance Unable to use public transportation Christopher Quevedo DO Jun 14, 2017 17:47
[2017-06-14 20:00] VITALS: BP 125/58; PULSE 75; RESP 18; TEMP 97.4; O2SAT 98
--- NOTE | 2017-06-14 20:02 | HHI.IDPN ---
Subjective Subjective Remarks doing well no fever no diarrhe last BM was formed per pt;'s report denies disuria Antibiotics fluconazol flagyl Allergies: Coded Allergies: Sulfa (Sulfonamide Antibiotics) (Unverified Allergy, Severe, HIVES, ) allopurinol (Unverified Allergy, Severe, Hives, 06/10/17) aspirin (Unverified Allergy, Severe, Hallucinations, 06/10/17) butalbital (Unverified Allergy, Severe, Hallucinations, 06/10/17) caffeine (Unverified Allergy, Severe, Hallucinations, 06/10/17) clonidine (Unverified Allergy, Severe, LETHARGY,SHAKING, 06/10/17) morphine (Unverified Adverse Reaction, Severe, SHAKING, HEADACHE, 06/10/17) Objective . Vital Signs Date Time Temp Pulse Resp B/P (MAP) Pulse Ox O2 Delivery O2 Flow Rate FiO2 06/14/17 16:23 97.2 79 20 134/58 (83) 98 06/14/17 12:13 97.5 81 21 137/57 (83) 97 06/14/17 08:43 96.8 72 20 147/67 (93) 99 06/14/17 04:00 97.0 69 17 134/63 (86) 98 06/14/17 00:00 96.9 72 18 119/58 (78) 95 06/13/17 20:00 98.2 77 17 137/62 (87) 96 06/14/17 06/14/17 06/15/17 15:00 23:00 07:00 Intake Total 595 ml Balance 595 ml Intake Oral 595 ml # Voids 4 # Bowel Movements 2 . Laboratory Tests Test 06/13/17 06:47 White Blood Count 6.7 TH/MM3 Red Blood Count 3.12 MIL/MM3 Hemoglobin 8.8 GM/DL Hematocrit 27.4 % Mean Corpuscular Volume 87.6 FL Mean Corpuscular Hemoglobin 28.3 PG Mean Corpuscular Hemoglobin Concent 32.3 % Red Cell Distribution Width 16.2 % Platelet Count 234 TH/MM3 Mean Platelet Volume 8.6 FL Neutrophils (%) (Auto) 59.6 % Lymphocytes (%) (Auto) 22.4 % Monocytes (%) (Auto) 9.2 % Eosinophils (%) (Auto) 7.6 % Basophils (%) (Auto) 1.2 % Neutrophils # (Auto) 4.0 TH/MM3 Lymphocytes # (Auto) 1.5 TH/MM3 Monocytes # (Auto) 0.6 TH/MM3 Eosinophils # (Auto) 0.5 TH/MM3 Basophils # (Auto) 0.1 TH/MM3 CBC Comment DIFF FINAL Differential Comment Laboratory Tests Test 06/13/17 06:47 Blood Urea Nitrogen 14 MG/DL Creatinine 0.67 MG/DL Random Glucose 110 MG/DL Calcium Level 8.3 MG/DL Magnesium Level 1.8 MG/DL Sodium Level 144 MEQ/L Potassium Level 3.7 MEQ/L Chloride Level 110 MEQ/L Carbon Dioxide Level 26.5 MEQ/L Anion Gap 8 MEQ/L Estimat Glomerular Filtration Rate 89 ML/MIN Imaging Last Impressions Knee X-Ray 06/13/17 0000 Signed Impressions: Service Date/Time: Tuesday, June 13, 2017 14:46 - CONCLUSION: Degenerative changes without fracture. Herminio Silveira MD FACR Chest X-Ray 06/10/17 1327 Signed Impressions: Service Date/Time: Saturday, June 10, 2017 14:19 - CONCLUSION: No acute disease. Cuco Palma Jr., MD Physical Exam CONSTITUTIONAL/GENERAL: This is an obese elderly patient, in no apparent distress. TUBES/LINES/DRAINS: SKIN: No jaundice, rashes, or lesions. CARDIOVASCULAR: Regular rate and rhythm without murmurs, gallops, or rubs. No JVD. Peripheral pulses symmetric. RESPIRATORY/CHEST: Symmetric, unlabored respirations. Clear to auscultation. Breath sounds equal bilaterally. No wheezes, rales, or rhonchi. GASTROINTESTINAL: Abdomen soft, non-tender, nondistended. No hepato-splenomegaly , or palpable masses. No guarding. Bowel sounds present. GENITOURINARY: Without palpable bladder distension. No suprapubic tenderness MUSCULOSKELETAL: Extremities without clubbing, cyanosis, +1 edema. NEUROLOGICAL: Awake and alert. Motor and sensory grossly within normal limits. Follows commands. Clear speech,. PSYCHIATRIC: No obvious anxiety/depression. no apparent hallucinations or other psychotic thought process. Assessment & Plan Remarks Recurrent UTIs FUnguria, C.glabrata ? clinical singnificance - on fluconazole x 5 days C.diff, 2nd episode- responded to Flagyl well cont flagyl x 14 days no need to repeat UA, C+S unless clinically symptomatic for infx zoë sign off, reconsult if needed Elizabet Szymanski MD Jun 14, 2017 20:02
[2017-06-14] MEDS: traZODone HCL 100 MG TAB PO SCH (21:50)
[2017-06-14] MEDS: ATORVASTATIN 40 MG TAB PO SCH (21:50)
[2017-06-15] VITALS: BP 116/47; PULSE 70; RESP 17; TEMP 97.6; O2SAT 96
[2017-06-15 04:00] VITALS: BP 117/57; PULSE 63; RESP 18; TEMP 96.8; O2SAT 96
[2017-06-15] MEDS: INSULIN ASPART SUPPLEMENTAL SCALE SQ SCH ×3 (06:13→18:29)
[2017-06-15] MEDS: metroNIDAZOLE 500 MG TAB PO SCH ×2 (06:13→13:32)
[2017-06-15] MEDS ORDERED: DIFL100T PO (08:30)
[2017-06-15] MEDS ORDERED: NEUR300C PO (08:30)
[2017-06-15] MEDS ORDERED: METR-1 PO (08:30)
[2017-06-15 08:38] VITALS: BP 151/64; PULSE 70; RESP 20; TEMP 96.9; O2SAT 98
--- NOTE | 2017-06-15 08:39 | HHI.DS ---
Discharge Summary Admission Date Jun 10, 2017 at 19:22 Discharge Date: Jun 15, 2017 Admitting Diagnosis sepsis. UTI. (1) Sepsis ICD Codes: A41.9 - Sepsis, unspecified organism Status: Acute (2) UTI (lower urinary tract infection) ICD Codes: N39.0 - Lower urinary tract infectious disease Status: Acute (3) C. difficile colitis ICD Codes: A04.7 - Enterocolitis due to Clostridium difficile Status: Acute (4) General weakness ICD Codes: R53.1 - Weakness Status: Acute (5) Hypertension ICD Codes: I10 - Hypertension Status: Chronic (6) Diabetes ICD Codes: E11.9 - Diabetes mellitus Status: Chronic Consultants ID Dr. Szymanski Brief History 66-year-old female complains generalized malaise and weakness. Patient states that she was seen by personal physician a week ago and was diagnosed with UTI. Patient was given prescription for amoxicillin. Patient states that she has been taking amoxicillin as directed today was her last day of medication. Patient states that she has increasing generalized malaise and weakness today. Patient status post neck surgery for parotid mass with resulting in weakness of the lower extremity that she became wheelchair dependent. Patient states that normally she can walk with a walker and get out of the wheelchair however not today due to increased weakness. Patient denies any headache. Patient denies any visual change. Patient denies any chest pain or shortness of breath. Patient denies abdominal pain. Patient denies any back pain. Patient denies any fever, but has had chills. He has also had diarrhea for the last 3 days and has a history of C. difficile colitis. CBC/BMP: 06/13/17 0647 06/13/17 0647 Significant Findings Laboratory Tests Test 06/13/17 06:47 Red Blood Count 3.12 MIL/MM3 (4.00-5.30) Hemoglobin 8.8 GM/DL (11.6-15.3) Hematocrit 27.4 % (35.0-46.0) Monocytes (%) (Auto) 9.2 % (0.0-8.0) Eosinophils (%) (Auto) 7.6 % (0.0-4.0) Eosinophils # (Auto) 0.5 TH/MM3 (0-0.4) Random Glucose 110 MG/DL (74-106) Calcium Level 8.3 MG/DL (8.5-10.1) Chloride Level 110 MEQ/L (98-107) Imaging Last Impressions Knee X-Ray 06/13/17 0000 Signed Impressions: Service Date/Time: Tuesday, June 13, 2017 14:46 - CONCLUSION: Degenerative changes without fracture. Herminio Silveira MD FACR Chest X-Ray 06/10/17 1327 Signed Impressions: Service Date/Time: Saturday, June 10, 2017 14:19 - CONCLUSION: No acute disease. Cuco Palma Jr., MD PE at Discharge General: NAD, AAOx3 Chest: CTA bilaterally Cardiac: Regular Abd: +BS, soft ND/NT Ext: Bruising on bilateral knees Hospital Course Sepsis - comgmt with ID - Pt is a 66 y/o with HTN, recurrent UTI with urosepsis, and hx of C. diff. - She presented to [facility] on 06/10 with generalized malaise and weakness. - She had been seen by her PCP a week prior to admission and was diagnosed with UTI. She was given prescription for amoxicillin which she completed yesterday. - urine cx (06/11/17) -->yeast > 100K CFU - Diflucan by mouth for 3 days - Pt had also reported diarrhea x 3 days prior to admission. Stool studies were +C. diff. - Ceftriaxone (06/11 - 06/12) - continue PO flayl for C.Dif for a total of 14 days - Blood cultures with NGTD - PT evaluation recommended rehab/SNF - Pt is only able to ambulate short distance - Pt should go to SNF to increase strength and gait training - Pt adamantly refuses SNF. I disagree with this decision, but will arrange [facility] and home PT - Pt is at high risk for falling and readmission. - DVT prophylaxis with SCDs UTI (lower urinary tract infection) - As noted above. - Seems to be a recurring issue. - funguria on this admission - Diflucan - see above C. difficile colitis - See above. - Pt is on PO Flagyl - stool output monitored no further diarrhe General weakness - See above. - Likely associated with current infection and recent comorbid illness. - Cont. PT daily - Recommend rehabilitation short-term after discharge. Pt does not want to go to SNF. - pt c/o b/l knee pain worse since fall at home - left knee with effusion - b/l knee x-rays show No acute findings - pt evaluated by Orthopedics. No arthrocentesis d/t previous TKA. conservative mgmt Hypertension - Home meds continue - Monitor Diabetes - Initially held metformin due to diarrhea illness. - Sliding scale insulin while in hospital Pt Condition on Discharge: Stable Discharge Disposition: Disch w/ Home Health Serv Discharge Instructions DIET: Follow Instructions for: Diabetic Diet Activities you can perform: Regular-No Restrictions Follow up Referrals: PCP Follow-up - [address] Eulalio Betts Please call for appointment New Medications: Gabapentin (Neurontin) 300 Mg Cap 300 MG PO TID for nerve pain, #90 CAP Metronidazole (Flagyl) 500 Mg Tab 500 MG PO Q8HR for C Diff, #27 TAB Continued Medications: Atorvastatin (Lipitor) 40 Mg Tab 40 MG PO HS for Cholesterol Management, #30 TAB [address] (Cymbalta DR) 60 Mg Capdr 60 MG PO DAILY, #30 CAP 0 Refills Lisinopril (Lisinopril) 20 Mg Tab 20 MG PO DAILY, #30 TAB 0 Refills hold for SBP below 120 Metformin (Metformin) 500 Mg Tab 500 MG PO BID for Blood Sugar Management, #60 TAB 0 Refills With meals Nifedipine ER 24 HR (Nifedipine ER 24 HR) 60 Mg Tab 60 MG PO DAILY, #30 TAB 0 Refills Trazodone (Trazodone) 100 Mg Tablet 100 MG PO HS PRN for INSOMNIA, #30 TAB 0 Refills Discontinued Medications: Gabapentin (Gabapentin) 600 Mg Tab 600 MG PO TID, #90 TAB 0 Refills Hydrocodone-Acetaminophen (Hydrocodone-Acetaminophen) 5-325 mg Tab 1 TAB PO Q4H PRN for pain, #60 TAB 0 Refills Additional Information Patient examined. Assessment and plan formulated with Ana Gonzalez PA-C. I agree with the above. pt to complete course of flagyl Pt declined SNF. Arranged for HHC/PT Ana Solis Jun 15, 2017 08:39 Christopher Quevedo DO Jun 16, 2017 00:17
[2017-06-15] MEDS: NIFEdipine 60 MG SUSTAINED RELEASE TAB PO SCH (09:20)
[2017-06-15] MEDS: GABAPENTIN 300 MG CAP PO SCH ×3 (09:20→18:25)
[2017-06-15] MEDS: LISINOPRIL 20 MG TAB PO SCH (09:20)
[2017-06-15] MEDS: traMADol HCL 50 MG TAB PO PRN ×2 (09:21→15:09)
[2017-06-15] MEDS: DULoxetine HCl DR 60 MG CAP PO SCH (09:21)
[2017-06-15] MEDS: FLUCONAZOLE 100 MG TAB PO SCH (09:21)
[2017-06-15 12:02] VITALS: BP 150/65; PULSE 80; RESP 20; TEMP 96.9; O2SAT 100
--- NOTE | 2017-06-15 15:44 | HHI.DCPOC ---
Discharge Care Plan Diagnosis: (1) C. difficile colitis (2) General weakness (3) Contusion of left knee, initial encounter (4) Contusion of right knee, initial encounter Goals to Promote Your Health * To prevent worsening of your condition and complications * To maintain your health at the optimal level Directions to Meet Your Goals Take your medications as prescribed Follow your dietary instruction Follow activity as directed Keep your appointments as scheduled Take your immunizations and boosters as scheduled If your symptoms worsen call your PCP, if no PCP go to Urgent Care Center or Emergency Room Smoking is Dangerous to Your Health. Avoid second hand smoke Call the 24-hour hour crisis hotline for domestic abuse at Christopher Quevedo DO Jun 15, 2017 15:44
[2017-06-15 16:52] VITALS: BP 139/68; PULSE 87; RESP 21; TEMP 97.1; O2SAT 98
== END 2017-06-15 18:56 | disposition home health service (06) | DRG 871 ==
LOC: NEPE 13:08 → NEDA 19:22 → HOCB 21:06
PROVIDERS: ADMIT Hospitalist; ATTEND Hospitalist
DX: B37.7 Candidal sepsis (principal); A04.7 Enterocolitis due to Clostridium difficile; I10 Essential (primary) hypertension; F32.9 Major depressive disorder, single episode, unspecified; F41.9 Anxiety disorder, unspecified; M19.90 Unspecified osteoarthritis, unspecified site; B37.49 Other urogenital candidiasis; E11.9 Type 2 diabetes mellitus without complications; Z96.652 Presence of left artificial knee joint; E78.5 Hyperlipidemia, unspecified; M51.36 Other intervertebral disc degeneration, lumbar region; S80.02XA Contusion of left knee, initial encounter; S80.01XA Contusion of right knee, initial encounter; R26.9 Unspecified abnormalities of gait and mobility; R53.1 Weakness; W19.XXXA Unspecified fall, initial encounter; Z86.19 Personal history of other infectious and parasitic diseases; Z87.440 Personal history of urinary (tract) infections; Z79.84 Long term (current) use of oral hypoglycemic drugs; Z85.3 Personal history of malignant neoplasm of breast; Z92.3 Personal history of irradiation; Z86.73 Personal history of transient ischemic attack (TIA), and cerebral infarction without residual deficits; Z92.21 Personal history of antineoplastic chemotherapy; Z91.81 History of falling
CPT/HCPCS: 71010; 73564; 76937; 80048; 80053; 81001; 82550; 82948; 83605; 83735; 83880; 84439; 84443; 84484; 85025; 85610; 85730; 87040; 87086; 87106; 87493; 93005; 96361; 96365; J0696; J1815; J2543; J3370; J3480; J7030; J7050

== ENCOUNTER 2017-07-20 16:14 | Observation (INO) | payer MEDICARE ==
[~2017-07-20] VITALS: Ht 162.6 cm; Wt 80.0 kg
[~2017-07-20 16:14] MED LIST changes: -COLL30T TOPICAL; -GABA300C5 PO; -HYDR-3516 PO; +METR-1 PO; +NEUR300C PO; -TRAZ100T4 PO; +TRAZ100T6 PO
[2017-07-20 19:24] VITALS: BP 148/68; PULSE 94; RESP 18; TEMP 98.3; O2SAT 95
[2017-07-20 20:31] VITALS: BP 198/86; PULSE 89; RESP 18; TEMP 97.5; O2SAT 94
--- NOTE | 2017-07-20 21:19 | PD ---
HPI Chief Complaint: Complaint Time Seen by Provider: 20:31 Travel History International Travel<30 days: No Contact w/Intl Traveler<30days: No Traveled to known affect area: No History of Present Illness HPI The patient is a 67 year old female who presents to the [facility] emergency department with a history of reportedly having increased lower extremity weakness and leg pain over the last few days. The patient unfortunately is a poor historian. She repeatedly refers back to her son who will provide her history, however he is not currently at the bedside. The patient resides at home and her son has been caring for her primarily. The patient according to the record was admitted at the end of May related to generalized weakness and at that time it was recommended that she go to rehabilitation at a fdc facility to increase her strength, however she refused. At that time the patient was diagnosed with C. difficile colitis. She reports that she did complete her full course of Flagyl. She reports that over the last 4 days she's had dysuria with urinary frequency. She reports that over the last 3 days she's had diarrhea approximately 3 times per day. She denies having any blood in her stool or black or tarry stools. She denies having any known mucus in her stool. On review of systems patient denies having any known fevers, cough, congestion, neck pain, chest pain, abdominal pain, vomiting, diarrhea, urinary symptoms, or neurologic symptoms. The patient reports having dyspnea on exertion that is chronic. She reports having chronic lower extremity weakness although she reports feeling more weak than usual. [facility] Past Medical History Narrative Medical The patient's past medical history is significant for hypertension, history of recurrent urinary tract infections with a history of urosepsis, depression, anxiety, postherpetic neuralgia, hyperlipidemia, history of breast cancer, history of degenerative disc disease of the lumbar spine with chronic back pain history of a left parotid tumor status post resection. Arthritis: Yes Asthma: No Autoimmune Disease: No Blood Disorders: No Anxiety: Yes Depression: Yes Heart Rhythm Problems: No Cancer: Yes (LEFT BREAST and left neck) Cardiovascular Problems: Yes High Cholesterol: Yes Chemotherapy: Yes (2008) Chest Pain: No Congestive Heart Failure: No COPD: No Cerebrovascular Accident: Yes (2014) Diabetes: Yes Patient Takes Glucophage: Yes Diminished Hearing: No Endocrine: Yes GERD: No Glaucoma: No Genitourinary: Yes Headaches: Yes Hepatitis: No Hiatal Hernia: No Herniated Disk: Yes Hypertension: Yes Immune Disorder: No Kidney Stones: No Medical other: Yes (ARTHRITIS- HERNIATED DISC) Musculoskeletal: Yes (SPINAL STENOSIS) Neurologic: Yes Psychiatric: No Reproductive: No Respiratory: No Migraines: Yes Myocardial Infarction: No Radiation Therapy: Yes Renal Failure: No Seizures: No Sleep Apnea: No Thyroid Disease: Yes Ulcer: No PNEUMOCCOCAL Vaccine (Year): 1 ?: Not Menopausal: Yes Past Surgical History Narrative Surgical The patient's past surgical history is significant for left breast lumpectomy, lumbar micro-discectomy, laminectomy, L5 3 L4 fusion, left knee replacement, cholecystectomy, exploratory laparotomy with repair of ventral hernia, history of left parotid tumor excision in March 2017. Abdominal Surgery: Yes (CHOLECYSTECTOMY) Arteriovenous Shunt: No Section: Yes Cholecystectomy: Yes Ear Surgery: No Eye Surgery: No Gynecologic Surgery: Yes (C SECTION) Insulin Pump: No Joint Replacement: Yes (LT KNEE 11/2004) Oral Surgery: No Pacemaker: No Thoracic Surgery: Yes (LEFT BREAST BX/LUMPECTOMY) Other Surgery: Yes (LEFT KNEE REPLACEMENT, LEFT LUMPECTOMY/MASTECTOMY) Social History Alcohol Use: No Tobacco Use: No Substance Use: No Allergies-Medications (Allergen,Severity, Reaction): Coded Allergies: Sulfa (Sulfonamide Antibiotics) (Unverified Allergy, Severe, HIVES, ) allopurinol (Unverified Allergy, Severe, Hives, 07/20/17) aspirin (Unverified Allergy, Severe, Hallucinations, 07/20/17) butalbital (Unverified Allergy, Severe, Hallucinations, 07/20/17) caffeine (Unverified Allergy, Severe, Hallucinations, 07/20/17) morphine (Unverified Adverse Reaction, Severe, SHAKING, HEADACHE, 07/20/17) clonidine (Unverified Adverse Reaction, Mild, LETHARGY,SHAKING, 07/21/17) PER Reported Meds & Prescriptions Reported Meds & Active Scripts Active Neurontin (Gabapentin) 300 Mg Cap 300 Mg PO TID Flagyl (Metronidazole) 500 Mg Tab 500 Mg PO Q8HR Lisinopril 20 Mg Tab 20 Mg PO DAILY hold for SBP below 120 Reported Trazodone (Trazodone HCl) 100 Mg Tablet 100 Mg PO HS PRN Nifedipine ER 24 HR (Nifedipine) 60 Mg Tab 60 Mg PO DAILY Cymbalta DR (Duloxetine HCl) 60 Mg Capdr 60 Mg PO DAILY Metformin (Metformin HCl) 500 Mg Tab 500 Mg PO BID With meals Lipitor (Atorvastatin Calcium) 40 Mg Tab 40 Mg PO HS Review of Systems Except as stated in HPI: all other systems reviewed are Neg General / Constitutional: No: Fever Eyes: No: Visual changes HENT: No: Headaches Cardiovascular: Positive: Edema, No: Chest Pain or Discomfort Respiratory: No: Shortness of Breath Gastrointestinal: Positive: Diarrhea, Abdominal Pain, Changes in Bowel Habits, Loss of Appetite, No: Nausea, Vomiting, Hematemesis, Hematochezia, Constipation , Indigestion Genitourinary: Positive: Urgency, Frequency, Dysuria Musculoskeletal: No: Pain Skin: No Rash Neurologic: No: Weakness Psychiatric: No: Depression Endocrine: No: Polydipsia Hematologic/Lymphatic: No: Easy Bruising Physical Exam Narrative General: The patient is a well-developed well-nourished female in no acute distress. Head and Neck exam: Head is normocephalic atraumatic. Eyes: EOMI, pupils are equal round and reactive to light. Nose: Midline septum with pink mucous membranes Mouth: Dentition unremarkable. Moist mucus membranes. Posterior oropharynx is not erythematous. No tonsillar hypertrophy. Uvula midline. Airway patent. Neck: No palpable lymphadenopathy. No nuchal rigidity. No thyromegaly. Cardiovascular: Regular rate and rhythm without murmurs, gallops, or rubs. No pulse deficit to the extremities. On simultaneous auscultation and palpation of the radial artery Lungs: Clear to auscultation bilaterally. No wheezes, rhonchi, or rales. Abdomen: Soft, with suprapubic tenderness on palpation. No other tenderness on palpation of the other quadrants of the abdomen. No guarding, rebound, or rigidity. Normal bowel sounds are audible. No tenderness on palpation of McBurney's point. Negative Mitchell's sign. Extremities: No clubbing or cyanosis. The patient has 1+ pitting edema bilateral lower extremities. 2+ pulses in all 4 extremities. No calf tenderness on palpation. Back: Right-sided CVA tenderness is noted on palpation. No left-sided CVA tenderness. Neurologic Exam: The patient on neurologic examination has generalized weakness, no focal findings. No evidence of facial asymmetry. The patient is able to speak in clear complete sentences. The patient is slow to answer questions. Skin Exam: No rash noted. Intact skin that is warm and dry. Data Data Last Documented VS Vital Signs Date Time Temp Pulse Resp B/P (MAP) Pulse Ox O2 Delivery O2 Flow Rate FiO2 07/20/17 22:38 82 18 170/79 (109) 95 Room Air 07/20/17 20:31 97.5 Orders Orders Electrocardiogram (07/20/17 20:50) Complete Blood Count With Diff (07/20/17 20:50) Comprehensive Metabolic Panel (07/20/17 20:50) Creatine Kinase (Cpk) (07/20/17 20:50) Ckmb (Isoenzyme) Profile (07/20/17 20:50) Troponin I (07/20/17 20:50) B-Type Natriuretic Peptide (07/20/17 20:50) Prothrombin Time / Inr (Pt) (07/20/17 20:50) Act Partial Throm Time (Ptt) (07/20/17 20:50) Blood Culture (07/20/17 20:50) C-Reactive Protein (Crp) (07/20/17 20:50) Lipase (07/20/17 20:50) Urinalysis - C+S If Indicated (07/20/17 20:50) Cath For Specimen (07/20/17 20:50) Magnesium (Mg) (07/20/17 20:50) C Diff Toxin Pcr (07/20/17 20:50) Chest, Single Ap (07/20/17 20:50) Iv Access Insert/Monitor (07/20/17 20:50) Ecg Monitoring (07/20/17 20:50) Oximetry (07/20/17 20:50) Stool Wbc (Leukocytes) (07/20/17 20:50) Lactic Acid Sepsis Protocol (07/20/17 20:50) Urine Culture (07/20/17 22:30) Ceftriaxone Inj (Rocephin Inj) (07/20/17 23:45) Potassium Chloride (Kcl) (07/20/17 23:45) Admit Order (Ed Use Only) (07/20/17 23:41) Labs Laboratory Tests Test 07/20/17 21:42 10/8/17 22:30 White Blood Count 9.8 TH/MM3 Red Blood Count 3.31 MIL/MM3 Hemoglobin 9.6 GM/DL Hematocrit 29.0 % Mean Corpuscular Volume 87.6 FL Mean Corpuscular Hemoglobin 28.9 PG Mean Corpuscular Hemoglobin Concent 33.0 % Red Cell Distribution Width 14.3 % Platelet Count 315 TH/MM3 Mean Platelet Volume 8.0 FL Neutrophils (%) (Auto) 73.9 % Lymphocytes (%) (Auto) 14.7 % Monocytes (%) (Auto) 8.5 % Eosinophils (%) (Auto) 2.0 % Basophils (%) (Auto) 0.9 % Neutrophils # (Auto) 7.2 TH/MM3 Lymphocytes # (Auto) 1.4 TH/MM3 Monocytes # (Auto) 0.8 TH/MM3 Eosinophils # (Auto) 0.2 TH/MM3 Basophils # (Auto) 0.1 TH/MM3 CBC Comment DIFF FINAL Differential Comment Prothrombin Time 10.9 SEC Prothromb Time International Ratio 1.0 RATIO Activated Partial Thromboplast Time 26.2 SEC Blood Urea Nitrogen 13 MG/DL Creatinine 0.51 MG/DL Random Glucose 107 MG/DL Total Protein 6.6 GM/DL Albumin 2.8 GM/DL Calcium Level 9.0 MG/DL Magnesium Level 1.6 MG/DL Alkaline Phosphatase 97 U/L Aspartate Amino Transf (AST/SGOT) 20 U/L Alanine Aminotransferase (ALT/SGPT) 12 U/L Total Bilirubin 0.4 MG/DL Sodium Level 145 MEQ/L Potassium Level 3.2 MEQ/L Chloride Level 109 MEQ/L Carbon Dioxide Level 26.7 MEQ/L Anion Gap 9 MEQ/L Estimat Glomerular Filtration Rate 121 ML/MIN Lactic Acid Level 0.6 mmol/L Total Creatine Kinase 24 U/L Troponin I 0.02 NG/ML C-Reactive Protein LESS THAN 0.29 MG/DL B-Type Natriuretic Peptide 23 PG/ML Lipase 105 U/L Urine Color YELLOW Urine Turbidity HAZY Urine pH 6.0 Urine Specific [place] 1.024 Urine Protein 300 mg/dL Urine Glucose (UA) NEG mg/dL Urine Ketones 40 mg/dL Urine Occult Blood SMALL Urine Nitrite NEG Urine Bilirubin NEG Urine Urobilinogen 2.0 MG/DL Urine Leukocyte Esterase LARGE Urine RBC 15 /hpf Urine WBC 70 /hpf Urine Squamous Epithelial Cells 9 /hpf Urine Transitional Epithelial Cells 2 /hpf Urine Amorphous Sediment RARE Urine Bacteria MOD /hpf Urine Mucus FEW /lpf Microscopic Urinalysis Comment CULTURE INDICATED MDM Medical Decision Making Medical Screen Exam Complete: Yes Emergency Medical Condition: Yes Medical Record Reviewed: Yes Interpretation(s) Last Impressions Chest X-Ray 07/20/[id number] Signed Impressions: Service Date/Time: Thursday, July 20, 2017 21:41 - CONCLUSION: Goiter. Clear lungs. Jamari Araujo MD Differential Diagnosis Urinary tract infection, versus recurrent C. difficile colitis, versus pyelonephritis, versus sepsis of unknown origin. Narrative Course During the course of the patients emergency department visit, the patients history, examination, and differential diagnosis were reviewed with the patient. The patient had IV access obtained and blood work sent for analysis. The patient was placed on a lunchroom monitor with oximetry and blood pressure monitoring. The patient had an ECG done on arrival. The patient's ECG reveals a sinus rhythm heart rate of 84, nonspecific ST-T wave abnormalities, no acute ST segment elevation. QRS duration is 97 ms, QTC 442 ms. The patient was initially provided Rocephin 1 g IV after urinalysis revealed evidence of a urinary tract infection. The patients laboratory studies were reviewed and remarkable for a white count of 9.8, hemoglobin 9.6 which is at the patient's baseline compared to prior levels of anemia, platelet 3:15, 73.9 neutrophils, monocytes 8.5. CMP is remarkable for potassium of 3.2, chloride 109, glucose 107, CPK 24, troponin I 0.02, C-reactive protein is less than 0.29, BNP is 23, lipase 105, PT PTT within normal limits. Urinalysis shows 40 ketones small occult blood 15 RBCs, WBCs 70, moderate bacteria. Radiology studies were reviewed and remarkable for a chest x-ray that shows a goiter, no acute cardiopulmonary disease. Given the patient's hypokalemia the patient was given potassium chloride 20 mg once by mouth 1, Rocephin 1 g IV was started for a urinary tract infection. The patients results were discussed with the patient, including the plan of care. I explained that further testing and/ or monitoring is indicated based on the patients history, examination, and/ or laboratory findings. Therefore, I recommended admission for additional evaluation. The patient expressed understanding and was agreeable with this plan. The patient was admitted to the hospital in stable condition and sent to a [facility]. Physician Communication Physician Communication the patient's case was discussed with Dr. Veras who did agree to admit the [facility]. Diagnosis Primary Impression: General weakness Additional Impression: Urinary tract infection Qualified Codes: N39.0 - Urinary tract infection, site not specified Admitting Information Admitting Physician Requests: Observation Lynda Swain MD Jul 20, 2017 21:19
--- NOTE | 2017-07-20 21:55 | RADRPT ---
EXAM DATE/TIME: 07/20/2017 21:41 [facility] COMPARISON: CT SOFT TISSUE NECK W/O CONTRAST, June 13, 2016, 17:36. CHEST SINGLE AP, June 10, 2017, 14:19 . INDICATIONS : Cough. MEDICAL HISTORY : Hypercholesterolemia. Hypertension Carcinoma, breast. Diabetes SURGICAL HISTORY : Cholecystectomy. section. Total knee replacement, left. Lumpectomy ENCOUNTER: Initial ACUITY: 1 day PAIN SCORE: 0/10 LOCATION: Bilateral chest FINDINGS: Lungs are clear. Heart size normal. Superior mediastinal mass greatest in the right paratracheal lashon on with mass effect on the trachea again noted and consistent with the known goiter with substernal e xtension. CONCLUSION: Goiter. Clear lungs. Jamari Araujo MD on July 20, 2017 at 21:53 Board Certified Radiologist. This report was verified electronically.
[2017-07-20 22:08] LABS: AUTOMATED NEUTROPHIL # 7.2 TH/MM3 (1.8-7.7); BASOPHIL # 0.1 TH/MM3 (0-0.2); BASOPHIL % 0.9 % (0.0-2.0); EOSINOPHIL # 0.2 TH/MM3 (0-0.4); HEMO FLAGS DIFF FINAL; LYMPH % 14.7 % (9.0-44.0); LYMPHOCYTE # 1.4 TH/MM3 (1.0-4.8); MEAN CELL VOLUME 87.6 FL (80.0-100.0); MEAN CORPUSCULAR HEMOGLOBIN 28.9 PG (27.0-34.0); MONO % 8.5 % (0.0-8.0); NEUT % 73.9 % (16.0-70.0); PLATELET COUNT 315 TH/MM3 (150-450); RED BLOOD COUNT 3.31 MIL/MM3 (4.00-5.30); RED CELL DISTRIBUTION WIDTH 14.3 % (11.6-17.2); WHITE BLOOD COUNT 9.8 TH/MM3 (4.0-11.0)
[2017-07-20 22:24] LABS: ANION GAP 9 MEQ/L (5-15); AST (GOT) 20 U/L (15-37); BICARBONATE 26.7 MEQ/L (21.0-32.0); BLOOD UREA NITROGEN 13 MG/DL (7-18); CHLORIDE 109 MEQ/L (98-107); GLOMERULAR FILTRATION RATE 121 ML/MIN (>89); MAGNESIUM 1.6 MG/DL (1.5-2.5); POTASSIUM 3.2 MEQ/L (3.5-5.1); SODIUM (NA) 145 MEQ/L (136-145)
[2017-07-20 22:25] LABS: ALT (GPT) 12 U/L (10-53); APTT (PATIENT) 26.2 SEC (24.3-30.1); PROTHROMBIN TIME - PATIENT 10.9 SEC (9.8-11.6)
[2017-07-20 22:28] LABS: ALKALINE PHOSPHATASE 97 U/L (45-117); TOTAL BILIRUBIN ADULT 0.4 MG/DL (0.2-1.0)
[2017-07-20 22:33] LABS: CREATINE KINASE 24 U/L (26-192)
[2017-07-20 22:38] VITALS: BP 170/79; PULSE 82; RESP 18; O2SAT 95
[2017-07-20 22:50] LABS: BACTERIA, URINE MOD /hpf; BLOOD, URINE SMALL (NEG); COMMENT (UR) CULTURE INDICATED; CULTURE IF INDICATED CULTURE INDICATED; GLUCOSE,URINE NEG (NEG); KETONE, URINE 40 mg/dL (NEG); MUCUS URINE FEW /lpf (OCC); NITRITE,URINE NEG (NEG); SQUAMOUS EPITHELIAL CELL URINE 9 /hpf (0-5); TRANSITIONAL EPI CELLS, URINE 2 /hpf; URINE COLOR YELLOW (YELLW/STRAW)
[2017-07-20] MEDS ORDERED: cefTRIAXone INJ 1,000 MG in SODIUM CHLORIDE 0.9% INJ 100 ML IV ONE (23:45)
[2017-07-20] MEDS ORDERED: POTASSIUM CHLORIDE 20 MEQ CONTROLLED RELEASE TAB PO ONE (23:45)
[2017-07-21] VITALS (18 sets, daily range): BP systolic 140–195; BP diastolic 64–85; PULSE 81–106; RESP 16–20; TEMP 97.7–98.4; O2SAT 93–99
[2017-07-21] MEDS ORDERED: LACTULOSE SYRUP 20 GM/30 ML CUP PO PRN (00:30)
[2017-07-21] MEDS ORDERED: NALOXONE HCL 0.4 MG/ML AMP IV PUSH PRN (00:30)
[2017-07-21] MEDS ORDERED: MAGNESIUM HYDROXIDE SUSP 30 ML CUP PO PRN (00:30)
[2017-07-21] MEDS ORDERED: ONDANSETRON HCL 4 MG/2 ML VIAL IVP PRN (00:30)
[2017-07-21] MEDS ORDERED: BISACODYL 10 MG SUPP RECTAL PRN (00:30)
[2017-07-21] MEDS ORDERED: SENNOSIDES 8.6 MG TAB PO PRN (00:30)
[2017-07-21] MEDS: SODIUM CHLOR 0.45% 1000 ML INJ 1,000 ML IV SCH ×3 (01:00→18:02)
[2017-07-21] MEDS: ENALAPRILAT 1.25 MG/ML VIAL IV PUSH PRN ×2 (02:13→12:25)
[2017-07-21] MEDS: SODIUM CHLORIDE 0.9% FLUSH 10 ML FLUSH IV FLUSH PRN ×2 (02:13→12:25)
[2017-07-21] MEDS ORDERED: cloNIDine HCL 0.1 MG TAB PO PRN (05:30)
[2017-07-21 07:40] LABS: AUTOMATED NEUTROPHIL # 5.7 TH/MM3 (1.8-7.7); BASOPHIL # 0.1 TH/MM3 (0-0.2); BASOPHIL % 1.3 % (0.0-2.0); EOSINOPHIL # 0.2 TH/MM3 (0-0.4); EOSINOPHIL % 2.8 % (0.0-4.0); HEMATOCRIT 29.2 % (35.0-46.0); HEMO FLAGS DIFF FINAL; LYMPH % 17.3 % (9.0-44.0); LYMPHOCYTE # 1.4 TH/MM3 (1.0-4.8); MEAN CELL VOLUME 88.2 FL (80.0-100.0); MEAN CORPUSCULAR HGB CONC 32.8 % (32.0-36.0); MONO % 8.9 % (0.0-8.0); NEUT % 69.7 % (16.0-70.0); PLATELET COUNT 338 TH/MM3 (150-450); RED BLOOD COUNT 3.31 MIL/MM3 (4.00-5.30); RED CELL DISTRIBUTION WIDTH 14.1 % (11.6-17.2); WHITE BLOOD COUNT 8.1 TH/MM3 (4.0-11.0)
[2017-07-21] MEDS: INSULIN NovoLIN REGULAR SUPPLEMENTAL SCALE SQ SCH ×4 (08:00→21:00)
[2017-07-21 08:15] LABS: BICARBONATE 24.1 MEQ/L (21.0-32.0); POTASSIUM 3.4 MEQ/L (3.5-5.1)
[2017-07-21] MEDS: NIFEdipine 60 MG SUSTAINED RELEASE TAB PO SCH (08:46)
[2017-07-21] MEDS: GABAPENTIN 300 MG CAP PO SCH ×3 (08:46→17:13)
[2017-07-21] MEDS: LISINOPRIL 20 MG TAB PO SCH (08:46)
[2017-07-21] MEDS: SODIUM CHLORIDE 0.9% FLUSH 10 ML FLUSH IV FLUSH SCH ×2 (08:46→22:17)
[2017-07-21] MEDS: metFORMIN HCL 500 MG TAB PO SCH ×2 (08:47→17:13)
[2017-07-21] MEDS: DOCUSATE SODIUM 50 MG/SENNA 8.6 MG TAB PO SCH ×2 (08:47→22:17)
[2017-07-21] MEDS: DULoxetine HCl DR 60 MG CAP PO SCH (08:47)
--- NOTE | 2017-07-21 09:44 | HHI.HP ---
HPI Service [facility] Hospitalists Primary Care Physician Eulalio Betts DO Admission Diagnosis Generalized weakness, UTI Chief Complaint: Weakness Travel History International Travel<30 Days: No Contact w/Intl Traveler <30 Da: No Traveled to Known Affected Are: No History of Present Illness Ms. Wilson is a pleasant 67 y/o female with recurrent UTIs (ESBL E. coli, Klebsiella, Enterococcus), hypertension, diabetes mellitus, and hx of breast cancer who presents to the [facility] ED on 07/20/17 with a history of reportedly having increased lower extremity weakness and leg pain over the last few days. The patient unfortunately is a poor historian and there is no family present to help with the history at the time. The majority of the history was obtained from the ER records and previous hospitalization records. The patient resides at home and her son, Boris, has been caring for her primarily. The patient was previously admitted at the end of May related to generalized weakness and at that time it was recommended that she go to rehabilitation at a detention facility to increase her strength, however she refused. At that time the patient was diagnosed with C. difficile colitis. She reports that she did complete her full course of Flagyl. She reports that over the last 4 days she' s had dysuria with urinary frequency. She reports that over the last 3 days she 's had diarrhea approximately 3 times per day. She denies having any blood in her stool or black or tarry stools. The patient reports having dyspnea on exertion which is chronic. She also reports having chronic lower extremity weakness although she reports feeling more weak than usual. Her only complaint currently is that she is cold. There has been no documented fevers overnight. Review of Systems ROS Limitations: Poor Historian Constitutional: COMPLAINS OF: Chills, DENIES: Fever, Change in appetite Eyes: DENIES: Vision loss Ears, nose, mouth, throat: DENIES: Hearing loss Respiratory: DENIES: Cough, Shortness of breath Cardiovascular: COMPLAINS OF: Dyspnea on Exertion, DENIES: Chest pain Gastrointestinal: COMPLAINS OF: Diarrhea, DENIES: Abdominal pain, Nausea, Vomiting Genitourinary: COMPLAINS OF: Urinary frequency, Dysuria Musculoskeletal: DENIES: Back pain, Neck pain Integumentary: DENIES: Rash Immunologic/allergic: DENIES: Urticaria Neurologic: COMPLAINS OF: Localized weakness Past Family Social History Past Medical History Hypertension Recurrent UTI with history of urosepsis Depression Anxiety Postherpetic neuralgia Hyperlipidemia Breast cancer Degenerative disc disease lumbar spine 2D echo (12/31/16) - Poor image quality - EF 65-70% - Poorly visualized aortic valve - Difficult to exclude bicuspid valve, no stenosis - Trace tricuspid regurgitation. 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 Past Surgical History Left breast lumpectomy Lumbar microdiscectomy Laminectomy L3-L4 fusion Left knee replacement Cholecystectomy Exploratory laparotomy with repair of ventral hernia in February 2017 Left parotid tumor excision at [facility] March 2017 Reported Medications Neurontin (Gabapentin) 300 Mg Cap 300 Mg PO TID Flagyl (Metronidazole) 500 Mg Tab 500 Mg PO Q8HR Lisinopril 20 Mg Tab 20 Mg PO DAILY hold for SBP below 120 Trazodone (Trazodone HCl) 100 Mg Tablet 100 Mg PO HS PRN Nifedipine ER 24 HR (Nifedipine) 60 Mg Tab 60 Mg PO DAILY Cymbalta DR (Duloxetine HCl) 60 Mg Capdr 60 Mg PO DAILY Metformin (Metformin HCl) 500 Mg Tab 500 Mg PO BID With meals Lipitor (Atorvastatin Calcium) 40 Mg Tab 40 Mg PO HS Allergies: Coded Allergies: Sulfa (Sulfonamide Antibiotics) (Unverified Allergy, Severe, HIVES, ) allopurinol (Unverified Allergy, Severe, Hives, 07/20/17) aspirin (Unverified Allergy, Severe, Hallucinations, 07/20/17) butalbital (Unverified Allergy, Severe, Hallucinations, 07/20/17) caffeine (Unverified Allergy, Severe, Hallucinations, 07/20/17) morphine (Unverified Adverse Reaction, Severe, SHAKING, HEADACHE, 07/20/17) clonidine (Unverified Adverse Reaction, Mild, LETHARGY,SHAKING, 07/21/17) PER Family History Noncontributory Social History Patient is retired and lives with her adult son No tobacco or alcohol use. 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 Originally from [place], she moved here approximately 30 years ago Patient has been using a wheelchair of late at home but typically can get around with a walker however she has been to weak up late Physical Exam Vital Signs Vital Signs Date Time Temp Pulse Resp B/P (MAP) Pulse Ox O2 Delivery O2 Flow Rate FiO2 07/21/17 08:52 185/73 (110) 07/21/17 08:19 97.7 90 18 188/77 (114) 98 07/21/17 06:18 83 194/78 (116) 07/21/17 04:30 85 16 192/79 (116) 97 07/21/17 04:13 85 07/21/17 04:03 98.1 83 18 190/80 (116) 93 07/21/17 02:39 86 07/21/17 01:57 98.3 82 18 177/78 (111) 98 07/21/17 01:17 82 18 183/77 (112) 98 07/21/17 00:17 98.4 91 18 165/77 (106) 99 Room Air 07/20/17 22:38 82 18 170/79 (109) 95 Room Air 07/20/17 20:31 97.5 89 18 198/86 (123) 94 07/20/17 19:24 98.3 94 18 148/68 (94) 95 Room Air Physical Exam GENERAL: This is a well-nourished, well-developed patient, in no apparent distress. HEENT: Atraumatic. Normocephalic. No temporal or scalp tenderness. No scleral icterus. Airway patent. NECK: Trachea midline, supple, nontender. CARDIO: Regular. RESP: CTA bilaterally. No wheezes, rales, or rhonchi. ABD: +BS, soft, non-tender, nondistended. EXT: Extremities without clubbing, cyanosis, or edema. NEURO: Awake. Alert and oriented to person, place and time. Poor Historian and uncooperative. Laboratory Laboratory Tests Test 07/20/17 21:42 07/20/17 22:30 07/21/17 06:55 White Blood Count 9.8 8.1 Red Blood Count 3.31 3.31 Hemoglobin 9.6 9.6 Hematocrit 29.0 29.2 Mean Corpuscular Volume 87.6 88.2 Mean Corpuscular Hemoglobin 28.9 29.0 Mean Corpuscular Hemoglobin Concent 33.0 32.8 Red Cell Distribution Width 14.3 14.1 Platelet Count 315 338 Mean Platelet Volume 8.0 8.3 Neutrophils (%) (Auto) 73.9 69.7 Lymphocytes (%) (Auto) 14.7 17.3 Monocytes (%) (Auto) 8.5 8.9 Eosinophils (%) (Auto) 2.0 2.8 Basophils (%) (Auto) 0.9 1.3 Neutrophils # (Auto) 7.2 5.7 Lymphocytes # (Auto) 1.4 1.4 Monocytes # (Auto) 0.8 0.7 Eosinophils # (Auto) 0.2 0.2 Basophils # (Auto) 0.1 0.1 CBC Comment DIFF FINAL DIFF FINAL Differential Comment Prothrombin Time 10.9 Prothromb Time International Ratio 1.0 Activated Partial Thromboplast Time 26.2 Blood Urea Nitrogen 13 14 Creatinine 0.51 0.52 Random Glucose 107 111 Total Protein 6.6 Albumin 2.8 Calcium Level 9.0 8.8 Magnesium Level 1.6 Alkaline Phosphatase 97 Aspartate Amino Transf (AST/SGOT) 20 Alanine Aminotransferase (ALT/SGPT) 12 Total Bilirubin 0.4 Sodium Level 145 144 Potassium Level 3.2 3.4 Chloride Level 109 108 Carbon Dioxide Level 26.7 24.1 Anion Gap 9 12 Estimat Glomerular Filtration Rate 121 118 Lactic Acid Level 0.6 Total Creatine Kinase 24 Troponin I 0.02 C-Reactive Protein LESS THAN 0.29 B-Type Natriuretic Peptide 23 Lipase 105 Urine Color YELLOW Urine Turbidity HAZY Urine pH 6.0 Urine Specific [place] 1.024 Urine Protein 300 Urine Glucose (UA) NEG Urine Ketones 40 Urine Occult Blood SMALL Urine Nitrite NEG Urine Bilirubin NEG Urine Urobilinogen 2.0 Urine Leukocyte Esterase LARGE Urine RBC 15 Urine WBC 70 Urine Squamous Epithelial Cells 9 Urine Transitional Epithelial Cells 2 Urine Amorphous Sediment RARE Urine Bacteria MOD Urine Mucus FEW Microscopic Urinalysis Comment CULTURE INDICATED Date/Time Source Procedure Growth Status 07/20/17 21:42 Blood Peripheral Aerobic Blood Culture Pending Received 07/20/17 21:42 Blood Peripheral Anaerobic Blood Culture Pending Received 07/20/17 22:30 Urine Random Urine Urine Culture Pending Received Result Diagram: [id number]/21/[id number] Imaging Last Impressions Chest X-Ray 07/20/172049 Signed Impressions: Service Date/Time: Thursday, July 20, 2017 21:41 - CONCLUSION: Goiter. Clear lungs. Jamari Araujo MD Septic Shock Reassessment Heart: Regular rate and rhythm Lungs: Clear Skin: Warm Caprini VTE Risk Assessment Caprini VTE Risk Assessment: Mod/High Risk (score >= 2) Caprini Risk Assessment Model Point Value = 1 Point Value = 2 Point Value = 3 Point Value = 5 Age 41-60 Minor surgery BMI > 25 kg/m2 Swollen legs Varicose veins or History of unexplained or recurrent spontaneous Oral contraceptives or hormone replacement Sepsis (< 1 month) Serious lung disease, including pneumonia (< 1 month) Abnormal pulmonary function Acute myocardial infarction Congestive heart failure (< 1 month) History of inflammatory bowel disease Medical patient at bed rest Age 61-74 Arthroscopic surgery Major open surgery (> 45 min) Laparoscopic surgery (> 45 min) Malignancy Confined to bed (> 72 hours) Immobilizing plaster cast Central venous access Age >= 75 History of VTE Family history of VTE Factor V Leiden Prothrombin [id number] Lupus anticoagulant Anticardiolipin antibodies Elevated serum homocysteine Heparin-induced thrombocytopenia Other congenital or acquired thrombophilia Stroke (< 1 month) Elective arthroplasty Hip, pelvis, or leg fracture Acute spinal cord injury (< 1 month) Prophylaxis Regimen Total Risk Factor Score Risk Level Prophylaxis Regimen 0-1 Low Early ambulation 2 Moderate Order ONE of the following: *Sequential Compression Device (SCD) *Heparin 5000 units SQ BID 3-4 Higher Order ONE of the following medications: *Heparin 5000 units SQ TID *Enoxaparin/Lovenox 40 mg SQ daily (WT < 150 kg, CrCl > 30 mL/min) *Enoxaparin/Lovenox 30 mg SQ daily (WT < 150 kg, CrCl > 10-29 mL/min) *Enoxaparin/Lovenox 30 mg SQ BID (WT < 150 kg, CrCl > 30 mL/min) AND/OR *Sequential Compression Device (SCD) 5 or more Highest Order ONE of the following medications: *Heparin 5000 units SQ TID (Preferred with Epidurals) *Enoxaparin/Lovenox 40 mg SQ daily (WT < 150 kg, CrCl > 30 mL/min) *Enoxaparin/Lovenox 30 mg SQ daily (WT < 150 kg, CrCl > 10-29 mL/min) *Enoxaparin/Lovenox 30 mg SQ BID (WT < 150 kg, CrCl > 30 mL/min) AND *Sequential Compression Device (SCD) Assessment and Plan Problem List: (1) Generalized weakness ICD Codes: R53.1 - Weakness Status: Acute Plan: - Pt is a 67 y/o female with recurrent UTIs (ESBL E. coli, Klebsiella, Enterococcus), C. diff colitis, hypertension, diabetes mellitus, and hx of breast cancer who presents to the [facility] ED on 07/20/17 with a history of reportedly having increased lower extremity weakness and leg pain over the last few days. - The patient unfortunately is a poor historian and there is no family present to help with the history at the time. - Pt reported that over the last 4 days she's had dysuria with urinary frequency and her UA was abnormal. She was given Rocephin in the ED but pt has hx ESBL UTI. Pt has been afebrile with a normal WBC count at admission. We will hold on continuing the Rocephin at this time. - Await urine culture results. - She also reports that over the last 3 days she's had diarrhea approximately 3 times per day and she has a hx of C. diff in 05/2017 - Check stools for C. diff - Blood cultures drawn in the ED are pending - Pt is on isolation - Pts potassium was low at admission and is being replaced - Cont. IVF - PT evaluation - Supportive care - DVT prophylaxis with SCDs (2) Urinary tract infection ICD Codes: N39.0 - Urinary tract infection, site not specified Status: Chronic Plan: - See above (3) Diarrhea ICD Codes: R19.7 - Diarrhea, unspecified Status: Acute Plan: - See above. (4) Diabetes ICD Codes: E11.9 - Diabetes mellitus Status: Chronic Plan: - Metformin 500mg po BID has been resumed - NovoLog SSI (5) Hypertension ICD Codes: I10 - Hypertension Status: Chronic Plan: - Home meds resumed - BP has been running high overnight and this morning - Clonidine PRN - Vasotec PRN - Monitor closely (6) C. difficile colitis ICD Codes: A04.7 - Enterocolitis due to Clostridium difficile Status: Resolved Plan: - Recent hx of C. diff, completed treatment with Flagyl 500mg Q8H x 14 days - Check stools for C. diff Assessment and Plan Patient examined. Assessment and plan formulated with Sarai Boss PA-C. I agree with the above. Problem Qualifiers (1) Urinary tract infection: Qualified Codes: N39.0 - Urinary tract infection, site not specified (2) Diabetes: Sarai Boss Jul 21, 2017 09:44 Christopher Quevedo DO Jul 23, 2017 23:23
[2017-07-21] MEDS ORDERED: POTASSIUM CHLORIDE 10 MEQ CONTROLLED RELEASE TAB PO ONE (10:45)
--- NOTE | 2017-07-21 12:48 | EKG ---
Date Performed: 07/20/2017 Time Performed: 22:32:07 PTAGE: 67 years EKG: Sinus rhythm NONSPECIFIC ST & T-WAVE ABNORMALITY BORDERLINE ECG Compared to prior tracing no significant change PREVIOUS TRACING : 06/08/2017 13.45.19 DOCTOR: Vadim Sen Interpretating Date/Time 07/21/2017 12:46:14
--- NOTE | 2017-07-21 15:33 | RADRPT ---
EXAM DATE/TIME: 07/21/2017 14:55 [facility] COMPARISON: KNEE LEFT COMPLETE (4VWS), July 21, 2017, 14:54. INDICATIONS : Pain entire knee MEDICAL HISTORY : Hypercholesterolemia. Hypertension Carcinoma, breast. Diabetes SURGICAL HISTORY : Total knee left ENCOUNTER: Subsequent ACUITY: 3 weeks PAIN SCORE: 5/10 LOCATION: Right Knee FINDINGS: The examination demonstrates severe tricompartmental osteoarthritis with a large joint effusion. No a cute fracture is seen. CONCLUSION: 1. 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 Michael Silveira MD on July 21, 2017 at 15:30 Board Certified Radiologist. This report was verified electronically.
--- NOTE | 2017-07-21 15:39 | RADRPT ---
EXAM DATE/TIME: 07/21/2017 14:54 [facility] COMPARISON: KNEE LEFT COMPLETE (4VWS), June 13, 2017, 14:49. INDICATIONS : Pain entire knee MEDICAL HISTORY : Hypercholesterolemia. Hypertension Carcinoma, breast. Diabetes SURGICAL HISTORY : Knee surgery ENCOUNTER: Subsequent ACUITY: 1 month PAIN SCORE: 5/10 LOCATION: Left Knee FINDINGS: Four view examination of the left knee demonstrates no evidence of fracture or dislocation. Bony min eralization is normal. The articular surfaces are intact. The suprapatellar soft tissues have a nor mal configuration. CONCLUSION: Status total knee arthroplasty. Herminio Silveira MD FACR on July 21, 2017 at 15:37 Board Certified Radiologist. This report was verified electronically.
[2017-07-21] MEDS: traZODone HCL 100 MG TAB PO PRN (22:17)
[2017-07-21] MEDS: ATORVASTATIN 40 MG TAB PO SCH (22:19)
[2017-07-22] VITALS (12 sets, daily range): BP systolic 112–145; BP diastolic 51–63; PULSE 73–96; RESP 16–18; TEMP 97.6–99.1; O2SAT 96–98
[2017-07-22] MEDS ORDERED: cefTRIAXone INJ 1,000 MG in SODIUM CHLORIDE 0.9% INJ 100 ML IV SCH ×2
[2017-07-22] MEDS: SODIUM CHLOR 0.45% 1000 ML INJ 1,000 ML IV SCH ×2 (05:10→17:23)
[2017-07-22] MEDS: INSULIN NovoLIN REGULAR SUPPLEMENTAL SCALE SQ SCH ×4 (08:00→21:00)
[2017-07-22] MEDS: metFORMIN HCL 500 MG TAB PO SCH ×2 (08:13→17:23)
[2017-07-22] MEDS: NIFEdipine 60 MG SUSTAINED RELEASE TAB PO SCH (08:13)
[2017-07-22] MEDS: DOCUSATE SODIUM 50 MG/SENNA 8.6 MG TAB PO SCH ×2 (08:13→21:24)
[2017-07-22] MEDS: GABAPENTIN 300 MG CAP PO SCH ×3 (08:13→17:23)
[2017-07-22] MEDS: LISINOPRIL 20 MG TAB PO SCH (08:14)
[2017-07-22] MEDS: DULoxetine HCl DR 60 MG CAP PO SCH (08:14)
[2017-07-22] MEDS: SODIUM CHLORIDE 0.9% FLUSH 10 ML FLUSH IV FLUSH SCH ×2 (08:14→21:00)
--- NOTE | 2017-07-22 08:37 | HHI.PR ---
Subjective Remarks No new complaints today Pt reports that knee pain is improved today Objective Vitals Vital Signs Date Time Temp Pulse Resp B/P (MAP) Pulse Ox O2 Delivery O2 Flow Rate FiO2 07/22/17 08:19 2.00 07/22/17 07:53 97.7 75 16 145/61 (89) 97 07/22/17 00:58 97.6 91 16 133/55 (81) 97 07/22/17 00:11 96 07/21/17 22:14 95 Nasal Cannula 2.00 07/21/17 22:11 98.0 86 16 155/72 (99) 93 07/21/17 20:06 98 07/21/17 16:05 100 07/21/17 15:38 98.0 96 20 149/73 (98) 94 07/21/17 14:40 105 140/64 (89) 07/21/17 12:09 98.2 106 20 176/73 (107) 98 07/21/17 12:06 105 07/21/17 08:52 185/73 (110) 07/22/17 07/22/17 07/23/17 15:00 23:00 07:00 Intake Total 1250 ml Balance 1250 ml Intake Oral 250 ml IV Total 1000 ml # Voids 1 Result Diagram: 07/21/17 0655 07/21/17 0655 Other Results Laboratory Tests Test 07/20/17 21:42 07/20/17 22:30 07/21/17 06:55 White Blood Count 9.8 TH/MM3 8.1 TH/MM3 Red Blood Count 3.31 MIL/MM3 3.31 MIL/MM3 Hemoglobin 9.6 GM/DL 9.6 GM/DL Hematocrit 29.0 % 29.2 % Mean Corpuscular Volume 87.6 FL 88.2 FL Mean Corpuscular Hemoglobin 28.9 PG 29.0 PG Mean Corpuscular Hemoglobin Concent 33.0 % 32.8 % Red Cell Distribution Width 14.3 % 14.1 % Platelet Count 315 TH/MM3 338 TH/MM3 Mean Platelet Volume 8.0 FL 8.3 FL Neutrophils (%) (Auto) 73.9 % 69.7 % Lymphocytes (%) (Auto) 14.7 % 17.3 % Monocytes (%) (Auto) 8.5 % 8.9 % Eosinophils (%) (Auto) 2.0 % 2.8 % Basophils (%) (Auto) 0.9 % 1.3 % Neutrophils # (Auto) 7.2 TH/MM3 5.7 TH/MM3 Lymphocytes # (Auto) 1.4 TH/MM3 1.4 TH/MM3 Monocytes # (Auto) 0.8 TH/MM3 0.7 TH/MM3 Eosinophils # (Auto) 0.2 TH/MM3 0.2 TH/MM3 Basophils # (Auto) 0.1 TH/MM3 0.1 TH/MM3 CBC Comment DIFF FINAL DIFF FINAL Differential Comment Prothrombin Time 10.9 SEC Prothromb Time International Ratio 1.0 RATIO Activated Partial Thromboplast Time 26.2 SEC Blood Urea Nitrogen 13 MG/DL 14 MG/DL Creatinine 0.51 MG/DL 0.52 MG/DL Random Glucose 107 MG/DL 111 MG/DL Total Protein 6.6 GM/DL Albumin 2.8 GM/DL Calcium Level 9.0 MG/DL 8.8 MG/DL Magnesium Level 1.6 MG/DL Alkaline Phosphatase 97 U/L Aspartate Amino Transf (AST/SGOT) 20 U/L Alanine Aminotransferase (ALT/SGPT) 12 U/L Total Bilirubin 0.4 MG/DL Sodium Level 145 MEQ/L 144 MEQ/L Potassium Level 3.2 MEQ/L 3.4 MEQ/L Chloride Level 109 MEQ/L 108 MEQ/L Carbon Dioxide Level 26.7 MEQ/L 24.1 MEQ/L Anion Gap 9 MEQ/L 12 MEQ/L Estimat Glomerular Filtration Rate 121 ML/MIN 118 ML/MIN Lactic Acid Level 0.6 mmol/L Total Creatine Kinase 24 U/L Troponin I 0.02 NG/ML C-Reactive Protein LESS THAN 0.29 MG/DL B-Type Natriuretic Peptide 23 PG/ML Lipase 105 U/L Urine Color YELLOW Urine Turbidity HAZY Urine pH 6.0 Urine Specific [place] 1.024 Urine Protein 300 mg/dL Urine Glucose (UA) NEG mg/dL Urine Ketones 40 mg/dL Urine Occult Blood SMALL Urine Nitrite NEG Urine Bilirubin NEG Urine Urobilinogen 2.0 MG/DL Urine Leukocyte Esterase LARGE Urine RBC 15 /hpf Urine WBC 70 /hpf Urine Squamous Epithelial Cells 9 /hpf Urine Transitional Epithelial Cells 2 /hpf Urine Amorphous Sediment RARE Urine Bacteria MOD /hpf Urine Mucus FEW /lpf Microscopic Urinalysis Comment CULTURE INDICATED Imaging Last Impressions Knee X-Ray 07/21/17 0000 Signed Impressions: Service Date/Time: Friday, July 21, 2017 14:55 - CONCLUSION: 1. 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 Michael Silveira MD Chest X-Ray 07/20/172049 Signed Impressions: Service Date/Time: Thursday, July 20, 2017 21:41 - CONCLUSION: Goiter. Clear lungs. Jamari Araujo MD Objective Remarks General: NAD, AAOx3 Chest: CTA Cardiac: Regular Abd: +BS, soft ND/NT Ext: No significant pain with palpation of the LE today, right knee effusion A/P Problem List: (1) Generalized weakness ICD Codes: R53.1 - Weakness Status: Acute Plan: - Pt is a 67 y/o female with recurrent UTIs (ESBL E. coli, Klebsiella, Enterococcus), C. diff colitis, hypertension, diabetes mellitus, and hx of breast cancer who presents to the [facility] ED on 07/20/17 with a history of reportedly having increased lower extremity weakness and leg pain over the last few days. - The patient unfortunately is a poor historian and there is no family present to help with the history at the time. - Pt reported that over the last 4 days she's had dysuria with urinary frequency and her UA was abnormal. She was given Rocephin in the ED but pt has hx ESBL UTI. Pt has been afebrile with a normal WBC count at admission. We will hold on continuing the Rocephin at this time. - Urine culture is pending. - She also reported to the ED that 3 days prior to admission she's had diarrhea approximately 3 times per day and she has a hx of C. diff in 05/2017 - Check stools for C. diff, no BM since admission. - Blood cultures are pending. - Pt is on isolation - Pt complained yesterday of bilateral knee pain, X-Ray noted right knee arthritis and effusion. - Cont. IVF - PT evaluation - Supportive care - DVT prophylaxis with SCDs (2) Urinary tract infection ICD Codes: N39.0 - Urinary tract infection, site not specified Status: Chronic Plan: - See above (3) Diarrhea ICD Codes: R19.7 - Diarrhea, unspecified Status: Acute Plan: - See above. (4) Diabetes ICD Codes: E11.9 - Diabetes mellitus Status: Chronic Plan: - Metformin 500mg po BID has been resumed - NovoLog SSI (5) Hypertension ICD Codes: I10 - Hypertension Status: Chronic Plan: - Home meds resumed - BP improved today - Clonidine PRN - Vasotec PRN - Monitor closely (6) C. difficile colitis ICD Codes: A04.7 - Enterocolitis due to Clostridium difficile Status: Resolved Plan: - Recent hx of C. diff, completed treatment with Flagyl 500mg Q8H x 14 days - Check stools for C. diff Assessment and Plan Patient examined. Assessment and plan formulated with Sarai Boss PA-C. I agree with the above. Problem Qualifiers (1) Urinary tract infection: Qualified Codes: N39.0 - Urinary tract infection, site not specified (2) Diabetes: Sarai Boss Jul 22, 2017 08:37 Christopher Quevedo DO Jul 26, 2017 23:54
[2017-07-22 09:52] LABS: AUTOMATED NEUTROPHIL # 4.6 TH/MM3 (1.8-7.7); BASOPHIL # 0.1 TH/MM3 (0-0.2); BASOPHIL % 1.2 % (0.0-2.0); EOSINOPHIL # 0.3 TH/MM3 (0-0.4); EOSINOPHIL % 4.3 % (0.0-4.0); HEMATOCRIT 28.8 % (35.0-46.0); HEMO FLAGS DIFF FINAL; LYMPH % 20.5 % (9.0-44.0); LYMPHOCYTE # 1.5 TH/MM3 (1.0-4.8); MEAN CELL VOLUME 87.9 FL (80.0-100.0); MEAN CORPUSCULAR HEMOGLOBIN 28.6 PG (27.0-34.0); MEAN CORPUSCULAR HGB CONC 32.5 % (32.0-36.0); MONO % 9.1 % (0.0-8.0); NEUT % 64.9 % (16.0-70.0); PLATELET COUNT 303 TH/MM3 (150-450); RED BLOOD COUNT 3.28 MIL/MM3 (4.00-5.30); WHITE BLOOD COUNT 7.2 TH/MM3 (4.0-11.0)
[2017-07-22 10:18] LABS: MAGNESIUM 1.5 MG/DL (1.5-2.5); POTASSIUM 3.6 MEQ/L (3.5-5.1)
[2017-07-22] MEDS: traMADol HCL 50 MG TAB PO PRN (17:23)
[2017-07-22 20:07] LABS: C. DIFF EPI 027 PRESUMPTIVE NEGATIVE (NEGATIVE)
[2017-07-22] MEDS: ATORVASTATIN 40 MG TAB PO SCH (21:24)
[2017-07-22] MEDS: traZODone HCL 100 MG TAB PO PRN (21:29)
[2017-07-23] VITALS (10 sets, daily range): BP systolic 113–144; BP diastolic 58–83; PULSE 72–85; RESP 16–24; TEMP 97.4–98.8; O2SAT 95–99
[2017-07-23] MEDS: SODIUM CHLOR 0.45% 1000 ML INJ 1,000 ML IV SCH ×2 (07:39→08:39)
[2017-07-23] MEDS: INSULIN NovoLIN REGULAR SUPPLEMENTAL SCALE SQ SCH ×3 (07:52→17:00)
--- NOTE | 2017-07-23 08:37 | MB ---
cc: HOUSTON MILLER DATE OF CONSULTATION: 07/22/2017 REASON FOR CONSULTATION/CHIEF COMPLAINT Right knee pain and swelling. HISTORY OF PRESENT ILLNESS The patient is an 67-year-old white female who is in the emergency department for the past couple of days. She was brought to the emergency for increased lower extremity weakness and leg pain over the past few days. She has a very poor historian and has been unable to give specific details. However, she says that she thinks she had a fall a few days ago. She reported that she fell out of her care and that the "Traffic Sign Erection Supervisor helped her into the building". She states then had a second fall once in the building, she is unable to tell me what building she speaks about who where she was or was going. She apparently lives at home with her son who helps take care of her. She states that she has had right knee pain for some time now. However, it has gotten worse over the past few days. She denies any numbness, tingling or radiation symptoms. She reports swelling. She states she has a history of total knee replacement in the left knee. She states she has not been treated for her right knee with any anti-inflammatories or any injections. REVIEW OF SYSTEMS Negative except HPI. PAST MEDICAL HISTORY: 1. Positive medical history for hypertension 2. Recurrent UTI with urosepsis. 3. Depression. 4. Anxiety. Postherpetic neuralgia. 5. Hyperlipidemia. 6. Breast cancer 7. Degenerative disk disease of lumbar spine. 8. Ventral hernia. 9. Parotid tumor. 10. Osteoarthritis. PAST SURGICAL HISTORY: Positive for 1. Left breast lumpectomy 2. Lumbar microdiskectomy 3. Laminectomy 4. L3-L4 fusion 5. Left knee replacement 6. Cholecystectomy. 7. Exploratory laparotomy with repair of ventral hernia. 8. Left parotid tumor excision MEDICATIONS: Reported medications are; 1. Neurontin 2. Flagyl 3. Lisinopril 4. Trazodone 5. Nifedipine 6. Cymbalta 7. Metformin 8. Lipitor ALLERGIES Positive allergies to; SULFA ALLOPURINOL ASPIRIN BUTALBITAL CAFFEINE MORPHINE CLONIDINE FAMILY HISTORY: NONCONTRIBUTORY SOCIAL HISTORY: Retired lives with her adult son, denies tobacco or alcohol use. She typically uses a wheelchair at home but can get around with a walker. PHYSICAL EXAMINATION VITAL SIGNS: Temperature is 97.7, pulse 80, respiratory rate 18, blood pressure 145/59, O2 saturation 98 on room air. IN GENERAL: Well-developed, well-nourished 67-hour white female in no acute distress. HEAD: Normocephalic, atraumatic. EARS: Hearing intact bilaterally. EYES: Extraocular motions intact. Pupils equal and react to light. NEUROLOGIC: Cranial nerves II-XII are grossly intact. LUNGS: No use of accessory muscles while breathing. HEART: No grade 4 murmur present at bedside. MUSCULOSKELETAL: Right knee 1+ swelling of the right knee. She has exquisite pain with flexion and extension of the knee. There is noted crepitus with movement of the knee. She also has tenderness palpation of medial joint line as well as movement of the patella. She has crepitus with movement patella as well. She also has 1+ swelling of the lateral ankle. She has no pain with dorsiflexion, plantar flexion elbow has slight discomfort with palpation of the lateral ankle. She does have full sensation distally. She has no pain with internal, external rotation of the hip. Left knee previously healed surgical incision from a total knee replacement no pain with movement of the hip, knee, ankle or toes. Full sensation distally. IMAGING STUDIES X-ray exam of the right knee was reviewed which shows significant evidence of progression of loss tricompartmental osteoarthritis of the right knee. Also shows arthritis of the patella for joint. The numerous osteophytes are present. X-ray examination of the left knee was reviewed which shows a well intact and in place left total knee replacement. ASSESSMENT Osteoarthritis flare-up of right knee. PLAN I believe at this point that most of her pain is coming from the osteoarthritis of her right knee. I would recommend that she be started on anti-inflammatories of some sort. I do recommend that while she is here she be sent to interventional radiology for a steroid injection a right knee. He had this could be beneficial for her. Recommend PT work with her to get her ambulating and get her bending the knee. This can be dealt with on an outpatient basis. She can follow up with orthopedics in a few weeks after discharge. The patient understood and all questions were answered and the above patient was reviewed and discussed with Dr. Miller and he agrees the above dictation. DICTATED BY: LLOYD Galloway I reviewed History, past medical history, social history, review of systems, physical exam, radiographs, assessment, and plan. Plan on nonoperative treatment. A mid-level provider in my office (nurse practitioner or physician stores assistant) may see this patient on follow-up visits and continue to implement the objectives of this plan including: Starting or adjusting medications, injections, cast application, orthotics, brace application, physical therapy, radiological studies (including x-ray, MRI, CT, ultrasound, bone scan), vascular studies, neurologic studies, specialist consultation, and proceeding with surgical management, as appropriate. Houston MD FRANCESCA Lopez/yaneli /5:03 PM /8:32 AM CHRISTIANO
[2017-07-23] MEDS: SODIUM CHLORIDE 0.9% FLUSH 10 ML FLUSH IV FLUSH SCH ×2 (08:48→20:20)
[2017-07-23] MEDS: DOCUSATE SODIUM 50 MG/SENNA 8.6 MG TAB PO SCH ×2 (09:00→20:20)
[2017-07-23] MEDS: GABAPENTIN 300 MG CAP PO SCH ×3 (09:16→18:00)
[2017-07-23] MEDS: DULoxetine HCl DR 60 MG CAP PO SCH (09:17)
[2017-07-23] MEDS: metFORMIN HCL 500 MG TAB PO SCH ×2 (09:17→18:00)
[2017-07-23] MEDS: LISINOPRIL 20 MG TAB PO SCH (09:17)
[2017-07-23] MEDS: NIFEdipine 60 MG SUSTAINED RELEASE TAB PO SCH (09:29)
[2017-07-23] MEDS ORDERED: ROPIVACAINE 1% PF INJ 20 ML AMP ONE (11:10)
[2017-07-23] MEDS ORDERED: TRIAMCINOLONE ACETONIDE 40 MG/ML VIAL ONE (11:10)
--- NOTE | 2017-07-23 12:13 | RADRPT ---
EXAM DATE/TIME: 07/23/2017 11:19 [facility] COMPARISON: No previous studies available for comparison.8 INDICATIONS : Patient presents with swelling and pain in right knee, in need of aspiration and injection. MEDICAL HISTORY : Hypercholesterolemia. Hypertension Carcinoma, breast. Diabetes SURGICAL HISTORY : Left breast lumpectomy Lumbar microdiskectomy Laminectomy L3-L4 fusion Left knee replacement Cholecystectomy Exploratory laparotomy with repair of ventral hernia Left parotid tumor excision ENCOUNTER: Initial ACUITY: 3 days PAIN SCORE: 5/10 LOCATION: Right knee FLUORO TIME: 0.3 minutes IMAGE SERIES: 1 CONTRAST: 0.5cc Visipaque (iodixanol) was placed into the knee joint MEDICATIONS: 1.) 1 cc triamcinolone (Kenalog) 2.) 4 cc ropivacaine (Naropin) 3.) 4 cc Lidocaine RESPONSE: Pre procedure pain level was 5/10. Post procedure pain level was 5/10. FLUID: Total volume of 12 cc of cloudy, red fluid was removed. PROCEDURE : The risks, benefits and alternatives to the procedure were explained and verbal and written consent w as obtained. The site was prepped in sterile fashion. Full sterile technique was used, including ca p, mask, sterile gloves and gown and a large sterile sheet. Hand hygiene and 2% chlorhexidine and/or betadine/alcohol prep was utilized per protocol for cutaneous antisepsis. The skin and subcutaneous tissues were infiltrated with local anesthetic solution. Under sterile conditions and using aseptic technique with fluoroscopic guidance the joint was punctur ed and positive contrast was injected to confirm intra-articular position. Following this, the presc ribed mixture of Kenalog and local anesthetics was injected. The patient tolerated the procedure wel l and there were no complications. CONCLUSION: Uncomplicated therapeutic injection performed under fluoroscopic guidance. Vadim Santos MD on July 23, 2017 at 12:11 Board Certified Radiologist. This report was verified electronically.
--- NOTE | 2017-07-23 12:16 | PD.RAD ---
Post Procedure Progress Note Pre Procedure Diagnosis: (1) Contusion of left knee, initial encounter Post Procedure Diagnosis: (1) Contusion of right knee, initial encounter Procedure Date: Jul 23, 2017 Supervising Radiologist: Vadim Santos Proceduralist/Assist: RT Gerardo(R) Anesthesia: Local Plan of Activity Patient to Unit: Nursing Unit Patient Condition: Good See PACS Report for procedural detail/treatment Drainage Procedure Procedure 1 Imaging Guidance: Fluoroscopy Procedure Type: Aspiration (right knee with injection) Fluid Description: Clear, Bloody Vadim Santos MD Jul 23, 2017 12:16
[2017-07-23] MEDS: traMADol HCL 50 MG TAB PO PRN (17:06)
[2017-07-23] MEDS ORDERED: TRAZ100T6 PO (17:29)
--- NOTE | 2017-07-23 17:42 | HHI.DS ---
Discharge Summary Admission Date Jul 20, 2017 at 23:43 Discharge Date: Jul 23, 2017 Admitting Diagnosis Generalized weakness, UTI (1) Knee effusion, right Diagnosis: Principal ICD Codes: M25.461 - Effusion, right knee (2) Generalized weakness Diagnosis: Principal ICD Codes: R53.1 - Weakness Status: Acute (3) Diarrhea Diagnosis: Secondary ICD Codes: R19.7 - Diarrhea, unspecified Status: Acute (4) Diabetes Diagnosis: Secondary ICD Codes: E11.9 - Diabetes mellitus Status: Chronic (5) Hypertension Diagnosis: Secondary ICD Codes: I10 - Hypertension Status: Chronic (6) C. difficile colitis Diagnosis: Secondary ICD Codes: A04.7 - Enterocolitis due to Clostridium difficile Status: Resolved Consultants Dr. Houston Miller, Orthopedic Surgeon Brief History Ms. Wilson is a pleasant 67 y/o female with recurrent UTIs (ESBL E. coli, Klebsiella, Enterococcus), hypertension, diabetes mellitus, and hx of breast cancer who presents to the [facility] ED on 07/20/17 with a history of reportedly having increased lower extremity weakness and leg pain over the last few days. The patient unfortunately is a poor historian and there is no family present to help with the history at the time. The majority of the history was obtained from the ER records and previous hospitalization records. The patient resides at home and her son, Boris, has been caring for her primarily. The patient was previously admitted at the end of May related to generalized weakness and at that time it was recommended that she go to rehabilitation at a assisted facility to increase her strength, however she refused. At that time the patient was diagnosed with C. difficile colitis. She reports that she did complete her full course of Flagyl. She reports that over the last 4 days she' s had dysuria with urinary frequency. She reports that over the last 3 days she 's had diarrhea approximately 3 times per day. She denies having any blood in her stool or black or tarry stools. The patient reports having dyspnea on exertion which is chronic. She also reports having chronic lower extremity weakness although she reports feeling more weak than usual. Her only complaint currently is that she is cold. There has been no documented fevers overnight. CBC/BMP: 07/22/17 0920 07/22/17 0920 Significant Findings Laboratory Tests Test 07/20/17 21:42 07/20/17 22:30 07/21/17 06:55 07/22/17 09:20 Red Blood Count 3.31 MIL/MM3 (4.00-5.30) 3.31 MIL/MM3 (4.00-5.30) 3.28 MIL/MM3 (4.00-5.30) Hemoglobin 9.6 GM/DL (11.6-15.3) 9.6 GM/DL (11.6-15.3) 9.4 GM/DL (11.6-15.3) Hematocrit 29.0 % (35.0-46.0) 29.2 % (35.0-46.0) 28.8 % (35.0-46.0) Neutrophils (%) (Auto) 73.9 % (16.0-70.0) Monocytes (%) (Auto) 8.5 % (0.0-8.0) 8.9 % (0.0-8.0) 9.1 % (0.0-8.0) Random Glucose 107 MG/DL (74-106) 111 MG/DL (74-106) 117 MG/DL (74-106) Albumin 2.8 GM/DL (3.4-5.0) Potassium Level 3.2 MEQ/L (3.5-5.1) 3.4 MEQ/L (3.5-5.1) Chloride Level 109 MEQ/L (98-107) 108 MEQ/L (98-107) Total Creatine Kinase 24 U/L (26-192) Urine Turbidity HAZY (CLEAR) Urine Protein 300 mg/dL (NEG-TRACE) Urine Ketones 40 mg/dL (NEG) Urine Occult Blood SMALL (NEG) Urine Leukocyte Esterase LARGE (NEG) Urine RBC 15 /hpf (0-3) Urine WBC 70 /hpf (0-5) Urine Bacteria MOD /hpf (NONE) Urine Mucus FEW /lpf (OCC) Eosinophils (%) (Auto) 4.3 % (0.0-4.0) Estimat Glomerular Filtration Rate 87 ML/MIN (>89) Test 07/22/17 16:37 Stool C. difficile Toxin (PCR) POSITIVE (NEGATIVE) PE at Discharge General: NAD, AAOx3 Chest: CTA Cardiac: Regular Abd: +BS, soft ND/NT Ext: No significant pain with palpation of the LE today, right knee effusion Hospital Course (1) Generalized weakness ICD Codes: R53.1 - Weakness Status: Acute Plan: - Pt is a 67 y/o female with recurrent UTIs (ESBL E. coli, Klebsiella, Enterococcus), C. diff colitis, hypertension, diabetes mellitus, and hx of breast cancer who presents to the [facility] ED on 07/20/17 with a history of reportedly having increased lower extremity weakness and leg pain over the last few days. - The patient unfortunately is a poor historian and there is no family present to help with the history at the time. - Pt reported that over the last 4 days she's had dysuria with urinary frequency and her UA was abnormal. She was given Rocephin in the ED but pt has hx ESBL UTI. Pt has been afebrile with a normal WBC count at admission. We will hold on continuing the Rocephin at this time. - Urine culture (07/20/17) --> 50-100K mixed kelvin - She also reported to the ED that 3 days prior to admission she's had diarrhea approximately 3 times per day and she has a hx of C. diff in 05/2017 - Pt recently completed a course of treatment for C.Dif Colitis. Did not have continued diarrhea during hospitalization - Blood cultures (07/20/17) --> 1/4 bottles, likely contaminant - Pt complained yesterday of bilateral knee pain, X-Ray noted right knee arthritis and effusion. - Pt underwent right knee arthrocentesis with IR (07/23/17) - discharge to SNF for continued rehabilitation and physical therapy - I have taken care of Ms. Wilson several times this year. - overall pt seems to be in decline d/t age, multiple medical problems, and recently C. Dif colitis - Pt has generalized weakness and SNF for pt/rehabilitation will be important - Pt is at high risk of readmission. (2) Urinary tract infection ICD Codes: N39.0 - Urinary tract infection, site not specified Status: Chronic Plan: - See above (3) Diarrhea ICD Codes: R19.7 - Diarrhea, unspecified Status: Acute Plan: - See above. (4) Diabetes ICD Codes: E11.9 - Diabetes mellitus Status: Chronic Plan: - Metformin 500mg po BID has been resumed - NovoLog SSI (5) Hypertension ICD Codes: I10 - Hypertension Status: Chronic Plan: - Home meds resumed - BP improved today - Clonidine PRN - Vasotec PRN - Monitor closely (6) C. difficile colitis ICD Codes: A04.7 - Enterocolitis due to Clostridium difficile Status: Resolved Plan: - Recent hx of C. diff, completed treatment with Flagyl 500mg Q8H x 14 days - Check stools for C. diff Pt Condition on Discharge: Stable Discharge Disposition: Discharge to SNF Discharge Instructions DIET: Follow Instructions for: Heart Healthy Diet Activities you can perform: Weight Bearing as Juan F Follow up Referrals: PCP Follow-up - [address] Eulalio Betts f/u with Dr. Eulalio Betts, in 1 week, after discharge from SNF Continued Medications: Atorvastatin (Lipitor) 40 Mg Tab 40 MG PO HS for Cholesterol Management, #30 TAB [address] (Cymbalta DR) 60 Mg Capdr 60 MG PO DAILY, #30 CAP 0 Refills Gabapentin (Neurontin) 300 Mg Cap 300 MG PO TID for nerve pain, #90 CAP Lisinopril (Lisinopril) 20 Mg Tab 20 MG PO DAILY, #30 TAB 0 Refills hold for SBP below 120 Metformin (Metformin) 500 Mg Tab 500 MG PO BID for Blood Sugar Management, #60 TAB 0 Refills With meals Nifedipine ER 24 HR (Nifedipine ER 24 HR) 60 Mg Tab 60 MG PO DAILY, #30 TAB 0 Refills Trazodone (Trazodone) 100 Mg Tablet 100 MG PO HS PRN for INSOMNIA, #30 TAB 0 Refills (This prescription has been renewed) Discontinued Medications: Metronidazole (Flagyl) 500 Mg Tab 500 MG PO Q8HR for C Diff, #27 TAB Christopher Quevedo DO Jul 23, 2017 17:42
[2017-07-23] MEDS: ATORVASTATIN 40 MG TAB PO SCH (20:19)
[2017-07-23] MEDS: traZODone HCL 100 MG TAB PO PRN (20:19)
== END 2017-07-23 21:07 ==
LOC: NEPC 16:14 → NEDA 23:43 → NEPFCDU 07-21 01:54
PROVIDERS: ADMIT Hospitalist; ATTEND Hospitalist
DX: R53.1 Weakness (principal); N39.0 Urinary tract infection, site not specified; A04.72 Enterocolitis due to Clostridium difficile, not specified as recurrent; M25.561 Pain in right knee; M25.461 Effusion, right knee; E87.6 Hypokalemia; R19.7 Diarrhea, unspecified; M79.606 Pain in leg, unspecified; I10 Essential (primary) hypertension; E11.9 Type 2 diabetes mellitus without complications; R06.09 Other forms of dyspnea; E78.00 Pure hypercholesterolemia, unspecified; M51.36 Other intervertebral disc degeneration, lumbar region; F41.9 Anxiety disorder, unspecified; F32.9 Major depressive disorder, single episode, unspecified; E04.9 Nontoxic goiter, unspecified; M17.11 Unilateral primary osteoarthritis, right knee; Z98.1 Arthrodesis status; M48.00 Spinal stenosis, site unspecified; Z86.73 Personal history of transient ischemic attack (TIA), and cerebral infarction without residual deficits; Z85.3 Personal history of malignant neoplasm of breast; Z79.899 Other long term (current) drug therapy; Z79.84 Long term (current) use of oral hypoglycemic drugs; Z96.652 Presence of left artificial knee joint
CPT/HCPCS: 20610; 71010; 73564; 77002; 80048; 80053; 81001; 82550; 82948; 83605; 83690; 83735; 83880; 84484; 85025; 85610; 85730; 86140; 86403; 87040; 87077; 87086; 87186; 87205; 87493; 93005; 96361; 96365; 96375; 96376; 99285; G0378; G8987-GP; G8988-GP; J0696; J2795; J3301; P9612

== ENCOUNTER 2017-11-04 08:27 | Inpatient (IN) | payer MEDICARE ==
[~2017-11-04] VITALS: Ht 162.6 cm; Wt 74.5 kg
[~2017-11-04 08:27] MED LIST changes: -METR-1 PO; +TRAZ100T10 PO; -TRAZ100T6 PO
[2017-11-04] MEDS ORDERED: SODIUM CHLOR 0.9% 1000 ML INJ 1,000 ML IV SCH (08:38)
--- NOTE | 2017-11-04 08:44 | PD ---
HPI Chief Complaint: Abdominal Pain Time Seen by Provider: 08:38 Travel History International Travel<30 days: No Contact w/Intl Traveler<30days: No Traveled to known affect area: No History of Present Illness HPI 67-year-old female patient with history of DVT, diabetes, UTI currently on antibiotics for 1 week, has an indwelling Lopez catheter which the family states has not been working well, has had leakage around the catheter site, end presents to the ER today centered by home health care in family because of lower abdominal discomfort, not feeling well. She states that she has been having a lot of problems with her catheter area, feels a lot of discomfort since they had problems putting in the catheter last time. She has not had any fevers, vomiting, chest pains, or other issues. Modifying Factors: None Associated Signs & Symptoms: Abdominal discomfort, discomfort around the catheter area, not feeling well Risk Factors: UTI recently, Lopez PFSH Past Medical History Arthritis: Yes Asthma: No (unable to assess) Autoimmune Disease: No Blood Disorders: No (unable to assess) Anxiety: Yes (unable to assess) Depression: Yes (unable to assess) Heart Rhythm Problems: No (unable to assess) Cancer: Yes (LEFT BREAST and left neck) Cardiovascular Problems: No (unable to assess) High Cholesterol: Yes (unable to assess) Chemotherapy: Yes (2008) Chest Pain: No (unable to assess) Congestive Heart Failure: No (unable to assess) COPD: No (unable to assess) Cerebrovascular Accident: Yes (2014) Diabetes: Yes (unable to assess) Diminished Hearing: No Endocrine: Yes (unable to assess) GERD: No Glaucoma: No Genitourinary: Yes (unable to assess) Headaches: Yes Hepatitis: No Hiatal Hernia: No Herniated Disk: Yes Hypertension: Yes Immune Disorder: No (unable to assess) Kidney Stones: No Musculoskeletal: Yes (SPINAL STENOSIS) Neurologic: Yes (unable to assess) Psychiatric: No (unable to assess) Reproductive: No (unable to assess) Respiratory: No (unable to assess) Migraines: Yes Myocardial Infarction: No Radiation Therapy: Yes (unable to assess) Renal Failure: No Seizures: No Sleep Apnea: No (unable to assess) Thyroid Disease: Yes (unable to assess) Ulcer: No PNEUMOCCOCAL Vaccine (Year): 1 ?: Not Menopausal: Yes Past Surgical History Abdominal Surgery: Yes (CHOLECYSTECTOMY) Arteriovenous Shunt: No Body Medical Devices: unable to assess Section: Yes Cholecystectomy: Yes Ear Surgery: No Eye Surgery: No Gynecologic Surgery: Yes (C SECTION) Insulin Pump: No Joint Replacement: Yes (LT KNEE 11/2004) Oral Surgery: No Pacemaker: No Thoracic Surgery: Yes (LEFT BREAST BX/LUMPECTOMY) Other Surgery: Yes (LEFT KNEE REPLACEMENT, LEFT LUMPECTOMY/MASTECTOMY) Social History Alcohol Use: No Tobacco Use: No Allergies-Medications (Allergen,Severity, Reaction): Coded Allergies: Sulfa (Sulfonamide Antibiotics) (Unverified Allergy, Severe, HIVES, ) allopurinol (Unverified Allergy, Severe, Hives, 07/20/17) aspirin (Unverified Allergy, Severe, Hallucinations, 07/20/17) butalbital (Unverified Allergy, Severe, Hallucinations, 07/20/17) caffeine (Unverified Allergy, Severe, Hallucinations, 07/20/17) morphine (Unverified Adverse Reaction, Severe, SHAKING, HEADACHE, 07/20/17) clonidine (Unverified Adverse Reaction, Mild, LETHARGY,SHAKING, 07/21/17) PER Reported Meds & Prescriptions Reported Meds & Active Scripts Active Trazodone (Trazodone HCl) 100 Mg Tablet 100 Mg PO HS PRN Neurontin (Gabapentin) 300 Mg Cap 300 Mg PO TID Lisinopril 20 Mg Tab 20 Mg PO DAILY hold for SBP below 120 Reported Nifedipine ER 24 HR (Nifedipine) 60 Mg Tab 60 Mg PO DAILY Cymbalta DR (Duloxetine HCl) 60 Mg Capdr 60 Mg PO DAILY Metformin (Metformin HCl) 500 Mg Tab 500 Mg PO BID With meals Lipitor (Atorvastatin Calcium) 40 Mg Tab 40 Mg PO HS Review of Systems Except as stated in HPI: all other systems reviewed are Neg Physical Exam Narrative GENERAL: Well-developed elderly white female patient in mild distress. Awake an oriented 3. Bedbound. SKIN: Focused skin assessment warm/dry. There is not notable sacral area first- degree decubitus ulcers. There is no notable ecchymosis of the left heel. HEAD: Atraumatic. Normocephalic. EYES: Pupils equal and round. No scleral icterus. No injection or drainage. ENT: No nasal bleeding or discharge. Mucous membranes pink and moist. NECK: Trachea midline. No JVD. Supple. CARDIOVASCULAR: Regular rate and rhythm. No murmur appreciated. RESPIRATORY: No accessory muscle use. Clear to auscultation. Breath sounds equal bilaterally. GASTROINTESTINAL: Abdomen soft, mild suprapubic tenderness without guarding or rebound r, nondistended. Hepatic and splenic margins not palpable. MUSCULOSKELETAL: No obvious deformities. No clubbing. No cyanosis. No edema. NEUROLOGICAL: Awake and alert. No obvious cranial nerve deficits. Motor grossly within normal limits. Normal speech. PSYCHIATRIC: Appropriate mood and affect; insight and judgment normal. Data Data Last Documented VS Vital Signs Date Time Temp Pulse Resp B/P (MAP) Pulse Ox O2 Delivery O2 Flow Rate FiO2 11/04/17 08:54 98.9 84 19 195/88 (123) 99 Room Air Orders Orders Complete Blood Count With Diff (11/04/17 08:38) Comprehensive Metabolic Panel (11/04/17 08:38) Urinalysis - C+S If Indicated (11/04/17 08:38) Iv Access Insert/Monitor (11/04/17 08:38) Ecg Monitoring (11/04/17 08:38) Oximetry (11/04/17 08:38) Sodium Chlor 0.9% 1000 Ml Inj (Ns 1000 M (11/04/17 08:38) Sodium Chloride 0.9% Flush (Ns Flush) (11/04/17 08:45) Urinary Catheter Insert/Apply (11/04/17 08:38) Blood Culture (11/04/17 08:38) Lactic Acid Sepsis Protocol (11/04/17 08:45) Acetamin-Hydrocod 325-5 Mg ([place] 5-325 (11/04/17 09:30) Urine Culture (11/04/17 09:30) Urinary Catheter - Remove (11/04/17 10:02) Piperacil-Tazo 4.5 Gm Premix (Zosyn 4.5 (11/04/17 10:10) Vancomycin Inj (Vancomycin Inj) (11/04/17 10:10) Labs Laboratory Tests Test 11/04/17 09:00 11/04/17 09:30 White Blood Count 10.5 TH/MM3 Red Blood Count 3.70 MIL/MM3 Hemoglobin 10.3 GM/DL Hematocrit 31.4 % Mean Corpuscular Volume 85.0 FL Mean Corpuscular Hemoglobin 27.8 PG Mean Corpuscular Hemoglobin Concent 32.7 % Red Cell Distribution Width 14.6 % Platelet Count 410 TH/MM3 Mean Platelet Volume 7.1 FL Neutrophils (%) (Auto) 69.5 % Lymphocytes (%) (Auto) 20.9 % Monocytes (%) (Auto) 5.5 % Eosinophils (%) (Auto) 3.3 % Basophils (%) (Auto) 0.8 % Neutrophils # (Auto) 7.3 TH/MM3 Lymphocytes # (Auto) 2.2 TH/MM3 Monocytes # (Auto) 0.6 TH/MM3 Eosinophils # (Auto) 0.3 TH/MM3 Basophils # (Auto) 0.1 TH/MM3 CBC Comment DIFF FINAL Differential Comment Blood Urea Nitrogen 19 MG/DL Creatinine 0.76 MG/DL Random Glucose 98 MG/DL Total Protein 7.6 GM/DL Albumin 2.9 GM/DL Calcium Level 9.7 MG/DL Alkaline Phosphatase 81 U/L Aspartate Amino Transf (AST/SGOT) 10 U/L Alanine Aminotransferase (ALT/SGPT) 8 U/L Total Bilirubin 0.4 MG/DL Sodium Level 141 MEQ/L Potassium Level 4.0 MEQ/L Chloride Level 105 MEQ/L Carbon Dioxide Level 24.6 MEQ/L Anion Gap 11 MEQ/L Estimat Glomerular Filtration Rate 76 ML/MIN Lactic Acid Level 3.8 mmol/L Urine Color YELLOW Urine Turbidity HAZY Urine pH 7.0 Urine Specific [place] 1.017 Urine Protein 300 mg/dL Urine Glucose (UA) NEG mg/dL Urine Ketones 10 mg/dL Urine Occult Blood TRACE Urine Nitrite NEG Urine Bilirubin NEG Urine Urobilinogen LESS THAN 2.0 MG/DL Urine Leukocyte Esterase MOD Urine RBC 9 /hpf Urine WBC 130 /hpf Urine Squamous Epithelial Cells 1 /hpf Microscopic Urinalysis Comment CULTURE INDICATED MDM Medical Decision Making Medical Screen Exam Complete: Yes Emergency Medical Condition: Yes Medical Record Reviewed: Yes Interpretation(s) Laboratory Tests Test 11/04/17 09:00 11/04/17 09:30 Red Blood Count 3.70 MIL/MM3 (4.00-5.30) Hemoglobin 10.3 GM/DL (11.6-15.3) Hematocrit 31.4 % (35.0-46.0) Blood Urea Nitrogen 19 MG/DL (7-18) Albumin 2.9 GM/DL (3.4-5.0) Aspartate Amino Transf (AST/SGOT) 10 U/L (15-37) Alanine Aminotransferase (ALT/SGPT) 8 U/L (10-53) Estimat Glomerular Filtration Rate 76 ML/MIN (>89) Lactic Acid Level 3.8 mmol/L (0.4-2.0) Urine Turbidity HAZY (CLEAR) Urine Protein 300 mg/dL (NEG-TRACE) Urine Ketones 10 mg/dL (NEG) Urine Occult Blood TRACE (NEG) Urine Leukocyte Esterase MOD (NEG) Urine RBC 9 /hpf (0-3) Urine WBC 130 /hpf (0-5) Differential Diagnosis Abdominal discomfort, not feeling well: UTI versus sepsis versus dehydration versus metabolic issues Narrative Course Abdomen severely soft nontender except around the suprapubic area. There his notable skin breakdown around the genital area in sacral areas. Considering that the catheter has been leaking, a catheter change it was done in the ER. It is not draining well. However, the patient states that she feels a lot of discomfort in would like the catheter removed aunt catheter was not removed per patient request. At this point, she has been doing poorly on p.o. antibiotics at home in my plan would be to start her on IV antibiotics. Her lactate as elevated as well and my plan would be to admit her for further treatment. Cases discussed with Dr. Bravo for admission. Diagnosis Primary Impression: UTI (lower urinary tract infection) Additional Impression: Sepsis Admitting Information Admitting Physician Requests: Admit Greg Meneses MD Nov 04, 2017 08:44
[2017-11-04] MEDS ORDERED: SODIUM CHLORIDE 0.9% FLUSH 10 ML FLUSH IV FLUSH PRN (08:45)
[2017-11-04 08:53] VITALS: O2SAT 98
[2017-11-04 08:54] VITALS: BP 195/88; PULSE 84; RESP 19; TEMP 98.9; O2SAT 99
[2017-11-04 09:21] LABS: AUTOMATED NEUTROPHIL # 7.3 TH/MM3 (1.8-7.7); BASOPHIL # 0.1 TH/MM3 (0-0.2); BASOPHIL % 0.8 % (0.0-2.0); EOSINOPHIL # 0.3 TH/MM3 (0-0.4); EOSINOPHIL % 3.3 % (0.0-4.0); HEMATOCRIT 31.4 % (35.0-46.0); HEMOGLOBIN 10.3 GM/DL (11.6-15.3); LYMPH % 20.9 % (9.0-44.0); LYMPHOCYTE # 2.2 TH/MM3 (1.0-4.8); MEAN CORPUSCULAR HEMOGLOBIN 27.8 PG (27.0-34.0); MEAN CORPUSCULAR HGB CONC 32.7 % (32.0-36.0); MEAN PLATELET VOLUME 7.1 FL (7.0-11.0); MONO % 5.5 % (0.0-8.0); MONOCYTE # 0.6 TH/MM3 (0-0.9); NEUT % 69.5 % (16.0-70.0); PLATELET COUNT 410 TH/MM3 (150-450); RED CELL DISTRIBUTION WIDTH 14.6 % (11.6-17.2); WHITE BLOOD COUNT 10.5 TH/MM3 (4.0-11.0)
[2017-11-04] MEDS ORDERED: ACETAMINOPHEN/HYDROcodone 325 MG/5 MG TAB PO ONE (09:30)
[2017-11-04 09:33] LABS: LACTIC ACID SEPSIS PROTOCOL 3.8 mmol/L (0.4-2.0)
[2017-11-04 09:41] LABS: ALBUMIN 2.9 GM/DL (3.4-5.0); AST (GOT) 10 U/L (15-37); BICARBONATE 24.6 MEQ/L (21.0-32.0); BLOOD UREA NITROGEN 19 MG/DL (7-18); CALCIUM 9.7 MG/DL (8.5-10.1); CHLORIDE 105 MEQ/L (98-107); CREATININE 0.76 MG/DL (0.50-1.00); GLOMERULAR FILTRATION RATE 76 ML/MIN (>89); GLUCOSE,RANDOM 98 MG/DL (74-106); SODIUM (NA) 141 MEQ/L (136-145)
[2017-11-04 09:42] LABS: ALT (GPT) 8 U/L (10-53)
[2017-11-04 09:45] LABS: ALKALINE PHOSPHATASE 81 U/L (45-117); TOTAL BILIRUBIN ADULT 0.4 MG/DL (0.2-1.0); TOTAL PROTEIN 7.6 GM/DL (6.4-8.2)
[2017-11-04 09:49] LABS: BILIRUBIN, URINE NEG (NEG); BLOOD, URINE TRACE (NEG); GLUCOSE,URINE NEG (NEG); KETONE, URINE 10 mg/dL (NEG); NITRITE,URINE NEG (NEG); SQUAMOUS EPITHELIAL CELL URINE 1 /hpf (0-5); URINE COLOR YELLOW (YELLW/STRAW); URINE LEUKOCYTE ESTERASE MOD (NEG)
[2017-11-04] MEDS ORDERED: VANCOMYCIN INJ 1,000 MG in SODIUM CHLOR 0.9% 250 ML INJ 250 ML IV STA (10:10)
[2017-11-04] MEDS ORDERED: PIPERACIL-TAZO 4.5 GM PREMIX 100 ML IV STA (10:10)
--- NOTE | 2017-11-04 12:12 | HHI.HP ---
HPI Service [facility] Hospitalists Primary Care Physician Eulalio Betts DO Admission Diagnosis UTI/failed outpatient therapy/sepsis Chief Complaint: pubic pain Travel History International Travel<30 Days: No Contact w/Intl Traveler <30 Da: No Traveled to Known Affected Are: No History of Present Illness Ms. Wilson is a 67 y/o female with recurrent UTIs (ESBL E. coli, Klebsiella, Enterococcus), C diff, hypertension, diabetes mellitus, CVA and hx of breast cancer who presents to the [facility] ED The patient unfortunately is a poor historian. History was obtained from the patient, son at bedside and prior charting/records. Patient is currently being treated outpatient for UTI, currently on antibiotics for 1 week, patient had an indwelling Villalobos catheter. Per ER notes the family reported that the catheter has not been working well, has had leakage around the catheter site. Per ER note patient's family reports that patient had lower abdominal discomfort and has not feeling well. Patient reports that home docs placed a catheter last Friday due to nonhealing ulcers on buttocks. Patient's son reports that patient started having white leakage from vaginal area and was then started on abx, unsure of which abx. Patient reports that today starting around 6AM she began to have supra pubic pain. The villalobos catheter was exchanged in the ER, but patient continued to have pain and the villalobos was removed. Patient report that the pain has resolved since the villalobos was removed. Patient denies fevers, chills, N/V/D/C, shortness of breath or chest pain. Review of Systems ROS Limitations: Poor Historian Past Family Social History Past Medical History Hypertension Recurrent UTI with history of urosepsis Depression Anxiety Postherpetic neuralgia Hyperlipidemia Breast cancer Degenerative disc disease lumbar spine 2D echo (12/31/16) - Poor image quality - EF 65-70% - Poorly visualized aortic valve - Difficult to exclude bicuspid valve, no stenosis - Trace tricuspid regurgitation. 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 Past Surgical History Left breast lumpectomy Lumbar microdiscectomy Laminectomy L3-L4 fusion Left knee replacement Cholecystectomy Exploratory laparotomy with repair of ventral hernia in February 2017 Left parotid tumor excision at [facility] March 2017 Reported Medications Trazodone (Trazodone HCl) 100 Mg Tablet 100 Mg PO HS PRN Neurontin (Gabapentin) 300 Mg Cap 300 Mg PO TID Lisinopril 20 Mg Tab 20 Mg PO DAILY hold for SBP below 120 Nifedipine ER 24 HR (Nifedipine) 60 Mg Tab 60 Mg PO DAILY Edilma PEÑA (Duloxetine HCl) 60 Mg Capdr 60 Mg PO DAILY Metformin (Metformin HCl) 500 Mg Tab 500 Mg PO BID With meals Lipitor (Atorvastatin Calcium) 40 Mg Tab 40 Mg PO HS Allergies: Coded Allergies: Sulfa (Sulfonamide Antibiotics) (Unverified Allergy, Severe, HIVES, ) allopurinol (Unverified Allergy, Severe, Hives, 07/20/17) aspirin (Unverified Allergy, Severe, Hallucinations, 07/20/17) butalbital (Unverified Allergy, Severe, Hallucinations, 07/20/17) caffeine (Unverified Allergy, Severe, Hallucinations, 07/20/17) morphine (Unverified Adverse Reaction, Severe, SHAKING, HEADACHE, 07/20/17) clonidine (Unverified Adverse Reaction, Mild, LETHARGY,SHAKING, 07/21/17) PER Active Ordered Medications Current Medications Medications (Trade) Dose Ordered Sig/Lucretia Route Start Time Stop Time Status Last Admin (NS Flush) 2 ml UNSCH PRN IV FLUSH 11/04/17 08:45 11/04/17 09:48 Family History Father at 59 had cardiac disease Mother at 87 Social History Patient is retired and lives with her adult son No tobacco or alcohol use. 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 SKIN: left heel fluid filled blister present, 3 ulcerated areas on buttocks HEENT: Atraumatic. Normocephalic. No temporal or scalp tenderness. No scleral icterus. Airway patent. NECK: Trachea midline, supple, nontender. CARDIO: Regular. RESP: CTA bilaterally. No wheezes, rales, or rhonchi. ABD: +BS, soft, non-tender, nondistended. EXT: Extremities without clubbing, cyanosis, or edema. Left foot drop present NEURO: Awake. Alert and oriented to person, place and time. Poor Historian Laboratory Laboratory Tests Test 11/04/17 09:00 11/04/17 09:30 11/04/17 10:55 White Blood Count 10.5 Red Blood Count 3.70 Hemoglobin 10.3 Hematocrit 31.4 Mean Corpuscular Volume 85.0 Mean Corpuscular Hemoglobin 27.8 Mean Corpuscular Hemoglobin Concent 32.7 Red Cell Distribution Width 14.6 Platelet Count 410 Mean Platelet Volume 7.1 Neutrophils (%) (Auto) 69.5 Lymphocytes (%) (Auto) 20.9 Monocytes (%) (Auto) 5.5 Eosinophils (%) (Auto) 3.3 Basophils (%) (Auto) 0.8 Neutrophils # (Auto) 7.3 Lymphocytes # (Auto) 2.2 Monocytes # (Auto) 0.6 Eosinophils # (Auto) 0.3 Basophils # (Auto) 0.1 CBC Comment DIFF FINAL Differential Comment Blood Urea Nitrogen 19 Creatinine 0.76 Random Glucose 98 Total Protein 7.6 Albumin 2.9 Calcium Level 9.7 Alkaline Phosphatase 81 Aspartate Amino Transf (AST/SGOT) 10 Alanine Aminotransferase (ALT/SGPT) 8 Total Bilirubin 0.4 Sodium Level 141 Potassium Level 4.0 Chloride Level 105 Carbon Dioxide Level 24.6 Anion Gap 11 Estimat Glomerular Filtration Rate 76 Lactic Acid Level 3.8 2.9 Urine Color YELLOW Urine Turbidity HAZY Urine pH 7.0 Urine Specific [place] 1.017 Urine Protein 300 Urine Glucose (UA) NEG Urine Ketones 10 Urine Occult Blood TRACE Urine Nitrite NEG Urine Bilirubin NEG Urine Urobilinogen LESS THAN 2.0 Urine Leukocyte Esterase MOD Urine RBC 9 Urine WBC 130 Urine Squamous Epithelial Cells 1 Microscopic Urinalysis Comment CULTURE INDICATED Date/Time Source Procedure Growth Status 11/04/17 09:00 Blood Peripheral Aerobic Blood Culture Pending Received 11/04/17 09:00 Blood Peripheral Anaerobic Blood Culture Pending Received 11/04/17 09:30 Urine Clean Catch Urine Culture Pending Received Result Diagram: 11/04/17 0900 11/04/17 0900 Caprini VTE Risk Assessment Caprini VTE Risk Assessment: Mod/High Risk (score >= 2) Caprini Risk Assessment Model Point Value = 1 Point Value = 2 Point Value = 3 Point Value = 5 Age 41-60 Minor surgery BMI > 25 kg/m2 Swollen legs Varicose veins or History of unexplained or recurrent spontaneous Oral contraceptives or hormone replacement Sepsis (< 1 month) Serious lung disease, including pneumonia (< 1 month) Abnormal pulmonary function Acute myocardial infarction Congestive heart failure (< 1 month) History of inflammatory bowel disease Medical patient at bed rest Age 61-74 Arthroscopic surgery Major open surgery (> 45 min) Laparoscopic surgery (> 45 min) Malignancy Confined to bed (> 72 hours) Immobilizing plaster cast Central venous access Age >= 75 History of VTE Family history of VTE Factor V Leiden Prothrombin [id number] Lupus anticoagulant Anticardiolipin antibodies Elevated serum homocysteine Heparin-induced thrombocytopenia Other congenital or acquired thrombophilia Stroke (< 1 month) Elective arthroplasty Hip, pelvis, or leg fracture Acute spinal cord injury (< 1 month) Prophylaxis Regimen Total Risk Factor Score Risk Level Prophylaxis Regimen 0-1 Low Early ambulation 2 Moderate Order ONE of the following: *Sequential Compression Device (SCD) *Heparin 5000 units SQ BID 3-4 Higher Order ONE of the following medications: *Heparin 5000 units SQ TID *Enoxaparin/Lovenox 40 mg SQ daily (WT < 150 kg, CrCl > 30 mL/min) *Enoxaparin/Lovenox 30 mg SQ daily (WT < 150 kg, CrCl > 10-29 mL/min) *Enoxaparin/Lovenox 30 mg SQ BID (WT < 150 kg, CrCl > 30 mL/min) AND/OR *Sequential Compression Device (SCD) 5 or more Highest Order ONE of the following medications: *Heparin 5000 units SQ TID (Preferred with Epidurals) *Enoxaparin/Lovenox 40 mg SQ daily (WT < 150 kg, CrCl > 30 mL/min) *Enoxaparin/Lovenox 30 mg SQ daily (WT < 150 kg, CrCl > 10-29 mL/min) *Enoxaparin/Lovenox 30 mg SQ BID (WT < 150 kg, CrCl > 30 mL/min) AND *Sequential Compression Device (SCD) Assessment and Plan Problem List: (1) UTI (lower urinary tract infection) ICD Codes: N39.0 - Lower urinary tract infectious disease Status: Acute Plan: UTI - Pt is a 67 y/o female with recurrent UTIs (ESBL E. coli, Klebsiella, Enterococcus), C. diff colitis, hypertension, diabetes mellitus, and hx of breast cancer who presents to the [facility] ED today after being on outpatient antibiotics x 1 week. Patient and son report that home docs placed a catheter last Friday due to nonhealing sacral wounds. Patient's son reports that patient started having white leakage from vaginal area and was then started on abx, unsure of which abx. Patient reports that today starting around 6AM she began to have supra pubic pain. The villalobos catheter was exchanged in the ER, but patient continued to have pain and the villalobos was removed. Patient report that the pain has resolved since the villalobos was removed. - start oxybutynin 5 mg PO BID - Pt has hx of UTI (ESBL E. coli, Klebsiella, Enterococcus). Pt has been afebrile with a normal WBC count at admission. - Patient was given Zosyn and vancomycin in the ER - Patient has had C diff in the past and has been on abx x 1 week. Will await urine culture results for further abx dosing - Blood cultures drawn in the ED are pending - gentle IV hydration - PT evaluation - Supportive care - DVT prophylaxis with SCDs Decubitus ulcer x 3 Left heel ulcer pressure relief wound care consult Diabetes - NovoLog SSI Hypertension - Home meds resumed - BP was elevated in the ER. I have requested a recheck - Clonidine PRN - Vasotec PRN - Monitor closely DVT prophylaxis with heparin (2) Decubitus ulcer, buttock ICD Codes: L89.309 - Pressure ulcer of unspecified buttock, unspecified stage Assessment and Plan Patient examined. Assessment and plan formulated with Ana oSlis PA-C. I agree with the above. was given a villalobos at home due to 3 buttock decub ulcers had what sounds like bladder spasms, urine leakage and came to ED... ED felt she had severe uti. changed villalobos but still painful. admiitted. will hold off abx. do In/Out cath if needed to clarify if true infection. would like to avoid abx given hx c.diff. wound care Ana Lucas Nov 04, 2017 12:12 Jackson Bravo MD Nov 04, 2017 17:42
[2017-11-04] MEDS ORDERED: GLUCAGON 1 MG/ML VIAL OTHER PRN (13:45)
[2017-11-04] MEDS ORDERED: DEXTROSE 50% IN WATER 50 ML VIAL(D50) IV PUSH PRN (13:45)
[2017-11-04] MEDS ORDERED: LISI10TA3 PO (16:10)
[2017-11-04] MEDS ORDERED: GABA300C5 PO (16:10)
[2017-11-04] MEDS ORDERED: ENALAPRILAT 1.25 MG/ML VIAL IV PUSH PRN (16:15)
[2017-11-04] MEDS: INSULIN ASPART SUPPLEMENTAL SCALE SQ SCH ×2 (17:00→21:00)
[2017-11-04] MEDS: SODIUM CHLOR 0.9% 1000 ML INJ 1,000 ML IV SCH ×2 (17:49→21:50)
[2017-11-04 17:50] VITALS: BP 180/80; PULSE 93; RESP 20; TEMP 99; O2SAT 94
[2017-11-04] MEDS: cloNIDine HCL 0.1 MG TAB PO PRN (17:51)
[2017-11-04 21:00] VITALS: BP 148/65; PULSE 81; RESP 19; TEMP 97.8; O2SAT 96
[2017-11-04] MEDS ORDERED: GABAPENTIN 300 MG CAP PO SCH (21:00)
[2017-11-04] MEDS: HEPARIN SODIUM - SQ 10,000 UNITS/ML VIAL SQ SCH (21:48)
[2017-11-04] MEDS: OXYBUTYNIN CHLORIDE 5 MG TAB PO SCH (21:48)
[2017-11-04] MEDS: ATORVASTATIN 40 MG TAB PO SCH (21:49)
[2017-11-05] VITALS: BP 140/62; PULSE 80; RESP 19; TEMP 98.1; O2SAT 96
[2017-11-05 05:30] VITALS: BP 135/65; PULSE 86; RESP 19; TEMP 97.6; O2SAT 95
[2017-11-05] MEDS: HEPARIN SODIUM - SQ 10,000 UNITS/ML VIAL SQ SCH ×3 (06:07→23:13)
[2017-11-05 08:00] VITALS: BP 163/72; PULSE 71; RESP 18; TEMP 98; O2SAT 98
[2017-11-05] MEDS: INSULIN ASPART SUPPLEMENTAL SCALE SQ SCH ×4 (08:00→21:00)
[2017-11-05] MEDS: DULoxetine HCl DR 60 MG CAP PO SCH (09:14)
[2017-11-05] MEDS: OXYBUTYNIN CHLORIDE 5 MG TAB PO SCH ×2 (09:14→23:12)
[2017-11-05] MEDS: NIFEdipine 60 MG SUSTAINED RELEASE TAB PO SCH (09:15)
[2017-11-05] MEDS: LISINOPRIL 10 MG TAB PO SCH (09:15)
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
[2017-11-05 12:00] VITALS: BP 165/74; PULSE 80; RESP 18; TEMP 98; O2SAT 98
--- NOTE | 2017-11-05 12:50 | PD.WCN.NOT ---
Wound Consult Description: Wound consult ordered by Ana DESAI Communicated with: Hal ALEXANDER [address] [place] [address], Ana DESAI Recommendation: 1) Reposition patient every 2 hours for comfort and offloading 2) Skin prep Left heel BID and float on pillows avoiding contact with mattress. 3) Consult wound care physician for sharps debridement Additional Information: Patient was seen today on [address] [place] [address] by science writer for wound management of left heal and buttocks.Patient Alert in bed upon writers arrival .Patient needed 1 person assist to reposition to right side.Assessment findings patient has scattered unstageable moisture/pressure related injuries to Right buttocks/gluteal cleft.No drainage noted no odor noted or signs and symptoms of infection.Wounds cleansed with normal saline and Calazime applied in thick layer.Patient is wheelchair bound and will require sharps debridement prior to wound treatment for optimal healing.Patient offloaded to right side with 2 pillows.Left heel presents with a purple soft,boggy, intact blister that measures ~5.0cm x ~ 4.5cm.Left heel skin prep and floated on 2 pillows avoiding contact with mattress surface.Wound physician consult ordered. Haile Torres [facility] Nov 05, 2017 12:50
[2017-11-05 13:07] LABS: BILIRUBIN, URINE NEG (NEG); GLUCOSE,URINE NEG (NEG); KETONE, URINE NEG (NEG); NITRITE,URINE NEG (NEG); PH, URINE GREATER/EQUAL 9.0 (5.0-8.5); URINE LEUKOCYTE ESTERASE SMALL (NEG)
[2017-11-05 13:19] LABS: BLOOD, URINE TRACE (NEG)
[2017-11-05 13:20] LABS: URINE COLOR YELLOW (YELLW/STRAW)
[2017-11-05 13:24] LABS: BACTERIA, URINE MOD /hpf; RENAL EPITHELIAL CELLS 1 /hpf; SQUAMOUS EPITHELIAL CELL URINE 666 /hpf (0-5); TRANSITIONAL EPI CELLS, URINE 1 /hpf; WHITE BLOOD CELL CLUMPS FEW
[2017-11-05] MEDS: SODIUM CHLOR 0.9% 1000 ML INJ 1,000 ML IV SCH (15:45)
[2017-11-05 16:00] VITALS: BP 116/61; PULSE 90; RESP 18; TEMP 98.9; O2SAT 96
[2017-11-05 20:00] VITALS: BP 152/69; PULSE 86; RESP 18; TEMP 98.2; O2SAT 97
[2017-11-05] MEDS: ATORVASTATIN 40 MG TAB PO SCH (23:12)
[2017-11-06 00:16] VITALS: BP 133/70; PULSE 81; RESP 18; TEMP 98.1; O2SAT 97
[2017-11-06] MEDS: HEPARIN SODIUM - SQ 10,000 UNITS/ML VIAL SQ SCH ×4 (05:19→21:08)
[2017-11-06 05:40] VITALS: BP 149/67; PULSE 73; RESP 18; TEMP 98; O2SAT 97
[2017-11-06] MEDS: INSULIN ASPART SUPPLEMENTAL SCALE SQ SCH (08:00)
[2017-11-06 08:33] VITALS: BP 174/76; PULSE 77; RESP 17; TEMP 98; O2SAT 97
[2017-11-06] MEDS: DULoxetine HCl DR 60 MG CAP PO SCH (08:59)
[2017-11-06] MEDS: LISINOPRIL 10 MG TAB PO SCH (08:59)
[2017-11-06] MEDS: NIFEdipine 60 MG SUSTAINED RELEASE TAB PO SCH (08:59)
[2017-11-06] MEDS: OXYBUTYNIN CHLORIDE 5 MG TAB PO SCH ×2 (09:00→21:03)
--- NOTE | 2017-11-06 11:28 | HHI.PR ---
Subjective Remarks Pt complains of dysuria and super lower abdominal tenderness Pt is anxious this morning Objective Vitals Vital Signs Date Time Temp Pulse Resp B/P (MAP) Pulse Ox O2 Delivery O2 Flow Rate FiO2 11/06/17 08:33 98.0 77 17 174/76 (108) 97 11/06/17 05:40 98.0 73 18 149/67 (94) 97 11/06/17 00:16 98.1 81 18 133/70 (91) 97 11/05/17 20:00 98.2 86 18 152/69 (96) 97 11/05/17 16:00 98.9 90 18 116/61 (79) 96 11/05/17 12:00 98.0 80 18 165/74 (104) 98 11/06/17 11/06/17 11/07/17 15:00 23:00 07:00 # Voids 1 Result Diagram: 11/04/17 0900 11/04/17 0900 Other Results Laboratory Tests Test 11/05/17 12:25 Urine Color YELLOW Urine Turbidity CLOUDY Urine pH GREATER/EQUAL 9.0 Urine Specific [place] 1.014 Urine Protein 100 mg/dL Urine Glucose (UA) NEG mg/dL Urine Ketones NEG mg/dL Urine Occult Blood TRACE Urine Nitrite NEG Urine Bilirubin NEG Urine Urobilinogen 0.2 MG/DL Urine Leukocyte Esterase SMALL Urine RBC 15 /hpf Urine WBC /hpf Urine WBC Clumps FEW Urine Squamous Epithelial Cells 666 /hpf Urine Transitional Epithelial Cells 1 /hpf Urine Renal Epithelial Cells 1 /hpf Urine Bacteria MOD /hpf Microscopic Urinalysis Comment CATH-CULTURE IND Objective Remarks General: NAD, AAOx3 Chest: CTA Cardiac: Regular Abd: +BS, soft, suprapubic tenderness Ext: Mild edema A/P Problem List: (1) UTI (lower urinary tract infection) ICD Codes: N39.0 - Lower urinary tract infectious disease Status: Acute Plan: UTI - Pt is a 67 y/o female with recurrent UTIs (ESBL E. coli, Klebsiella, Enterococcus), C. diff colitis, hypertension, diabetes mellitus, and hx of breast cancer who presents to the [facility] ED today after being on outpatient antibiotics x 1 week. - Patient and son report that home docs placed a catheter last Friday due to nonhealing sacral wounds. Patient's son reports that patient started having white leakage from vaginal area and was then started on abx, but unsure of which abx. - Patient reports that on day of admission she began to have supra pubic pain. The Villalobos catheter was exchanged in the ER, but patient continued to have pain and the Villalobos was removed. Patient report that the pain improved after Villalobos was removed. - It sounds like she was having bladder spasms with urine leakage and pain - ED felt she had severe infection appearance of urine in Villalobos - Pt says she would like to keep the catheter out when going back home. I would like to avoid abx if possible given her high risk of c.diff colitis. - In/out cath specimen obtained on 11/05, culture is pending. - Cont oxybutynin for spams - On 11/05, Dr. Bravo spoke to the pts Laundry Operator Wash Room at bedside. Laundry Operator Wash Room reports that the pt has horrible living conditions to include what sounds like neglect and filthy conditions. Gets no physical activity. Continues to be high risk for medical decompensation and readmission. Discussed this with the pt and she became very anxious and tearful and denied all of this. She already gets HHC and Home doc through [facility]. Decubitus ulcer x 3 Left heel ulcer - Pressure relief - Wound care is following Hypertension - Home meds resumed (2) Bladder spasms ICD Codes: N32.89 - Other specified disorders of bladder Status: Acute (3) Decubitus ulcer, buttock ICD Codes: L89.309 - Pressure ulcer of unspecified buttock, unspecified stage Status: Chronic Assessment and Plan Patient examined. Assessment and plan formulated with Sarai Boss PA-C. I agree with the above. possible uti..await straight cath result before prescribing abx due to high risk of c.diff and hx esbl organism. d/c w/out villalobos. cont oxybutynin for spams. still c/o dysuria today. wound care for buttock ulcers. Sarai Boss Nov 06, 2017 11:28 Jackson Bravo MD Nov 06, 2017 12:15
[2017-11-06] MEDS: LORazepam 1 MG TAB PO PRN ×3 (11:33→23:53)
[2017-11-06 12:44] VITALS: BP 126/62; PULSE 82; RESP 17; TEMP 97.9; O2SAT 99
--- NOTE | 2017-11-06 15:18 | PD.WCN.NOT ---
Wound Consult Description: Wound physician consult ordered by Ana DESAI Communicated with: Hal ALEXANDER [address] [place] [address], Recommendation: 1) Reposition patient every 2 hours for comfort and offloading 2) Please refer to wound care orders Additional Information: Patient was seen today on [address] by sheet writerJohana RN,[facility],Hal ALEXANDER and .Patient alert in bed upon arrival.Heels presently being floated on 2 pillow avoiding contact with mattress.Left heel presents with boggy Hematoma/ DTI measuring 4.2cm x3.9cm unroofed hematoma moderate amount of serosanguineous drainage noted without odor , Stringy coagulation noted in wound base.Order placed for Podiatry.Wound painted with povidone iodine and covered with dry dressing. Patient required 1 person assist to reposition to left side.Patient has scattered injuries from Coccyx to Right Buttocks. performed sharps debridement to applicable wounds. Sacral stage 3 pressure injury wound measures 1.9cm x 0.8cm x 0.8cm wound base presents 75% red tissue and 25% adipose tissue scant bloody drainage with no odor present. Coccyx unstageable pressure wound measures 1.6cm 2.0cm x stable eschar and slough ( Coccyx bone has shifted to Right side ) no drainage or odor noted. Right buttocks moisture/pressure related injuries measures 1.9cm x 6.0cm x thin layer of yellow slough, no drainage or odor noted. Partial thickness trauma wound to Right buttocks measures 1.0cm x 1.6cm wound base 100% pink tissue no drainage or odor noted. Medial Right buttocks wounds measures 1.5cm 1.6cm x <0.1cm wound base is 100% pink tissue wound edges well defined and even with wound base. All wounds cleansed with normal saline pat dry,Calazime to periwounds, Maxorb II cut to fit wound base applied to all open areas and covered with ABD and secured with Mediplex tape .Skin prep was applied to intact skin before securing dressing with tape. Patient tolerated wound care well.Hal ALEXANDER will apply Santyl when available with next dressing change. Haile Torres [facility] Nov 06, 2017 15:18
--- NOTE | 2017-11-06 16:07 | PD.CONS ---
History of Present Illness Service Podiatry Consult Requested By Reason for Consult Left heel ulcer Primary Care Physician Eulalio Betts DO Diagnoses: History of Present Illness Patient relates pain to Left heel. She understands she has a pressure sore there. She does not relate the history of how it got there to me clearly. She continues saying she is uncomfortable. Past Family Social History Allergies: Coded Allergies: Sulfa (Sulfonamide Antibiotics) (Unverified Allergy, Severe, HIVES, ) allopurinol (Unverified Allergy, Severe, Hives, 07/20/17) aspirin (Unverified Allergy, Severe, Hallucinations, 07/20/17) butalbital (Unverified Allergy, Severe, Hallucinations, 07/20/17) caffeine (Unverified Allergy, Severe, Hallucinations, 07/20/17) morphine (Unverified Adverse Reaction, Severe, SHAKING, HEADACHE, 07/20/17) clonidine (Unverified Adverse Reaction, Mild, LETHARGY,SHAKING, 07/21/17) PER Past Medical History Hypertension Recurrent UTI with history of urosepsis Depression Anxiety Postherpetic neuralgia Hyperlipidemia Breast cancer Degenerative disc disease lumbar spine 2D echo (12/31/16) - Poor image quality - EF 65-70% - Poorly visualized aortic valve - Difficult to exclude bicuspid valve, no stenosis - Trace tricuspid regurgitation. 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 Past Surgical History Left breast lumpectomy Lumbar microdiscectomy Laminectomy L3-L4 fusion Left knee replacement Cholecystectomy Exploratory laparotomy with repair of ventral hernia in February 2017 Left parotid tumor excision at [facility] March 2017 Active Ordered Medications Current Medications Medications (Trade) Dose Ordered Sig/Lucretia Route Start Time Stop Time Status Last Admin (NS Flush) 2 ml UNSCH PRN IV FLUSH 11/04/17 08:45 11/04/17 09:48 (D50w (Vial) Inj) 50 ml UNSCH PRN IV PUSH 11/04/17 13:45 (Glucagon Inj) 1 mg UNSCH PRN OTHER 11/04/17 13:45 (Lipitor) 40 mg HS PO 11/04/17 21:00 11/05/17 23:12 (Cymbalta Dr) 60 mg DAILY PO 11/05/17 09:00 11/06/17 08:59 (Neurontin) 300 mg HS PO 11/04/17 21:00 Future Hold (Prinivil) 10 mg DAILY PO 11/05/17 09:00 11/06/17 08:59 (Procardia Xl) 60 mg DAILY PO 11/05/17 09:00 11/06/17 08:59 (Catapres) 0.1 mg Q6H PRN PO 11/04/17 17:00 11/04/17 17:51 (Vasotec Inj) 1.25 mg Q6H PRN IV PUSH 11/04/17 16:15 Sodium Chloride 1,000 ml @ 42 mls/hr [id number] IV 11/04/17 16:45 11/05/17 15:45 (Ditropan) 5 mg Q12HR PO 11/04/17 21:00 11/06/17 09:00 (Heparin Inj) 5,000 units Q8HR SQ 11/04/17 22:00 11/06/17 15:05 (Ativan) 1 mg Q6H PRN PO 11/06/17 05:30 11/06/17 11:33 (Santyl Oint) 1 applic DAILY EXTERNAL 11/07/17 09:00 Family History Father at 59 had cardiac disease Mother at 87 Social History Patient is retired and lives with her adult son No tobacco or alcohol use. 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 L heel with necrotic tissue encompassing plantar heel. Soft, but not boggy. Has not become eschar yet. No erythema, edema locally. Painful to palpation. Heel currently being floated on 2 pillows adequately. Laboratory Date/Time Source Procedure Growth Status 11/04/17 09:00 Blood Peripheral Aerobic Blood Culture - Preliminary NO GROWTH IN 2 DAYS Resulted 11/04/17 09:00 Blood Peripheral Anaerobic Blood Culture - Preliminary NO GROWTH IN 2 DAYS Resulted 11/05/17 12:25 Urine Catheterized Urine Urine Culture - Preliminary IMMATURE GROWTH - REINCUBATE Resulted Result Diagram: 11/04/17 0900 11/04/17 0900 Imaging Last 72 hours Impressions Foot X-Ray 11/06/17 0000 Signed Impressions: Service Date/Time: October 16:58 - CONCLUSION: 1. No evidence of fracture or focal bone erosion. 2. Mild osteoarthritic findings of the foot. Dmitri Griffin MD Assessment and Plan Assessment and Plan L heel pressure ulcer Continue betadine wet to dry dressing Continue offloading No further treatment planned at this time. Re-consult if new issues arise. Mo Smith DPM Nov 06, 2017 16:07
[2017-11-06] MEDS: SODIUM CHLOR 0.9% 1000 ML INJ 1,000 ML IV SCH (16:23)
--- NOTE | 2017-11-06 16:33 | PD.WOU.PN ---
Patient Intake Chief Complaint Left heel blister-DTI, sacrum and buttock ulcers Consult Requested by Hospitalist Primary Care Physician Eulalio Betts DO History of Present Illness Patient seen sitting up in bed on the phone. Reports that she has had wounds on her buttocks for about 3 weeks. She anticipates that she will be leaving here tomorrow and was concerned that the wound care team would be prolonging her stay. She reports a history of type 2 diabetes Coded Allergies: Sulfa (Sulfonamide Antibiotics) (Unverified Allergy, Severe, HIVES, ) allopurinol (Unverified Allergy, Severe, Hives, 07/20/17) aspirin (Unverified Allergy, Severe, Hallucinations, 07/20/17) butalbital (Unverified Allergy, Severe, Hallucinations, 07/20/17) caffeine (Unverified Allergy, Severe, Hallucinations, 07/20/17) morphine (Unverified Adverse Reaction, Severe, SHAKING, HEADACHE, 07/20/17) clonidine (Unverified Adverse Reaction, Mild, LETHARGY,SHAKING, 07/21/17) PER Vital Signs Date Time Temp Pulse Resp B/P (MAP) Pulse Ox O2 Delivery O2 Flow Rate FiO2 11/06/17 12:44 97.9 82 17 126/62 (83) 99 11/06/17 08:33 98.0 77 17 174/76 (108) 97 11/06/17 05:40 98.0 73 18 149/67 (94) 97 11/06/17 00:16 98.1 81 18 133/70 (91) 97 11/05/17 20:00 98.2 86 18 152/69 (96) 97 Jerrica Barnes MD Nov 06, 2017 16:33
[2017-11-06 16:42] VITALS: BP 132/61; PULSE 98; RESP 17; TEMP 98.4; O2SAT 93
--- NOTE | 2017-11-06 17:49 | RADRPT ---
EXAM DATE/TIME: 11/06/2017 16:58 [facility] COMPARISON: No previous studies available for comparison. INDICATIONS : Left foot pain and swelling. MEDICAL HISTORY : Hypercholesterolemia. Hypertension Carcinoma, breast. Diabetes SURGICAL HISTORY : None. ENCOUNTER: Initial ACUITY: 1 week PAIN SCORE: 6/10 LOCATION: Left posterior foot. FINDINGS: 4 views of the left foot. Small osteophytes at the first through third metatarsophalangeal joints and at all of the tarsometatarsal joints. Alignment within normal limits. No evidence of fracture. Moder ate-sized plantar and Achilles calcaneal spurs. No local bone erosion. CONCLUSION: 1. No evidence of fracture or focal bone erosion. 2. Mild osteoarthritic findings of the foot. Dmitri Griffin MD on November 06, 2017 at 17:45 Board Certified Radiologist. This report was verified electronically.
[2017-11-06] MEDS: ATORVASTATIN 40 MG TAB PO SCH (21:03)
[2017-11-06] MEDS: cloNIDine HCL 0.1 MG TAB PO PRN (21:04)
[2017-11-06 21:07] VITALS: BP 159/72; PULSE 101; RESP 19; TEMP 98.7; O2SAT 97
[2017-11-07 01:04] VITALS: BP 163/69; PULSE 91; RESP 18; TEMP 97.6; O2SAT 98
[2017-11-07] MEDS ORDERED: NYSTATIN 100,000 U/GM PWD 15 GM BTL TOPICAL PRN (02:00)
[2017-11-07 05:06] VITALS: BP 157/76; PULSE 81; RESP 20; TEMP 98.2; O2SAT 97
[2017-11-07] MEDS: HEPARIN SODIUM - SQ 10,000 UNITS/ML VIAL SQ SCH ×2 (06:00→14:53)
[2017-11-07 08:42] VITALS: BP 166/77; PULSE 80; RESP 16; TEMP 98.2; O2SAT 97
[2017-11-07] MEDS: NIFEdipine 60 MG SUSTAINED RELEASE TAB PO SCH (08:55)
[2017-11-07] MEDS: DULoxetine HCl DR 60 MG CAP PO SCH (08:55)
[2017-11-07] MEDS: LISINOPRIL 10 MG TAB PO SCH (08:55)
[2017-11-07] MEDS: OXYBUTYNIN CHLORIDE 5 MG TAB PO SCH (08:55)
[2017-11-07] MEDS ORDERED: COLLAGENASE OINT 30 GM TUBE EXTERNAL SCH (09:00)
--- NOTE | 2017-11-07 11:51 | HHI.PR ---
Subjective Remarks Pt reports that her abd pain is improving She is not having any further dysuria Afebrile Objective Vitals Vital Signs Date Time Temp Pulse Resp B/P (MAP) Pulse Ox O2 Delivery O2 Flow Rate FiO2 11/07/17 08:42 98.2 80 16 166/77 (106) 97 11/07/17 05:06 98.2 81 20 157/76 (103) 97 11/07/17 01:04 97.6 91 18 163/69 (100) 98 11/06/17 21:07 98.7 101 19 159/72 (101) 97 11/06/17 16:42 98.4 98 17 132/61 (84) 93 11/06/17 12:44 97.9 82 17 126/62 (83) 99 Result Diagram: 11/04/17 0900 11/04/17 0900 Other Results Laboratory Tests Test 11/05/17 12:25 Urine Color YELLOW Urine Turbidity CLOUDY Urine pH GREATER/EQUAL 9.0 Urine Specific [place] 1.014 Urine Protein 100 mg/dL Urine Glucose (UA) NEG mg/dL Urine Ketones NEG mg/dL Urine Occult Blood TRACE Urine Nitrite NEG Urine Bilirubin NEG Urine Urobilinogen 0.2 MG/DL Urine Leukocyte Esterase SMALL Urine RBC 15 /hpf Urine WBC /hpf Urine WBC Clumps FEW Urine Squamous Epithelial Cells 666 /hpf Urine Transitional Epithelial Cells 1 /hpf Urine Renal Epithelial Cells 1 /hpf Urine Bacteria MOD /hpf Microscopic Urinalysis Comment CATH-CULTURE IND Objective Remarks General: NAD, AAOx3 Chest: CTA Cardiac: Regular Abd: +BS, soft, suprapubic tenderness Ext: Mild edema A/P Problem List: (1) UTI (lower urinary tract infection) ICD Codes: N39.0 - Lower urinary tract infectious disease Status: Acute Plan: UTI - Pt is a 67 y/o female with recurrent UTIs (ESBL E. coli, Klebsiella, Enterococcus), C. diff colitis, hypertension, diabetes mellitus, and hx of breast cancer who presents to the [facility] ED today after being on outpatient antibiotics x 1 week. - Patient and son report that home docs placed a catheter last Friday due to nonhealing sacral wounds. Patient's son reports that patient started having white leakage from vaginal area and was then started on abx, but unsure of which abx. - Patient reports that on day of admission she began to have supra pubic pain. The Lopez catheter was exchanged in the ER, but patient continued to have pain and the Lopez was removed. Patient report that the pain improved after Lopez was removed. - It sounds like she was having bladder spasms with urine leakage and pain - ED felt she had severe infection appearance of urine in Lopez - Pt says she would like to keep the catheter out when going back home. I would like to avoid abx if possible given her high risk of c.diff colitis. - In/out cath specimen obtained on 11/05, culture with probable contaminants - Cont oxybutynin for spams - On 11/05, Dr. Bravo spoke to the pts Chemical Preparer at bedside. Chemical Preparer reports that the pt has horrible living conditions to include what sounds like neglect and filthy conditions. Gets no physical activity. Continues to be high risk for medical decompensation and readmission. Discussed this with the pt and she became very anxious and tearful and denied all of this. She already gets HHC and Home doc through [facility]. She is refusing SNF placement Decubitus ulcer x 3 Left heel ulcer - Pressure relief - Wound care is following - Wound care physician recommended Podiatry consultation for L heel pressure ulcer - Podiatry recommended continue Betadine wet to dry dressing and continue offloading Hypertension - Home meds resumed (2) Bladder spasms ICD Codes: N32.89 - Other specified disorders of bladder Status: Acute (3) Decubitus ulcer, buttock ICD Codes: L89.309 - Pressure ulcer of unspecified buttock, unspecified stage Status: Chronic Sarai Boss Nov 07, 2017 11:51
[2017-11-07] MEDS ORDERED: OXYB5TAB8 PO (12:25)
--- NOTE | 2017-11-07 12:35 | HHI.FF ---
Face to Face Verification Diagnosis: (1) Wound of left side of back (2) Bladder spasms (3) Hypertension (4) Diabetes (5) Generalized weakness Physical Therapy Order: Evaluate and Treat, Improve ambulation, Strength and gait training Home Health Nursing Order: Medical education Wound care and dressing changes Nursing assessment with vital signs Instructions: Wound care instructions regarding left heel: - daily Betadine wet to dry dressing with 4x4, cling, tape left heel - Offload left heel Please clean left buttock daily with normal saline and add colozine to the area for the sacral ulcer, please clean with normal saline and apply Santyl and maxorb, moistened gauze ABD pad, skin prep the periwound area and tape. This should be done daily. Please initial and date dressings. Please clean under each breast and apply nystatin powder prn. Hide Inspector Order: To Evaluate: Living conditions/environment, Support services I have seen patient Inga Wilson on 11/07/17. My clinical findings support the need for the requested home health care services because: Deconditioned w/ increased weakness Limited ability to care for self I certify that my clinical findings support that this patient is homebound because: Unsteady gait/balance Sarai Boss Nov 07, 2017 12:35
[2017-11-07] MEDS ORDERED: Nystatin Powder TOPICAL (12:36)
[2017-11-07] MEDS ORDERED: COLL30T EXTERNAL (12:36)
--- NOTE | 2017-11-07 12:40 | HHI.DCPOC ---
Discharge Care Plan Diagnosis: (1) Bladder spasms (2) Decubitus ulcer, buttock (3) Hypertension (4) Diabetes (5) General weakness Goals to Promote Your Health * To prevent worsening of your condition and complications * To maintain your health at the optimal level Directions to Meet Your Goals Take your medications as prescribed Follow your dietary instruction Follow activity as directed Keep your appointments as scheduled Take your immunizations and boosters as scheduled If your symptoms worsen call your PCP, if no PCP go to Urgent Care Center or Emergency Room Smoking is Dangerous to Your Health. Avoid second hand smoke Call the 24-hour hour crisis hotline for domestic abuse at Sarai Boss Nov 07, 2017 12:40
--- NOTE | 2017-11-07 12:52 | HHI.DS ---
Discharge Summary Admission Date Nov 06, 2017 at 09:50 Discharge Date: Nov 07, 2017 Admitting Diagnosis UTI/failed outpatient therapy/sepsis (1) UTI (lower urinary tract infection) Diagnosis: Secondary ICD Codes: N39.0 - Lower urinary tract infectious disease Status: Acute (2) Bladder spasms Diagnosis: Principal ICD Codes: N32.89 - Other specified disorders of bladder Status: Acute (3) Decubitus ulcer, buttock Diagnosis: Secondary ICD Codes: L89.309 - Pressure ulcer of unspecified buttock, unspecified stage Status: Chronic Consultants Dr. Mo Smith - Podiatry Brief History Ms. Wilson is a 67 y/o female with recurrent UTIs (ESBL E. coli, Klebsiella, Enterococcus), C diff, hypertension, diabetes mellitus, CVA and hx of breast cancer who presents to the [facility] The patient unfortunately is a poor historian. History was obtained from the patient, son at bedside and prior charting/records. Patient is currently being treated outpatient for UTI, currently on antibiotics for 1 week, patient had an indwelling Villalobos catheter. Per ER notes the family reported that the catheter has not been working well, has had leakage around the catheter site. Per ER note patient's family reports that patient had lower abdominal discomfort and has not feeling well. Patient reports that home docs placed a catheter last Friday due to nonhealing ulcers on buttocks. Patient's son reports that patient started having white leakage from vaginal area and was then started on abx, unsure of which abx. Patient reports that today starting around 6AM she began to have supra pubic pain. The villalobos catheter was exchanged in the ER, but patient continued to have pain and the villalobos was removed. Patient report that the pain has resolved since the villalobos was removed. Patient denies fevers, chills, N/V/D/C, shortness of breath or chest pain. CBC/BMP: 11/04/17 0900 11/04/17 0900 Significant Findings Laboratory Tests Test 11/05/17 12:25 Urine Turbidity CLOUDY (CLEAR) Urine pH GREATER/EQUAL 9.0 (5.0-8.5) Urine Protein 100 mg/dL (NEG-TRACE) Urine Occult Blood TRACE (NEG) Urine RBC 15 /hpf (0-3) Urine WBC Clumps FEW (NONE) Urine Bacteria MOD /hpf (NONE) Imaging Last Impressions Foot X-Ray 11/06/17 0000 Signed Impressions: Service Date/Time: October 16:58 - CONCLUSION: 1. No evidence of fracture or focal bone erosion. 2. Mild osteoarthritic findings of the foot. Dmitri Griffin MD PE at Discharge General: NAD, AAOx3 Chest: CTA Cardiac: Regular Abd: +BS, soft, suprapubic tenderness Ext: Mild edema Hospital Course Hx of UTI Bladder Spasms - Pt is a 67 y/o female with recurrent UTIs (ESBL E. coli, Klebsiella, Enterococcus), C. diff colitis, hypertension, diabetes mellitus, and hx of breast cancer who presented to the ED on 11/04 after being on outpatient antibiotics x 1 week. Patient and son report that home docs placed a catheter last Friday due to nonhealing sacral wounds. Patient's son reported that patient started having white leakage from vaginal area and was then started on abx, but unsure of which abx. Patient reported that on day of admission she began to have supra pubic pain. The Villalobos catheter was exchanged in the ER, but patient continued to have pain and the Villalobos was removed. Patient report that the pain improved after Villalobos was removed. It sounded like she was having bladder spasms with urine leakage and pain. ED felt she had severe infection based on the appearance of urine in Villalobos but urine culture from 11/04 had <10, 000 CFU/ML of gram positive kelvin. Pt says she would like to keep the catheter out when going back home. In/out cath specimen was obtained on 11/05 with culture noting probable contaminants. I would like to avoid abx if possible given her high risk of c.diff colitis. Pt had clinical improvement on the day of discharge. Continue oxybutynin for spams. On 11/05, Dr. Bravo spoke to the pts Mobile Designer at bedside. Mobile Designer reports that the pt has horrible living conditions to include what sounds like neglect and filthy conditions. Gets no physical activity. Continues to be high risk for medical decompensation and readmission. Discussed this with the pt and she became very anxious and tearful and denied all of this. She already gets HHC and Home doc through [facility]. She is refusing SNF placement. We will arrange for HHC/PT and request body and fender worker followup on the pt as well. Decubitus ulcer x 3 Left heel ulcer - Pt had noted right buttock wounds and left heel wound at admission. Wound care nurse was consulted and consulted the wound care physician for the buttock wounds. Wound care physician took some cultures of the buttock wounds which are pending. Pt was seen by podiatry for the left heel wound and recommended daily Betadine wet to dry dressing with 4x4, cling, tape left heel and offloading the left heel. Wound care instructions for discharge include: Clean left buttock daily with normal saline and add colozine to the area for the sacral ulcer, please clean with normal saline and apply Santyl and maxorb, moistened gauze ABD pad, skin prep the periwound area and tape. This should be done daily. Please initial and date dressings. Please clean under each breast and apply nystatin powder prn. Pt Condition on Discharge: Stable Discharge Disposition: Disch w/ Home Health Serv Discharge Instructions DIET: Follow Instructions for: Diabetic Diet Activities you can perform: Regular-No Restrictions Follow up Referrals: PCP Follow-up - 1 Week with Home Docs New Medications: Collagenase (Santyl) 250 Unit/Gram Oin 1 APPLIC EXTERNAL DAILY for sacral wound, #1 TUBE Oxybutynin (Ditropan) 5 Mg Tab 5 MG PO Q12HR for bladder spasms, #62 TAB [Nystatin Powder] () 15 APPLIC/15 GM POWD 1 APPLIC TOPICAL UNSCH PRN for SEE LABEL COMMENTS, #1 BOTTLE Continued Medications: Atorvastatin (Lipitor) 40 Mg Tab 40 MG PO HS for Cholesterol Management, #30 TAB [address] (Cymbalta DR) 60 Mg Capdr 60 MG PO DAILY, #30 CAP 0 Refills Gabapentin (Gabapentin) 300 Mg Cap 300 MG PO HS, #30 CAP 0 Refills Lisinopril (Lisinopril) 10 Mg Tab 10 MG PO DAILY, #30 TAB 0 Refills Nifedipine ER 24 HR (Nifedipine ER 24 HR) 60 Mg Tab 60 MG PO DAILY, #30 TAB 0 Refills Trazodone (Trazodone) 100 Mg Tablet 100 MG PO HS PRN for INSOMNIA, #30 TAB 0 Refills Sarai Boss Nov 07, 2017 12:52 Jackson Bravo MD Nov 07, 2017 13:07
[2017-11-07 13:03] VITALS: BP 174/79; PULSE 86; RESP 16; TEMP 98.5; O2SAT 97
== END 2017-11-07 16:00 | disposition home health service (06) | DRG 689 ==
LOC: NEPC 08:27 → NEDA 10:37 → INTOOBSV 10:37 → N05B 12:57 → OBSVTOIN 11-06 09:50
PROVIDERS: ADMIT Hospitalist; ATTEND Hospitalist
PROC: 0HB6XZZ Excision of Back Skin, External Approach (ICD-10-PCS; principal; 2017-11-06)
PROC: 0T2BX0Z Change Drainage Device in Bladder, External Approach (ICD-10-PCS; 2017-11-06)
DX: N39.0 Urinary tract infection, site not specified (principal); L89.153 Pressure ulcer of sacral region, stage 3; L89.310 Pressure ulcer of right buttock, unstageable; L89.629 Pressure ulcer of left heel, unspecified stage; B02.29 Other postherpetic nervous system involvement; T83.84XA Pain due to genitourinary prosthetic devices, implants and grafts, initial encounter; T83.031A Leakage of indwelling urethral catheter, initial encounter; I10 Essential (primary) hypertension; M51.36 Other intervertebral disc degeneration, lumbar region; E11.9 Type 2 diabetes mellitus without complications; E78.5 Hyperlipidemia, unspecified; N32.89 Other specified disorders of bladder; F32.9 Major depressive disorder, single episode, unspecified; F41.9 Anxiety disorder, unspecified; Z79.84 Long term (current) use of oral hypoglycemic drugs; Z16.30 Resistance to unspecified antimicrobial drugs; Z85.3 Personal history of malignant neoplasm of breast; Z86.19 Personal history of other infectious and parasitic diseases; Z87.440 Personal history of urinary (tract) infections; Z86.73 Personal history of transient ischemic attack (TIA), and cerebral infarction without residual deficits; Z86.718 Personal history of other venous thrombosis and embolism; Z88.2 Allergy status to sulfonamides; Z88.5 Allergy status to narcotic agent; Z88.6 Allergy status to analgesic agent; Z90.12 Acquired absence of left breast and nipple; Z92.21 Personal history of antineoplastic chemotherapy; Z92.3 Personal history of irradiation; Z96.652 Presence of left artificial knee joint; Z99.3 Dependence on wheelchair
CPT/HCPCS: 73630; 80053; 81001; 82948; 83605; 85025; 87040; 87070; 87077; 87086; 87176; 87186; 87205; 96361; 96365; 96372; 96374; 96375; G0378; J1644; J2543; J3370; J7030; J7050

== ENCOUNTER 2017-12-18 13:37 | Inpatient (IN) | payer MEDICARE ==
[~2017-12-18] VITALS: Ht 162.6 cm; Wt 83.5 kg
[~2017-12-18 13:37] MED LIST changes: +COLL30T EXTERNAL; +GABA300C5 PO; -LISI-515 PO; +LISI10TA3 PO; -METF500T PO; -NEUR300C PO; +Nystatin Powder TOPICAL; +OXYB5TAB8 PO
[2017-12-18] MEDS ORDERED: IOHEXOL 350 MG/ML 10 ML VIAL (for RAD DIAG) IVCONTRAST ONE (13:38)
[2017-12-18 13:59] VITALS: BP 120/69; PULSE 96; RESP 20; TEMP 97.8; O2SAT 97
--- NOTE | 2017-12-18 14:30 | PD ---
HPI Chief Complaint: Wound/Suture/Staple Re-Check Time Seen by Provider: 14:29 Travel History International Travel<30 days: No Contact w/Intl Traveler<30days: No Traveled to known affect area: No History of Present Illness HPI 67-year-old female with history of CVA, thyroid disease, CAD, COPD, presents to emergency department from home for evaluation. Patient is overall poor historian but tells me she lives at home with her son who cares for her. Patient appears to spend most of her time in the bed and has home health come and visit. Today when home health came and visited she contacted 911 due to patient's large draining wound on her buttock. Patient states she has not been feeling well. She is more weak. She reports significant pain and is requesting Toradol for this. Denies any nausea or vomiting. She is uncertain of any fever or chills. She has no other symptoms to report. PFSH Past Medical History Arthritis: Yes Autoimmune Disease: No Anxiety: Yes Depression: Yes Cancer: Yes (LEFT BREAST and left neck) High Cholesterol: Yes Chemotherapy: Yes (2008) Cerebrovascular Accident: Yes Diabetes: Yes Patient Takes Glucophage: Yes (unknown) Diminished Hearing: No Endocrine: Yes GERD: No Glaucoma: No Genitourinary: Yes Headaches: Yes Hepatitis: No Hiatal Hernia: No Herniated Disk: Yes Hypertension: Yes Kidney Stones: No Medical other: Yes (ARTHRITIS- HERNIATED DISC) Musculoskeletal: Yes (SPINAL STENOSIS) Neurologic: Yes Migraines: Yes Myocardial Infarction: No Radiation Therapy: Yes Renal Failure: No Seizures: No Thyroid Disease: Yes Ulcer: No Tetanus Vaccination: < 5 Years PNEUMOCCOCAL Vaccine (Year): 1 Menopausal: Yes Past Surgical History Abdominal Surgery: Yes (CHOLECYSTECTOMY) Arteriovenous Shunt: No Body Medical Devices: unable to assess Section: Yes Cholecystectomy: Yes Ear Surgery: No Eye Surgery: No Gynecologic Surgery: Yes (C SECTION) Insulin Pump: No Joint Replacement: Yes (LT KNEE 11/2004) Oral Surgery: No Pacemaker: No Thoracic Surgery: Yes (LEFT BREAST BX/LUMPECTOMY) Other Surgery: Yes (LEFT KNEE REPLACEMENT, LEFT LUMPECTOMY/MASTECTOMY) Social History Alcohol Use: No Tobacco Use: No Substance Use: No (unable to assess) Allergies-Medications (Allergen,Severity, Reaction): Coded Allergies: Sulfa (Sulfonamide Antibiotics) (Unverified Allergy, Severe, HIVES, 12/18/17 ) allopurinol (Unverified Allergy, Severe, Hives, 12/18/17) aspirin (Unverified Allergy, Severe, Hallucinations, 12/18/17) butalbital (Unverified Allergy, Severe, Hallucinations, 12/18/17) caffeine (Unverified Allergy, Severe, Hallucinations, 12/18/17) morphine (Unverified Adverse Reaction, Severe, SHAKING, HEADACHE, 12/18/17) clonidine (Unverified Adverse Reaction, Mild, LETHARGY,SHAKING, 12/18/17) PER Reported Meds & Prescriptions Reported Meds & Active Scripts Active [Nystatin Powder] 15 APPLIC/15 GM Powd 1 Applic TOPICAL UNSCH PRN Santyl (Collagenase) 250 Unit/Gram Oin 1 Applic EXTERNAL DAILY Ditropan (Oxybutynin Chloride) 5 Mg Tab 5 Mg PO Q12HR Trazodone (Trazodone HCl) 100 Mg Tablet 100 Mg PO HS PRN Reported Gabapentin 300 Mg Cap 300 Mg PO HS Lisinopril 10 Mg Tab 10 Mg PO DAILY Nifedipine ER 24 HR (Nifedipine) 60 Mg Tab 60 Mg PO DAILY Cymbalta DR (Duloxetine HCl) 60 Mg Capdr 60 Mg PO DAILY Lipitor (Atorvastatin Calcium) 40 Mg Tab 40 Mg PO HS Review of Systems ROS Limitations: Poor Historian Except as stated in HPI: all other systems reviewed are Neg Physical Exam Narrative GENERAL: Chronically ill-appearing female patient, lying on the bed, in no acute distress. SKIN: Focused skin assessment warm/dry. The entire buttocks appears to have a pressure ulcer/skin breakdown. There is a large area of eschar tissue as well. Please refer to diagram below for more details. On the right buttock there is a 9 cm diameter raised area of fluctuance with a foul-smelling brown purulent drainage. Cultures obtained. HEAD: Atraumatic. Normocephalic. EYES: Pupils equal and round. No scleral icterus. No injection or drainage. ENT: No nasal bleeding or discharge. Mucous membranes pink and moist. NECK: Trachea midline. No JVD. CARDIOVASCULAR: Elevated rate and rhythm. RESPIRATORY: No accessory muscle use. Diminished to auscultation. Breath sounds equal bilaterally. GASTROINTESTINAL: Abdomen soft, non-tender, nondistended. Hepatic and splenic margins not palpable. MUSCULOSKELETAL: No obvious deformities. No clubbing. No cyanosis. Edema of the bilateral distal extremities both upper and lower. NEUROLOGICAL: Awake and alert. No obvious cranial nerve deficits. Generalized weakness all 4 extremities. Normal speech. Back Extremities 1 - Ulcer 2 - Other 3 - Other 4 - Ecchymosis Comment other is eschar Data Data Last Documented VS Vital Signs Date Time Temp Pulse Resp B/P (MAP) Pulse Ox O2 Delivery O2 Flow Rate FiO2 12/18/17 16:34 86 18 136/63 (87) 99 Nasal Cannula 2.00 12/18/17 13:59 97.8 Orders Orders Sepsis Workup Initiated (12/18/17 ) Complete Blood Count With Diff (12/18/17 14:30) Comprehensive Metabolic Panel (12/18/17 14:30) Prothrombin Time / Inr (Pt) (12/18/17 14:30) Act Partial Throm Time (Ptt) (12/18/17 14:30) Lactic Acid Sepsis Protocol (12/18/17 14:30) Urinalysis - C+S If Indicated (12/18/17 14:30) Blood Culture (12/18/17 14:30) Wound Culture And Gram Stain (12/18/17 14:30) Chest, Single Ap (12/18/17 14:30) Blood Glucose (12/18/17 14:30) Ecg Monitoring (12/18/17 14:30) Iv Access Insert/Monitor (12/18/17 14:30) Oximetry (12/18/17 14:30) Oxygen Administration (12/18/17 14:30) Ct Pelvis W Iv Contrast(Rout) (12/18/17 ) Piperacil-Tazo 4.5 Gm Premix (Zosyn 4.5 (12/18/17 15:00) Vancomycin Inj (Vancomycin Inj) (12/18/17 15:00) Sodium Chlor 0.9% 1000 Ml Inj (Ns 1000 M (12/18/17 15:00) Ketorolac Inj (Toradol Inj) (12/18/17 15:15) Urine Culture (12/18/17 15:00) Iohexol 350 Inj (Omnipaque 350 Inj) (12/18/17 13:38) Admit Order (Ed Use Only) (12/18/17 16:32) Labs Laboratory Tests Test 12/18/17 14:45 3/8/18 15:00 White Blood Count 21.6 TH/MM3 Red Blood Count 3.28 MIL/MM3 Hemoglobin 8.9 GM/DL Hematocrit 27.6 % Mean Corpuscular Volume 83.9 FL Mean Corpuscular Hemoglobin 27.1 PG Mean Corpuscular Hemoglobin Concent 32.3 % Red Cell Distribution Width 15.4 % Platelet Count 438 TH/MM3 Mean Platelet Volume 7.7 FL Neutrophils (%) (Auto) 89.7 % Lymphocytes (%) (Auto) 4.7 % Monocytes (%) (Auto) 4.9 % Eosinophils (%) (Auto) 0.3 % Basophils (%) (Auto) 0.4 % Neutrophils # (Auto) 19.4 TH/MM3 Lymphocytes # (Auto) 1.0 TH/MM3 Monocytes # (Auto) 1.1 TH/MM3 Eosinophils # (Auto) 0.1 TH/MM3 Basophils # (Auto) 0.1 TH/MM3 CBC Comment DIFF FINAL Differential Comment Prothrombin Time 11.0 SEC Prothromb Time International Ratio 1.1 RATIO Activated Partial Thromboplast Time 29.9 SEC Blood Urea Nitrogen 19 MG/DL Creatinine 0.60 MG/DL Random Glucose 96 MG/DL Total Protein 7.3 GM/DL Albumin 2.0 GM/DL Calcium Level 8.7 MG/DL Alkaline Phosphatase 362 U/L Aspartate Amino Transf (AST/SGOT) 27 U/L Alanine Aminotransferase (ALT/SGPT) 23 U/L Total Bilirubin 0.7 MG/DL Sodium Level 138 MEQ/L Potassium Level 4.0 MEQ/L Chloride Level 102 MEQ/L Carbon Dioxide Level 27.1 MEQ/L Anion Gap 9 MEQ/L Estimat Glomerular Filtration Rate 100 ML/MIN Lactic Acid Level 1.1 mmol/L Urine Color YELLOW Urine Turbidity HAZY Urine pH 5.0 Urine Specific Harrison 1.019 Urine Protein 30 mg/dL Urine Glucose (UA) NEG mg/dL Urine Ketones TRACE mg/dL Urine Occult Blood NEG Urine Nitrite NEG Urine Bilirubin NEG Urine Urobilinogen 2.0 MG/DL Urine Leukocyte Esterase NEG Urine WBC 1 /hpf Urine Squamous Epithelial Cells 1 /hpf Urine Amorphous Sediment RARE Urine Bacteria FEW /hpf Urine Hyaline Casts 1 /lpf Urine Granular Casts 4 /lpf Microscopic Urinalysis Comment CATH-CULTURE IND MDM Medical Decision Making Medical Screen Exam Complete: Yes Emergency Medical Condition: Yes Medical Record Reviewed: Yes Differential Diagnosis Sepsis versus osteomyelitis versus abscess versus cellulitis Narrative Course 67-year-old female presents emergency department for evaluation. Patient appears chronically ill. She has large area of breakdown on her buttocks. This area that is draining and cultures obtained. I discussed the patient my attending physician. Sepsis protocol was initiated. CT of the pelvis will be completed for further evaluation of the draining wound. Laboratory Tests Test 12/18/17 14:45 12/18/17 15:00 White Blood Count 21.6 TH/MM3 Red Blood Count 3.28 MIL/MM3 Hemoglobin 8.9 GM/DL Hematocrit 27.6 % Mean Corpuscular Volume 83.9 FL Mean Corpuscular Hemoglobin 27.1 PG Mean Corpuscular Hemoglobin Concent 32.3 % Red Cell Distribution Width 15.4 % Platelet Count 438 TH/MM3 Mean Platelet Volume 7.7 FL Neutrophils (%) (Auto) 89.7 % Lymphocytes (%) (Auto) 4.7 % Monocytes (%) (Auto) 4.9 % Eosinophils (%) (Auto) 0.3 % Basophils (%) (Auto) 0.4 % Neutrophils # (Auto) 19.4 TH/MM3 Lymphocytes # (Auto) 1.0 TH/MM3 Monocytes # (Auto) 1.1 TH/MM3 Eosinophils # (Auto) 0.1 TH/MM3 Basophils # (Auto) 0.1 TH/MM3 CBC Comment DIFF FINAL Differential Comment Prothrombin Time 11.0 SEC Prothromb Time International Ratio 1.1 RATIO Activated Partial Thromboplast Time 29.9 SEC Blood Urea Nitrogen 19 MG/DL Creatinine 0.60 MG/DL Random Glucose 96 MG/DL Total Protein 7.3 GM/DL Albumin 2.0 GM/DL Calcium Level 8.7 MG/DL Alkaline Phosphatase 362 U/L Aspartate Amino Transf (AST/SGOT) 27 U/L Alanine Aminotransferase (ALT/SGPT) 23 U/L Total Bilirubin 0.7 MG/DL Sodium Level 138 MEQ/L Potassium Level 4.0 MEQ/L Chloride Level 102 MEQ/L Carbon Dioxide Level 27.1 MEQ/L Anion Gap 9 MEQ/L Estimat Glomerular Filtration Rate 100 ML/MIN Lactic Acid Level 1.1 mmol/L Urine Color YELLOW Urine Turbidity HAZY Urine pH 5.0 Urine Specific Harrison 1.019 Urine Protein 30 mg/dL Urine Glucose (UA) NEG mg/dL Urine Ketones TRACE mg/dL Urine Occult Blood NEG Urine Nitrite NEG Urine Bilirubin NEG Urine Urobilinogen 2.0 MG/DL Urine Leukocyte Esterase NEG Urine WBC 1 /hpf Urine Squamous Epithelial Cells 1 /hpf Urine Amorphous Sediment RARE Urine Bacteria FEW /hpf Urine Hyaline Casts 1 /lpf Urine Granular Casts 4 /lpf Microscopic Urinalysis Comment CATH-CULTURE IND Last Impressions Chest X-Ray 12/18/17 1430 Signed Impressions: Service Date/Time: December 14:39 - CONCLUSION: 1. Mild platelike atelectasis in the right upper lung. 2. Otherwise, no focal or acute pulmonary infiltrates. 3. No significant changes compared to the prior studies. Steffen Mtz MD Pelvis CT 12/18/17 0000 Signed Impressions: Service Date/Time: December 15:52 - CONCLUSION: 1. Some disease emphysema and soft tissue changes within the adipose tissue of the medial right buttocks extending to the midline suggestive of a decubitus ulcer. 2. There is an air-fluid level in a 2.2 cm cavity within the soft tissues of the medial right buttocks suggestive of a soft tissue abscess. Steffen Mtz MD Patient has been given IV vancomycin and Zosyn. We will go slowly on the IV normal saline bolus due to patient's history of CHF. I discussed the patient with Dr. Martin. Patient be admitted to his service. Sepsis Criteria SIRS Criteria (2 or more): Heart rate over 90, WBC > 47143, < 4000 or > 10% bands Sepsis Criteria (SIRS+source): Infect source susp/known Diagnosis Primary Impression: Sepsis Qualified Codes: A41.9 - Sepsis, unspecified organism Additional Impression: Decubitus ulcer, buttock Qualified Codes: L89.310 - Pressure ulcer of right buttock, unstageable Admitting Information Admitting Physician Requests: Admit Condition: Stable Norma Lopez BJ Dec 18, 2017 14:30
--- NOTE | 2017-12-18 14:49 | RADRPT ---
EXAM DATE/TIME: 12/18/2017 14:39 [facility] COMPARISON: CHEST SINGLE AP, March 03, 2017, 18:10. CHEST SINGLE AP, July 20, 2017, 21:41. INDICATIONS : Fever MEDICAL HISTORY : Hypercholesterolemia. Hypertension Carcinoma, breast. Diabetes SURGICAL HISTORY : None. ENCOUNTER: Initial ACUITY: 2 days PAIN SCORE: 0/10 LOCATION: chest FINDINGS: A single view of the chest demonstrates mild platelike atelectasis in the right upper lung. Otherwise , the rest the lungs are clear and stable compared to the prior study. The heart size is stable. No p leural effusions or pulmonary edema. Prominent soft tissue in the superior mediastinum which is stabl e and unchanged compared to the prior studies. The findings suggest most likely a large thyroid gland .. CONCLUSION: 1. Mild platelike atelectasis in the right upper lung. 2. Otherwise, no focal or acute pulmonary infiltrates. 3. No significant changes compared to the prior studies. Steffen Mtz MD on December 18, 2017 at 14:45 Board Certified Radiologist. This report was verified electronically.
[2017-12-18] MEDS ORDERED: SODIUM CHLOR 0.9% 1000 ML INJ 1,000 ML IV ONE (15:00)
[2017-12-18] MEDS ORDERED: VANCOMYCIN INJ 1,000 MG in SODIUM CHLOR 0.9% 250 ML INJ 250 ML IV STA (15:00)
[2017-12-18] MEDS ORDERED: PIPERACIL-TAZO 4.5 GM PREMIX 100 ML IV STA (15:00)
[2017-12-18] MEDS ORDERED: KETOROLAC TROMETHAMINE 30 MG/ML (IVP) VIAL IV PUSH ONE (15:15)
[2017-12-18 15:16] LABS: AUTOMATED NEUTROPHIL # 19.4 TH/MM3 (1.8-7.7); BASOPHIL # 0.1 TH/MM3 (0-0.2); BASOPHIL % 0.4 % (0.0-2.0); EOSINOPHIL # 0.1 TH/MM3 (0-0.4); EOSINOPHIL % 0.3 % (0.0-4.0); HEMATOCRIT 27.6 % (35.0-46.0); HEMOGLOBIN 8.9 GM/DL (11.6-15.3); LYMPH % 4.7 % (9.0-44.0); MEAN CELL VOLUME 83.9 FL (80.0-100.0); MEAN CORPUSCULAR HEMOGLOBIN 27.1 PG (27.0-34.0); MEAN CORPUSCULAR HGB CONC 32.3 % (32.0-36.0); MEAN PLATELET VOLUME 7.7 FL (7.0-11.0); MONO % 4.9 % (0.0-8.0); MONOCYTE # 1.1 TH/MM3 (0-0.9); NEUT % 89.7 % (16.0-70.0); PLATELET COUNT 438 TH/MM3 (150-450); RED BLOOD COUNT 3.28 MIL/MM3 (4.00-5.30); RED CELL DISTRIBUTION WIDTH 15.4 % (11.6-17.2); WHITE BLOOD COUNT 21.6 TH/MM3 (4.0-11.0)
[2017-12-18 15:17] VITALS: BP 136/63; PULSE 93; RESP 16; O2SAT 95
[2017-12-18 15:21] LABS: INTERNATIONAL NORMALIZED RATIO 1.1 RATIO
[2017-12-18 15:27] LABS: AST (GOT) 27 U/L (15-37); BICARBONATE 27.1 MEQ/L (21.0-32.0); BLOOD UREA NITROGEN 19 MG/DL (7-18); CALCIUM 8.7 MG/DL (8.5-10.1); CHLORIDE 102 MEQ/L (98-107); GLOMERULAR FILTRATION RATE 100 ML/MIN (>89); GLUCOSE,RANDOM 96 MG/DL (74-106); SODIUM (NA) 138 MEQ/L (136-145)
[2017-12-18 15:30] LABS: ALKALINE PHOSPHATASE 362 U/L (45-117); ALT (GPT) 23 U/L (10-53); TOTAL BILIRUBIN ADULT 0.7 MG/DL (0.2-1.0); TOTAL PROTEIN 7.3 GM/DL (6.4-8.2)
[2017-12-18 15:33] LABS: AMORPHOUS SEDIMENT, URINE RARE; BILIRUBIN, URINE NEG (NEG); BLOOD, URINE NEG (NEG); GLUCOSE,URINE NEG (NEG); HYALINE CAST, URINE 1 /lpf (RARE); KETONE, URINE TRACE mg/dL (NEG); NITRITE,URINE NEG (NEG); SQUAMOUS EPITHELIAL CELL URINE 1 /hpf (0-5); URINE COLOR YELLOW (YELLW/STRAW); URINE LEUKOCYTE ESTERASE NEG (NEG)
[2017-12-18 15:34] LABS: BACTERIA, URINE FEW /hpf
--- NOTE | 2017-12-18 16:20 | RADRPT ---
EXAM DATE/TIME: 12/18/2017 15:52 [facility] COMPARISON: No previous studies available for comparison. INDICATIONS : Buttock ulcer. IV CONTRAST: 86 cc Omnipaque 350 (iohexol) IV ORAL CONTRAST: No oral contrast ingested. RADIATION DOSE: 13.32 CTDIvol (mGy) MEDICAL HISTORY : Hypertension. Cardiovascular disease Diabetes mellitus type 1.breast cancer SURGICAL HISTORY : Cholecystectomy. lumbar surgery ENCOUNTER: Initial ACUITY: 1 day PAIN SCALE: 7/10 LOCATION: Right buttock TECHNIQUE: Volumetric scanning of the pelvis was performed. Using automated exposure control and adjustment of t he mA and/or kV according to patient size, radiation dose was kept as low as reasonably achievable to obtain optimal diagnostic quality images. DICOM format image data is available electronically for review and comparison. FINDINGS: There is some soft tissue changes with subcutaneous emphysema along the medial right buttocks extendi ng to the midline position. There appears to be a air-fluid level in a small cavity measuring 2.2 cm in the soft tissues along the medial right buttocks suggestive of a soft tissue abscess. There are de generative changes involving the bony structures. There is no evidence of bony erosion or destruction to suggest osteomyelitis. There is evidence of previous surgery to the lower lumbar spine. The bowel gas pattern within the pelvis is within normal limits. There is a moderate amount of stool in the re ctum. CONCLUSION: 1. Some disease emphysema and soft tissue changes within the adipose tissue of the medial right butto cks extending to the midline suggestive of a decubitus ulcer. 2. There is an air-fluid level in a 2.2 cm cavity within the soft tissues of the medial right buttock s suggestive of a soft tissue abscess. Steffen Mtz MD on December 18, 2017 at 16:15 Board Certified Radiologist. This report was verified electronically.
[2017-12-18 16:34] VITALS: BP 136/63; PULSE 86; RESP 18; O2SAT 99
--- NOTE | 2017-12-18 17:26 | HHI.HP ---
HPI Service [facility] Hospitalists Primary Care Physician Eulalio Betts, DO Admission Diagnosis BUTTOCK DECUBITUS infected/Abscess Chief Complaint: buttock wound Travel History International Travel<30 Days: No Contact w/Intl Traveler <30 Da: No Traveled to Known Affected Are: No History of Present Illness Ms. Wilson is a 67 y/o female with recurrent UTIs (ESBL E. coli, Klebsiella, Enterococcus), C diff, hypertension, diabetes mellitus, CVA and hx of breast cancer who presents to ED with worsening sacral decubitus ulcerations. This patient is essentially bed bound all day at home and her son is her caregiver. [facility] has also placed resources into her hown including HOME DOC and HHC to manage her wounds and medical conditions. She was here in October and at that time the sacral wounds were not clinically infected. No odor/No drainage/No redness but swab was taken by the wound care team. She is noted to have necrotic ulcerations of buttock area bilaterally with foul odor and drainage...more swelling in right side most likely abscess. ED given geovannao and katrinan. Of note the last time this pt was discharged we were approached by an advocate from her [employer] stating that the son was not caring for her and neglecting her. They were concerned for her further deterioration. When asked about it the pt is very defensive of her son and says he does the best he can. She gets panicky when we asked her about it in October and we did offer help....but she refused. Today she seems more willing to be placed for medical care. Review of Systems Other buttock wounds and drainage Past Family Social History Past Medical History Hypertension Recurrent UTI with history of urosepsis Depression Anxiety Postherpetic neuralgia Hyperlipidemia Breast cancer Degenerative disc disease lumbar spine 2D echo (12/31/16) - Poor image quality - EF 65-70% - Poorly visualized aortic valve - Difficult to exclude bicuspid valve, no stenosis - Trace tricuspid regurgitation. 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 sacral decubit . pressure ulceration on left heal Left breast lumpectomy Lumbar microdiscectomy Laminectomy L3-L4 fusion Left knee replacement Cholecystectomy Exploratory laparotomy with repair of ventral hernia in February 2017 Left parotid tumor excision at [facility] March 2017 Reported Medications Reported Meds & Active Scripts Active [Nystatin Powder] 15 APPLIC/15 GM Powd 1 Applic TOPICAL UNSCH PRN Santyl (Collagenase) 250 Unit/Gram Oin 1 Applic EXTERNAL DAILY Ditropan (Oxybutynin Chloride) 5 Mg Tab 5 Mg PO Q12HR Trazodone (Trazodone HCl) 100 Mg Tablet 100 Mg PO HS PRN Reported Gabapentin 300 Mg Cap 300 Mg PO HS Lisinopril 10 Mg Tab 10 Mg PO DAILY Nifedipine ER 24 HR (Nifedipine) 60 Mg Tab 60 Mg PO DAILY Cymbalta DR (Duloxetine HCl) 60 Mg Capdr 60 Mg PO DAILY Lipitor (Atorvastatin Calcium) 40 Mg Tab 40 Mg PO HS Allergies: Coded Allergies: Sulfa (Sulfonamide Antibiotics) (Unverified Allergy, Severe, HIVES, 12/18/17 ) allopurinol (Unverified Allergy, Severe, Hives, 12/18/17) aspirin (Unverified Allergy, Severe, Hallucinations, 12/18/17) butalbital (Unverified Allergy, Severe, Hallucinations, 12/18/17) caffeine (Unverified Allergy, Severe, Hallucinations, 12/18/17) morphine (Unverified Adverse Reaction, Severe, SHAKING, HEADACHE, 12/18/17) clonidine (Unverified Adverse Reaction, Mild, LETHARGY,SHAKING, 12/18/17) PER Family History Father at 59 had cardiac disease Mother at 87 Social History Social History Patient is retired and lives with her adult son No tobacco or alcohol use. 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 no drainage or redness left lat leg pressure wound/denuded skin superior buttocks isidro ulcerations with necrotic tissue and swelling over right upper buttock and fluctuance concerning for abscess. foul odor and drainage alot of stool in close proximity to the wounds Vital Signs Date Time Temp Pulse Resp B/P (MAP) Pulse Ox O2 Delivery O2 Flow Rate FiO2 12/18/17 16:34 86 18 136/63 (87) 99 Nasal Cannula 2.00 12/18/17 16:34 99 Nasal Cannula 2.00 12/18/17 15:17 93 16 136/63 (87) 95 Room Air 12/18/17 13:59 97.8 96 20 120/69 (86) 97 Laboratory Laboratory Tests Test 12/18/17 14:45 12/18/17 15:00 White Blood Count 21.6 Red Blood Count 3.28 Hemoglobin 8.9 Hematocrit 27.6 Mean Corpuscular Volume 83.9 Mean Corpuscular Hemoglobin 27.1 Mean Corpuscular Hemoglobin Concent 32.3 Red Cell Distribution Width 15.4 Platelet Count 438 Mean Platelet Volume 7.7 Neutrophils (%) (Auto) 89.7 Lymphocytes (%) (Auto) 4.7 Monocytes (%) (Auto) 4.9 Eosinophils (%) (Auto) 0.3 Basophils (%) (Auto) 0.4 Neutrophils # (Auto) 19.4 Lymphocytes # (Auto) 1.0 Monocytes # (Auto) 1.1 Eosinophils # (Auto) 0.1 Basophils # (Auto) 0.1 CBC Comment DIFF FINAL Differential Comment Prothrombin Time 11.0 Prothromb Time International Ratio 1.1 Activated Partial Thromboplast Time 29.9 Blood Urea Nitrogen 19 Creatinine 0.60 Random Glucose 96 Total Protein 7.3 Albumin 2.0 Calcium Level 8.7 Alkaline Phosphatase 362 Aspartate Amino Transf (AST/SGOT) 27 Alanine Aminotransferase (ALT/SGPT) 23 Total Bilirubin 0.7 Sodium Level 138 Potassium Level 4.0 Chloride Level 102 Carbon Dioxide Level 27.1 Anion Gap 9 Estimat Glomerular Filtration Rate 100 Lactic Acid Level 1.1 Urine Color YELLOW Urine Turbidity HAZY Urine pH 5.0 Urine Specific [place] 1.019 Urine Protein 30 Urine Glucose (UA) NEG Urine Ketones TRACE Urine Occult Blood NEG Urine Nitrite NEG Urine Bilirubin NEG Urine Urobilinogen 2.0 Urine Leukocyte Esterase NEG Urine WBC 1 Urine Squamous Epithelial Cells 1 Urine Amorphous Sediment RARE Urine Bacteria FEW Urine Hyaline Casts 1 Urine Granular Casts 4 Microscopic Urinalysis Comment CATH-CULTURE IND Date/Time Source Procedure Growth Status 12/18/17 14:45 Blood Peripheral Aerobic Blood Culture Pending Received 12/18/17 14:45 Blood Peripheral Anaerobic Blood Culture Pending Received 12/18/17 15:00 Urine Clean Catch Urine Culture Pending Received 12/18/17 14:45 Wound Buttock Gram Stain Pending Received 12/18/17 14:45 Wound Buttock Wound Culture Pending Received Result Diagram: 12/18/17 1445 12/18/17 1445 Caprini VTE Risk Assessment Caprini VTE Risk Assessment: Mod/High Risk (score >= 2) Caprini Risk Assessment Model Point Value = 1 Point Value = 2 Point Value = 3 Point Value = 5 Age 41-60 Minor surgery BMI > 25 kg/m2 Swollen legs Varicose veins or History of unexplained or recurrent spontaneous Oral contraceptives or hormone replacement Sepsis (< 1 month) Serious lung disease, including pneumonia (< 1 month) Abnormal pulmonary function Acute myocardial infarction Congestive heart failure (< 1 month) History of inflammatory bowel disease Medical patient at bed rest Age 61-74 Arthroscopic surgery Major open surgery (> 45 min) Laparoscopic surgery (> 45 min) Malignancy Confined to bed (> 72 hours) Immobilizing plaster cast Central venous access Age >= 75 History of VTE Family history of VTE Factor V Leiden Prothrombin [id number] Lupus anticoagulant Anticardiolipin antibodies Elevated serum homocysteine Heparin-induced thrombocytopenia Other congenital or acquired thrombophilia Stroke (< 1 month) Elective arthroplasty Hip, pelvis, or leg fracture Acute spinal cord injury (< 1 month) Prophylaxis Regimen Total Risk Factor Score Risk Level Prophylaxis Regimen 0-1 Low Early ambulation 2 Moderate Order ONE of the following: *Sequential Compression Device (SCD) *Heparin 5000 units SQ BID 3-4 Higher Order ONE of the following medications: *Heparin 5000 units SQ TID *Enoxaparin/Lovenox 40 mg SQ daily (WT < 150 kg, CrCl > 30 mL/min) *Enoxaparin/Lovenox 30 mg SQ daily (WT < 150 kg, CrCl > 10-29 mL/min) *Enoxaparin/Lovenox 30 mg SQ BID (WT < 150 kg, CrCl > 30 mL/min) AND/OR *Sequential Compression Device (SCD) 5 or more Highest Order ONE of the following medications: *Heparin 5000 units SQ TID (Preferred with Epidurals) *Enoxaparin/Lovenox 40 mg SQ daily (WT < 150 kg, CrCl > 30 mL/min) *Enoxaparin/Lovenox 30 mg SQ daily (WT < 150 kg, CrCl > 10-29 mL/min) *Enoxaparin/Lovenox 30 mg SQ BID (WT < 150 kg, CrCl > 30 mL/min) AND *Sequential Compression Device (SCD) Assessment and Plan Problem List: (1) Infected decubitus ulcer ICD Codes: L89.90 - Pressure ulcer of unspecified site, unspecified stage; L08.9 - Local infection of the skin and subcutaneous tissue, unspecified Status: Acute Plan: 1. bilateral necrotic/infected sacral/buttock ulceration. Abscess right upper buttock 2. generalize weakness and mostly bedbound at home 3. recurrent uti's with resistant organisms and c.diff colitis hx 4. diabetes. 5. htn 6. left heel/lat leg pressure ulcerations. consult plastic surgery tto evaluate sacral/buttock necrotic wounds/abscess broad spectrum abx. will use previous cultures as a guide ivf hydration wound care consultation PT dvt prophylaxis ssi cont home bp meds will need snf placement. villalobos (2) Abscess of buttock ICD Codes: L02.31 - Cutaneous abscess of buttock Status: Acute (3) General weakness ICD Codes: R53.1 - Weakness Status: Acute (4) CVA (cerebral infarction) ICD Codes: I63.9 - CVA (cerebral infarction) Status: Chronic (5) Hypertension ICD Codes: I10 - Hypertension Status: Chronic (6) Diabetes ICD Codes: E11.9 - Diabetes mellitus Status: Chronic Physician Certification 2 Midnight Certification Type: Admission for Inpatient Services Order for Inpatient Services 5The services are ordered in accordance with Medicare regulations or non- Medicare payer requirements, as applicable. In the case of services not specified as inpatient-only, they are appropriately provided as inpatient services in accordance with the 2-midnight benchmark. Estimated LOS (days): 5 5 days is the estimated time the patient will need to remain in the hospital, assuming treatment plan goals are met and no additional complications. Post-Hospital Plan: SNF Jackson Bravo MD Dec 18, 2017 17:26
[2017-12-18] MEDS ORDERED: NON-FORMULARY DRUG (Trazodone 100 MG) PO PRN (17:30)
[2017-12-18] MEDS ORDERED: Vancomycin Consult Pharmacy 1 EA OTHER SCH (17:30)
[2017-12-18] MEDS ORDERED: VANCOMYCIN INJ 1,000 MG in SODIUM CHLOR 0.9% 250 ML INJ 250 ML IV ONE (17:30)
[2017-12-18] MEDS ORDERED: SODIUM CHLOR 0.9% 1000 ML INJ 1,000 ML IV SCH (18:00)
[2017-12-18] MEDS ORDERED: ONDANSETRON HCL 4 MG/2 ML VIAL IV PUSH PRN (18:00)
[2017-12-18 18:09] VITALS: BP 124/65; PULSE 81; RESP 18; O2SAT 100
[2017-12-18] MEDS ORDERED: TRAM50TA PO (18:15)
[2017-12-18] MEDS ORDERED: METF500T PO (18:15)
[2017-12-18] MEDS ORDERED: LISI-515 PO (18:15)
[2017-12-18] MEDS ORDERED: TRAZ100T10 PO (18:15)
[2017-12-18] MEDS ORDERED: GABA600T PO (18:15)
[2017-12-18] MEDS ORDERED: DEXTROSE 50% IN WATER 50 ML VIAL(D50) IV PUSH PRN (19:00)
[2017-12-18] MEDS ORDERED: GLUCAGON 1 MG/ML VIAL OTHER PRN (19:00)
[2017-12-18] MEDS: INSULIN ASPART SUPPLEMENTAL SCALE SQ SCH (21:00)
[2017-12-18] MEDS: GABAPENTIN 300 MG CAP PO SCH (22:29)
[2017-12-18] MEDS: OXYBUTYNIN CHLORIDE 5 MG TAB PO SCH (22:29)
[2017-12-18] MEDS: LEVOFLOXACIN 750 MG PREMIX INJ 150 ML IV SCH (22:30)
[2017-12-18 23:00] VITALS: BP 146/67; PULSE 85; RESP 18; TEMP 97.7; O2SAT 100
[2017-12-19] VITALS (7 sets, daily range): BP systolic 120–147; BP diastolic 59–67; PULSE 94–109; RESP 16–20; TEMP 97.6–98.8; O2SAT 95–100
[2017-12-19] MEDS: VANCOMYCIN INJ 750 MG in SODIUM CHLOR 0.9% 250 ML INJ 250 ML IV SCH ×2 (04:42→17:00)
[2017-12-19 07:53] LABS: AUTOMATED NEUTROPHIL # 21.4 TH/MM3 (1.8-7.7); BASOPHIL % 0.2 % (0.0-2.0); EOSINOPHIL # 0.1 TH/MM3 (0-0.4); EOSINOPHIL % 0.5 % (0.0-4.0); HEMATOCRIT 22.7 % (35.0-46.0); HEMOGLOBIN 7.5 GM/DL (11.6-15.3); LYMPH % 2.9 % (9.0-44.0); LYMPHOCYTE # 0.7 TH/MM3 (1.0-4.8); MEAN CELL VOLUME 82.5 FL (80.0-100.0); MEAN CORPUSCULAR HEMOGLOBIN 27.3 PG (27.0-34.0); MEAN PLATELET VOLUME 7.8 FL (7.0-11.0); MONO % 4.5 % (0.0-8.0); MONOCYTE # 1.1 TH/MM3 (0-0.9); NEUT % 91.9 % (16.0-70.0); PLATELET COUNT 395 TH/MM3 (150-450); RED BLOOD COUNT 2.75 MIL/MM3 (4.00-5.30); RED CELL DISTRIBUTION WIDTH 15.3 % (11.6-17.2); WHITE BLOOD COUNT 23.3 TH/MM3 (4.0-11.0)
[2017-12-19 07:58] LABS: CALCIUM 8.1 MG/DL (8.5-10.1); CREATININE 0.55 MG/DL (0.50-1.00)
[2017-12-19] MEDS: INSULIN ASPART SUPPLEMENTAL SCALE SQ SCH ×4 (08:00→21:00)
[2017-12-19] MEDS ORDERED: NIFEdipine 60 MG SUSTAINED RELEASE TAB PO SCH (09:00)
--- NOTE | 2017-12-19 09:25 | HHI.PR ---
Subjective Remarks pt asking for water. looks weak. buttock pain Objective Vitals gen pale heart reg lung cta abd s/nt ext left heel ,lat leg pressure ulcer changes Vital Signs Date Time Temp Pulse Resp B/P (MAP) Pulse Ox O2 Delivery O2 Flow Rate FiO2 12/19/17 08:13 98.2 109 20 135/63 (87) 99 12/19/17 04:00 98.8 94 18 137/62 (87) 100 12/18/17 23:00 97.7 85 18 146/67 (93) 100 12/18/17 18:09 81 18 124/65 (84) 100 Nasal Cannula 2.00 12/18/17 16:34 86 18 136/63 (87) 99 Nasal Cannula 2.00 12/18/17 16:34 99 Nasal Cannula 2.00 12/18/17 15:17 93 16 136/63 (87) 95 Room Air 12/18/17 13:59 97.8 96 20 120/69 (86) 97 Result Diagram: 12/19/17 0543 12/19/17 0543 A/P Problem List: (1) Infected decubitus ulcer ICD Codes: L89.90 - Pressure ulcer of unspecified site, unspecified stage; L08.9 - Local infection of the skin and subcutaneous tissue, unspecified Status: Acute Plan: 1. bilateral necrotic/infected sacral/buttock ulceration. Abscess right upper buttock 2. generalize weakness and mostly bedbound at home 3. recurrent uti's with resistant organisms and c.diff colitis hx 4. diabetes. 5. htn 6. left heel/lat leg pressure ulcerations. 7. severe hypoalbumenemia 8. Anemia. chronic dz consulted plastic surgery to evaluate sacral/buttock necrotic wounds/abscess for debridement broad spectrum abx. will use previous cultures as a guide( pseudomonas, enterococcus faecalis/avium) ivf hydration wound care consultation PT dvt prophylaxis ssi cont home bp meds will need snf placement. villalobos check iron strudies/b12/guiac. transfuse prbc as needed. might need perioperatively. decide after surgical eval. (2) Abscess of buttock ICD Codes: L02.31 - Cutaneous abscess of buttock Status: Acute (3) General weakness ICD Codes: R53.1 - Weakness Status: Acute (4) CVA (cerebral infarction) ICD Codes: I63.9 - CVA (cerebral infarction) Status: Chronic (5) Hypertension ICD Codes: I10 - Hypertension Status: Chronic (6) Diabetes ICD Codes: E11.9 - Diabetes mellitus Status: Chronic Jackson Bravo MD Dec 19, 2017 09:25
[2017-12-19] MEDS: LISINOPRIL 10 MG TAB PO SCH (09:29)
[2017-12-19] MEDS: OXYBUTYNIN CHLORIDE 5 MG TAB PO SCH ×2 (09:30→21:49)
[2017-12-19] MEDS: LACTOBACILLUS ACIDOPHILUS TAB PO SCH ×3 (09:30→18:00)
[2017-12-19] MEDS: DULoxetine HCl DR 60 MG CAP PO SCH (09:30)
[2017-12-19] MEDS: POTASSIUM CHLORIDE INJ 10 MEQ in DEXT 5%-NACL 0.9% 1000 ML INJ 1,000 ML IV SCH (11:40)
[2017-12-19] MEDS ORDERED: LIDOCAINE HCL 1% PF 5 ML SYRINGE OTHER ONE (12:00)
[2017-12-19] MEDS ORDERED: PHENYLEPH/NS 1000 MCG/10 ML SYR IV ONE (12:00)
[2017-12-19] MEDS ORDERED: DEXAMETHASONE SOD PHOS 4 MG/ML VIAL IV ONE (12:00)
[2017-12-19] MEDS ORDERED: GLYCOPYRROLATE 1 MG/5 ML SYRINGE IV PUSH ONE (12:00)
[2017-12-19] MEDS ORDERED: ONDANSETRON HCL 4 MG/2 ML VIAL IV ONE (12:00)
[2017-12-19] MEDS ORDERED: ROCURONIUM INJ 50 MG/5 ML SYRINGE IV PUSH ONE (12:00)
[2017-12-19] MEDS ORDERED: NEOSTIGMINE 5 MG/5 ML SYRINGE IV PUSH ONE (12:00)
[2017-12-19] MEDS ORDERED: PROPOFOL 200 MG/20 ML AMP IV ONE (12:00)
--- NOTE | 2017-12-19 12:11 | PD.WCN.NOT ---
Wound Consult Description: Wound consult ordered by for Left lower extremity. Communicated with: Art RN [place], Recommendation: 1) Reposition patient every 2 hours for comfort and offloading 2) Apply heel protective boots when patient is in bed. 3) Apply Calazime cream to Left Calcaneus/Left lateral Tibial daily 4) Please reconsult wound care if worsens Additional Information: Patient was seen today on by principal technical writer for assessment of Left lower extremity.Patient alert and oriented in bed in no acute distress.Left lower extremity presents with dry stable light brown eschar noted to lateral tibial area measuring 14.4cm x 2.4cm x eschar.Open area noted to proximal eschar measuring ~1.5cm x ~1.5cm wound base [id number]% light pink tissue with scant serosanguineous drainage.no odor noted. Left Calcaneus has healing DTI in which is dry and stable patient has area of crusting noted in which if skin removed intact pink epithelial tissue will be exposed.Wound cleansed with normal saline lower extremities floated on pillow avoiding contact with mattress surface.Calazime cream applied to open area on Left tibial area and crusted dorsal foot.Patient tolerated wound care well.K-4 bed ordered will be delivered today.General surgery will be taking patient to OR today for Sacral/coccyx wound. Haile Torres [facility] Dec 19, 2017 12:10
[2017-12-19 13:50] LABS: IRON (FE) 20 MCG/DL (50-170); TOTAL IRON BINDING CAPACITY 118 MCG/DL (250-450)
[2017-12-19 14:16] LABS: FERRITIN 1126 NG/ML (8-252)
[2017-12-19] MEDS ORDERED: LIDOCAINE 1%/EPINEPHrine 1:100,000 SOLN 50 ML VIAL ONE (15:02)
--- NOTE | 2017-12-19 16:14 | MB ---
cc: Sangeetha José MD DATE OF CONSULT: 12/19/2017 REQUESTING PHYSICIAN: The patient is being seen at the request of Dr. Jackson Bravo. REASON FOR CONSULTATION: Infected decubitus ulcer. HISTORY OF PRESENT ILLNESS: The patient is a 67-year-old female with a history of UTIs, C. diff, hypertension, diabetes, CVA, history of breast cancer who presented with worsening decubitus ulcer. It was noted that the area was foul-smelling and draining and the patient had an elevated white count. Consultation was requested regarding evaluation and treatment of the decubitus ulcer. REVIEW OF SYSTEMS: As above. PAST MEDICAL HISTORY: Significant for - 1. Hypertension. 2. Recurrent UTIs with history of urosepsis. 3. Depression anxiety. 4. Postherpetic neuralgia. 5. Hyperlipidemia. 6. Breast cancer. 7. Degenerative disc lumbar spine disease. 8. Trace tricuspid regurgitation seen on 2-D echo. 9. Incarcerated ventral hernia fixed in February of 2017. 10. Left parotid tumor treated in March of 2017. 11. History of left heel decubitus ulcers. 12. Left breast lumpectomy. 13. Lumbar microdiscectomy, laminectomy, L3-L4 fusion. 14. Left knee replacement. 15. Cholecystectomy. 16. Exploratory laparotomy with a repair of ventral hernia. 17. Left parotid tumor excision at [facility]. MEDICATIONS: Listed on the chart. ALLERGIES: SULFA. ALLOPURINOL. ASPIRIN. BUTALBITAL. CAFFEINE. MORPHINE. CLONIDINE. FAMILY HISTORY: Significant for cardiac disease. SOCIAL HISTORY: The patient is retired and lives with her adult son. 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 PHYSICAL EXAMINATION: GENERAL: The patient is lying in bed. She is in no acute distress. She is oriented. HEENT: Her extraocular muscles are intact. The pupils are equal, round, reactive to light. LUNGS: Clear. HEART: Regular. SKIN: Examination of her sacral area reveals a full-thickness, Stage IV decubitus ulcer with purulent drainage, foul-smelling, measuring 3 cm x 10 cm and one adjacent to this and confluent an additional 2.5-cm x 6-cm. The surrounding tissue shows some areas of redness but it appears to be more irritation than infection with some blistering. LABORATORY DATA: Her white count is 23.3, hemoglobin is 7.5 with hematocrit of 22.7 and she has a positive shift. Chemistry shows a potassium today of 3.4 with a BUN of 21, a creatinine of 0.55. Her albumin on admission was 2.0 with a total protein of 7.3. Her alk phos is elevated to 362. Her INR is 1.1. Her urine shows that culture is indicated. IMPRESSION: The patient appears to have an infected decubitus ulcer, full thickness, Stage IV. PLAN: The patient was offered bedside debridement in order to remove the majority of the necrotic material but she would like to go to the operating room which is appropriate in this patient. The patient is advised that the wound will be debrided and a wound VAC will be placed. In addition, I contacted her attending physician who has ordered 2 units of blood and is aware of her potassium. The patient understands and accepts the risks and complications of the surgery. MD LIBRADO Ann/MILTON , 02:44 PM , 04:12 PM
[2017-12-19] MEDS ORDERED: VANCOMYCIN HCL 1000 MG VIAL ONE (17:03)
--- NOTE | 2017-12-19 17:18 | HHI.PR ---
Immediate Post Op Note Procedure Date: Dec 19, 2017 Pre Op Diagnosis: (1) Sacral decubitus ulcer, stage IV (2) Decubitus ulcer, buttock (3) Infected decubitus ulcer Post Op Diagnosis: (1) Decubitus ulcer, buttock (2) Sacral decubitus ulcer, stage IV (3) Infected decubitus ulcer Surgeon: Sangeetha José Computer Equipment Installer(s): None Procedure: Excisional debridement of decubitus ulcers of the right buttock and sacrum, to bone. Application of wound Vac. Estimated blood loss: 50ml Anesthesia: General Drains: Other (Wound Vac) Patient to: PACU Patient Condition: Good Date/Time of Procedure: SEE SURGICAL CARE RECORD Sangeetha José MD Dec 19, 2017 17:18
[2017-12-19] MEDS ORDERED: DO NOT ADM ANY ANTICOAGULANT DRUGS PRN (19:15)
--- NOTE | 2017-12-19 19:26 | MP ---
cc: Sangeetha José MD DATE OF OPERATION: 12/19/2017 PREOPERATIVE DIAGNOSES: 1. Sacral decubitus ulcer, stage IV. 2. Decubitus ulcer, stage IV, buttock. 3. Infected decubitus ulcer of sacrum and right buttock. PROCEDURE: 1. Excisional debridement of decubitus ulcer of right buttock. 2. Excisional debridement of stage IV decubitus ulcer of sacrum. 3. Application of wound vacuum-assisted closure. ANESTHESIA: General. SURGEON: Sangeetha José MD INDICATIONS: A 67-year-old female with stage IV decubitus ulcers of the buttock and sacrum. They were down to the sacral area and were full thickness in the area of the buttock. The dissection included removal of skin, subcutaneous tissue and muscle, as well as superficial portion of the sacral bone. At the completion of the procedure, all of the necrotic material had been removed and a wound VAC placed. OPERATIVE TIME: 45 minutes. PROCEDURE: The patient was seen preoperatively where the site and side were identified and marked. Patient was then taken to the operating room and placed in a left decubitus position with the side down, tilting obliquely toward the right to expose the sacral area as well as the right buttock. The area was prepped with Betadine and draped in the usual sterile fashion. Timeout was called by the circulating nurse. Once timeout had been called, the area was prepped with Betadine and draped in usual sterile fashion as noted. Sharp scissor was first used to excise all the necrotic material. As it was being removed, it was obvious that there was a significant amount of soupy necrotic material in the area of the sacrum, which did tunnel inferiorly. The entire area of dissection, by the time I was finished, was approximately 20 cm x 8 cm in greatest dimension. The sacrum was exposed. The dissection continued down sharpy and then the Versajet was used to remove the remaining skin, subcutaneous tissue and muscles, and the portion of the bone which had become exposed. Bleeding was controlled with electrocautery. Once all the necrotic material was removed, hemostasis was obtained and the wound was copiously irrigated with saline. A medium size wound VAC was shaped to the shape of the wound and a small bridge was placed over the skin, which was protected with the plastic. This was then attached to the wound VAC, and there was excellent suction without any evidence of a leak. The patient was then taken from the operating room to the recovery room in satisfactory condition, having tolerated the procedure well. Postoperative instructions include the wound VAC settings and changing it 3 times a week. ESTIMATED BLOOD LOSS: Approximately 50 mL. The patient is scheduled to receive 2 units of blood. Hemodynamically, she was stable during the entire case and at the end of the procedure, she was also hemodynamically stable. MD LIBRADO Ann/MILTON , 05:32 PM , 07:25 PM
[2017-12-19] MEDS: GABAPENTIN 300 MG CAP PO SCH (21:49)
[2017-12-19] MEDS: LEVOFLOXACIN 750 MG PREMIX INJ 150 ML IV SCH (21:49)
[2017-12-19] MEDS: traZODone HCL 100 MG TAB PO PRN (22:05)
[2017-12-20] VITALS (9 sets, daily range): BP systolic 105–147; BP diastolic 57–83; PULSE 79–93; RESP 16–19; TEMP 97.3–98.6; O2SAT 93–99
[2017-12-20] MEDS ORDERED: PHARMACY ORDERED LAB ONE (04:45)
[2017-12-20] MEDS: VANCOMYCIN INJ 750 MG in SODIUM CHLOR 0.9% 250 ML INJ 250 ML IV SCH (04:53)
[2017-12-20] MEDS: POTASSIUM CHLORIDE INJ 10 MEQ in DEXT 5%-NACL 0.9% 1000 ML INJ 1,000 ML IV SCH (04:54)
[2017-12-20 08:01] LABS: AUTOMATED NEUTROPHIL # 18.4 TH/MM3 (1.8-7.7); BASOPHIL # 0.1 TH/MM3 (0-0.2); BASOPHIL % 0.3 % (0.0-2.0); EOSINOPHIL % 0.1 % (0.0-4.0); HEMATOCRIT 30.8 % (35.0-46.0); HEMOGLOBIN 10.3 GM/DL (11.6-15.3); LYMPH % 5.4 % (9.0-44.0); LYMPHOCYTE # 1.1 TH/MM3 (1.0-4.8); MEAN CELL VOLUME 83.8 FL (80.0-100.0); MEAN CORPUSCULAR HEMOGLOBIN 28.1 PG (27.0-34.0); MEAN CORPUSCULAR HGB CONC 33.6 % (32.0-36.0); MEAN PLATELET VOLUME 7.6 FL (7.0-11.0); MONO % 4.8 % (0.0-8.0); NEUT % 89.4 % (16.0-70.0); PLATELET COUNT 344 TH/MM3 (150-450); RED BLOOD COUNT 3.67 MIL/MM3 (4.00-5.30); RED CELL DISTRIBUTION WIDTH 15.9 % (11.6-17.2); WHITE BLOOD COUNT 20.6 TH/MM3 (4.0-11.0)
[2017-12-20 08:24] LABS: BICARBONATE 23.1 MEQ/L (21.0-32.0); CALCIUM 8.2 MG/DL (8.5-10.1); CREATININE 0.84 MG/DL (0.50-1.00)
[2017-12-20] MEDS: LACTOBACILLUS ACIDOPHILUS TAB PO SCH ×4 (09:00→17:42)
[2017-12-20] MEDS: LISINOPRIL 10 MG TAB PO SCH (09:28)
[2017-12-20] MEDS: OXYBUTYNIN CHLORIDE 5 MG TAB PO SCH ×2 (09:28→22:55)
[2017-12-20] MEDS: DULoxetine HCl DR 60 MG CAP PO SCH (09:29)
[2017-12-20] MEDS: INSULIN ASPART SUPPLEMENTAL SCALE SQ SCH ×4 (10:36→23:07)
--- NOTE | 2017-12-20 10:39 | HHI.PR ---
Subjective Remarks no complaints. Objective Vitals oriented follows commands heart reg lung cta abd s/nt ext wound vac over buttock wound left heel pressure ulceration and left lat leg pressure changes. villalobos Vital Signs Date Time Temp Pulse Resp B/P (MAP) Pulse Ox O2 Delivery O2 Flow Rate FiO2 12/20/17 07:57 97.7 79 18 121/57 (78) 97 12/20/17 04:00 97.6 87 18 119/58 (78) 98 12/20/17 01:02 97.5 92 16 119/58 97 12/20/17 00:43 97.3 93 16 134/64 97 12/20/17 00:00 97.3 90 18 134/64 (87) 95 12/19/17 21:35 98.6 96 16 123/60 95 12/19/17 21:23 95 21 12/19/17 21:21 98.6 99 17 120/59 95 12/19/17 20:00 98.3 106 17 128/67 (87) 96 12/19/17 18:00 91 16 126/62 (83) 100 12/19/17 17:45 93 16 141/63 (89) 99 Nasal Cannula 2 12/19/17 17:45 93 16 141/63 (89) 99 Nasal Cannula 2 12/19/17 17:26 98.4 92 14 117/57 (77) 100 12/19/17 12:01 97.6 105 20 147/65 (92) 98 Result Diagram: 12/20/17 0650 12/20/17 0650 A/P Problem List: (1) Infected decubitus ulcer ICD Codes: L89.90 - Pressure ulcer of unspecified site, unspecified stage; L08.9 - Local infection of the skin and subcutaneous tissue, unspecified Status: Acute Plan: 1. bilateral necrotic/infected sacral/buttock ulceration. Abscess right upper buttock 12/19: DR José 1. Excisional debridement of decubitus ulcer of right buttock. 2. Excisional debridement of stage IV decubitus ulcer of sacrum. 3. Application of wound vacuum-assisted closure. 2. generalize weakness and mostly bedbound at home 3. recurrent uti's with resistant organisms and c.diff colitis hx 4. diabetes. 5. htn 6. left heel/lat leg pressure ulcerations. 7. severe hypoalbumenemia 8. Anemia. chronic dz s/p 2 units prbc 12/19 wound vac and wound care per Dr José and wound care team broad spectrum abx. will use previous cultures as a guide( pseudomonas, enterococcus faecalis/avium) PT dvt prophylaxis ssi cont home bp meds will need snf placement. villalobos (2) Abscess of buttock ICD Codes: L02.31 - Cutaneous abscess of buttock Status: Acute (3) General weakness ICD Codes: R53.1 - Weakness Status: Acute (4) CVA (cerebral infarction) ICD Codes: I63.9 - CVA (cerebral infarction) Status: Chronic (5) Hypertension ICD Codes: I10 - Hypertension Status: Chronic (6) Diabetes ICD Codes: E11.9 - Diabetes mellitus Status: Chronic Jackson Bravo MD Dec 20, 2017 10:39
[2017-12-20] MEDS: LEVOFLOXACIN 750 MG PREMIX INJ 150 ML IV SCH (22:52)
[2017-12-20] MEDS: GABAPENTIN 300 MG CAP PO SCH (22:55)
[2017-12-20] MEDS: traZODone HCL 100 MG TAB PO PRN (23:14)
[2017-12-20] MEDS: VANCOMYCIN 1,000 MG/NS 250 ML IV SCH ×2 (23:14)
--- NOTE | 2017-12-20 23:34 | EKG ---
Date Performed: 12/19/2017 Time Performed: 12:58:42 PTAGE: 67 years EKG: SINUS TACHYCARDIA NONSPECIFIC T-WAVE ABNORMALITY ABNORMAL RHYTHM ECG PREVIOUS TRACING : 07/20/2017 22.32 Compared to prior tracing, now tachycardic DOCTOR: Junaid Varela Interpretating Date/Time 12/20/2017 23:32:43
[2017-12-21] VITALS: BP 148/72; PULSE 70; RESP 18; TEMP 98.3; O2SAT 97
[2017-12-21 04:00] VITALS: BP 159/77; PULSE 68; RESP 17; TEMP 98; O2SAT 98
[2017-12-21] MEDS: INSULIN ASPART SUPPLEMENTAL SCALE SQ SCH ×4 (08:00→22:57)
[2017-12-21] MEDS: DULoxetine HCl DR 60 MG CAP PO SCH (08:08)
[2017-12-21] MEDS: OXYBUTYNIN CHLORIDE 5 MG TAB PO SCH ×2 (08:08→21:08)
[2017-12-21] MEDS: LISINOPRIL 10 MG TAB PO SCH (08:09)
[2017-12-21] MEDS: LACTOBACILLUS ACIDOPHILUS TAB PO SCH ×3 (08:09→16:59)
[2017-12-21 08:36] VITALS: BP 166/78; PULSE 68; RESP 18; TEMP 98; O2SAT 98
--- NOTE | 2017-12-21 11:12 | HHI.PR ---
Subjective Remarks pt lying in bed tired I helped her take some glucerna/water bagel... Objective Vitals lying in bed oriented heart reg lung cta abd s/nt ext wound vac to buttock Vital Signs Date Time Temp Pulse Resp B/P (MAP) Pulse Ox O2 Delivery O2 Flow Rate FiO2 12/21/17 08:36 98.0 68 18 166/78 (107) 98 12/21/17 04:00 98.0 68 17 159/77 (104) 98 12/21/17 00:00 98.3 70 18 148/72 (97) 97 12/20/17 21:29 99 21 12/20/17 20:00 98.0 79 17 147/83 (104) 96 12/20/17 16:02 98.6 93 18 144/65 (91) 99 12/20/17 12:36 98.0 84 16 146/67 (93) 98 12/21/17 12/21/17 12/22/17 14:59 22:59 06:59 Output Total 200 ml Balance -200 ml Output Urine Total 200 ml # Bowel Movements 0 Result Diagram: 12/20/17 0650 12/20/17 0650 A/P Problem List: (1) Infected decubitus ulcer ICD Codes: L89.90 - Pressure ulcer of unspecified site, unspecified stage; L08.9 - Local infection of the skin and subcutaneous tissue, unspecified Status: Acute Plan: 1. bilateral necrotic/infected sacral/buttock ulceration. Abscess right upper buttock 12/19: DR José 1. Excisional debridement of decubitus ulcer of right buttock. 2. Excisional debridement of stage IV decubitus ulcer of sacrum. 3. Application of wound vacuum-assisted closure. 2. generalize weakness and mostly bedbound at home 3. recurrent uti's with resistant organisms and c.diff colitis hx 4. diabetes. 5. htn 6. left heel/lat leg pressure ulcerations. 7. severe hypoalbumenemia 8. Anemia. chronic dz s/p 2 units prbc 12/19 wound vac and wound care per Dr José and wound care team broad spectrum abx. will use previous cultures as a guide( pseudomonas, enterococcus faecalis/avium) PT dvt prophylaxis ssi cont lisinipril and add back procardia for her elevated bp nutritional supplement will need snf placement. villalobos (2) Abscess of buttock ICD Codes: L02.31 - Cutaneous abscess of buttock Status: Acute (3) General weakness ICD Codes: R53.1 - Weakness Status: Acute (4) CVA (cerebral infarction) ICD Codes: I63.9 - CVA (cerebral infarction) Status: Chronic (5) Hypertension ICD Codes: I10 - Hypertension Status: Chronic (6) Diabetes ICD Codes: E11.9 - Diabetes mellitus Status: Chronic Jackson Bravo MD Dec 21, 2017 11:12
[2017-12-21 11:51] VITALS: BP 173/81; PULSE 77; RESP 20; TEMP 98.3; O2SAT 97
[2017-12-21] MEDS: NIFEdipine 30 MG SUSTAINED RELEASE TAB PO SCH ×2 (12:49→21:08)
[2017-12-21 15:48] VITALS: BP 152/74; PULSE 88; RESP 20; TEMP 97.9; O2SAT 97
[2017-12-21] MEDS: VANCOMYCIN 1,000 MG/NS 250 ML IV SCH ×2 (17:01)
[2017-12-21 20:00] VITALS: BP 142/67; PULSE 71; RESP 18; TEMP 98.6; O2SAT 97
[2017-12-21] MEDS: GABAPENTIN 300 MG CAP PO SCH (21:08)
[2017-12-21] MEDS: LEVOFLOXACIN 750 MG PREMIX INJ 150 ML IV SCH (21:08)
[2017-12-21] MEDS: traZODone HCL 100 MG TAB PO PRN (22:57)
[2017-12-22] VITALS (7 sets, daily range): BP systolic 112–153; BP diastolic 56–73; PULSE 67–91; RESP 18–20; TEMP 97.5–98.5; O2SAT 96–100
[2017-12-22] MEDS: INSULIN ASPART SUPPLEMENTAL SCALE SQ SCH ×4 (08:00→22:43)
[2017-12-22 08:48] LABS: AUTOMATED NEUTROPHIL # 10.9 TH/MM3 (1.8-7.7); BASOPHIL % 0.3 % (0.0-2.0); EOSINOPHIL # 0.3 TH/MM3 (0-0.4); HEMATOCRIT 32.8 % (35.0-46.0); LYMPH % 9.2 % (9.0-44.0); LYMPHOCYTE # 1.2 TH/MM3 (1.0-4.8); MEAN CELL VOLUME 83.5 FL (80.0-100.0); MEAN CORPUSCULAR HGB CONC 33.5 % (32.0-36.0); MEAN PLATELET VOLUME 7.5 FL (7.0-11.0); MONO % 6.2 % (0.0-8.0); MONOCYTE # 0.8 TH/MM3 (0-0.9); NEUT % 82.3 % (16.0-70.0); PLATELET COUNT 314 TH/MM3 (150-450); RED BLOOD COUNT 3.92 MIL/MM3 (4.00-5.30); RED CELL DISTRIBUTION WIDTH 15.8 % (11.6-17.2); WHITE BLOOD COUNT 13.2 TH/MM3 (4.0-11.0)
[2017-12-22 09:11] LABS: BICARBONATE 24.1 MEQ/L (21.0-32.0); CALCIUM 8.4 MG/DL (8.5-10.1); CREATININE 0.92 MG/DL (0.50-1.00)
[2017-12-22] MEDS: OXYBUTYNIN CHLORIDE 5 MG TAB PO SCH ×2 (09:35→22:28)
[2017-12-22] MEDS: NIFEdipine 30 MG SUSTAINED RELEASE TAB PO SCH ×2 (09:35→22:28)
[2017-12-22] MEDS: LACTOBACILLUS ACIDOPHILUS TAB PO SCH ×3 (09:36→17:30)
[2017-12-22] MEDS: LISINOPRIL 10 MG TAB PO SCH (09:36)
[2017-12-22] MEDS: DULoxetine HCl DR 60 MG CAP PO SCH (09:36)
[2017-12-22] MEDS ORDERED: PHARMACY ORDERED LAB ONE (10:45)
[2017-12-22] MEDS: VANCOMYCIN 1,000 MG/NS 250 ML IV SCH ×2 (12:09)
[2017-12-22] MEDS: LEVOFLOXACIN 750 MG PREMIX INJ 150 ML IV SCH (22:28)
[2017-12-22] MEDS: GABAPENTIN 300 MG CAP PO SCH (22:28)
[2017-12-22] MEDS: traZODone HCL 100 MG TAB PO PRN (22:51)
[2017-12-23 01:53] VITALS: BP 137/72; PULSE 70; RESP 18; TEMP 97.3; O2SAT 98
[2017-12-23] MEDS ORDERED: PHARMACY ORDERED LAB ONE (04:45)
[2017-12-23 05:11] VITALS: BP 152/79; PULSE 72; RESP 18; TEMP 97.2; O2SAT 90
[2017-12-23] MEDS: VANCOMYCIN 1,000 MG/NS 250 ML IV SCH ×2 (06:49)
[2017-12-23 07:43] LABS: BICARBONATE 24.2 MEQ/L (21.0-32.0); CALCIUM 7.9 MG/DL (8.5-10.1); CREATININE 0.91 MG/DL (0.50-1.00); MAGNESIUM 1.7 MG/DL (1.5-2.5)
[2017-12-23] MEDS: INSULIN ASPART SUPPLEMENTAL SCALE SQ SCH ×4 (08:00→20:51)
[2017-12-23 08:21] VITALS: BP 153/72; PULSE 72; RESP 20; TEMP 97.7; O2SAT 99
[2017-12-23] MEDS: DULoxetine HCl DR 60 MG CAP PO SCH (09:13)
[2017-12-23] MEDS: SODIUM HYPOCHLORITE 0.125% 500 ML BTL TOPICAL SCH (09:15)
[2017-12-23] MEDS: LISINOPRIL 10 MG TAB PO SCH (09:15)
[2017-12-23] MEDS: OXYBUTYNIN CHLORIDE 5 MG TAB PO SCH ×2 (09:17→20:34)
[2017-12-23] MEDS: LACTOBACILLUS ACIDOPHILUS TAB PO SCH ×3 (09:17→17:19)
[2017-12-23] MEDS: NIFEdipine 30 MG SUSTAINED RELEASE TAB PO SCH ×2 (09:17→20:36)
--- NOTE | 2017-12-23 09:50 | HHI.PR ---
Subjective Remarks doing ok. no events overnight. Objective Vitals heart reg lung cta abd s/nt ext no pitting buttock wound vac villalobos Vital Signs Date Time Temp Pulse Resp B/P (MAP) Pulse Ox O2 Delivery O2 Flow Rate FiO2 12/23/17 08:21 97.7 72 20 153/72 (99) 99 12/23/17 05:11 97.2 72 18 152/79 (103) 90 12/23/17 01:53 97.3 70 18 137/72 (93) 98 12/22/17 21:11 97.6 85 18 153/73 (99) 98 12/22/17 15:00 98.4 88 20 112/60 (77) 96 12/22/17 14:31 100 12/22/17 12:35 98.2 91 20 131/64 (86) 97 Result Diagram: 12/22/17 0712 12/23/17 0620 A/P Problem List: (1) Infected decubitus ulcer ICD Codes: L89.90 - Pressure ulcer of unspecified site, unspecified stage; L08.9 - Local infection of the skin and subcutaneous tissue, unspecified Status: Acute Plan: 1. bilateral necrotic/infected sacral/buttock ulceration. Abscess right upper buttock 12/19: DR José 1. Excisional debridement of decubitus ulcer of right buttock. 2. Excisional debridement of stage IV decubitus ulcer of sacrum. 3. Application of wound vacuum-assisted closure. 2. generalize weakness and mostly bedbound at home 3. recurrent uti's with resistant organisms and c.diff colitis hx 4. diabetes. 5. htn 6. left heel/lat leg pressure ulcerations. 7. severe hypoalbumenemia 8. Anemia. chronic dz s/p 2 units prbc 12/19 wound vac and wound care per Dr José and wound care team. discussed with nurse who spoke with DR José....wound vac change m/w/f...I don't think it was done yesterday as far as I can tell.....nursing will contract wound care team to get it done. Will plan to transition her to snf once ok from surgical standpoint broad spectrum abx. will use previous cultures as a guide( pseudomonas, enterococcus faecalis/avium) ...currently on vanco and zosyn. will plan for levaquin and augmentin. PT dvt prophylaxis ssi cont lisinipril and added back procardia for her elevated bp nutritional supplement will need snf placement. villalobos (2) Abscess of buttock ICD Codes: L02.31 - Cutaneous abscess of buttock Status: Acute (3) General weakness ICD Codes: R53.1 - Weakness Status: Acute (4) CVA (cerebral infarction) ICD Codes: I63.9 - CVA (cerebral infarction) Status: Chronic (5) Hypertension ICD Codes: I10 - Hypertension Status: Chronic (6) Diabetes ICD Codes: E11.9 - Diabetes mellitus Status: Chronic Jackson Bravo MD Dec 23, 2017 09:50
[2017-12-23 10:04] LABS: AUTOMATED NEUTROPHIL # 9.8 TH/MM3 (1.8-7.7); BASOPHIL # 0.1 TH/MM3 (0-0.2); BASOPHIL % 0.5 % (0.0-2.0); EOSINOPHIL # 0.3 TH/MM3 (0-0.4); EOSINOPHIL % 2.3 % (0.0-4.0); HEMATOCRIT 34.1 % (35.0-46.0); HEMOGLOBIN 11.5 GM/DL (11.6-15.3); LYMPH % 13.2 % (9.0-44.0); LYMPHOCYTE # 1.7 TH/MM3 (1.0-4.8); MEAN CELL VOLUME 84.2 FL (80.0-100.0); MEAN CORPUSCULAR HEMOGLOBIN 28.3 PG (27.0-34.0); MEAN CORPUSCULAR HGB CONC 33.6 % (32.0-36.0); MEAN PLATELET VOLUME 7.5 FL (7.0-11.0); MONO % 6.7 % (0.0-8.0); MONOCYTE # 0.9 TH/MM3 (0-0.9); NEUT % 77.3 % (16.0-70.0); PLATELET COUNT 323 TH/MM3 (150-450); RED BLOOD COUNT 4.05 MIL/MM3 (4.00-5.30); RED CELL DISTRIBUTION WIDTH 16.1 % (11.6-17.2); WHITE BLOOD COUNT 12.7 TH/MM3 (4.0-11.0)
[2017-12-23 10:34] LABS: BANDS 5 % (0-6); LYMPHOCYTES 9 % (9-44); MONOCYTES 6 % (0-8); MYELOCYTES 1 % (0-0); NEUTROPHIL # MANUAL DIFF 10.5 TH/MM3 (1.8-7.7); POLYS (SEG NEUTROPHILS) 77 % (16-70)
[2017-12-23 10:37] LABS: OVALOCYTES 1+ (NORMAL); TOXIC GRANULATION 1+ (NORMAL)
[2017-12-23 12:07] VITALS: BP 128/63; PULSE 83; RESP 20; TEMP 97.2; O2SAT 99
[2017-12-23] MEDS: ACETAMINOPHEN 325 MG TAB PO PRN (13:17)
--- NOTE | 2017-12-23 14:08 | PD.PLAS.PN ---
Subjective Remarks Patient reports feeling okay. Vital Signs Date Time Temp Pulse Resp B/P (MAP) Pulse Ox O2 Delivery O2 Flow Rate FiO2 12/23/17 12:07 97.2 83 20 128/63 (84) 99 12/23/17 08:21 97.7 72 20 153/72 (99) 99 12/23/17 05:11 97.2 72 18 152/79 (103) 90 12/23/17 01:53 97.3 70 18 137/72 (93) 98 12/22/17 21:11 97.6 85 18 153/73 (99) 98 12/22/17 15:00 98.4 88 20 112/60 (77) 96 12/22/17 14:31 100 I/O 12/22/17 12/22/17 12/22/17 12/23/17 12/23/17 12/23/17 07:00 15:00 23:00 07:00 15:00 23:00 Intake Total 960 ml Output Total 1600 ml 850 ml Balance -1600 ml 110 ml Intake Oral 960 ml Output Urine Total 1600 ml 850 ml # Bowel Movements 1 Laboratory Tests Test 12/23/17 06:20 12/23/17 06:40 12/23/17 09:11 Blood Urea Nitrogen 27 Creatinine 0.91 Random Glucose 130 Calcium Level 7.9 Magnesium Level 1.7 Sodium Level 135 Potassium Level 4.2 Chloride Level 102 Carbon Dioxide Level 24.2 Anion Gap 9 Estimat Glomerular Filtration Rate 62 Vancomycin Level Trough 12.2 White Blood Count 12.7 Red Blood Count 4.05 Hemoglobin 11.5 Hematocrit 34.1 Mean Corpuscular Volume 84.2 Mean Corpuscular Hemoglobin 28.3 Mean Corpuscular Hemoglobin Concent 33.6 Red Cell Distribution Width 16.1 Platelet Count 323 Mean Platelet Volume 7.5 Neutrophils (%) (Auto) 77.3 Lymphocytes (%) (Auto) 13.2 Monocytes (%) (Auto) 6.7 Eosinophils (%) (Auto) 2.3 Basophils (%) (Auto) 0.5 Neutrophils # (Auto) 9.8 Lymphocytes # (Auto) 1.7 Monocytes # (Auto) 0.9 Eosinophils # (Auto) 0.3 Basophils # (Auto) 0.1 CBC Comment AUTO DIFF Differential Total Cells Counted 100 Neutrophils % (Manual) 77 Band Neutrophils % 5 Lymphocytes % 9 Monocytes % 6 Eosinophils % 2 Neutrophils # (Manual) 10.5 Myelocytes 1 Differential Comment FINAL DIFF MANUAL Toxic Granulation 1+ Platelet Estimate NORMAL Platelet Morphology Comment NORMAL Ovalocytes 1+ Date/Time Source Procedure Growth Status 12/18/17 14:45 Blood Peripheral Aerobic Blood Culture - Final NO GROWTH IN 5 DAYS Complete 12/18/17 14:45 Blood Peripheral Anaerobic Blood Culture - Final NO GROWTH IN 5 DAYS Complete 12/18/17 15:00 Urine Clean Catch Urine Culture - Final NO GROWTH IN 48 HOURS. Complete 12/18/17 14:45 Wound Buttock Gram Stain - Final Complete 12/18/17 14:45 Wound Buttock Wound Culture - Final Complete Result Diagram: 12/23/17 0911 12/23/17 0620 Exam Findings The wound VAC is in place. There is no leak. Plan Impression: The patient is progressing well. Plan: The patient is cleared for discharge from a surgical point of view. She should continue the wound VAC changes 3 times per week with Dakin's solution, quarter percent, used to cleanse the area during dressing changes. She should follow-up in a wound care center. Sangeetha José MD Dec 23, 2017 14:08
--- NOTE | 2017-12-23 14:12 | PD.CONS ---
Consult Service Palliative Care Consult Requested By Dr. Quevedo Primary Care Physician Eulalio Betts, Reason for Consultation a. To assist with evaluation and management of symptoms including: Pain, debility b. To assist medical decision maker(s) with: better understanding of current medical conditions; weighing benefits/burdens of medical treatment options; making medical treatment decisions. HPI History of Present Illness Mrs Wilson is a 67 years old female with a significant past medical history of diabetes mellitus, sacral decubitus, C. difficile, CVA, pressure ulceration on left heel, hypertension, thyroid disease, recurrent UTIs, depression, anxiety, postherpetic neuralgia, hyperlipidemia, breast cancer, degenerative disc disease. Patient was brought in to the emergency department 12/18/17 via EMS for evaluation of a large draining wound with foul odor on her buttock after a home health care staff noted large draining wound on her buttock. Patient also has necrotic ulcerations to the buttock area bilaterally. Patient`s last hospitalization was in October 2017 for urinary tract infection. In the past year patient has had 7 hospitalizations and 2 ER visits. ER course: * Vital signs: Temperature 97.8, pulse 86, respirations 18, BP 136/63, O2 saturation 99% on 2 L nasal cannula. * EKG reveals sinus tachycardia, nonspecific T-wave abnormality. * Laboratory workup revealing WBC 21.6, hemoglobin 8.9, hematocrit 27.6, platelet count 438, BUN/creatinine 19/0.6, total protein 7.3, albumin 2.0 * Urinalysis done culture indicated-no growth in 48 hours * Wound culture obtained-moderate growth 3 mixed enteric gram-negative rods with no predominant organism. * Sepsis protocol initiated. * Blood cultures drawn-no growth in 5 days * Vancomycin IV and Zosyn IV administered. * Patient admitted under hospitalist services. Plastic surgery Dr. José consulted to evaluate sacral/buttock with necrotic wound/abscess. On 12/19/17 patient's hemoglobin dropped to 7.5 and hematocrit was 22.7, 2 units PRBCs transfused. Wound care consult placed for evaluation of left lower extremity-recommended protective boots, repositioning and Calazime cream. On 12/19/17 patient underwent excisional debridement of decubitus ulcers of the right buttock and sacrum, to bone and application of a wound Vac. Physical therapy consulted. Palliative care consulted to assist with clarification of goals. Case management consulted to assist with placement. Patient seen and examined in the room. Patient awake, alert, oriented to self, place and situation. Patient is afebrile. Vital signs stable. Patient endorsing pain to buttock area-rating it 6 out of 10. Patient provided his psychosocial history and past medical history. Patient explained how she is been hospitalized multiple times in the past year. Patient appears to have insight regarding a healthcare condition. Patient does not have advanced directives. She stated that in the case that she is incapacitated to make his own medical decision, she would like her son Boris Wilson Jr to be a healthcare surrogate (HCS) and he a friend Carrie Melton to be alternate healthcare surrogate. Provided patient with a living will form and she mentioned that she would want to look at it. Addressed code status, discussed risks, benefits and limitations of CPR. Patient mentioned that she would not like to be resuscitated if she is ever in a cardiac arrest and she "would not like to be kept alive by artificial means ever", in case she is in respiratory failure. Patient elected to be a DNR/DNI. Encouraged patient to continue with discussing her wishes with her son and friend. Patient mentioned that at this point she would like to go to a nursing home facility just for a short time until she gets better then she can go back home. Patient mentioned that she prefers to stay at home. Introduced to hospice philosophy and benefits. Patient mentioned that at this time she is not interested in hospice services but it would be something that she may look into in the future if a health continues to deteriorate. Patient's son Boris walked in during the visit. Updated on patient's medical status and discussion held with patient. Patient' s son is supportive of patient's decisions. Assisted patient with completing healthcare surrogate form. Patient signed [facility] and [facility] DNR in the presence of examiner and son. Case discussed with bedside nurse RN. . Function/Cognitive Trajectory Patient lived at home with her son who is her primary caregiver. Patient is bedbound. Patient has Home DOC and home health care through [facility] for management of heel wounds and medical conditions. Patient had a hospital bed at home. She required moderate assistance with feeding, dressing, toileting, and ambulation. Patient is able to verbalize her needs. Patient was hospitalized 7 times in 2017 and she had 2 ER visits as well. Her recent hospitalization was in November 06, 2017 for UTI. Patient endorsing weight loss , unable to quantify. . Review of Systems Constitutional: COMPLAINS OF: Fatigue, Weight loss, Change in appetite (Poor appetite), Pain, Generalized weakness Eyes: DENIES: Eye inflammation, Vision loss Ears, nose, mouth, throat: DENIES: Hearing loss, Nasal discharge, Running Nose Respiratory: DENIES: Cough, Shortness of breath Cardiovascular: DENIES: Dyspnea on Exertion, Lower Extremity Edema Gastrointestinal: DENIES: Diarrhea, Nausea, Vomiting, Difficulty Swallowing Genitourinary: COMPLAINS OF: Urinary incontinence Hematologic/Lymphatics: COMPLAINS OF: Bruising Neurologic: DENIES: Speech Problems Psychiatric: COMPLAINS OF: Anxiety, DENIES: Confusion, Hallucinations, Agitation Other ROS: Buttock wounds with drainage s/p Excisional debridement of decubitus ulcers of the right buttock and sacrum, to bone. Application of wound Vac. . Past Family Social History Coded Allergies: Sulfa (Sulfonamide Antibiotics) (Unverified Allergy, Severe, HIVES, 12/18/17 ) allopurinol (Unverified Allergy, Severe, Hives, 12/18/17) aspirin (Unverified Allergy, Severe, Hallucinations, 12/18/17) butalbital (Unverified Allergy, Severe, Hallucinations, 12/18/17) caffeine (Unverified Allergy, Severe, Hallucinations, 12/18/17) morphine (Unverified Adverse Reaction, Severe, SHAKING, HEADACHE, 12/18/17) clonidine (Unverified Adverse Reaction, Mild, LETHARGY,SHAKING, 12/18/17) PER Past Medical History Diabetes mellitus hypertension CVA Recurrent UTI with history of urosepsis Depression Anxiety Postherpetic neuralgia Hyperlipidemia Breast cancer Degenerative disc disease lumbar spine Incarcerated ventral hernia February 2017 Trace tricuspid regurgitation seen on 2-D echo. Left parotid tumor March 2017 sacral decubit . pressure ulceration on left heal . Past Surgical History Left breast lumpectomy Lumbar microdiscectomy, laminectomy, L3-L4 fusion Left knee replacement Cholecystectomy Exploratory laparotomy with repair of ventral hernia in February 2017 Left parotid tumor excision at [facility] March 2017 . Reported Medications Ditropan (Oxybutynin Chloride) 5 Mg Tab 5 Mg PO Q12HR Metformin (Metformin HCl) 500 Mg Tab 500 Mg PO BID Trazodone (Trazodone HCl) 100 Mg Tablet 200 Mg PO HS Tramadol (Tramadol HCl) 50 Mg Tab 100 Mg PO TID PRN Gabapentin 600 Mg Tab 600 Mg PO TID Lisinopril 20 Mg Tab 20 Mg PO BID Cymbalta DR (Duloxetine HCl) 60 Mg Capdr 60 Mg PO DAILY Lipitor (Atorvastatin Calcium) 40 Mg Tab 40 Mg PO HS . Current Medications Medications (Trade) Dose Ordered Sig/Lucretia Route Start Time Stop Time Status Last Admin Pharmacy Profile Note 0 ml @ 0 mls/hr UNSCH OTHER 12/18/17 17:30 Levofloxacin/ Dextrose 150 ml @ 100 mls/hr Q24H IV 12/18/17 20:00 12/22/17 22:28 (Cymbalta Dr) 60 mg DAILY PO 12/19/17 09:00 12/23/17 09:13 (Neurontin) 300 mg HS PO 12/18/17 21:00 12/22/17 22:28 (Prinivil) 10 mg DAILY PO 12/19/17 09:00 12/23/17 09:15 (Ditropan) 5 mg Q12HR PO 12/18/17 21:00 12/23/17 09:17 (NovoLOG SUPPLEMENTAL SCALE) 1 ACHS SLIDING SCALE SQ 12/18/17 21:00 12/23/17 13:18 (Tylenol) 650 mg Q4H PRN PO 12/18/17 18:00 12/23/17 13:17 (Zofran Inj) 4 mg Q6HR PRN IV PUSH 12/18/17 18:00 (Lactinex) 1 tab TID PO 12/18/17 18:00 12/23/17 13:17 (Desyrel) 100 mg HS PRN PO 12/18/17 21:00 12/22/17 22:51 (D50w (Vial) Inj) 50 ml UNSCH PRN IV PUSH 12/18/17 19:00 (Glucagon Inj) 1 mg UNSCH PRN OTHER 12/18/17 19:00 (Dakin'S 0.125% Soln) 500 ml MoWeFr@0900 TOPICAL 12/22/17 09:00 12/23/17 09:15 (Procardia Xl) 30 mg BID PO 12/21/17 12:00 12/23/17 09:17 Vancomycin HCl 1500 mg/Sodium Chloride 515 ml @ 257.5 mls/ hr Q18H IV 12/23/17 23:00 Miscellaneous Information SPECIFIC LAB TO BE DRAWN:VANCO TROUGH DATE TO... ONCE ONCE .XX 12/26/17 04:45 12/26/17 04:46 (Glucophage) 500 mg BIDPC PO 12/23/17 18:00 Family History Father at 59 had cardiac disease Mother at 87 . Substance Use Tobacco: None reported Alcohol: None reported Prescription med abuse: None reported Illicits: None reported . Psychosocial History Patient is originally from [place]. She moved to [place] approximately 30 years ago. Patient is , but he is currently incarcerated. He has been in [facility] for the past 3 years. 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 Patient currently lives with her adult son who is his primary caregiver. . Spiritual/Cultural Factors Patient is Shinto . Living Will: Never completed Health Care Surrogate: Copy in medical record Durable Power of Financial Intern: Never completed Date completed: 12/23/2017 . Health Care Surrogate(s): [facility]- Son-Boris Wilson - [phone] Alternate [facility]- friend- Carrie Melton- [phone] . Ethical and Legal Issues None identified at this time . Physical Exam Vital Signs Date Time Temp Pulse Resp B/P (MAP) Pulse Ox O2 Delivery O2 Flow Rate FiO2 12/23/17 12:07 97.2 83 20 128/63 (84) 99 12/23/17 08:21 97.7 72 20 153/72 (99) 99 12/23/17 05:11 97.2 72 18 152/79 (103) 90 12/23/17 01:53 97.3 70 18 137/72 (93) 98 12/22/17 21:11 97.6 85 18 153/73 (99) 98 12/22/17 15:00 98.4 88 20 112/60 (77) 96 12/22/17 14:31 100 Exam CONSTITUTIONAL/GENERAL: This is an adequately nourished patient, in no apparent distress. TUBES/LINES/DRAINS: SKIN: No jaundice, rashes, or lesions. Ecchymoses on upper extremities. No wounds seen anteriorly. Skin temperature appropriate. Not diaphoretic. HEAD: Atraumatic. Normocephalic. EYES: Pupils equal and round and reactive. Extraocular motions intact. No scleral icterus. No injection or drainage. Fundi not examined. ENT: Hearing grossly normal. Nose without bleeding or purulent drainage. Throat without visible erythema, exudates, masses, or lesions. NECK: Trachea midline. Supple, nontender. No palpable thyroid enlargement or nodularity. CARDIOVASCULAR: Regular rate and rhythm without murmurs, gallops, or rubs. No JVD. Peripheral pulses symmetric. RESPIRATORY/CHEST: Symmetric, unlabored respirations. Clear to auscultation. Breath sounds equal bilaterally. No wheezes, rales, or rhonchi. GASTROINTESTINAL: Abdomen soft, non-tender, nondistended. No hepato-splenomegaly , or palpable masses. No guarding. Bowel sounds present. GENITOURINARY: Without palpable bladder distension. Lopez catheter in place. MUSCULOSKELETAL: Extremities without clubbing, cyanosis, or edema. No joint tenderness or effusion noted. No calf tenderness. No mottling or clubbing. LYMPHATICS: No palpable cervical or supraclavicular adenopathy. NEUROLOGICAL: Awake and alert. Motor and sensory grossly within normal limits. Follows commands. Cognitively sharp. Moves all extremities. PSYCHIATRIC: No obvious anxiety/depression. no apparent hallucinations or other psychotic thought process. Diagnostic Tests Laboratory Laboratory Tests Test 12/22/17 07:12 12/23/17 06:20 12/23/17 06:40 12/23/17 09:11 White Blood Count 13.2 TH/MM3 (4.0-11.0) 12.7 TH/MM3 (4.0-11.0) Red Blood Count 3.92 MIL/MM3 (4.00-5.30) 4.05 MIL/MM3 (4.00-5.30) Hemoglobin 11.0 GM/DL (11.6-15.3) 11.5 GM/DL (11.6-15.3) Hematocrit 32.8 % (35.0-46.0) 34.1 % (35.0-46.0) Mean Corpuscular Volume 83.5 FL (80.0-100.0) 84.2 FL (80.0-100.0) Mean Corpuscular Hemoglobin 28.0 PG (27.0-34.0) 28.3 PG (27.0-34.0) Mean Corpuscular Hemoglobin Concent 33.5 % (32.0-36.0) 33.6 % (32.0-36.0) Red Cell Distribution Width 15.8 % (11.6-17.2) 16.1 % (11.6-17.2) Platelet Count 314 TH/MM3 (150-450) 323 TH/MM3 (150-450) Mean Platelet Volume 7.5 FL (7.0-11.0) 7.5 FL (7.0-11.0) Neutrophils (%) (Auto) 82.3 % (16.0-70.0) 77.3 % (16.0-70.0) Lymphocytes (%) (Auto) 9.2 % (9.0-44.0) 13.2 % (9.0-44.0) Monocytes (%) (Auto) 6.2 % (0.0-8.0) 6.7 % (0.0-8.0) Eosinophils (%) (Auto) 2.0 % (0.0-4.0) 2.3 % (0.0-4.0) Basophils (%) (Auto) 0.3 % (0.0-2.0) 0.5 % (0.0-2.0) Neutrophils # (Auto) 10.9 TH/MM3 (1.8-7.7) 9.8 TH/MM3 (1.8-7.7) Lymphocytes # (Auto) 1.2 TH/MM3 (1.0-4.8) 1.7 TH/MM3 (1.0-4.8) Monocytes # (Auto) 0.8 TH/MM3 (0-0.9) 0.9 TH/MM3 (0-0.9) Eosinophils # (Auto) 0.3 TH/MM3 (0-0.4) 0.3 TH/MM3 (0-0.4) Basophils # (Auto) 0.0 TH/MM3 (0-0.2) 0.1 TH/MM3 (0-0.2) CBC Comment DIFF FINAL AUTO DIFF Differential Comment FINAL DIFF MANUAL Blood Urea Nitrogen 27 MG/DL (7-18) 27 MG/DL (7-18) Creatinine 0.92 MG/DL (0.50-1.00) 0.91 MG/DL (0.50-1.00) Random Glucose 156 MG/DL (74-106) 130 MG/DL (74-106) Calcium Level 8.4 MG/DL (8.5-10.1) 7.9 MG/DL (8.5-10.1) Sodium Level 135 MEQ/L (136-145) 135 MEQ/L (136-145) Potassium Level 4.1 MEQ/L (3.5-5.1) 4.2 MEQ/L (3.5-5.1) Chloride Level 103 MEQ/L (98-107) 102 MEQ/L (98-107) Carbon Dioxide Level 24.1 MEQ/L (21.0-32.0) 24.2 MEQ/L (21.0-32.0) Anion Gap 8 MEQ/L (5-15) 9 MEQ/L (5-15) Estimat Glomerular Filtration Rate 61 ML/MIN (>89) 62 ML/MIN (>89) Vancomycin Level Trough 16.1 MCG/ML (5.0-10.0) 12.2 MCG/ML (5.0-10.0) Magnesium Level 1.7 MG/DL (1.5-2.5) Differential Total Cells Counted 100 Neutrophils % (Manual) 77 % (16-70) Band Neutrophils % 5 % (0-6) Lymphocytes % 9 % (9-44) Monocytes % 6 % (0-8) Eosinophils % 2 % (0-4) Neutrophils # (Manual) 10.5 TH/MM3 (1.8-7.7) Myelocytes 1 % (0-0) Toxic Granulation 1+ (NORMAL) Platelet Estimate NORMAL (NORMAL) Platelet Morphology Comment NORMAL (NORMAL) Ovalocytes 1+ (NORMAL) Result Diagram: 12/23/17 0911 12/23/17 0620 Imaging Last Impressions Chest X-Ray 12/18/17 1430 Signed Impressions: Service Date/Time: December 14:39 - CONCLUSION: 1. Mild platelike atelectasis in the right upper lung. 2. Otherwise, no focal or acute pulmonary infiltrates. 3. No significant changes compared to the prior studies. Steffen Mtz MD Pelvis CT 12/18/17 0000 Signed Impressions: Service Date/Time: December 15:52 - CONCLUSION: 1. Some disease emphysema and soft tissue changes within the adipose tissue of the medial right buttocks extending to the midline suggestive of a decubitus ulcer. 2. There is an air-fluid level in a 2.2 cm cavity within the soft tissues of the medial right buttocks suggestive of a soft tissue abscess. Steffen Mtz MD Procedures 12/19/17-Excisional debridement of decubitus ulcers of the right buttock and sacrum, to bone. Application of wound Vac. . Patient/Family Conference Issues Discussed: * Palliative care role, purpose, approach * Additional medical, psychosocial, and spiritual history * Patients general health, functional status, and cognitive changes in the months leading up to the current hospitalization * Patient/family understanding of the current medical problems * Patient/family understanding of prognosis * Patients goals of care as best understood from advance directives and/or conversations and/or values * Current medical treatment options and benefits/burdens of those options * Likely scenarios comparing ongoing aggressive care with a transition to comfort measures only * Questions answered to the best of my ability * Palliative care contact information provided Assessment and Plan Disease Oriented Problem List: (1) Diabetes (2) Abscess of buttock (3) Infected decubitus ulcer (4) CVA (cerebral infarction) (5) Hypertension (6) General weakness Symptom Scale: (1) Debility (2) Pain 0-10 Scale: 7 Comment: Chronic decubiti to buttocks. Recently underwent excisional debridement of decubitus ulcers of the right buttock and sacrum, to bone and application of wound Vac. . Pertinent Non-Medical Issues Psychosocial:Patient is originally from [place]. She moved to [place] approximately 30 years ago. Patient is , but he is currently incarcerated. He has been in [facility] for the past 3 years. 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 Patient currently lives with her adult son who is his primary caregiver. Spiritual: Patient is Shinto Legal: Completed & signed HCS form in the [facility] DNR Ethical issues impacting care: None identified at this time . Important Contacts [id number], John - [phone] Alternate [facility]- friend- Carrie Melton- [phone] . Prognosis Mrs Wilson is a 67 years old female with a significant past medical history of diabetes mellitus, sacral decubitus, C. difficile, CVA, pressure ulceration on left heel, hypertension, thyroid disease, recurrent UTIs, depression, anxiety, postherpetic neuralgia, hyperlipidemia, breast cancer, degenerative disc disease. Patient was brought in to the emergency department 12/18/17 via EMS for evaluation of a large draining wound with foul odor on her buttock after a home health care staff noted large draining wound on her buttock. Patient also has necrotic ulcerations to the buttock area bilaterally. Patient`s last hospitalization was in October 2017 for urinary tract infection. In the past year patient has had 7 hospitalizations and 2 ER visits. Given ongoing multiple comorbidities and multiple hospitalizations, patient remains at high risk for further complications, deterioration and decline. . Code Status: No Code (DNI/DNR) Plan PLAN: Legal decision maker: Patient is currently able to participate in medical decision making. In the event that she is incapacitated patient designated her son Boris Wilson Jr as her healthcare surrogate and dear friend Carrie Melton is a alternate healthcare surrogate. Goals: Aggressive short of no code. CODE STATUS: No code DNR/DNI SYMPTOMS: * Pain: Multifactorial. History of postherpetic neuralgia, diabetic neuropathy and chronic decubiti to buttocks. Recently underwent excisional debridement of decubitus ulcers of the right buttock and sacrum, to bone and application of wound Vac. Patient endorsing pain to buttock area-rating it 6 out of 10. Patient is on gabapentin. Patient was started on antibiotics. Recommending a low-dose narcotic for pain management. * Debility: Progressive. Patient has had multiple hospitalizations-x7 in 2017. Patient is bedbound with chronic buttock decubiti. Requires moderate assistance with most of his ADLs. Physical therapy consulted. Unsure if patient is able to effectively participate in physical therapy. No recommendations at this time. Palliative care will continue to follow the patient during hospital course as condition evolves, to assist patient/decision-maker with understanding of their medical conditions, weighing benefits/burdens of treatment options, for clarification of goals of treatment. Additionally will assist with any symptoms of palliative concern Thank you for the opportunity to participate in the care of Ms. Wilson. Attestation To help prompt me to consider important information that might be impacting today's encounter and assessment, information from prior notes written by myself or my colleagues may have been "brought forward" into today's note. My signature on this note, however, is an attestation that I personally performed the exam, history, and/or decision-making noted today, and, unless otherwise indicated, the interactions with patient, family, and staff as well as the review of records all occurred today. I also attest that the listed assessment and stated plan reflect my best clinical judgment today based on the combination of historical information, prior notes, and today's exam/ interactions. When time spent is documented, it refers only to time spent today by the signer, or if indicated, combined time spent today by collaborating physician/nurse practitioner. Aurora Case Dec 23, 2017 14:12
--- NOTE | 2017-12-23 15:05 | HHI.PR ---
Subjective Remarks LATE ENTRY 12/22/17 NOTE DID NOT SAVE IN [employer] Objective Vitals Vital Signs Date Time Temp Pulse Resp B/P (MAP) Pulse Ox O2 Delivery O2 Flow Rate FiO2 12/23/17 12:07 97.2 83 20 128/63 (84) 99 12/23/17 08:21 97.7 72 20 153/72 (99) 99 12/23/17 05:11 97.2 72 18 152/79 (103) 90 12/23/17 01:53 97.3 70 18 137/72 (93) 98 12/22/17 21:11 97.6 85 18 153/73 (99) 98 Result Diagram: 12/23/17 0911 12/23/17 0620 Imaging Last Impressions Chest X-Ray 12/18/17 1430 Signed Impressions: Service Date/Time: December 14:39 - CONCLUSION: 1. Mild platelike atelectasis in the right upper lung. 2. Otherwise, no focal or acute pulmonary infiltrates. 3. No significant changes compared to the prior studies. Steffen Mtz MD Pelvis CT 12/18/17 0000 Signed Impressions: Service Date/Time: December 15:52 - CONCLUSION: 1. Some disease emphysema and soft tissue changes within the adipose tissue of the medial right buttocks extending to the midline suggestive of a decubitus ulcer. 2. There is an air-fluid level in a 2.2 cm cavity within the soft tissues of the medial right buttocks suggestive of a soft tissue abscess. Steffen Mtz MD Objective Remarks GENERAL: This is a well-nourished, well-developed patient, in no apparent distress. CARDIOVASCULAR: Regular rate and rhythm without murmurs, gallops, or rubs. RESPIRATORY: Clear to auscultation. Breath sounds equal bilaterally. No wheezes , rales, or rhonchi. GASTROINTESTINAL: Abdomen soft, non-tender, nondistended. Normal active bowel sounds MUSCULOSKELETAL: Extremities without clubbing, cyanosis, or edema. NEURO: Alert & Oriented x4 to person, place, time, situation. Moves all ext x4 A/P Problem List: (1) Infected decubitus ulcer ICD Codes: L89.90 - Pressure ulcer of unspecified site, unspecified stage; L08.9 - Local infection of the skin and subcutaneous tissue, unspecified Status: Acute Plan: 1. bilateral necrotic/infected sacral/buttock ulceration. Abscess right upper buttock 12/19: DR José 1. Excisional debridement of decubitus ulcer of right buttock. 2. Excisional debridement of stage IV decubitus ulcer of sacrum. 3. Application of wound vacuum-assisted closure. 2. generalize weakness and mostly bedbound at home 3. recurrent uti's with resistant organisms and c.diff colitis hx 4. diabetes. 5. htn 6. left heel/lat leg pressure ulcerations. 7. severe hypoalbumenemia 8. Anemia. chronic dz s/p 2 units prbc 12/19 wound vac and wound care per Dr José and wound care team. discussed with nurse who spoke with DR José....wound vac change m/w/f...I don't think it was done yesterday as far as I can tell.....nursing will contract wound care team to get it done. Will plan to transition her to snf once ok from surgical standpoint broad spectrum abx. will use previous cultures as a guide( pseudomonas, enterococcus faecalis/avium) ...currently on vanco and zosyn. will plan for levaquin and augmentin. PT dvt prophylaxis ssi cont lisinipril and added back procardia for her elevated bp nutritional supplement will need snf placement. wilfredo 12/22/17 - continue current treatment plan - will d/w Surgery - anticipate d/c to SNF in next 1-2 days. (2) Abscess of buttock ICD Codes: L02.31 - Cutaneous abscess of buttock Status: Acute (3) General weakness ICD Codes: R53.1 - Weakness Status: Acute (4) CVA (cerebral infarction) ICD Codes: I63.9 - CVA (cerebral infarction) Status: Chronic (5) Hypertension ICD Codes: I10 - Hypertension Status: Chronic (6) Diabetes ICD Codes: E11.9 - Diabetes mellitus Status: Chronic Christopher Quevedo DO Dec 23, 2017 15:05
--- NOTE | 2017-12-23 15:20 | PD.WCN.NOT ---
Wound Consult Description: Follow up of Left calcaneus and Left lateral lower extremity. Communicated with: Lea ALEXANDER [facility] , Recommendation: 1) Reposition patient every 2 hours for comfort and offloading 2) Apply heel protective boots when patient is in bed. 3) Cleanse left lateral lower extremity and L calcaneus with normal saline pat dry,Skin prep periwound apply Maxsorb ll cut to fit wound base cover with dry dressing change every 3 days or as needed for exudate/dislodgement. 4) Please remove Wound vac sponge and apply wet to dry dressing upon patients discharge to long-term facility. Additional Information: Patient was seen today on 5 for follow up of Left lateral lower extremity and Left calcaneus.Patient alert and oriented x2 in bed.Blue heel protector removed to expose previous healing DTI no has superficial open area measuring ~ 1.8cm x ~1.5cm x <0.1cm wound base is soft moist pink tissue with scant serous drainage present with no odor noted. Sonia wound unremarkable blanchable in all surrounding areas.Left lower lateral leg previously noted as intact stable eschar Is now a partial thickness wound measuring ~16.0cm x~1.8cm x 0.3cm wound base is 60% red non granular tissue 30% loosely adhered eschar and 10% pink tissue.Wound edges are well defined mostly even with wound base.Periwound unremarkable.Moderate serosanguineous drainage noted with no odor.Wounds cleansed with normal saline pat dry skin prep applied to periwounds Maxsorb ll cut to fit wound base applied and covered with dry dressing.Dressings signed and dated. Neg Pressure Wound Therapy Wound Location Wound Location: Sacral and Right upper buttocks Wound Description Underminin-11 O'clock max depth @ 10 O'clock being 6.3cm Periwound appearance: Other (Denuded area noted to periwound maxsorb applied to wound base then covered with drape.) Settings Suction: 125 mmHg, Continuous Intensity: Low Other Information: Bridged, Windowpaned, Mushroomed Foam type: Black Number of pieces: 2 Additonal Information Patient was sen today by typewriter assembler for wound vac change.Old dressing removed wound cleansed with dakins 0.125% rinsed and pat dry .skin prep applied to periwound and wound was then windowpaned for protection.@ piece black sponge applied to wound base making contact with all undermining areas.Drape applied to R anterior pelvis sponge then bridged to anterior pelvis area.Track pad applied and suction started @ 125mmHg low continuous with no leaks noted.Patient will be discharged to long-term facility tomorrow.Wet to dry dressing to be placed for transport. Haile Torres [facility] Dec 23, 2017 15:20
[2017-12-23 15:38] VITALS: BP 131/61; PULSE 72; RESP 20; TEMP 97.5; O2SAT 98
[2017-12-23 16:28] LABS: HEMOGLOBIN A1C 5.7 % (4.3-6.0)
[2017-12-23] MEDS: metFORMIN HCL 500 MG TAB PO SCH (17:19)
[2017-12-23] MEDS: traZODone HCL 100 MG TAB PO PRN (20:34)
[2017-12-23] MEDS: GABAPENTIN 300 MG CAP PO SCH (20:34)
[2017-12-23] MEDS: LEVOFLOXACIN 750 MG PREMIX INJ 150 ML IV SCH (20:34)
[2017-12-23 21:09] VITALS: BP 158/72; PULSE 71; RESP 18; TEMP 97.7; O2SAT 99
[2017-12-24 00:20] VITALS: BP 123/66; PULSE 77; RESP 18; TEMP 97.7; O2SAT 98
[2017-12-24] MEDS: VANCOMYCIN 1,500 MG/NS 500 ML IV SCH ×4 (00:54→18:12)
[2017-12-24] MEDS ORDERED: traMADol HCL 50 MG TAB PO ONE (01:00)
[2017-12-24 05:13] VITALS: BP 136/65; PULSE 65; RESP 18; TEMP 97.2; O2SAT 65
[2017-12-24 08:00] VITALS: BP 151/72; PULSE 77; RESP 18; TEMP 97.7; O2SAT 96
[2017-12-24] MEDS: INSULIN ASPART SUPPLEMENTAL SCALE SQ SCH ×4 (08:00→21:00)
[2017-12-24] MEDS: SODIUM HYPOCHLORITE 0.125% 500 ML BTL TOPICAL SCH (09:00)
[2017-12-24] MEDS: DULoxetine HCl DR 60 MG CAP PO SCH (09:07)
[2017-12-24] MEDS: LISINOPRIL 10 MG TAB PO SCH (09:07)
[2017-12-24] MEDS: metFORMIN HCL 500 MG TAB PO SCH ×2 (09:07→18:11)
[2017-12-24] MEDS: OXYBUTYNIN CHLORIDE 5 MG TAB PO SCH ×2 (09:07→21:21)
[2017-12-24] MEDS: NIFEdipine 30 MG SUSTAINED RELEASE TAB PO SCH ×2 (09:07→21:20)
[2017-12-24] MEDS: LACTOBACILLUS ACIDOPHILUS TAB PO SCH ×3 (09:07→18:11)
[2017-12-24 12:00] VITALS: BP 155/84; PULSE 72; RESP 18; TEMP 98.6; O2SAT 99
[2017-12-24 16:00] VITALS: BP 135/75; PULSE 75; RESP 18; TEMP 98.6; O2SAT 99
--- NOTE | 2017-12-24 16:01 | HHI.HCPN ---
Reason for visit a. To assist with evaluation and management of symptoms including: Pain, debility b. To assist medical decision maker(s) with: better understanding of current medical conditions; weighing benefits/burdens of medical treatment options; making medical treatment decisions. Subjective/Interval History Patient seen and examined in the room. Patient is awake, alert, oriented to self, place and situation. Patient denying pain at this time. Patient received a one-time dose early this morning of 50 mg tramadol. Patient stating that she is ready to go home. Vital signs stable in this time. Wound care following. Case discussed with case management-referral placed to another alf facility since patient and son did not want patient to go to [facility]. . Family/friend interactions No family at bedside . Advance Directives Living Will: Never completed Health Care Surrogate: Copy in medical record Durable Power of Dialysis Biomed Technician: Never completed Advance Directive Specifics Date completed: 12/23/2017 . Health Care Surrogate(s): [facility]- Son-Boris Wilson - [phone] Alternate [facility]- friend- Carrie Melton- [phone] . Objective Vital Signs Date Time Temp Pulse Resp B/P (MAP) Pulse Ox O2 Delivery O2 Flow Rate FiO2 12/24/17 12:00 98.6 72 18 155/84 (107) 99 12/24/17 08:00 97.7 77 18 151/72 (98) 96 12/24/17 05:13 97.2 65 18 136/65 (88) 65 12/24/17 00:20 97.7 77 18 123/66 (85) 98 12/23/17 21:09 97.7 71 18 158/72 (100) 99 Intake & Output 12/24/17 12/24/17 07:00 19:00 Output Total 250 ml 325 ml Balance -250 ml -325 ml Output Urine Total 250 ml 325 ml Physical Exam CONSTITUTIONAL/GENERAL: This is an adequately nourished patient, in no apparent distress. TUBES/LINES/DRAINS: PIV, wound VAC, heel protective boots, Lopez catheter SKIN: No jaundice, rashes, or lesions. Ecchymoses on upper extremities. No wounds seen anteriorly. Skin temperature appropriate. Not diaphoretic. HEAD: Atraumatic. Normocephalic. EYES: Pupils equal and round and reactive. Extraocular motions intact. No scleral icterus. No injection or drainage. Fundi not examined. ENT: Hearing grossly normal. Nose without bleeding or purulent drainage. Throat without visible erythema, exudates, masses, or lesions. NECK: Trachea midline. Supple, nontender. No palpable thyroid enlargement or nodularity. CARDIOVASCULAR: Regular rate and rhythm without murmurs, gallops, or rubs. No JVD. Peripheral pulses symmetric. RESPIRATORY/CHEST: Symmetric, unlabored respirations. Clear to auscultation. Breath sounds equal bilaterally. No wheezes, rales, or rhonchi. GASTROINTESTINAL: Abdomen soft, non-tender, nondistended. No hepato-splenomegaly , or palpable masses. No guarding. Bowel sounds present. GENITOURINARY: Without palpable bladder distension. Lopez catheter in place. MUSCULOSKELETAL: Extremities without clubbing, cyanosis, or edema. No joint tenderness or effusion noted. No calf tenderness. No mottling or clubbing. NEUROLOGICAL: Awake and alert. Motor and sensory grossly within normal limits. Follows commands. Moves all extremities. PSYCHIATRIC: No obvious anxiety/depression. no apparent hallucinations or other psychotic thought process. Diagnostic Tests Laboratory Laboratory Tests Test 12/22/17 07:12 12/23/17 06:20 12/23/17 06:40 12/23/17 09:11 White Blood Count 13.2 TH/MM3 (4.0-11.0) 12.7 TH/MM3 (4.0-11.0) Red Blood Count 3.92 MIL/MM3 (4.00-5.30) 4.05 MIL/MM3 (4.00-5.30) Hemoglobin 11.0 GM/DL (11.6-15.3) 11.5 GM/DL (11.6-15.3) Hematocrit 32.8 % (35.0-46.0) 34.1 % (35.0-46.0) Mean Corpuscular Volume 83.5 FL (80.0-100.0) 84.2 FL (80.0-100.0) Mean Corpuscular Hemoglobin 28.0 PG (27.0-34.0) 28.3 PG (27.0-34.0) Mean Corpuscular Hemoglobin Concent 33.5 % (32.0-36.0) 33.6 % (32.0-36.0) Red Cell Distribution Width 15.8 % (11.6-17.2) 16.1 % (11.6-17.2) Platelet Count 314 TH/MM3 (150-450) 323 TH/MM3 (150-450) Mean Platelet Volume 7.5 FL (7.0-11.0) 7.5 FL (7.0-11.0) Neutrophils (%) (Auto) 82.3 % (16.0-70.0) 77.3 % (16.0-70.0) Lymphocytes (%) (Auto) 9.2 % (9.0-44.0) 13.2 % (9.0-44.0) Monocytes (%) (Auto) 6.2 % (0.0-8.0) 6.7 % (0.0-8.0) Eosinophils (%) (Auto) 2.0 % (0.0-4.0) 2.3 % (0.0-4.0) Basophils (%) (Auto) 0.3 % (0.0-2.0) 0.5 % (0.0-2.0) Neutrophils # (Auto) 10.9 TH/MM3 (1.8-7.7) 9.8 TH/MM3 (1.8-7.7) Lymphocytes # (Auto) 1.2 TH/MM3 (1.0-4.8) 1.7 TH/MM3 (1.0-4.8) Monocytes # (Auto) 0.8 TH/MM3 (0-0.9) 0.9 TH/MM3 (0-0.9) Eosinophils # (Auto) 0.3 TH/MM3 (0-0.4) 0.3 TH/MM3 (0-0.4) Basophils # (Auto) 0.0 TH/MM3 (0-0.2) 0.1 TH/MM3 (0-0.2) CBC Comment DIFF FINAL AUTO DIFF Differential Comment FINAL DIFF MANUAL Blood Urea Nitrogen 27 MG/DL (7-18) 27 MG/DL (7-18) Creatinine 0.92 MG/DL (0.50-1.00) 0.91 MG/DL (0.50-1.00) Random Glucose 156 MG/DL (74-106) 130 MG/DL (74-106) Calcium Level 8.4 MG/DL (8.5-10.1) 7.9 MG/DL (8.5-10.1) Sodium Level 135 MEQ/L (136-145) 135 MEQ/L (136-145) Potassium Level 4.1 MEQ/L (3.5-5.1) 4.2 MEQ/L (3.5-5.1) Chloride Level 103 MEQ/L (98-107) 102 MEQ/L (98-107) Carbon Dioxide Level 24.1 MEQ/L (21.0-32.0) 24.2 MEQ/L (21.0-32.0) Anion Gap 8 MEQ/L (5-15) 9 MEQ/L (5-15) Estimat Glomerular Filtration Rate 61 ML/MIN (>89) 62 ML/MIN (>89) Vancomycin Level Trough 16.1 MCG/ML (5.0-10.0) 12.2 MCG/ML (5.0-10.0) Magnesium Level 1.7 MG/DL (1.5-2.5) Differential Total Cells Counted 100 Neutrophils % (Manual) 77 % (16-70) Band Neutrophils % 5 % (0-6) Lymphocytes % 9 % (9-44) Monocytes % 6 % (0-8) Eosinophils % 2 % (0-4) Neutrophils # (Manual) 10.5 TH/MM3 (1.8-7.7) Myelocytes 1 % (0-0) Toxic Granulation 1+ (NORMAL) Platelet Estimate NORMAL (NORMAL) Platelet Morphology Comment NORMAL (NORMAL) Ovalocytes 1+ (NORMAL) Hemoglobin A1c 5.7 % (4.3-6.0) Result Diagram: 12/23/17 0911 12/23/17 0620 Procedures 12/19/17-Excisional debridement of decubitus ulcers of the right buttock and sacrum, to bone. Application of wound Vac. . Assessment and Plan Disease Oriented Problem List: (1) Diabetes (2) Abscess of buttock (3) Infected decubitus ulcer (4) CVA (cerebral infarction) (5) Hypertension (6) General weakness Symptom Scale: (1) Debility (2) Pain 0-10 Scale: 7 Comment: Chronic decubiti to buttocks. Recently underwent excisional debridement of decubitus ulcers of the right buttock and sacrum, to bone and application of wound Vac. . Pertinent Non-Medical Issues Psychosocial:Patient is originally from [place]. She moved to [place] approximately 30 years ago. Patient is , but he is currently incarcerated. He has been in [facility] for the past 3 years. 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 Patient currently lives with her adult son who is his primary caregiver. Spiritual: Patient is Gnosticist Legal: Completed & signed HCS form in the [facility] DNR Ethical issues impacting care: None identified at this time . Important Contacts [facility]VnctBoris Wilson Jr- [phone] Alternate [facility]- friend- Carrie Melton- [phone] . Prognosis Mrs Wilson is a 67 years old female with a significant past medical history of diabetes mellitus, sacral decubitus, C. difficile, CVA, pressure ulceration on left heel, hypertension, thyroid disease, recurrent UTIs, depression, anxiety, postherpetic neuralgia, hyperlipidemia, breast cancer, degenerative disc disease. Patient was brought in to the emergency department 12/18/17 via EMS for evaluation of a large draining wound with foul odor on her buttock after a home health care staff noted large draining wound on her buttock. Patient also has necrotic ulcerations to the buttock area bilaterally. Patient`s last hospitalization was in October 2017 for urinary tract infection. In the past year patient has had 7 hospitalizations and 2 ER visits. Given ongoing multiple comorbidities and multiple hospitalizations, patient remains at high risk for further complications, deterioration and decline. . Code Status: No Code (DNI/DNR) Plan PLAN: Legal decision maker: Patient is currently able to participate in medical decision making. In the event that she is incapacitated patient designated her son Boris Wilson Jr as her healthcare surrogate and dear friend Carrie Melton is a alternate healthcare surrogate. Goals: Remains the same -aggressive short of no code. CODE STATUS: No code DNR/DNI SYMPTOMS: * Pain: Multifactorial. History of postherpetic neuralgia, diabetic neuropathy and chronic decubiti to buttocks. Recently underwent excisional debridement of decubitus ulcers of the right buttock and sacrum, to bone and application of wound Vac. Patient endorsing pain to buttock area-rating it 6 out of 10. Patient is on gabapentin. Patient was started on antibiotics. Patient was given a one-time dose of tramadol. recommending having prn medication for pain control * Debility: Progressive. Patient has had multiple hospitalizations-x7 in 2017. Patient is bedbound with chronic buttock decubiti. Requires moderate assistance with most of his ADLs. Physical therapy consulted. Unsure if patient is able to effectively participate in physical therapy. No recommendations at this time. Palliative care will continue to follow the patient during hospital course as condition evolves, to assist patient/decision-maker with understanding of their medical conditions, weighing benefits/burdens of treatment options, for clarification of goals of treatment. Additionally will assist with any symptoms of palliative concern Attestation To help prompt me to consider important information that might be impacting today's encounter and assessment, information from prior notes written by myself or my colleagues may have been "brought forward" into today's note. My signature on this note, however, is an attestation that I personally performed the exam, history, and/or decision-making noted today, and, unless otherwise indicated, the interactions with patient, family, and staff as well as the review of records all occurred today. I also attest that the listed assessment and stated plan reflect my best clinical judgment today based on the combination of historical information, prior notes, and today's exam/ interactions. When time spent is documented, it refers only to time spent today by the signer, or if indicated, combined time spent today by collaborating physician/nurse practitioner. Aurora Case Dec 24, 2017 16:01
[2017-12-24] MEDS: LEVOFLOXACIN 750 MG PREMIX INJ 150 ML IV SCH (21:20)
[2017-12-24] MEDS: traZODone HCL 100 MG TAB PO PRN (21:21)
[2017-12-24] MEDS: GABAPENTIN 300 MG CAP PO SCH (21:21)
[2017-12-24 21:50] VITALS: BP 147/70; PULSE 88; RESP 19; TEMP 97.9; O2SAT 98
[2017-12-25 00:15] VITALS: BP 130/65; PULSE 69; RESP 20; TEMP 98.1; O2SAT 98
[2017-12-25 04:30] VITALS: BP 130/62; PULSE 62; RESP 18; TEMP 98.6; O2SAT 98
[2017-12-25] MEDS: INSULIN ASPART SUPPLEMENTAL SCALE SQ SCH ×4 (08:00→21:00)
[2017-12-25 08:34] VITALS: BP 145/66; PULSE 85; RESP 18; TEMP 98.2; O2SAT 96
[2017-12-25] MEDS: DULoxetine HCl DR 60 MG CAP PO SCH (08:36)
[2017-12-25] MEDS: OXYBUTYNIN CHLORIDE 5 MG TAB PO SCH ×2 (08:37→21:13)
[2017-12-25] MEDS: metFORMIN HCL 500 MG TAB PO SCH ×2 (08:38→16:59)
[2017-12-25] MEDS: LACTOBACILLUS ACIDOPHILUS TAB PO SCH ×3 (08:38→16:59)
[2017-12-25] MEDS: NIFEdipine 30 MG SUSTAINED RELEASE TAB PO SCH ×2 (08:39→21:13)
[2017-12-25] MEDS: LISINOPRIL 10 MG TAB PO SCH (08:39)
[2017-12-25] MEDS ORDERED: ACET325T15 PO (11:06)
[2017-12-25] MEDS ORDERED: LISI10TA3 PO (11:06)
[2017-12-25] MEDS ORDERED: TRAZ50TA12 PO (11:06)
[2017-12-25] MEDS ORDERED: DAKI0.12 TOPICAL (11:06)
[2017-12-25] MEDS ORDERED: NEUR300C PO (11:06)
[2017-12-25] MEDS ORDERED: AUGM875T3 PO (11:09)
[2017-12-25] MEDS ORDERED: LEVO500T8 PO (11:09)
[2017-12-25] MEDS ORDERED: [UNRECOGNIZED DRUG - OTHER] (11:12)
--- NOTE | 2017-12-25 11:17 | HHI.HCPN ---
Reason for visit a. To assist with evaluation and management of symptoms including: Pain, debility b. To assist medical decision maker(s) with: better understanding of current medical conditions; weighing benefits/burdens of medical treatment options; making medical treatment decisions. Subjective/Interval History Patient seen and examined in her room. Patient is in bed, awake, alert and oriented to self, place and situation. Patient denies pain and is eager to leave the hospital. Patient [facility] be [facility] a [facility] and her hopes are to clinically improve while at [facility] and then go back home. Patient stated that she has been told that she is going to [facility]. Vital signs stable and patient remains afebrile. No recent laboratory workup imaging. Case management following. Case discussed with bedside RN. . Family/friend interactions No family at bedside . Advance Directives Living Will: Never completed Health Care Surrogate: Copy in medical record Durable Power of Branch Employment Coordinator: Never completed Advance Directive Specifics Date completed: 12/23/2017 . Health Care Surrogate(s): [facility]- Son-Boris Wilson - [phone] Alternate [facility]- friend- Carrie Melton- [phone] . Objective Vital Signs Date Time Temp Pulse Resp B/P (MAP) Pulse Ox O2 Delivery O2 Flow Rate FiO2 12/25/17 08:34 98.2 85 18 145/66 (92) 96 12/25/17 04:30 98.6 62 18 130/62 (84) 98 12/25/17 00:15 98.1 69 20 130/65 (86) 98 12/24/17 21:50 97.9 88 19 147/70 (95) 98 12/24/17 16:00 98.6 75 18 135/75 (95) 99 12/24/17 12:00 98.6 72 18 155/84 (107) 99 Intake & Output 12/25/17 12/25/17 07:00 19:00 Intake Total 600 ml Output Total 500 ml Balance 100 ml Intake Oral 600 ml Output Urine Total 500 ml # Bowel Movements 1 Physical Exam CONSTITUTIONAL/GENERAL: This is an adequately nourished patient, in no apparent distress. TUBES/LINES/DRAINS: PIV, wound VAC, heel protective boots, Lopez catheter SKIN: No jaundice, rashes, or lesions. Ecchymoses on upper extremities. No wounds seen anteriorly. Skin temperature appropriate. Not diaphoretic. HEAD: Atraumatic. Normocephalic. EYES: Pupils equal and round and reactive. Extraocular motions intact. No scleral icterus. No injection or drainage. Fundi not examined. ENT: Hearing grossly normal. Nose without bleeding or purulent drainage. Throat without visible erythema, exudates, masses, or lesions. NECK: Trachea midline. Supple, nontender. No palpable thyroid enlargement or nodularity. CARDIOVASCULAR: Regular rate and rhythm without murmurs, gallops, or rubs. No JVD. Peripheral pulses symmetric. RESPIRATORY/CHEST: Symmetric, unlabored respirations. Clear to auscultation. Breath sounds equal bilaterally. No wheezes, rales, or rhonchi. GASTROINTESTINAL: Abdomen soft, non-tender, nondistended. No hepato-splenomegaly , or palpable masses. No guarding. Bowel sounds present. GENITOURINARY: Without palpable bladder distension. Lopez catheter in place. MUSCULOSKELETAL: Extremities without clubbing, cyanosis, or edema. No joint tenderness or effusion noted. No calf tenderness. No mottling or clubbing. NEUROLOGICAL: Awake and alert, oriented 3. Motor and sensory grossly within normal limits. Follows commands. Moves all extremities. PSYCHIATRIC: No obvious anxiety/depression. no apparent hallucinations or other psychotic thought process. . Diagnostic Tests Laboratory Laboratory Tests Test 12/23/17 06:20 12/23/17 06:40 12/23/17 09:11 Blood Urea Nitrogen 27 MG/DL (7-18) Creatinine 0.91 MG/DL (0.50-1.00) Random Glucose 130 MG/DL (74-106) Calcium Level 7.9 MG/DL (8.5-10.1) Magnesium Level 1.7 MG/DL (1.5-2.5) Sodium Level 135 MEQ/L (136-145) Potassium Level 4.2 MEQ/L (3.5-5.1) Chloride Level 102 MEQ/L (98-107) Carbon Dioxide Level 24.2 MEQ/L (21.0-32.0) Anion Gap 9 MEQ/L (5-15) Estimat Glomerular Filtration Rate 62 ML/MIN (>89) Vancomycin Level Trough 12.2 MCG/ML (5.0-10.0) White Blood Count 12.7 TH/MM3 (4.0-11.0) Red Blood Count 4.05 MIL/MM3 (4.00-5.30) Hemoglobin 11.5 GM/DL (11.6-15.3) Hematocrit 34.1 % (35.0-46.0) Mean Corpuscular Volume 84.2 FL (80.0-100.0) Mean Corpuscular Hemoglobin 28.3 PG (27.0-34.0) Mean Corpuscular Hemoglobin Concent 33.6 % (32.0-36.0) Red Cell Distribution Width 16.1 % (11.6-17.2) Platelet Count 323 TH/MM3 (150-450) Mean Platelet Volume 7.5 FL (7.0-11.0) Neutrophils (%) (Auto) 77.3 % (16.0-70.0) Lymphocytes (%) (Auto) 13.2 % (9.0-44.0) Monocytes (%) (Auto) 6.7 % (0.0-8.0) Eosinophils (%) (Auto) 2.3 % (0.0-4.0) Basophils (%) (Auto) 0.5 % (0.0-2.0) Neutrophils # (Auto) 9.8 TH/MM3 (1.8-7.7) Lymphocytes # (Auto) 1.7 TH/MM3 (1.0-4.8) Monocytes # (Auto) 0.9 TH/MM3 (0-0.9) Eosinophils # (Auto) 0.3 TH/MM3 (0-0.4) Basophils # (Auto) 0.1 TH/MM3 (0-0.2) CBC Comment AUTO DIFF Differential Total Cells Counted 100 Neutrophils % (Manual) 77 % (16-70) Band Neutrophils % 5 % (0-6) Lymphocytes % 9 % (9-44) Monocytes % 6 % (0-8) Eosinophils % 2 % (0-4) Neutrophils # (Manual) 10.5 TH/MM3 (1.8-7.7) Myelocytes 1 % (0-0) Differential Comment FINAL DIFF MANUAL Toxic Granulation 1+ (NORMAL) Platelet Estimate NORMAL (NORMAL) Platelet Morphology Comment NORMAL (NORMAL) Ovalocytes 1+ (NORMAL) Hemoglobin A1c 5.7 % (4.3-6.0) Result Diagram: 12/23/17 0911 12/23/17 0620 Procedures 12/19/17-Excisional debridement of decubitus ulcers of the right buttock and sacrum, to bone. Application of wound Vac. . Assessment and Plan Disease Oriented Problem List: (1) Diabetes (2) Abscess of buttock (3) Infected decubitus ulcer (4) CVA (cerebral infarction) (5) Hypertension (6) General weakness Symptom Scale: (1) Debility 0-10 Scale: Unable to quantify Comment: Progressive . (2) Pain 0-10 Scale: 7 Comment: Chronic decubiti to buttocks. Recently underwent excisional debridement of decubitus ulcers of the right buttock and sacrum, to bone and application of wound Vac. . Pertinent Non-Medical Issues Psychosocial:Patient is originally from [place]. She moved to [place] approximately 30 years ago. Patient is , but he is currently incarcerated. He has been in [facility] for the past 3 years. 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 Patient currently lives with her adult son who is his primary caregiver. Spiritual: Patient is Quaker Legal: Completed & signed HCS form in the [facility] DNR Ethical issues impacting care: None identified at this time . Important Contacts [facility], John - [phone] Alternate [facility]- friend- Carrie Melton- [phone] . Prognosis Mrs Wilson is a 67 years old female with a significant past medical history of diabetes mellitus, sacral decubitus, C. difficile, CVA, pressure ulceration on left heel, hypertension, thyroid disease, recurrent UTIs, depression, anxiety, postherpetic neuralgia, hyperlipidemia, breast cancer, degenerative disc disease. Patient was brought in to the emergency department 12/18/17 via EMS for evaluation of a large draining wound with foul odor on her buttock after a home health care staff noted large draining wound on her buttock. Patient also has necrotic ulcerations to the buttock area bilaterally. Patient`s last hospitalization was in October 2017 for urinary tract infection. In the past year patient has had 7 hospitalizations and 2 ER visits. Given ongoing multiple comorbidities and multiple hospitalizations, patient remains at high risk for further complications, deterioration and decline. . Code Status: No Code (DNI/DNR) Plan PLAN: Legal decision maker: Patient is currently able to participate in medical decision making. In the event that she is incapacitated patient designated her son Boris Wilson Jr as her healthcare surrogate and dear friend Carrie Melton is a alternate healthcare surrogate. Goals: Remains the same -aggressive short of no code. CODE STATUS: No code DNR/DNI Patient denies pain and is eager to leave the hospital. Patient [facility] to a [facility] and her hopes are to clinically improve while at [facility] and then go back home. SYMPTOMS: * Pain: Multifactorial. History of postherpetic neuralgia, diabetic neuropathy and chronic decubiti to buttocks. Recently underwent excisional debridement of decubitus ulcers of the right buttock and sacrum, to bone and application of wound Vac. Patient endorsing pain to buttock area-rating it 6 out of 10. Patient is on gabapentin. Patient was started on antibiotics. Patient was given a one-time dose of tramadol. recommending having prn medication for pain control or at time of wound VAC change. * Debility: Progressive. Patient has had multiple hospitalizations-x7 in 2017. Patient is bedbound with chronic buttock decubiti. Requires moderate assistance with most of his ADLs. Physical therapy consulted. Unsure if patient is able to effectively participate in physical therapy. No recommendations at this time. Palliative care will continue to follow the patient during hospital course as condition evolves, to assist patient/decision-maker with understanding of their medical conditions, weighing benefits/burdens of treatment options, for clarification of goals of treatment. Additionally will assist with any symptoms of palliative concern Attestation To help prompt me to consider important information that might be impacting today's encounter and assessment, information from prior notes written by myself or my colleagues may have been "brought forward" into today's note. My signature on this note, however, is an attestation that I personally performed the exam, history, and/or decision-making noted today, and, unless otherwise indicated, the interactions with patient, family, and staff as well as the review of records all occurred today. I also attest that the listed assessment and stated plan reflect my best clinical judgment today based on the combination of historical information, prior notes, and today's exam/ interactions. When time spent is documented, it refers only to time spent today by the signer, or if indicated, combined time spent today by collaborating physician/nurse practitioner. Aurora Case Dec 25, 2017 11:17
--- NOTE | 2017-12-25 11:20 | HHI.DS ---
Discharge Summary Admission Date Dec 18, 2017 at 16:34 Discharge Date: Dec 26, 2017 Admitting Diagnosis BUTTOCK DECUBITUS infected/Abscess (1) Infected decubitus ulcer Diagnosis: Principal ICD Codes: L89.90 - Pressure ulcer of unspecified site, unspecified stage; L08.9 - Local infection of the skin and subcutaneous tissue, unspecified Status: Acute (2) Abscess of buttock Diagnosis: Principal ICD Codes: L02.31 - Cutaneous abscess of buttock Status: Acute (3) General weakness Diagnosis: Principal ICD Codes: R53.1 - Weakness Status: Acute (4) CVA (cerebral infarction) Diagnosis: Secondary ICD Codes: I63.9 - CVA (cerebral infarction) Status: Chronic (5) Hypertension Diagnosis: Secondary ICD Codes: I10 - Hypertension Status: Chronic (6) Diabetes Diagnosis: Secondary ICD Codes: E11.9 - Diabetes mellitus Status: Chronic Consultants Dr. José, plastic surgery Procedures PROCEDURE: 1. Excisional debridement of decubitus ulcer of right buttock. 2. Excisional debridement of stage IV decubitus ulcer of sacrum. 3. Application of wound vacuum-assisted closure. 12/19/17 Brief History Ms. Wilson is a 67 y/o female with recurrent UTIs (ESBL E. coli, Klebsiella, Enterococcus), C diff, hypertension, diabetes mellitus, CVA and hx of breast cancer who presents to ED with worsening sacral decubitus ulcerations. This patient is essentially bed bound all day at home and her son is her caregiver. [facility] has also placed resources into her hown including HOME DOC and C to manage her wounds and medical conditions. She was here in October and at that time the sacral wounds were not clinically infected. No odor/No drainage/No redness but swab was taken by the wound care team. She is noted to have necrotic ulcerations of buttock area bilaterally with foul odor and drainage...more swelling in right side most likely abscess. ED given ashtyn and luis. Of note the last time this pt was discharged we were approached by an advocate from her [employer] stating that the son was not caring for her and neglecting her. They were concerned for her further deterioration. When asked about it the pt is very defensive of her son and says he does the best he can. She gets panicky when we asked her about it in October and we did offer help....but she refused. Today she seems more willing to be placed for medical care. CBC/BMP: 12/23/17 0911 12/23/17 0620 Significant Findings Laboratory Tests Test 12/23/17 06:20 12/23/17 06:40 12/23/17 09:11 Blood Urea Nitrogen 27 MG/DL (7-18) Random Glucose 130 MG/DL (74-106) Calcium Level 7.9 MG/DL (8.5-10.1) Sodium Level 135 MEQ/L (136-145) Estimat Glomerular Filtration Rate 62 ML/MIN (>89) Vancomycin Level Trough 12.2 MCG/ML (5.0-10.0) White Blood Count 12.7 TH/MM3 (4.0-11.0) Hemoglobin 11.5 GM/DL (11.6-15.3) Hematocrit 34.1 % (35.0-46.0) Neutrophils (%) (Auto) 77.3 % (16.0-70.0) Neutrophils # (Auto) 9.8 TH/MM3 (1.8-7.7) Neutrophils % (Manual) 77 % (16-70) Neutrophils # (Manual) 10.5 TH/MM3 (1.8-7.7) Myelocytes 1 % (0-0) Toxic Granulation 1+ (NORMAL) Ovalocytes 1+ (NORMAL) Imaging Last Impressions Chest X-Ray 12/18/17 1430 Signed Impressions: Service Date/Time: December 14:39 - CONCLUSION: 1. Mild platelike atelectasis in the right upper lung. 2. Otherwise, no focal or acute pulmonary infiltrates. 3. No significant changes compared to the prior studies. Steffen Mtz MD Pelvis CT 12/18/17 0000 Signed Impressions: Service Date/Time: December 15:52 - CONCLUSION: 1. Some disease emphysema and soft tissue changes within the adipose tissue of the medial right buttocks extending to the midline suggestive of a decubitus ulcer. 2. There is an air-fluid level in a 2.2 cm cavity within the soft tissues of the medial right buttocks suggestive of a soft tissue abscess. Steffen Mtz MD PE at Discharge GENERAL: This is a well-nourished, well-developed patient, in no apparent distress. CARDIOVASCULAR: Regular rate and rhythm without murmurs, gallops, or rubs. RESPIRATORY: Clear to auscultation. Breath sounds equal bilaterally. No wheezes , rales, or rhonchi. GASTROINTESTINAL: Abdomen soft, non-tender, nondistended. Normal active bowel sounds MUSCULOSKELETAL: Extremities without clubbing, cyanosis, or edema. NEURO: Alert & Oriented x4 to person, place, time, situation. Moves all ext x4 Hospital Course 1. bilateral necrotic/infected sacral/buttock ulceration. Abscess right upper buttock 12/19: DR José 1. Excisional debridement of decubitus ulcer of right buttock. 2. Excisional debridement of stage IV decubitus ulcer of sacrum. 3. Application of wound vacuum-assisted closure. 2. generalize weakness and mostly bedbound at home 3. recurrent uti's with resistant organisms and c.diff colitis hx 4. diabetes. 5. htn 6. left heel/lat leg pressure ulcerations. 7. severe hypoalbuminemia 8. Anemia. chronic dz s/p 2 units prbc 12/19 wound vac and wound care per Dr José and wound care team. discussed with nurse who spoke with DR José....wound vac change m/w/f.. with Dakins solution- wound care per plastic surgery broad spectrum abx. will use previous cultures as a guide( pseudomonas, enterococcus faecalis/avium) ...currently on vanco and Zosyn. DC with Levaquin and Augmentin orally for a total of 2 weeks PT dvt prophylaxis ssi cont lisinipril and added back procardia for her elevated bp nutritional supplement - d/c to SNF 12/25/17, DC was not done due to arrangements for wound vac. This was resolved and patient left the hospital 12/26/17 Pt Condition on Discharge: Stable Discharge Disposition: Discharge to SNF Discharge Instructions DIET: Follow Instructions for: Heart Healthy Diet Activities you can perform: See Additionl Instruction Other Activity Instructions: as tolerated Follow up Referrals: PCP Follow-up - [address] [facility] - 1 Week with [facility] wound care clinic New Medications: Amoxicillin-Clavulanate (Augmentin) 875-125 Mg Tab 1 TAB PO BID for Infection, #16 TAB 0 Refills Levofloxacin (Levofloxacin) 500 Mg Tablet 500 MG PO DAILY for Infection, #8 TAB 0 Refills Negative Pressure Wound Therapy Vac (Wound Vac) 1 Ea Ea EA .XX DIRECTED for Wound management, #1 0 Refills Continue the wound VAC changes 3 times per week with Dakin's solution, quarter percent, used to cleanse the area during dressing changes. She should follow-up in a wound care center. Acetaminophen (Eq Acetaminophen) 325 Mg Tab 650 MG PO Q4H PRN for pain/fever for 14 Days, #168 TAB Gabapentin (Neurontin) 300 Mg Cap 300 MG PO HS for nerve pain for 30 Days, CAP Lisinopril (Lisinopril) 10 Mg Tab 10 MG PO DAILY for Blood Pressure Management for 30 Days, #30 TAB 0 Refills Sodium Hypochlorite Topical (Dakins Solution Quarter Strength Topical) 0.125% Soln 500 ML TOPICAL MoWeFr@0900 for wound care for 14 Days, ML Trazodone (Trazodone) 50 Mg Tab 100 MG PO HS PRN for INSOMNIA for 30 Days, TAB Continued Medications: Atorvastatin (Lipitor) 40 Mg Tab 40 MG PO HS for Cholesterol Management, #30 TAB [address] (Cymbalta DR) 60 Mg Capdr 60 MG PO DAILY, #30 CAP 0 Refills Metformin (Metformin) 500 Mg Tab 500 MG PO BID for Blood Sugar Management, #60 TAB 0 Refills Oxybutynin (Ditropan) 5 Mg Tab 5 MG PO Q12HR for bladder spasms, #62 TAB Discontinued Medications: Gabapentin (Gabapentin) 600 Mg Tab 600 MG PO TID, #90 TAB 0 Refills Lisinopril (Lisinopril) 20 Mg Tab 20 MG PO BID, #30 TAB 0 Refills Tramadol (Tramadol) 50 Mg Tab 100 MG PO TID PRN for PAIN, TAB 0 Refills Trazodone (Trazodone) 100 Mg Tablet 200 MG PO HS for Control Depression, #30 TAB 0 Refills Additional Information Wound care per plastic surgery: continue the wound VAC changes 3 times per week with Dakin's solution, quarter percent, used to cleanse the area during dressing changes. She should follow-up in a wound care center. Patient examined. Assessment and plan formulated with Ana Solis PA-C. I agree with the above. Ana Solis Dec 25, 2017 11:20 Christopher Quevedo DO Dec 28, 2017 00:52
[2017-12-25 12:24] VITALS: BP 142/80; PULSE 84; RESP 18; TEMP 98.3; O2SAT 97
[2017-12-25] MEDS: VANCOMYCIN 1,500 MG/NS 500 ML IV SCH ×2 (12:28)
[2017-12-25 16:00] VITALS: BP 173/74; PULSE 82; RESP 18; TEMP 98; O2SAT 97
[2017-12-25 20:15] VITALS: BP 158/72; PULSE 82; RESP 19; TEMP 98.7; O2SAT 98
[2017-12-25] MEDS: ACETAMINOPHEN 325 MG TAB PO PRN (21:13)
[2017-12-25] MEDS: traZODone HCL 100 MG TAB PO PRN (21:13)
[2017-12-25] MEDS: GABAPENTIN 300 MG CAP PO SCH (21:14)
[2017-12-25] MEDS: LEVOFLOXACIN 750 MG PREMIX INJ 150 ML IV SCH (21:14)
[2017-12-26 00:41] VITALS: BP 150/75; PULSE 80; RESP 19; TEMP 97.6; O2SAT 97
[2017-12-26 04:00] VITALS: BP 148/80; PULSE 88; RESP 19; TEMP 98.8; O2SAT 97
[2017-12-26] MEDS ORDERED: PHARMACY ORDERED LAB ONE (04:45)
[2017-12-26] MEDS: VANCOMYCIN 1,500 MG/NS 500 ML IV SCH ×2 (05:48)
[2017-12-26] MEDS: ACETAMINOPHEN 325 MG TAB PO PRN ×3 (05:49→18:40)
[2017-12-26] MEDS: INSULIN ASPART SUPPLEMENTAL SCALE SQ SCH ×3 (08:00→17:00)
[2017-12-26 08:26] LABS: CREATININE 0.71 MG/DL (0.50-1.00)
[2017-12-26] MEDS: OXYBUTYNIN CHLORIDE 5 MG TAB PO SCH (09:34)
[2017-12-26] MEDS: metFORMIN HCL 500 MG TAB PO SCH ×2 (09:34→17:16)
[2017-12-26] MEDS: LISINOPRIL 10 MG TAB PO SCH (09:34)
[2017-12-26] MEDS: DULoxetine HCl DR 60 MG CAP PO SCH (09:34)
[2017-12-26] MEDS: NIFEdipine 30 MG SUSTAINED RELEASE TAB PO SCH (09:34)
[2017-12-26] MEDS: LACTOBACILLUS ACIDOPHILUS TAB PO SCH ×3 (09:34→17:16)
[2017-12-26] MEDS: SODIUM HYPOCHLORITE 0.125% 500 ML BTL TOPICAL SCH (09:35)
[2017-12-26 12:50] VITALS: BP 130/63; PULSE 79; RESP 18; TEMP 97.9; O2SAT 97
[2017-12-26 16:00] VITALS: BP 144/68; PULSE 85; RESP 18; TEMP 99.1; O2SAT 97
--- NOTE | 2017-12-26 16:24 | HHI.HCPN ---
Reason for visit a. To assist with evaluation and management of symptoms including: Pain, debility b. To assist medical decision maker(s) with: better understanding of current medical conditions; weighing benefits/burdens of medical treatment options; making medical treatment decisions. Subjective/Interval History Patient seen and examined in her room. Patient is in bed, awake, alert and oriented to self, place and situation. Patient complaining of pain to her lower extremities. Patient cleared for medical discharge to a [facility]. Vital signs stable. No recent laboratory workup imaging. Case discussed with case management Marlin. . Family/friend interactions No family At bedside . Advance Directives Living Will: Never completed Health Care Surrogate: Copy in medical record Durable Power of Procedure Tech: Never completed Advance Directive Specifics Date completed: 12/23/2017 . Health Care Surrogate(s): [facility]- Son-Boris Wilson - [phone] Alternate [facility]- friend- Carrie Melton- [phone] . Objective Vital Signs Date Time Temp Pulse Resp B/P (MAP) Pulse Ox O2 Delivery O2 Flow Rate FiO2 12/26/17 14:18 16 12/26/17 12:50 97.9 79 18 130/63 (85) 97 12/26/17 04:00 98.8 88 19 148/80 (102) 97 12/26/17 00:41 97.6 80 19 150/75 (100) 97 12/25/17 20:15 98.7 82 19 158/72 (100) 98 Intake & Output 12/26/17 12/26/17 06:59 18:59 Intake Total 800 ml Output Total 1200 ml Balance -400 ml Intake Oral 800 ml Output Urine Total 1200 ml # Bowel Movements 0 Physical Exam CONSTITUTIONAL/GENERAL: This is an adequately nourished patient, in no apparent distress. TUBES/LINES/DRAINS: PIV, wound VAC, heel protective boots, Lopez catheter SKIN: No jaundice, rashes, or lesions. Ecchymoses on upper extremities. No wounds seen anteriorly. Skin temperature appropriate. Not diaphoretic. HEAD: Atraumatic. Normocephalic. EYES: Pupils equal and round and reactive. Extraocular motions intact. No scleral icterus. No injection or drainage. Fundi not examined. ENT: Hearing grossly normal. Nose without bleeding or purulent drainage. Throat without visible erythema, exudates, masses, or lesions. NECK: Trachea midline. Supple, nontender. No palpable thyroid enlargement or nodularity. CARDIOVASCULAR: Regular rate and rhythm without murmurs, gallops, or rubs. No JVD. Peripheral pulses symmetric. RESPIRATORY/CHEST: Symmetric, unlabored respirations. Clear to auscultation. Breath sounds equal bilaterally. No wheezes, rales, or rhonchi. GASTROINTESTINAL: Abdomen soft, non-tender, nondistended. No hepato-splenomegaly , or palpable masses. No guarding. Bowel sounds present. GENITOURINARY: Without palpable bladder distension. Lopez catheter in place. MUSCULOSKELETAL: Extremities without clubbing, cyanosis, or edema. No joint tenderness or effusion noted. No calf tenderness. No mottling or clubbing. NEUROLOGICAL: Awake and alert, oriented 3. Motor and sensory grossly within normal limits. Follows commands. Moves all extremities. PSYCHIATRIC: No obvious anxiety/depression. no apparent hallucinations or other psychotic thought process. . Diagnostic Tests Laboratory Laboratory Tests Test 12/26/17 04:45 12/26/17 06:18 Vancomycin Level Trough 27.9 MCG/ML (5.0-10.0) Creatinine 0.71 MG/DL (0.50-1.00) Estimat Glomerular Filtration Rate 83 ML/MIN (>89) Result Diagram: 12/23/17 0911 12/26/17 0618 Procedures 12/19/17-Excisional debridement of decubitus ulcers of the right buttock and sacrum, to bone. Application of wound Vac. . Assessment and Plan Disease Oriented Problem List: (1) Diabetes (2) Abscess of buttock (3) Infected decubitus ulcer (4) CVA (cerebral infarction) (5) Hypertension (6) General weakness Symptom Scale: (1) Debility 0-10 Scale: Unable to quantify Comment: Progressive . (2) Pain 0-10 Scale: 7 Comment: Chronic decubiti to buttocks. Recently underwent excisional debridement of decubitus ulcers of the right buttock and sacrum, to bone and application of wound Vac. . Pertinent Non-Medical Issues Psychosocial:Patient is originally from [place]. She moved to [place] approximately 30 years ago. Patient is , but he is currently incarcerated. He has been in [facility] for the past 3 years. 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 Patient currently lives with her adult son who is his primary caregiver. Spiritual: Patient is Buddhism Legal: Completed & signed HCS form in the [facility] DNR Ethical issues impacting care: None identified at this time . Important Contacts [facility]Boris Wilson Jr- [phone] Alternate [facility]- friend- Carrie Melton- [phone] . Prognosis Mrs Wilson is a 67 years old female with a significant past medical history of diabetes mellitus, sacral decubitus, C. difficile, CVA, pressure ulceration on left heel, hypertension, thyroid disease, recurrent UTIs, depression, anxiety, postherpetic neuralgia, hyperlipidemia, breast cancer, degenerative disc disease. Patient was brought in to the emergency department 12/18/17 via EMS for evaluation of a large draining wound with foul odor on her buttock after a home health care staff noted large draining wound on her buttock. Patient also has necrotic ulcerations to the buttock area bilaterally. Patient`s last hospitalization was in October 2017 for urinary tract infection. In the past year patient has had 7 hospitalizations and 2 ER visits. Given ongoing multiple comorbidities and multiple hospitalizations, patient remains at high risk for further complications, deterioration and decline. . Code Status: No Code (DNI/DNR) Plan PLAN: Legal decision maker: Patient is currently able to participate in medical decision making. In the event that she is incapacitated patient designated her son Boris Wilson Jr as her healthcare surrogate and dear friend Carrie Melton is a alternate healthcare surrogate. Goals: Remains the same -aggressive short of no code. CODE STATUS: No code DNR/DNI Patient medically cleared for discharge to [facility] SNF. SYMPTOMS: * Pain: Multifactorial. History of postherpetic neuralgia, diabetic neuropathy and chronic decubiti to buttocks. Recently underwent excisional debridement of decubitus ulcers of the right buttock and sacrum, to bone and application of wound Vac. Patient endorsing pain to buttock area-rating it 6 out of 10. Patient is on gabapentin. Patient was started on antibiotics. Patient was given a one-time dose of tramadol. recommending having prn medication for pain control or at time of wound VAC change. * Debility: Progressive. Patient has had multiple hospitalizations-x7 in 2017. Patient is bedbound with chronic buttock decubiti. Requires moderate assistance with most of his ADLs. Physical therapy consulted. Unsure if patient is able to effectively participate in physical therapy. No recommendations at this time. Palliative care will continue to follow the patient during hospital course as condition evolves, to assist patient/decision-maker with understanding of their medical conditions, weighing benefits/burdens of treatment options, for clarification of goals of treatment. Additionally will assist with any symptoms of palliative concern Attestation To help prompt me to consider important information that might be impacting today's encounter and assessment, information from prior notes written by myself or my colleagues may have been "brought forward" into today's note. My signature on this note, however, is an attestation that I personally performed the exam, history, and/or decision-making noted today, and, unless otherwise indicated, the interactions with patient, family, and staff as well as the review of records all occurred today. I also attest that the listed assessment and stated plan reflect my best clinical judgment today based on the combination of historical information, prior notes, and today's exam/ interactions. When time spent is documented, it refers only to time spent today by the signer, or if indicated, combined time spent today by collaborating physician/nurse practitioner. Aurora Case Dec 26, 2017 16:24
--- NOTE | 2017-12-26 16:36 | HHI.PR ---
Subjective Remarks Late entry 12/25/17DC orders written 12/25/17, but patient was not DC'd due arrangement for the wound vac. This was resolved. Patient offers no new complaints Objective Vitals Vital Signs Date Time Temp Pulse Resp B/P (MAP) Pulse Ox O2 Delivery O2 Flow Rate FiO2 12/26/17 14:18 16 12/26/17 12:50 97.9 79 18 130/63 (85) 97 12/26/17 04:00 98.8 88 19 148/80 (102) 97 12/26/17 00:41 97.6 80 19 150/75 (100) 97 12/25/17 20:15 98.7 82 19 158/72 (100) 98 Result Diagram: 12/23/17 0911 12/26/17 0618 Other Results Laboratory Tests Test 12/26/17 04:45 12/26/17 06:18 Vancomycin Level Trough 27.9 MCG/ML Creatinine 0.71 MG/DL Estimat Glomerular Filtration Rate 83 ML/MIN Imaging Last Impressions Chest X-Ray 12/18/17 1430 Signed Impressions: Service Date/Time: December 14:39 - CONCLUSION: 1. Mild platelike atelectasis in the right upper lung. 2. Otherwise, no focal or acute pulmonary infiltrates. 3. No significant changes compared to the prior studies. Steffen Mtz MD Pelvis CT 12/18/17 0000 Signed Impressions: Service Date/Time: December 15:52 - CONCLUSION: 1. Some disease emphysema and soft tissue changes within the adipose tissue of the medial right buttocks extending to the midline suggestive of a decubitus ulcer. 2. There is an air-fluid level in a 2.2 cm cavity within the soft tissues of the medial right buttocks suggestive of a soft tissue abscess. Steffen Mtz MD Objective Remarks GENERAL: This is a well-nourished, well-developed patient, in no apparent distress. CARDIOVASCULAR: Regular rate and rhythm without murmurs, gallops, or rubs. RESPIRATORY: Clear to auscultation. Breath sounds equal bilaterally. No wheezes , rales, or rhonchi. GASTROINTESTINAL: Abdomen soft, non-tender, nondistended. Normal active bowel sounds MUSCULOSKELETAL: Extremities without clubbing, cyanosis, or edema. NEURO: Alert & Oriented x4 to person, place, time, situation. Moves all ext x4 Procedures PROCEDURE: 1. Excisional debridement of decubitus ulcer of right buttock. 2. Excisional debridement of stage IV decubitus ulcer of sacrum. 3. Application of wound vacuum-assisted closure. 12/19/17 A/P Problem List: (1) Infected decubitus ulcer ICD Codes: L89.90 - Pressure ulcer of unspecified site, unspecified stage; L08.9 - Local infection of the skin and subcutaneous tissue, unspecified Status: Acute Plan: 1. bilateral necrotic/infected sacral/buttock ulceration. Abscess right upper buttock 12/19: DR José 1. Excisional debridement of decubitus ulcer of right buttock. 2. Excisional debridement of stage IV decubitus ulcer of sacrum. 3. Application of wound vacuum-assisted closure. 2. generalize weakness and mostly bedbound at home 3. recurrent uti's with resistant organisms and c.diff colitis hx 4. diabetes. 5. htn 6. left heel/lat leg pressure ulcerations. 7. severe hypoalbumenemia 8. Anemia. chronic dz s/p 2 units prbc 12/19 wound vac and wound care per Dr José and wound care team. discussed with nurse who spoke with DR José....wound vac change m/w/...I don't think it was done yesterday as far as I can tell.....nursing will contract wound care team to get it done. Will plan to transition her to snf once ok from surgical standpoint broad spectrum abx. will use previous cultures as a guide( pseudomonas, enterococcus faecalis/avium) ...currently on vanco and zosyn. will plan for levaquin and augmentin. PT dvt prophylaxis ssi cont lisinipril and added back procardia for her elevated bp nutritional supplement will need snf placement. - d/c to SNF 12/25/17, DC was not done due to arrangements for wound vac. (2) Abscess of buttock ICD Codes: L02.31 - Cutaneous abscess of buttock Status: Acute (3) General weakness ICD Codes: R53.1 - Weakness Status: Acute (4) CVA (cerebral infarction) ICD Codes: I63.9 - CVA (cerebral infarction) Status: Chronic (5) Hypertension ICD Codes: I10 - Hypertension Status: Chronic (6) Diabetes ICD Codes: E11.9 - Diabetes mellitus Status: Chronic Assessment and Plan Patient examined. Assessment and plan formulated with Ana Solis PA-C. I agree with the above. Ana Solis Dec 26, 2017 16:36 Christopher Quevedo DO Dec 28, 2017 00:51
== END 2017-12-26 19:00 | DRG 579 ==
LOC: NEPE 13:37 → NEDA 16:34 → N05B 21:25
PROVIDERS: ADMIT Hospitalist; ATTEND Hospitalist
PROC: 0QD10ZZ Extraction of Sacrum, Open Approach (ICD-10-PCS; 2017-12-19)
PROC: 30233N1 Transfusion of Nonautologous Red Blood Cells into Peripheral Vein, Percutaneous Approach (ICD-10-PCS; 2017-12-19)
PROC: 0KBN0ZZ Excision of Right Hip Muscle, Open Approach (ICD-10-PCS; principal; 2017-12-19 16:00)
DX: L89.154 Pressure ulcer of sacral region, stage 4 (principal); E11.40 Type 2 diabetes mellitus with diabetic neuropathy, unspecified; I96 Gangrene, not elsewhere classified; I11.0 Hypertensive heart disease with heart failure; I50.9 Heart failure, unspecified; L02.31 Cutaneous abscess of buttock; L89.314 Pressure ulcer of right buttock, stage 4; L89.620 Pressure ulcer of left heel, unstageable; E78.5 Hyperlipidemia, unspecified; M51.36 Other intervertebral disc degeneration, lumbar region; Z96.652 Presence of left artificial knee joint; L89.899 Pressure ulcer of other site, unspecified stage; F41.9 Anxiety disorder, unspecified; F32.9 Major depressive disorder, single episode, unspecified; Z66 Do not resuscitate; D63.8 Anemia in other chronic diseases classified elsewhere; E88.09 Other disorders of plasma-protein metabolism, not elsewhere classified; E07.9 Disorder of thyroid, unspecified; M19.90 Unspecified osteoarthritis, unspecified site; M48.00 Spinal stenosis, site unspecified; Z86.73 Personal history of transient ischemic attack (TIA), and cerebral infarction without residual deficits; Z74.01 Bed confinement status; Z85.3 Personal history of malignant neoplasm of breast
CPT/HCPCS: 36430; 71045; 72193; 76937; 80048; 80053; 80202; 81001; 82565; 82607; 82728; 82948; 83036; 83540; 83550; 83605; 83735; 85007; 85025; 85027; 85610; 85730; 86850; 86900; 86901; 86920; 87040; 87070; 87086; 87205; 93005; 96365; 96375; J1100; J1815; J1885; J1956; J2370; J2405; J2543; J2710; J3010; J3370; J3480; J7030; J7040; J7042; J7050; P9016; Q9967